=== PATIENT | male | born 1960 | race Caucasian/White ===

== ENCOUNTER → 2020-03-16 13:31 | Outpatient (BNVA) | payer MEDICARE, MEDICAID, SELFPAY | PROVIDERS: PCP Internal Medicine; Referring Provider Internal Medicine; Visit Provider Internal Medicine | DX: G47.33 Obstructive sleep apnea (adult) (pediatric) (principal); E66.01 Morbid (severe) obesity due to excess calories; Z68.41 Body mass index [BMI] 40.0-44.9, adult; F17.210 Nicotine dependence, cigarettes, uncomplicated; Z71.6 Tobacco abuse counseling; Z99.89 Dependence on other enabling machines and devices | CPT/HCPCS: 99213 ==

== ENCOUNTER 2020-03-22 10:02 | Outpatient (REF) | payer MEDICARE, MEDICAID, SELFPAY ==
[2020-03-22 11:10] LABS: Hematocrit 44.6 % (42-52); Hemoglobin 15.2 g/dl (14.0-18.0); Mean Corpuscular HGB Conc 34.1 g/dl (31.0-36.0); Mean Corpuscular Hemoglobin 30.5 pg (27.0-33.0); Mean Corpuscular Volume 89.6 fL (80-98); Platelet Count 248 X10*3/uL (160-400); Red Blood Count 4.98 X10*6/uL (4.60-5.80); Red Cell Distribution Width 12.9 % (11.0-16.0); White Blood Count 9.4 X10*3/uL (4.8-10.8)
[2020-03-22 11:16] LABS: Estimated Average Glucose 157 mg/dL; Hemoglobin A1c % 7.1 %
[2020-03-22 11:49] LABS: Alanine Aminotransferase 27 U/L (0-40); Alkaline Phosphatase 61 U/L (39-117); Anion Gap 10 (12-20); Aspartate Amino Transferase 23 U/L (5-37); Bilirubin Direct 0.4 mg/dL (0.0-0.5); Bilirubin Total 0.6 mg/dL (0.0-1.0); Blood Urea Nitrogen 11 mg/dL (9-16); Calcium 9.5 mg/dL (8.4-10.2); Carbon Dioxide 28 mmol/L (22-29); Chloride 102 mmol/L (96-108); Estimated Glomerular Filt Rate > 60; Glucose Random 135 mg/dL (60-115); Potassium 4.3 mmol/l (3.3-5.1); Sodium 136 mmol/L (135-145); Total Protein 6.5 g/dL (6.5-8.0)
[2020-03-22 11:51] LABS: Glucose Urine UA NEG (NEG); Leukocyte Esterase Urine NEG (NEG); Nitrite Urine NEG (NEG); PH 5.5 (5.0-8.0); Urine Blood NEG (NEG); Urine Ketones NEG (NEG); Urine Protein NEG (NEG-TRACE)
[2020-03-22 11:55] LABS: Appearance Urine CLEAR; Color Urine YELLOW
[2020-03-22 12:11] LABS: Thyroid Stimulating Hormone 0.45 mIU/mL (0.32-4.0)
== END 2020-03-22 10:03 | disposition home or self-care (01) ==
LOC: HO.LAB 10:02
PROVIDERS: PCP Internal Medicine; Visit Provider Internal Medicine
DX: E11.9 Type 2 diabetes mellitus without complications (principal); G47.00 Insomnia, unspecified; F41.9 Anxiety disorder, unspecified; F20.9 Schizophrenia, unspecified; E78.5 Hyperlipidemia, unspecified; I10 Essential (primary) hypertension
CPT/HCPCS: 36415; 80048; 80076; 81003; 83036; 84443; 85027

== ENCOUNTER 2020-06-21 10:37 | Outpatient (REF) | payer MEDICARE, MEDICAID, SELFPAY ==
[2020-06-21 12:10] LABS: Estimated Average Glucose 166 mg/dL; Hemoglobin A1c % 7.4 %
== END 2020-06-21 10:38 | disposition home or self-care (01) ==
LOC: HO.LAB 10:37
PROVIDERS: PCP Internal Medicine; Visit Provider Internal Medicine
DX: J06.9 Acute upper respiratory infection, unspecified (principal); Z20.822 Contact with and (suspected) exposure to COVID-19; E11.9 Type 2 diabetes mellitus without complications
CPT/HCPCS: 36415; 82550; 83036; U0003

== ENCOUNTER → 2020-07-22 13:38 | Outpatient (BNVA) | payer MEDICARE, MEDICAID, SELFPAY | PROVIDERS: PCP Internal Medicine; Visit Provider Internal Medicine | DX: E66.01 Morbid (severe) obesity due to excess calories (principal); G47.33 Obstructive sleep apnea (adult) (pediatric); F17.200 Nicotine dependence, unspecified, uncomplicated | CPT/HCPCS: 99212 ==

== ENCOUNTER 2020-07-26 18:24 | Emergency (ER) | payer MEDICARE, MEDICAID, SELFPAY ==
[2020-07-26 18:43] VITALS: BP 164/93; PULSE 93; RESP 16; TEMP 36.9; O2SAT 98; BMI 43.0
[2020-07-26 22:05] VITALS: BP 157/73; PULSE 87; RESP 16; TEMP 36.8; O2SAT 99
[2020-07-26 22:20] LABS: Glucose Urine UA NEG (NEG); Leukocyte Esterase Urine NEG (NEG); Nitrite Urine NEG (NEG); Urine Blood NEG (NEG); Urine Ketones NEG (NEG); Urine Protein NEG (NEG-TRACE)
[2020-07-26 22:22] LABS: Appearance Urine CLEAR; Color Urine STRAW
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
[2020-07-26] MEDS: Escitalopram Oxalate 10 MG TABLET PO (22:50)
[2020-07-26] MEDS: metFORMIN HCl 500 MG TABLET PO (22:51)
[2020-07-26] MEDS: traMADoL HCL 50 MG TABLET PO (22:51)
[2020-07-26] MEDS: LORazepam 0.5 MG TABLET PO (22:51)
[2020-07-26 22:56] LABS: Amphetamine Screen Urine Not Detected (Not Detect); Barbiturates, Urine Not Detected (Not Detect); Cannabinoid Screen Urine Not Detected (Not Detect); Cocaine Screen Urine Not Detected (Not Detect); Opiate Screen Urine Not Detected (Not Detect); Phencyclidine Screen Urine Not Detected (Not Detect)
[2020-07-26 22:58] LABS: Benzodiazepines Screen Urine Not Detected (Not Detect)
== END 2020-07-26 22:56 | disposition home or self-care (01) ==
PROVIDERS: Emergency Provider Emergency Medicine; PCP Internal Medicine
DX: Z02.89 Encounter for other administrative examinations (principal); E11.9 Type 2 diabetes mellitus without complications; I10 Essential (primary) hypertension; F41.9 Anxiety disorder, unspecified; E78.5 Hyperlipidemia, unspecified; G47.00 Insomnia, unspecified; F17.210 Nicotine dependence, cigarettes, uncomplicated; Z79.84 Long term (current) use of oral hypoglycemic drugs; Z79.899 Other long term (current) drug therapy
CPT/HCPCS: 80307; 81003; 99283

== ENCOUNTER 2020-09-20 13:18 | Outpatient (REF) | payer MEDICARE, MEDICAID, SELFPAY ==
[2020-09-20 14:24] LABS: Hematocrit 43.4 % (42-52); Hemoglobin 14.9 g/dl (14.0-18.0); Mean Corpuscular HGB Conc 34.3 g/dl (31.0-36.0); Mean Corpuscular Hemoglobin 30.4 pg (27.0-33.0); Mean Corpuscular Volume 88.6 fL (80-98); Platelet Count 235 X10*3/uL (160-400); Red Cell Distribution Width 12.6 % (11.0-16.0); White Blood Count 9.5 X10*3/uL (4.8-10.8)
[2020-09-20 14:30] LABS: Estimated Average Glucose 174 mg/dL; Hemoglobin A1c % 7.7 %
[2020-09-20 14:37] LABS: Alanine Aminotransferase 49 U/L (0-40); Albumin Level 4.2 g/dL (3.5-5.0); Alkaline Phosphatase 66 U/L (39-117); Anion Gap 15 (12-20); Aspartate Amino Transferase 33 U/L (5-37); Bilirubin Direct 0.3 mg/dL (0.0-0.5); Bilirubin Total 0.8 mg/dL (0.0-1.0); Blood Urea Nitrogen 13 mg/dL (9-16); Calcium 10.2 mg/dL (8.4-10.2); Carbon Dioxide 26 mmol/L (22-29); Chloride 99 mmol/L (96-108); Cholesterol 172 mg/dL; Estimated Glomerular Filt Rate > 60; Glucose Random 218 mg/dL (60-115); HDL Cholesterol 44 mg/dL; LDL Cholesterol Calculated 74 mg/dl; Potassium 4.7 mmol/L (3.3-5.1); Sodium 135 mmol/L (135-145); Total Protein 6.6 g/dL (6.5-8.0); Triglycerides 270 mg/dL
[2020-09-20 14:50] LABS: Thyroid Stimulating Hormone 0.47 uIU/mL (0.32-4.0)
[2020-09-20 15:24] LABS: Folate 8.9 ng/mL (> or = 4.0); Vitamin B12 346 pg/mL (200-900)
[2020-09-24 16:12] LABS: Vitamin D 25-OH, D2 <4 ng/mL; Vitamin D 25-OH, D3 17 ng/mL; Vitamin D 25-OH, Total 17 ng/mL (30-100)
== END 2020-09-20 13:19 | disposition home or self-care (01) ==
LOC: HO.LAB 13:18
PROVIDERS: PCP Internal Medicine; Visit Provider Internal Medicine
DX: E11.9 Type 2 diabetes mellitus without complications (principal)
CPT/HCPCS: 36415; 80048; 80061; 80076; 82306; 82607; 82746; 83036; 84443; 85027

== ENCOUNTER → 2021-01-06 11:40 | Outpatient (BNVA) | payer MEDICARE, MEDICAID, SELFPAY | PROVIDERS: PCP Internal Medicine; Visit Provider Internal Medicine | DX: E66.01 Morbid (severe) obesity due to excess calories (principal); G47.33 Obstructive sleep apnea (adult) (pediatric); F17.200 Nicotine dependence, unspecified, uncomplicated | CPT/HCPCS: 99212 ==

== ENCOUNTER 2021-03-02 16:42 | Emergency (ER) | payer MEDICARE, MEDICAID, SELFPAY ==
[2021-03-02 17:49] VITALS: BP 149/78; PULSE 86; RESP 16; TEMP 36.6; O2SAT 100; BMI 44.3
--- NOTE | 2021-03-02 18:35 | ED_ITS ---
HPI - Back Pain/Injury General Chief Complaint: Back Pain/Injury Stated Complaint: back pain Time Seen by Provider: 03/02/21 18:24 Source: patient Mode of arrival: ambulatory Limitations: no limitations History of Present Illness HPI Narrative: With a past medical history of chronic back pain currently on Tylenol and tramadol for his chronic back pain presenting to the ED with complaints of acute on chronic back pain that he woke up with this morning. He reports it is in the midback in a similar to his prior episodes. Denies any fevers, chills, dizziness, headaches, neck pain/stiffness, chest pain or shortne ss of breath, palpitations, paresthesias, abdominal pain, radiation of the back pain, incontinence of urine or stool or retention, hematuria, dysuria, rashes, IV drug use or any other symptoms complaints or concerns at this time. MD elicited complaint: back pain Pertinent past history: prior back pain Onset (ago): day(s) (Today) Timing: constant and progressively worsening Severity: moderate Similar Symptoms Previously: Yes Quality: sharp, dull, stabbing and throbbing Location: lumbar spine Radiation: none Exacerbating factors: movement Relieving factors: none Associated symptoms: denies other symptoms Treatments prior to arrival: other (Tylenol and tramadol and mild to no symptomatic relief) Work related injury: No Related Data Home Medications Medication Instructions Recorded Confirmed aripiprazole 5 mg tablet mg PO 03/16/20 01/15/21 escitalopram oxalate 10 mg tablet mg PO 03/16/20 01/15/21 quetiapine 50 mg tablet mg PO 03/16/20 01/15/21 zolpidem 5 mg tablet mg PO 03/16/20 01/15/21 amoxicillin 250 mg chewable tablet PO 09/20/20 01/15/21 ibuprofen 800 mg tablet mg PO 09/20/20 01/15/21 lorazepam 0.5 mg tablet mg PO 09/20/20 01/15/21 quetiapine 25 mg tablet mg PO 09/20/20 01/15/21 Previous Rx's Medication Instructions Recorded blood sugar diagnostic (FreeStyle 1 strip MISCELLANEOUS DAILY #50 ea 09/24/20 Lite Strips) hydrochlorothiazide 25 mg tablet 25 mg PO QAM #90 cap 11/25/20 metformin 500 mg tablet 1,000 mg PO BID #360 cap 11/25/20 pioglitazone 15 mg tablet 15 mg PO DAILY #90 cap 11/25/20 lisinopril 10 mg tablet 10 mg PO DAILY #90 tab 11/26/20 simvastatin 40 mg tablet 40 mg PO BEDTIME #90 tab 11/26/20 lancets 28 gauge (FreeStyle #100 ea 12/09/20 Lancets) cetirizine 10 mg tablet 10 mg PO DAILY #30 tab 12/26/20 ergocalciferol (vitamin D2) 1,250 1,250 mcg PO QWEEK #14 cap 01/08/21 mcg (50,000 unit) capsule tramadol 50 mg tablet 50 mg PO BEDTIME #30 tab 02/10/21 cyclobenzaprine 10 mg tablet 10 mg PO Q8H #14 tab 03/02/21 lidocaine HCl 4 % topical cream 1 appl TOPICAL BID PRN #120 g 03/02/21 (Aspercreme (lidocaine HCl)) oxycodone 5 mg tablet 5 mg PO Q6H PRN #14 tab 03/02/21 Allergies Allergy/AdvReac Type Severity Reaction Status Date / Time No Known Allergies Allergy Verified 01/15/21 17:38 Review of Systems Review of Systems: Constitutional : No trauma, No Weight loss, No Fever, No Chills, ENT/Mouth : No Hearing loss, No Ear Pain, No Nasal Congestion, No Sinus Pain, No Hoarseness, No sore throat, No Rhinorrhea, No Swallowing Difficulty Cardiovascular : No Chest Pain, No SOB Respiratory : No Cough, No Dyspnea Gastrointestinal : No Nausea, No Vomiting, No Diarrhea, No abdominal Pain, No Hematochezia, No Melena Genitourinary : No Dysuria, No Urinary Frequency, No Hematuria, No Urinary or Bowel Incontinence/retention Musculoskeletal : + Back pain, No neck pain, No joint stiffness, No joint swelling Skin : No Skin Lesions, No rash or signs of infection Neuro : No Weakness, No radiation, No Numbness, No Paresthesias, No headache, no loss of bowel or bladder incontinence, no saddle anesthesia, Focal weakness, No radiation Denies history of IV drug usage. Yes all other systems are reviewed and are negative [facility] Past Medical History Attestation statement: The following information was validated with the patient. Medical History Acute insomnia Anxiety Essential (primary) hypertension Hyperlipidemia, unspecified Morbid (severe) obesity due to excess calories [place] (obstructive sleep apnea) Postconcussional syndrome Schizophrenia, unspecified Smoker Type 2 diabetes mellitus without complications Surgical History No pertinent past surgical history Family History Family History Father No problems noted. Mother No problems noted. Family/Other FH: mental illness Mental health disorder Brother Substance use disorder Social History Social History Housing: House Alcohol intake: current Alcohol intake frequency: holidays/special occasions only Patient Tobacco Use Status: Current everyday Tobacco user Tobacco use type: Cigarette Cigarette Packs Per Day: 0.50 Cigarettes Per Day: 10 Years Smoked: 40 Advance Directives: No Advance Directives Information Provided: No service: No Current occupational status: retired and disabled Physical Exam Vital Signs: Vital Signs: Last Vital Signs Temp 98 F 03/02/21 17:49 Pulse 86 03/02/21 17:49 Resp 16 03/02/21 17:49 BP 149/78 H 03/02/21 17:49 Pulse Ox 100 03/02/21 17:49 Body Mass Index 44.3 vital signs have been reviewed as normal and appeared to be correct. Blood pressure normal. Heart rate normal. Respiration rate normal. Temperature normal. Oxygen saturation normal. Appearance: Alert. Oriented X3. No acute distress. Head: Normal external exam. Normocephalic. Atraumatic. No Gupta signs noted. No raccoon eyes noted Eyes: PERRLA. EOMI. Conjunctiva and sclera normal. Eyelids normal. ENT: EAC normal. TM's Normal. Pharynx normal. Uvula midline. Moist mucous membranes. No trismus noted. No drooling noted. No muffled voice noted. Neck: Normal inspection. Neck supple. FROM. No adenopathy. Thyroid Normal. No meningeal signs. No neck mass noted. CVS: Normal heart rate and rhythm. Heart sound normal. No murmurs noted. Pulses normal throughout. Respiratory: No respiratory distress. Painless inspiration. Breath sounds normal. No wheezes/rales/rhonchi noted. Chest nontender. No accessory muscle usage noted or decreased air movement noted. Abdomen: Soft and nontender. Bowel sounds normal in all 4 quadrants. No distention noted. No organomegaly noted. No visible injury noted. Back: No CVA tenderness. Full range of motion noted. No obvious deformities, or edema. Mild para-spinal muscular tenderness from lumbar region to coccyx. Full ROM in back and lower extremities. 5/5 strength hip extension/flexion, abduction, adduction. Mild Lumbar pain with hip flexion against resistance. Straight leg raise test negative on right; Straight leg raise test negative on left; Reflexes normal ankle and knee bilaterally; EHL motor strength normal bilaterally. No rashes/lesion/induration/fluctuance or signs infection noted. Skin: Skin warm and dry. Normal skin color. Normal skin turgor. No rashes/lesions/lacerations noted. Extremities: No lower extremity edema. Extremities exhibit normal range of motion. Extremities nontender. Neuro: Oriented X 3. No motor deficit. No sensory deficit. Reflexes normal. Patient has a normal steady gait. Course Course Course Narrative: Pt c likely muscular pain, but could be herniated disc. Neuro exam shows no deficits. Not c/w AAA/epidural abscess/dissection.No high risk Hx (Incont, fever, immunosupp, recent surgery/LP, coag, signif trauma, wt loss, puls mass, hx/o Ca, TB, or IVDU) to warrant MRI/CT today. Not c/w Pyelo/UTI/kidney stone/spinal fx. Not cauda equina syndrome. Imaging not currently indicated. DC c meds and f/u. Discharge Plan Discharge Clinical Impression: Strain of lumbar region Patient Disposition: Home, Self-Care Instructions: Low Back Strain (ED) Prescriptions: New lidocaine HCl [Aspercreme (lidocaine HCl)] 4 % cream 1 appl topical BID PRN (Reason: pain) Qty: 120 RF: 0 cyclobenzaprine 10 mg tablet 10 mg PO Q8H Qty: 14 RF: 0 oxycodone 5 mg tablet 5 mg PO Q6H PRN (Reason: pain) Qty: 14 RF: 0 No Action FreeStyle Lite Strips Strip 1 strip miscellaneous DAILY Qty: 50 RF: 6 hydrochlorothiazide 25 mg tablet 25 mg PO QAM Qty: 90 RF: 1 metformin 500 mg tablet 1,000 mg PO BID Qty: 360 RF: 1 pioglitazone 15 mg tablet 15 mg PO DAILY Qty: 90 RF: 1 simvastatin 40 mg tablet 40 mg PO BEDTIME Qty: 90 RF: 1 lisinopril 10 mg tablet 10 mg PO DAILY Qty: 90 RF: 1 (DME) lancets [FreeStyle Lancets] 28 gauge misc See Rx Instructions .ROUTE .MEDSUPPLY Qty: 100 RF: 0 cetirizine 10 mg tablet 10 mg PO DAILY Qty: 30 RF: 6 ergocalciferol (vitamin D2) 1,250 mcg (50,000 unit) capsule 1,250 mcg PO QWEEK Qty: 14 RF: 1 tramadol 50 mg tablet 50 mg PO BEDTIME Qty: 30 RF: 0 amoxicillin 250 mg tablet,chewable PO RF: 0 ibuprofen 800 mg tablet PO RF: 0 lorazepam 0.5 mg tablet PO RF: 0 quetiapine 25 mg tablet PO RF: 0 aripiprazole 5 mg tablet PO RF: 0 escitalopram oxalate 10 mg tablet PO RF: 0 zolpidem 5 mg tablet PO RF: 0 quetiapine 50 mg tablet PO RF: 0 Referrals: Rajeev Sawant MD [Primary Care Provider] - 2 days Print Language: Mongolian
== END 2021-03-02 19:06 | disposition home or self-care (01) ==
PROVIDERS: Emergency Provider Internal Medicine; PCP Internal Medicine
DX: M54.5 Low back pain (principal); F17.210 Nicotine dependence, cigarettes, uncomplicated; Z71.6 Tobacco abuse counseling; Z79.899 Other long term (current) drug therapy
CPT/HCPCS: 99283; 99284

== ENCOUNTER → 2021-07-12 11:00 | Outpatient (BNVA) | payer MEDICARE, MEDICAID, SELFPAY | PROVIDERS: PCP Internal Medicine; Visit Provider Internal Medicine | DX: G47.33 Obstructive sleep apnea (adult) (pediatric) (principal); E66.01 Morbid (severe) obesity due to excess calories; F17.210 Nicotine dependence, cigarettes, uncomplicated; Z68.41 Body mass index [BMI] 40.0-44.9, adult | CPT/HCPCS: Q3014 ==

== ENCOUNTER 2021-09-26 11:06 | Emergency (ER) | payer MEDICARE, MEDICAID, SELFPAY ==
--- NOTE | 2021-09-26 | ECG_ITS ---
Test Reason : DIZZINESS Blood Pressure : / mmHG Vent. Rate : 087 BPM Atrial Rate : 087 BPM P-R Int : 148 ms QRS Dur : 176 ms QT Int : 430 ms P-R-T Axes : 059 -76 056 degrees QTc Int : 517 ms Normal sinus rhythm Right bundle branch block Left anterior fascicular block Bifascicular block Abnormal ECG When compared with ECG of 02-SEP-2018 19:16, No significant changes seen Referred By: Generic ED Physician Electronically Signed By:MONIKA VEE
[2021-09-26 11:26] VITALS: BP 157/86; PULSE 90; RESP 18; TEMP 37.1; O2SAT 97; BMI 43.5
[2021-09-26 12:22] VITALS: BP 150/77; PULSE 85; RESP 18; TEMP 37.2; O2SAT 98
--- NOTE | 2021-09-26 12:25 | ED.GENADULT ---
HPI - General Adult General Chief complaint: Dizziness Stated complaint: disorented not feeling well sob Time Seen by Provider: 09/26/21 11:35 Source: patient Mode of arrival: ambulatory Limitations: no limitations History of Present Illness HPI narrative: Patient comes to the emergency room complaining of not feeling well for 1 month. Patient states that he feels fatigued, weak, states that he has been feeling lightheaded for about a month. Patient states that his sister will be visiting him tomorrow, patient decided to come to get checked before she arrives. Patient denies chest pain, no shortness of breath, no vomiting or diarrhea, no fever or chills. Related Data Home Medications Medication Instructions Recorded Confirmed aripiprazole 5 mg tablet mg PO 03/16/20 04/17/21 escitalopram oxalate 10 mg tablet mg PO 03/16/20 04/17/21 zolpidem 5 mg tablet mg PO 03/16/20 04/17/21 lorazepam 0.5 mg tablet mg PO 09/20/20 04/17/21 quetiapine 25 mg tablet mg PO 09/20/20 04/17/21 Previous Rx's Medication Instructions Recorded blood sugar diagnostic (FreeStyle 1 strip MISCELLANEOUS DAILY #50 ea 09/24/20 Lite Strips) lidocaine HCl 4 % topical cream 1 appl TOPICAL BID PRN #120 g 03/02/21 (Aspercreme (lidocaine HCl)) lancets 28 gauge (FreeStyle #100 ea 05/18/21 Lancets) hydrochlorothiazide 25 mg tablet 25 mg PO QAM #90 cap 05/21/21 lisinopril 10 mg tablet 10 mg PO DAILY #90 tab 05/21/21 metformin 500 mg tablet 1,000 mg PO BID #360 cap 05/21/21 pioglitazone 15 mg tablet 15 mg PO DAILY #90 cap 05/21/21 simvastatin 40 mg tablet 40 mg PO BEDTIME #90 tab 05/21/21 ergocalciferol (vitamin D2) 1,250 1,250 mcg PO QWEEK #14 cap 06/26/21 mcg (50,000 unit) capsule cetirizine 10 mg tablet 10 mg PO DAILY #30 tab 07/20/21 tramadol 50 mg tablet 50 mg PO BEDTIME #30 tab 09/15/21 Allergies Allergy/AdvReac Type Severity Reaction Status Date / Time No Known Allergies Allergy Verified 09/26/21 11:26 Review of Systems Review of Systems: Constitutional : No Weight loss, No Fever, No Chills, No Night Sweats, complaining of fatigue, generalized malaise ENT/Mouth : No Hearing loss, No Ear Pain, No Nasal Congestion, No Sinus Pain, No Hoarseness, No sore throat, No Rhinorrhea, No Swallowing Difficulty Eyes: No Eye Pain, No Swelling, No Redness, No Foreign Body, No Discharge, No Vision Changes Cardiovascular : No Chest Pain, No SOB, No Dyspnea on Exertion, No Orthopnea, No Edema, No Palpitations Respiratory : No Cough, No Sputum, No Wheezing, No Smoke Exposure, No Dyspnea Gastrointestinal : No Nausea, No Vomiting, No Diarrhea, No Constipation, No abdominal Pain, No Hematochezia, No Melena Genitourinary : no irregular bleeding, No Dysuria, No Urinary Frequency, No Hematuria, No Urinary Incontinence, No Urgency, No Flank Pain, No Urinary Flow Changes, No Hesitancy Musculoskeletal : No joint pain, No Myalgias, No Joint Swelling Skin : No Skin Lesions, No rash Neuro : No Weakness, No Numbness, No Paresthesias, No Loss of Consciousness, complaining of occasional lightheadedness, No Headache Psych : No Anxiety/Panic, No Depression, No SI/HI/AH/VH, No Social Issues, Heme/Lymph: No Bruising, No Bleeding,No Lymphadenopathy Endocrine : No Polyuria, No Polydipsia, No Temperature Intolerance PMFSH Past Medical History Medical History Acute insomnia Anxiety Essential (primary) hypertension Hyperlipidemia, unspecified Morbid (severe) obesity due to excess calories [place] (obstructive sleep apnea) Postconcussional syndrome Schizophrenia, unspecified Smoker Type 2 diabetes mellitus without complications Surgical History No pertinent past surgical history Family History Family History Father No problems noted. Mother No problems noted. Family/Other FH: mental illness Mental health disorder Brother Substance use disorder Social History Social History Housing: House Alcohol intake: current Alcohol intake frequency: holidays/special occasions only Patient Tobacco Use Status: Current someday Tobacco user Tobacco use type: Cigarette Cigarette Packs Per Day: 0.50 Cigarettes Per Day: 10 Years Smoked: 40 e-Cigarette/Vaping Use: Never Used Second Hand Smoke Exposure: Yes Advance Directives: No Advance Directives Information Provided: Yes service: No Current occupational status: retired and disabled Cognitive needs: No Hearing needs: No Vision needs: Yes (Glasses) Physical Exam ED Vital Signs: Vital Signs - 24 hr 09/26/21 11:26 09/26/21 12:22 09/26/21 13:05 Temperature 98.7 F 98.9 F Pulse Rate 90 85 83 Respiratory Rate 18 18 Blood Pressure 157/86 H 150/77 H 135/75 Pulse Oximetry 97 98 09/26/21 13:07 09/26/21 13:09 Temperature Pulse Rate 84 84 Respiratory Rate Blood Pressure 134/74 136/73 Pulse Oximetry BMI result Body Mass Index 43.5 Const Other: Appearance: Alert. Oriented X3. No acute distress. Eyes: Pupils equal, round and reactive to light. ENT: Pharynx normal. Neck: Normal inspection. Neck supple. No lymph nodes noted. No crepitus CVS: Normal heart rate and rhythm. Pulses normal. Normal S1 and S2 Respiratory: No respiratory distress. Breath sounds normal. No Wheezing. No rales Abdomen: Soft and nontender. No rigidity. No distention. Skin: Skin warm and dry. Normal skin color. Normal skin turgor. Extremities: No lower extremity edema. No Lacerations. No Rash Neuro: Oriented X 3. No motor deficit. No sensory deficit. Moving all extremities. No slurred speech. CN 2 through 12 grossly intact Psych: calm, cooperative, normal affect Course Course Course Narrative: Patient's labs are pending. I discussed the labs with the patient, no acute findings, patient likely having viral syndrome. Orthostatics negative. EKG within normal limits, at this time patient is asymptomatic. Medical Decision Making Lab Data Result diagrams: 09/26/21 12:57 09/26/21 12:57 Labs: Lab Results 09/26/21 09/26/21 09/26/21 Range/Units 12:57 12:57 12:57 WBC 7.4 (4.8-10.8) X10*3/uL RBC 5.13 (4.60-5.80) X10*6/uL Hgb 15.5 (14.0-18.0) g/dl Hct 45.3 (42.0-52.0) % MCV 88.3 (80.0-98.0) fL MCH 30.2 (27.0-33.0) pg MCHC 34.2 (31.0-36.0) g/dl RDW 12.7 (11.0-16.0) % Plt Count 208 (160-400) X10*3/uL MPV 8.9 L (9.4-12.4) fL Immature Gran % (Auto) 0.3 (0.0-0.4) % Neut % (Auto) 54.7 (45-73) % Lymph % (Auto) 33.2 (20-40) % Sharkey % (Auto) 10.1 (2-11) % Eos % (Auto) 1.0 (0-4) % Baso % (Auto) 0.7 (0-2) % Lymph # (Auto) 2.4 (1.2-4.9) X10*3/uL Sharkey # (Auto) 0.7 (0.1-1.2) X10*3/uL Eos # (Auto) 0.1 (0.0-0.4) X10*3/uL Baso # (Auto) 0.1 (0.0-0.2) X10*3/uL Abs Immat Gran (auto) 0.02 (0.00-0.03) X10*3/uL Absolute Neuts (auto) 4.0 (2.0-8.3) x10*3/uL Absolute Nucleated RBC 0.000 (0.0-0.012) X10*3/uL Nucleated RBC % (auto) 0.0 (0.0-0.2) /100WBC Sodium 135 (135-145) mmol/L Potassium 4.5 (3.3-5.1) mmol/L Chloride 100 (96-108) mmol/L Carbon Dioxide 26 (22-29) mmol/L Anion Gap 14 (12-20) BUN 12 (9-16) mg/dL Creatinine 0.87 (0.5-1.4) mg/dL Estim Creat Clear Calc 117.9 Estimated GFR > 60 Random Glucose 277 H (60-115) mg/dL Calcium 10.5 H (8.4-10.2) mg/dL Magnesium 1.7 (1.6-2.6) mg/dL Total Bilirubin 1.1 H (0.0-1.0) mg/dL Direct Bilirubin 0.4 (0.0-0.5) mg/dL AST 24 (5-37) U/L ALT 31 (0-40) U/L Alkaline Phosphatase 76 (39-117) U/L Troponin I High Sens < 3.5 (<3.5-35.0) ng/L Total Protein 6.9 (6.5-8.0) g/dL Albumin 4.2 (3.5-5.0) g/dL Urine Color Urine Appearance Urine pH (5.0-8.0) Ur Specific [place] (1.005-1.025) Urine Protein (NEG-TRACE) MG/DL Urine Glucose (UA) (NEG) MG/DL Urine Ketones (NEG) MG/DL Urine Blood (NEG) Urine Nitrite (NEG) Ur Leukocyte Esterase (NEG) Urine Opiates Screen (Not Detect) Urine Fentanyl Screen (Not Detect) Ur Barbiturates Screen (Not Detect) Ur Phencyclidine Scrn (Not Detect) Ur Amphetamines Screen (Not Detect) U Benzodiazepines Scrn (Not Detect) Urine Cocaine Screen (Not Detect) U Marijuana (THC) Screen (Not Detect) COVID-19 (FERNANDO) (Negative) COVID-19 Clin Com Influenza Type A (LELIA) (Negative) Influenza Type B (LELIA) (Negative) Influenza A & B Note 09/26/21 09/26/21 09/26/21 Range/Units 12:57 12:57 13:38 WBC (4.8-10.8) X10*3/uL RBC (4.60-5.80) X10*6/uL Hgb (14.0-18.0) g/dl Hct (42.0-52.0) % MCV (80.0-98.0) fL MCH (27.0-33.0) pg MCHC (31.0-36.0) g/dl RDW (11.0-16.0) % Plt Count (160-400) X10*3/uL MPV (9.4-12.4) fL Immature Gran % (Auto) (0.0-0.4) % Neut % (Auto) (45-73) % Lymph % (Auto) (20-40) % Sharkey % (Auto) (2-11) % Eos % (Auto) (0-4) % Baso % (Auto) (0-2) % Lymph # (Auto) (1.2-4.9) X10*3/uL Sharkey # (Auto) (0.1-1.2) X10*3/uL Eos # (Auto) (0.0-0.4) X10*3/uL Baso # (Auto) (0.0-0.2) X10*3/uL Abs Immat Gran (auto) (0.00-0.03) X10*3/uL Absolute Neuts (auto) (2.0-8.3) x10*3/uL Absolute Nucleated RBC (0.0-0.012) X10*3/uL Nucleated RBC % (auto) (0.0-0.2) /100WBC Sodium (135-145) mmol/L Potassium (3.3-5.1) mmol/L Chloride (96-108) mmol/L Carbon Dioxide (22-29) mmol/L Anion Gap (12-20) BUN (9-16) mg/dL Creatinine (0.5-1.4) mg/dL Estim Creat Clear Calc Estimated GFR Random Glucose (60-115) mg/dL Calcium (8.4-10.2) mg/dL Magnesium (1.6-2.6) mg/dL Total Bilirubin (0.0-1.0) mg/dL Direct Bilirubin (0.0-0.5) mg/dL AST (5-37) U/L ALT (0-40) U/L Alkaline Phosphatase (39-117) U/L Troponin I High Sens (<3.5-35.0) ng/L Total Protein (6.5-8.0) g/dL Albumin (3.5-5.0) g/dL Urine Color Urine Appearance Urine pH (5.0-8.0) Ur Specific [place] (1.005-1.025) Urine Protein (NEG-TRACE) MG/DL Urine Glucose (UA) (NEG) MG/DL Urine Ketones (NEG) MG/DL Urine Blood (NEG) Urine Nitrite (NEG) Ur Leukocyte Esterase (NEG) Urine Opiates Screen Not Detected (Not Detect) Urine Fentanyl Screen Not Detected (Not Detect) Ur Barbiturates Screen Not Detected (Not Detect) Ur Phencyclidine Scrn Not Detected (Not Detect) Ur Amphetamines Screen Not Detected (Not Detect) U Benzodiazepines Scrn Not Detected (Not Detect) Urine Cocaine Screen Not Detected (Not Detect) U Marijuana (THC) Screen Not Detected (Not Detect) COVID-19 (FERNANDO) Negative (Negative) COVID-19 Clin Com See Note Influenza Type A (LELIA) Negative (Negative) Influenza Type B (LELIA) Negative (Negative) Influenza A & B Note See Note 09/26/21 Range/Units 13:38 WBC (4.8-10.8) X10*3/uL RBC (4.60-5.80) X10*6/uL Hgb (14.0-18.0) g/dl Hct (42.0-52.0) % MCV (80.0-98.0) fL MCH (27.0-33.0) pg MCHC (31.0-36.0) g/dl RDW (11.0-16.0) % Plt Count (160-400) X10*3/uL MPV (9.4-12.4) fL Immature Gran % (Auto) (0.0-0.4) % Neut % (Auto) (45-73) % Lymph % (Auto) (20-40) % Sharkey % (Auto) (2-11) % Eos % (Auto) (0-4) % Baso % (Auto) (0-2) % Lymph # (Auto) (1.2-4.9) X10*3/uL Sharkey # (Auto) (0.1-1.2) X10*3/uL Eos # (Auto) (0.0-0.4) X10*3/uL Baso # (Auto) (0.0-0.2) X10*3/uL Abs Immat Gran (auto) (0.00-0.03) X10*3/uL Absolute Neuts (auto) (2.0-8.3) x10*3/uL Absolute Nucleated RBC (0.0-0.012) X10*3/uL Nucleated RBC % (auto) (0.0-0.2) /100WBC Sodium (135-145) mmol/L Potassium (3.3-5.1) mmol/L Chloride (96-108) mmol/L Carbon Dioxide (22-29) mmol/L Anion Gap (12-20) BUN (9-16) mg/dL Creatinine (0.5-1.4) mg/dL Estim Creat Clear Calc Estimated GFR Random Glucose (60-115) mg/dL Calcium (8.4-10.2) mg/dL Magnesium (1.6-2.6) mg/dL Total Bilirubin (0.0-1.0) mg/dL Direct Bilirubin (0.0-0.5) mg/dL AST (5-37) U/L ALT (0-40) U/L Alkaline Phosphatase (39-117) U/L Troponin I High Sens (<3.5-35.0) ng/L Total Protein (6.5-8.0) g/dL Albumin (3.5-5.0) g/dL Urine Color YELLOW Urine Appearance CLEAR Urine pH 6.0 (5.0-8.0) Ur Specific [place] <= 1.005 (1.005-1.025) Urine Protein NEG (NEG-TRACE) MG/DL Urine Glucose (UA) 500 H (NEG) MG/DL Urine Ketones NEG (NEG) MG/DL Urine Blood NEG (NEG) Urine Nitrite NEG (NEG) Ur Leukocyte Esterase NEG (NEG) Urine Opiates Screen (Not Detect) Urine Fentanyl Screen (Not Detect) Ur Barbiturates Screen (Not Detect) Ur Phencyclidine Scrn (Not Detect) Ur Amphetamines Screen (Not Detect) U Benzodiazepines Scrn (Not Detect) Urine Cocaine Screen (Not Detect) U Marijuana (THC) Screen (Not Detect) COVID-19 (FERNANDO) (Negative) COVID-19 Clin Com Influenza Type A (LELIA) (Negative) Influenza Type B (LELIA) (Negative) Influenza A & B Note Discharge Plan Discharge Clinical Impression: Acute viral syndrome Patient Disposition: Home, Self-Care Instructions: Viral Syndrome (ED) Additional Instructions: Please follow-up with your primary care physician tomorrow. If you have any worsening or new symptoms, please return to the emergency room or call 911 Prescriptions: No Action FreeStyle Lite Strips Strip 1 strip miscellaneous DAILY Qty: 50 6RF (DME) lancets [FreeStyle Lancets] 28 gauge misc See Rx Instructions .ROUTE .MEDSUPPLY Qty: 100 0RF Rx Instructions: Test 2 times daily metformin 500 mg tablet 1,000 mg PO BID Qty: 360 1RF hydrochlorothiazide 25 mg tablet 25 mg PO QAM Qty: 90 1RF pioglitazone 15 mg tablet 15 mg PO DAILY Qty: 90 1RF simvastatin 40 mg tablet 40 mg PO BEDTIME Qty: 90 1RF lisinopril 10 mg tablet 10 mg PO DAILY Qty: 90 1RF ergocalciferol (vitamin D2) 1,250 mcg (50,000 unit) capsule 1,250 mcg PO QWEEK Qty: 14 1RF cetirizine 10 mg tablet 10 mg PO DAILY Qty: 30 6RF tramadol 50 mg tablet 50 mg PO BEDTIME Qty: 30 0RF lidocaine HCl [Aspercreme (lidocaine HCl)] 4 % cream 1 appl topical BID PRN (Reason: pain) Qty: 120 0RF lorazepam 0.5 mg tablet PO 0RF quetiapine 25 mg tablet PO 0RF aripiprazole 5 mg tablet PO 0RF escitalopram oxalate 10 mg tablet PO 0RF zolpidem 5 mg tablet PO 0RF
[2021-09-26 13:05] VITALS: BP 135/75; PULSE 83
[2021-09-26 13:05] LABS: MANUAL DIFF FLAG NO
[2021-09-26 13:07] VITALS: BP 134/74; PULSE 84
[2021-09-26 13:09] VITALS: BP 136/73; PULSE 84
[2021-09-26 13:11] LABS: Basophils Absolute Auto 0.1 X10*3/uL (0.0-0.2); Basophils Percent Auto 0.7 % (0-2); Eosinophils Absolute Auto 0.1 X10*3/uL (0.0-0.4); Hematocrit 45.3 % (42.0-52.0); Hemoglobin 15.5 g/dl (14.0-18.0); Imm Gran Abs Auto 0.02 X10*3/uL (0.00-0.03); Imm Gran Pct Auto 0.3 % (0.0-0.4); Lymphocytes Absolute Auto 2.4 X10*3/uL (1.2-4.9); Lymphocytes Percent Auto 33.2 % (20-40); Mean Corpuscular HGB Conc 34.2 g/dl (31.0-36.0); Mean Corpuscular Hemoglobin 30.2 pg (27.0-33.0); Mean Corpuscular Volume 88.3 fL (80.0-98.0); Mean Platelet Volume 8.9 fL (9.4-12.4); Monocytes Absolute Auto 0.7 X10*3/uL (0.1-1.2); Monocytes Percent Auto 10.1 % (2-11); Neutrophils Percent Auto 54.7 % (45-73); Platelet Count 208 X10*3/uL (160-400); Red Blood Count 5.13 X10*6/uL (4.60-5.80); Red Cell Distribution Width 12.7 % (11.0-16.0); White Blood Count 7.4 X10*3/uL (4.8-10.8)
[2021-09-26 13:31] LABS: Alanine Aminotransferase 31 U/L (0-40); Albumin Level 4.2 g/dL (3.5-5.0); Alkaline Phosphatase 76 U/L (39-117); Anion Gap 14 (12-20); Aspartate Amino Transferase 24 U/L (5-37); Bilirubin Direct 0.4 mg/dL (0.0-0.5); Bilirubin Total 1.1 mg/dL (0.0-1.0); Blood Urea Nitrogen 12 mg/dL (9-16); Calcium 10.5 mg/dL (8.4-10.2); Carbon Dioxide 26 mmol/L (22-29); Chloride 100 mmol/L (96-108); Creatinine Clr Calc Pharmacy 117.9; Estimated Glomerular Filt Rate > 60; Glucose Random 277 mg/dL (60-115); Magnesium 1.7 mg/dL (1.6-2.6); Potassium 4.5 mmol/L (3.3-5.1); Sodium 135 mmol/L (135-145); Total Protein 6.9 g/dL (6.5-8.0)
[2021-09-26 13:37] LABS: Troponin-I High Sensitivity < 3.5 ng/L (<3.5-35.0)
[2021-09-26 13:39] LABS: Influenza A Negative (Negative); Influenza B2 Negative (Negative)
[2021-09-26 13:41] LABS: COVID-19 Test Negative (Negative)
[2021-09-26 14:00] LABS: Amphetamine Screen Urine Not Detected (Not Detect); Barbiturates, Urine Not Detected (Not Detect); Benzodiazepines Screen Urine Not Detected (Not Detect); Cannabinoid Screen Urine Not Detected (Not Detect); Cocaine Screen Urine Not Detected (Not Detect); Fentanyl, urine Not Detected (Not Detect); Opiate Screen Urine Not Detected (Not Detect); Phencyclidine Screen Urine Not Detected (Not Detect)
[2021-09-26 14:04] LABS: Appearance Urine CLEAR; Color Urine YELLOW; Glucose Urine UA 500 MG/DL (NEG); Leukocyte Esterase Urine NEG (NEG); Nitrite Urine NEG (NEG); Specific Gravity - Urine <= 1.005 (1.005-1.025); Urine Blood NEG (NEG); Urine Ketones NEG (NEG); Urine Protein NEG (NEG-TRACE)
== END 2021-09-26 14:31 | disposition home or self-care (01) ==
PROVIDERS: Emergency Provider Emergency Medicine; PCP Internal Medicine
DX: B34.9 Viral infection, unspecified (principal); R42 Dizziness and giddiness; R06.02 Shortness of breath; F17.210 Nicotine dependence, cigarettes, uncomplicated; Z20.822 Contact with and (suspected) exposure to COVID-19; Z79.899 Other long term (current) drug therapy; Z71.6 Tobacco abuse counseling
CPT/HCPCS: 80048; 80076; 80307; 81003; 83735; 84484; 85025; 87502; 87635; 93005; 99283; 99285

== ENCOUNTER → 2022-01-02 10:41 | Outpatient (BNVA) | payer MEDICARE, MEDICAID, SELFPAY | PROVIDERS: PCP Internal Medicine; Visit Provider Internal Medicine | DX: G47.33 Obstructive sleep apnea (adult) (pediatric) (principal); E66.01 Morbid (severe) obesity due to excess calories; Z68.41 Body mass index [BMI] 40.0-44.9, adult | CPT/HCPCS: 99212 ==

== ENCOUNTER → 2022-03-10 08:29 | Outpatient (REF) | payer MEDICARE, MEDICAID, SELFPAY ==
--- NOTE | 2022-03-10 08:32 | HM_ITS ---
* Total monitoring time 4 days and 13 hours. * Underlying rhythm is sinus. Average ventricular rate 79/Min. Range 58 to 114/Min. * Occasional ventricular ectopy with a burden of less than 1%. Isolated beats. * Rare supraventricular ectopy. * No patient diary. MTDD
== END ==
LOC: HO.CARD 08:29
PROVIDERS: Visit Provider Internal Medicine
DX: R55 Syncope and collapse (principal)
CPT/HCPCS: 93242; 93306; Q9957

== ENCOUNTER 2022-04-13 11:06 | Outpatient (REF) | payer MEDICARE, MEDICAID, SELFPAY ==
[2022-04-13 12:31] LABS: Cholesterol 156 mg/dL; HDL Cholesterol 42 mg/dL; LDL Cholesterol Calculated 80 mg/dl; Triglycerides 174 mg/dL
== END 2022-04-13 11:07 | disposition home or self-care (01) ==
LOC: HO.LAB 11:06
PROVIDERS: PCP Internal Medicine; Visit Provider Internal Medicine
DX: E11.9 Type 2 diabetes mellitus without complications (principal)
CPT/HCPCS: 36415; 80061

== ENCOUNTER 2022-05-05 14:14 | Observation (INO) | payer MEDICARE, MEDICAID, SELFPAY ==
[2022-05-05] VITALS (7 sets, daily range): BP systolic 97–157; BP diastolic 54–89; PULSE 84–115; RESP 13–20; TEMP 36.4–36.9; O2SAT 95–98; BMI 42.2
--- NOTE | ~2022-05-05 | XR_ITS ---
EXAMINATION: XR CHEST CLINICAL INFORMATION: Syncope COMPARISON: Chest x-ray 08/06/2013 TECHNIQUE: Frontal portable view of the chest was obtained. 4:01 PM FINDINGS: Lungs are clear. No pulmonary vascular congestion. There is no pleural effusion. The heart size is normal. The cardiac and mediastinal contours are normal. There are multilevel degenerative changes of dorsal spine. XR/XR chest 1V IMPRESSION: Unremarkable examination.
--- NOTE | ~2022-05-05 | CT_ITS ---
EXAMINATION: CT HEAD WITHOUT CONTRAST CLINICAL INFORMATION: Syncope. COMPARISON: CT scan of the head 09/02/2018. TECHNIQUE: Contiguous axial imaging was performed from the skull base to vertex without intravenous administration of contrast. This CT examination was performed using dose optimization techniques as appropriate, variously including the following: *Automated exposure control *Adjustment of mA and/or kV according to patient size (this includes techniques or standardized protocols for targeted exams where dose is matched to indication/reason for exam; i.e. extremities or head) *Use of iterative reconstruction technique DLP: 928 mGy-cm FINDINGS: There is no acute intracranial hemorrhage or abnormal extra-axial collection. No intracranial mass effect or midline shift. Lateral and third ventricles are normal. No hydrocephalus. Tang-white matter differentiation is preserved and there is no evidence of acute territorial infarct. The calvarium and skull base are intact. Mastoid air cells and middle ear cavities are well aerated. No active paranasal sinus disease. There is a relatively prominent epidural inclusion cysts within the scalp over the left parietal convexity. CT/CT head/brain wo IV con IMPRESSION: Unremarkable CT scan of the head. Specifically no evidence of acute territorial infarct or hemorrhage.
--- NOTE | 2022-05-05 14:19 | ECG_ITS ---
Test Reason : SYNCOPE Blood Pressure : / mmHG Vent. Rate : 098 BPM Atrial Rate : 098 BPM P-R Int : 164 ms QRS Dur : 180 ms QT Int : 404 ms P-R-T Axes : 058 -73 072 degrees QTc Int : 515 ms Normal sinus rhythm Right bundle branch block Left anterior fascicular block Bifascicular block Abnormal ECG When compared with ECG of 26-SEP-2021 11:28, No significant change was found Referred By: Adrienne Rodriguez Electronically Signed By:Tacho Summers
--- NOTE | 2022-05-05 14:19 | ED.GENADULT ---
HPI - General Adult General Chief complaint: Syncope <THOM Cardozo - Last Filed: 05/05/22 14:22> Stated complaint: Passed Out in Car <THOM Cardozo - Last Filed: 05/05/22 14:22> Time Seen by Provider: 05/05/22 14:40 <THOM Cardozo - Last Filed: 05/05/22 14:22> Source: patient <THOM Cardozo - Last Filed: 05/05/22 14:22> Mode of arrival: ambulatory <THOM Cardozo - Last Filed: 05/05/22 14:22> ambulatory <Juanita Grant NP - Last Filed: 05/05/22 18:04> Limitations: no limitations <THOM Cardozo - Last Filed: 05/05/22 14:22> History of Present Illness HPI narrative: Adalberto is a 62 yo male with a PMHx of syncope, anxiety, HTN, HLD, DM, [place], and schizophrenia who presents to the emergency department today with a CC of syncope while sitting in the car at around 1:30 PM this afternoon. He says that he went to get a haircut and when he got in the car he lost consciousness after sitting down. He thinks that the event may have last around 5-10 minutes. He admits that he did feel fatigue all day and did not eat much. His blood sugar when checked in the ER was 169. He denied any trauma, headache, dizziness, vision changes, chest pain, shortness of breath, nausea, vomiting, before or after the event but does admit to urinating on himself upon waking. He has had episodes like this in the past with the most recent being 2 months ago when he was mowing the lawn. He has also seen doctors for this in the past but was told it was not concerning and has not received treatment. He is not sure what caused this episode of syncope. <Juanita Grant NP - Last Filed: 05/05/22 18:04> Onset (ago): hour(s) <Juanita Grant NP - Last Filed: 05/05/22 18:04> Location: head <Juanita Grant NP - Last Filed: 05/05/22 18:04> Radiation: non-radiation <Juanita Grant NP - Last Filed: 05/05/22 18:04> Severity: similar to prior episodes <Juanita Grant NP - Last Filed: 05/05/22 18:04> Treatments prior to arrival: none <Juanita Grant NP - Last Filed: 05/05/22 18:04> Related Data Home medications: Home Medications Medication Instructions Recorded Confirmed aripiprazole 5 mg tablet 5 mg PO BEDTIME 02/18/22 02/18/22 escitalopram oxalate 10 mg tablet 10 mg PO DAILY 02/18/22 02/18/22 quetiapine 25 mg tablet 25 mg PO BEDTIME 02/18/22 02/18/22 zolpidem 5 mg tablet 5 mg PO BEDTIME 02/18/22 02/18/22 acetaminophen 500 mg tablet 1 tab PO TID PRN pain 05/05/22 amoxicillin 250 mg capsule 1 cap PO TID 05/05/22 lorazepam 0.5 mg tablet 1 tab PO DAILY PRN Anxiety 05/05/22 Previous Rx's Medication Instructions Recorded hydrochlorothiazide 25 mg tablet 25 mg PO QAM #90 caps 11/18/21 lisinopril 10 mg tablet 10 mg PO DAILY #90 tabs 11/18/21 metformin 500 mg tablet 1,000 mg PO BID #360 caps 11/18/21 pioglitazone 15 mg tablet 15 mg PO DAILY #90 caps 11/18/21 simvastatin 40 mg tablet 40 mg PO BEDTIME #90 tabs 11/18/21 lancets 28 gauge (FreeStyle #100 ea 02/07/22 Lancets) cetirizine 10 mg tablet 10 mg PO DAILY #30 tabs 03/02/22 ergocalciferol (vitamin D2) 1,250 1,250 mcg PO QWEEK #14 caps 03/29/22 mcg (50,000 unit) capsule tramadol 50 mg tablet 50 mg PO BEDTIME #30 tabs 04/21/22 <THOM Cardozo - Last Filed: 05/05/22 14:22> Allergies/adverse reactions: Allergies Allergy/AdvReac Type Severity Reaction Status Date / Time No Known Allergies Allergy Verified 04/12/22 08:55 <THOM Cardozo - Last Filed: 05/05/22 14:22> Review of Systems Review of Systems: Yes all other systems are reviewed and are negative <Juanita Grant NP - Last Filed: 05/05/22 18:04> Constitutional: Constitutional: Reports no additional constitutional complaints, Denies body ache(s), Denies chills, Reports fatigue, Denies fever(s), Denies headache(s) and Denies weakness <Juanita Grant NP - Last Filed: 05/05/22 18:04> Eyes: Eyes: Reports no additional eye complaints and Denies change in vision <Juanita Grant NP - Last Filed: 05/05/22 18:04> ENT: Reports system reviewed and no additional complaints, except as documented, Denies dizziness, Denies headache(s), Denies nasal congestion, Denies nasal discharge and Denies neck pain <Juanita Grant NP - Last Filed: 05/05/22 18:04> Cardiovascular: Cardiovascular: Reports no additional cardiovascular complaints, Denies chest pain, Denies leg edema and Denies dyspnea <Juanita Grant NP - Last Filed: 05/05/22 18:04> Respiratory: Respiratory: Reports no additional respiratory complaints, Denies cough and Denies dyspnea <Juanita Grant NP - Last Filed: 05/05/22 18:04> Gastrointestinal: Gastrointestinal: Reports no additional gastrointestinal complaints, Denies abdominal pain, Denies diarrhea, Denies nausea and Denies vomiting <Juanita Grant NP - Last Filed: 05/05/22 18:04> Genitourinary: Genitourinary: Denies urinary incontinence <Juanita Grant NP - Last Filed: 05/05/22 18:04> Musculoskeletal: Musculoskeletal: Reports no additional musculoskeletal complaints, Denies back pain, Denies arthralgias, Denies joint swelling, Denies neck pain, Denies numbness and Denies tingling <Juanita Grant NP - Last Filed: 05/05/22 18:04> Integumentary/Breasts: Skin/Breast: Reports system reviewed and no additional complaints, except as docu and Denies rash <Juanita Grant NP - Last Filed: 05/05/22 18:04> Neurologic: Reports system reviewed and no additional complaints, except as documented, Denies dizziness, Denies headache(s), Denies numbness, Denies tingling and Denies weakness <Juanita Grant NP - Last Filed: 05/05/22 18:04> Endocrine: Endocrine: Reports fatigue <Juanita Grant NP - Last Filed: 05/05/22 18:04> [facility] Past Medical History Attestation statement: The following information was validated with the patient. <Juanita Grant NP - Last Filed: 05/05/22 18:04> Source: old records reviewed <Juanita Grant NP - Last Filed: 05/05/22 18:04> Medical History: Medical History (Updated 05/05/22 @ 17:37 by Juanita Grant NP) Acute insomnia Anxiety Essential (primary) hypertension Hyperlipidemia, unspecified Insomnia Morbid (severe) obesity due to excess calories Morbid obesity with BMI of 40.0-44.9, adult [place] (obstructive sleep apnea) Postconcussional syndrome Pure hypercholesterolemia Schizophrenia, unspecified Smoker Type 2 diabetes mellitus without complications Vitamin D deficiency <TOHM Cardozo - Last Filed: 05/05/22 14:22> Surgical History: Surgical History History of root canal procedure History of wisdom tooth extraction <THOM Cardozo - Last Filed: 05/05/22 14:22> Family History Family History: Family History Father No problems noted. Mother No problems noted. Family/Other FH: mental illness Mental health disorder Brother Substance use disorder <THOM Cardozo - Last Filed: 05/05/22 14:22> Social History Social History: Social History Housing: House Alcohol intake: current Alcohol intake frequency: holidays/special occasions only Patient Tobacco Use Status: Current someday Tobacco user Tobacco use type: Cigarette Cigarette Packs Per Day: 0.50 Cigarettes Per Day: 9 Years Smoked: 40 e-Cigarette/Vaping Use: Never Used Second Hand Smoke Exposure: Yes Advance Directives: No Advance Directives Information Provided: No service: No Current occupational status: retired and disabled Cognitive needs: Yes (cane) Hearing needs: No Vision needs: Yes (Glasses) <THOM Cardozo - Last Filed: 05/05/22 14:22> Physical Exam ED Vital Signs: Vital Signs - 24 hr 05/05/22 14:16 05/05/22 14:52 05/05/22 16:04 Temperature 98.1 F Pulse Rate 115 H 101 H 90 Respiratory Rate 18 16 13 Blood Pressure 124/85 97/54 L 126/79 Pulse Oximetry 98 96 98 Oxygen Delivery Method Room Air Room Air Room Air 05/05/22 17:04 05/05/22 17:05 05/05/22 17:05 Temperature Pulse Rate 95 96 93 Respiratory Rate Blood Pressure 157/89 H 140/81 H 140/86 H Pulse Oximetry Oxygen Delivery Method BMI result Body Mass Index 42.2 <THOM Cardozo - Last Filed: 05/05/22 14:22> Vital Signs - 24 hr 05/05/22 14:16 05/05/22 14:52 05/05/22 16:04 Temperature 98.1 F Pulse Rate 115 H 101 H 90 Respiratory Rate 18 16 13 Blood Pressure 124/85 97/54 L 126/79 Pulse Oximetry 98 96 98 Oxygen Delivery Method Room Air Room Air Room Air 05/05/22 17:04 05/05/22 17:05 05/05/22 17:05 Temperature Pulse Rate 95 96 93 Respiratory Rate Blood Pressure 157/89 H 140/81 H 140/86 H Pulse Oximetry Oxygen Delivery Method BMI result Body Mass Index 42.2 <Juanita Grant NP - Last Filed: 05/05/22 18:04> Const General: cooperative, alert and awake <Juanita Grant NP - Last Filed: 05/05/22 18:04> Orientation/consciousness: patient oriented x3 <Juanita Grant NP - Last Filed: 05/05/22 18:04> Limitations: no limitations <Juanita Grant NP - Last Filed: 05/05/22 18:04> HENMT Head: Yes normal to inspection <Juanita Grant NP - Last Filed: 05/05/22 18:04> Ears: hearing grossly normal bilaterally, external ears normal and TM's normal bilaterally <Juanita Grant NP - Last Filed: 05/05/22 18:04> General nose exam: Normal external nose present <Juanita Grant NP - Last Filed: 05/05/22 18:04> Face and sinus: Yes normal facial exam <Juanita Grant NP - Last Filed: 05/05/22 18:04> Mouth: Normal oral and palatal mucosa present, lip normal and tongue normal <Juanita Grant NP - Last Filed: 05/05/22 18:04> Throat: Yes posterior oropharynx normal <Juanita Grant NP - Last Filed: 05/05/22 18:04> Eyes General: appearance normal, both eyes and all related structures <Juanita Grant NP - Last Filed: 05/05/22 18:04> Pupils: Equal, round and reactive pupils present <Juanita Grant NP - Last Filed: 05/05/22 18:04> EOM: EOMs intact bilaterally <Juanita Grant NP - Last Filed: 05/05/22 18:04> Neck Neck: Yes normal visual inspection, Yes full ROM, Yes no lymphadenopathy and Yes no meningeal signs <Juanita Grant NP - Last Filed: 05/05/22 18:04> Thyroid: Thyroid normal <Juanita Grant NP - Last Filed: 05/05/22 18:04> Resp Effort & Inspection: normal respiratory effort and able to speak in complete sentences <Juanita Grant NP - Last Filed: 05/05/22 18:04> Auscultation: clear to auscultation bilaterally <Juanita Grant NP - Last Filed: 05/05/22 18:04> Cardio Rate: regular rate <Juanita Grant NP - Last Filed: 05/05/22 18:04> Rhythm: regular rhythm <Juanita Grant NP - Last Filed: 05/05/22 18:04> Heart sounds: S1 normal heart sound present and S2 normal heart sound present <Juanita Grant NP - Last Filed: 05/05/22 18:04> Peripheral pulses: Peripheral pulses 2+ throughout <Juanita Grant NP - Last Filed: 05/05/22 18:04> GI Inspection: Yes normal to inspection <Juanita Grant NP - Last Filed: 05/05/22 18:04> Auscultation: normal bowel sounds <Juanita Grant NP - Last Filed: 05/05/22 18:04> Skin General skin exam: no rashes or lesions noted <Juanita Grant NP - Last Filed: 05/05/22 18:04> Neuro General: patient oriented x3, moves all extremities, no meningeal signs and no focal motor deficits <Juanita Grant NP - Last Filed: 05/05/22 18:04> Cranial nerves: Yes CN's II-XII intact bilaterally and Yes Equal, round and reactive pupils present <Juanita Grant NP - Last Filed: 05/05/22 18:04> Cognition (Neuro): normal cognition <Juanita Grant NP - Last Filed: 05/05/22 18:04> Gait exam (Neuro): Normal gait present <Juanita Grant NP - Last Filed: 05/05/22 18:04> Motor exam (neuro): 5/5 motor strength present throughout <Juanita Grant NP - Last Filed: 05/05/22 18:04> Sensory Exam: Normal double simultaneous stimulation for sensation <Juanita Grant NP - Last Filed: 05/05/22 18:04> Extrem General: Yes normal to inspection, Yes no pedal edema and Yes no calf tenderness <Juanita Grant NP - Last Filed: 05/05/22 18:04> Course Course Course Narrative: RME performed by Adrienne Rodriguez PA-C. Patient is a 62 year old male presenting to the emergency department after he passed out in his car. Patient states that since February he has been passing out and having bladder incontinence. CBC, CMP, EKG, CXR, head CT, and troponin ordered. Patient wheeled back to the department and charge nurse informed of the acuity. <THOM Cardozo - Last Filed: 05/05/22 14:22> RME performed by Adrienne Rodriguez PA-C. Patient is a 62 year old male presenting to the emergency department after he passed out in his car. Patient states that since February he has been passing out and having bladder incontinence. CBC, CMP, EKG, CXR, head CT, and troponin ordered. Patient wheeled back to the department and charge nurse informed of the acuity. Adalberto is a 62 yo male with a PMHx of syncope, DM, schizophrenia, anxiety, HTN, and [place] who presented today with a CC of syncope. Pt admitted to feeling fatigued all day but denies any other s/sx. PE including neuro is unremarkable. Initial labs are reassuring. Small elevation in WBC which is not concerning, Calcium slightly elevated at 10.4, corrected calcium calculated to be 10.32, this appears to be chronic and not concerning. D-dimer is negative, CT scan head was ordered. <Juanita Grant NP - Last Filed: 05/05/22 18:04> Reevaluation(s) Reevaluation #1: Patient here with syncopal episode versus seizure. Unclear cause. No previous admissions for syncope workup. Patient will be admitted. <Juanita Grant NP - Last Filed: 05/05/22 18:04> Reevaluation #2: 1800-Spoke to Dr Lock who accepted admissiom. <Juanita Grant NP - Last Filed: 05/05/22 18:04> Medications Administered Discontinued Medications Generic Name Dose Route Start Last Admin Trade Name Freq PRN Reason Stop Dose Admin Sodium Chloride 1,000 mls @ 999 mls/hr 05/05/22 16:00 05/05/22 16:24 Ns IV 05/05/22 17:00 999 mls/hr .Q1H1M DEEPA Administration <THOM Cardozo - Last Filed: 05/05/22 14:22> Medications Administered Discontinued Medications Generic Name Dose Route Start Last Admin Trade Name Freq PRN Reason Stop Dose Admin Sodium Chloride 1,000 mls @ 999 mls/hr 05/05/22 16:00 05/05/22 16:24 Ns IV 05/05/22 17:00 999 mls/hr .Q1H1M DEEPA Administration <Juanita Grant NP - Last Filed: 05/05/22 18:04> Medical Decision Making [facility] Narrative Medical decision making narrative: DDx: Syncope r/o seizures- no hx of seizures, no focal neurological deficits, no evidence of tongue biting on PE r/o ortho hypotension- no hx of prolonged bed rest or severe hypovolemia, UA indicates hydrated r/o Hemorraghic stroke-no headache, no focal neurological signs, no nausea, no vomiting. r/o SAH-no sudden CARVAJAL, no meningeal signs, normal neuro exam r/o PE- denies chest pain, dyspnea, no leg edema or pain, PERC 0, d dimer negative <Juanita Grant NP - Last Filed: 05/05/22 18:04> Medical Records Medical records reviewed: Yes I reviewed the patient's medical records. <Juanita Grant NP - Last Filed: 05/05/22 18:04> Lab Data Lab results reviewed: Yes I reviewed the patient's lab results. <Juanita Grant NP - Last Filed: 05/05/22 18:04> Lab results narrative: Lactic acid elevated to 2.4, concern for possibly syncopal episode vs seziure <Juanita Grant NP - Last Filed: 05/05/22 18:04> Result diagrams: : 05/05/22 15:54 05/05/22 15:54 <THOM Cardozo - Last Filed: 05/05/22 14:22> Labs: Lab Results 05/05/22 05/05/22 05/05/22 Range/Units 15:54 15:54 15:54 WBC 11.9 H (4.8-10.8) X10*3/uL RBC 5.22 (4.60-5.80) X10*6/uL Hgb 15.7 (14.0-18.0) g/dl Hct 46.3 (42.0-52.0) % MCV 88.7 (80.0-98.0) fL MCH 30.1 (27.0-33.0) pg MCHC 33.9 (31.0-36.0) g/dl RDW 12.5 (11.0-16.0) % Plt Count 242 (160-400) X10*3/uL MPV 8.8 L (9.4-12.4) fL Immature Gran % (Auto) 0.4 (0.0-0.4) % Neut % (Auto) 73.9 H (45-73) % Lymph % (Auto) 16.4 L (20-40) % [place] % (Auto) 8.4 (2-11) % Eos % (Auto) 0.3 (0-4) % Baso % (Auto) 0.6 (0-2) % Lymph # (Auto) 2.0 (1.2-4.9) X10*3/uL [place] # (Auto) 1.0 (0.1-1.2) X10*3/uL Eos # (Auto) 0.0 (0.0-0.4) X10*3/uL Baso # (Auto) 0.1 (0.0-0.2) X10*3/uL Abs Immat Gran (auto) 0.05 H (0.00-0.03) X10*3/uL Absolute Neuts (auto) 8.8 H (2.0-8.3) x10*3/uL Absolute Nucleated RBC 0.000 (0.0-0.012) X10*3/uL Nucleated RBC % (auto) 0.0 (0.0-0.2) /100WBC PT (10.0-13.1) SEC INR (0.9-1.1) D-Dimer High Sensitivty NG/ML Sodium 134 L (135-145) mmol/L Potassium 4.4 (3.3-5.1) mmol/L Chloride 98 (96-108) mmol/L Carbon Dioxide 29 (22-29) mmol/L Anion Gap 11 L (12-20) BUN 12 (9-16) mg/dL Creatinine 1.00 (0.5-1.4) mg/dL Estim Creat Clear Calc 99.5 Estimated GFR > 60 Random Glucose 212 H (60-115) mg/dL Lactic Acid (0.5-2.0) mmol/L Calcium 10.4 H (8.4-10.2) mg/dL Magnesium 1.8 (1.6-2.6) mg/dL Total Bilirubin 1.0 (0.0-1.0) mg/dL AST 63 H (5-37) U/L ALT 61 H (0-40) U/L Alkaline Phosphatase 56 (39-117) U/L Troponin I High Sens 27.9 (<3.5-35.0) ng/L Total Protein 6.5 (6.5-8.0) g/dL Albumin 4.1 (3.5-5.0) g/dL Urine Color Urine Appearance Urine pH (5.0-9.0) Ur Specific [place] (1.005-1.025) Urine Protein (Neg-Trace) mg/dL Urine Glucose (UA) (Negative) mg/dL Urine Ketones (Negative) mg/dL Urine Blood (Negative) Urine Nitrite (Negative) Ur Leukocyte Esterase (Negative) Urine RBC (0-2) /HPF Urine WBC (0-5) /HPF Ur Squamous Epith Cells (0-2) /HPF Urine Bacteria (None Seen) Hyaline Casts (0-2) /LPF COVID-19 (FERNANDO) (Negative) COVID-19 Clin Com 05/05/22 05/05/22 05/05/22 Range/Units 15:54 15:54 15:54 WBC (4.8-10.8) X10*3/uL RBC (4.60-5.80) X10*6/uL Hgb (14.0-18.0) g/dl Hct (42.0-52.0) % MCV (80.0-98.0) fL MCH (27.0-33.0) pg MCHC (31.0-36.0) g/dl RDW (11.0-16.0) % Plt Count (160-400) X10*3/uL MPV (9.4-12.4) fL Immature Gran % (Auto) (0.0-0.4) % Neut % (Auto) (45-73) % Lymph % (Auto) (20-40) % [place] % (Auto) (2-11) % Eos % (Auto) (0-4) % Baso % (Auto) (0-2) % Lymph # (Auto) (1.2-4.9) X10*3/uL [place] # (Auto) (0.1-1.2) X10*3/uL Eos # (Auto) (0.0-0.4) X10*3/uL Baso # (Auto) (0.0-0.2) X10*3/uL Abs Immat Gran (auto) (0.00-0.03) X10*3/uL Absolute Neuts (auto) (2.0-8.3) x10*3/uL Absolute Nucleated RBC (0.0-0.012) X10*3/uL Nucleated RBC % (auto) (0.0-0.2) /100WBC PT 11.4 (10.0-13.1) SEC INR 1.0 (0.9-1.1) D-Dimer High Sensitivty 165 NG/ML Sodium (135-145) mmol/L Potassium (3.3-5.1) mmol/L Chloride (96-108) mmol/L Carbon Dioxide (22-29) mmol/L Anion Gap (12-20) BUN (9-16) mg/dL Creatinine (0.5-1.4) mg/dL Estim Creat Clear Calc Estimated GFR Random Glucose (60-115) mg/dL Lactic Acid 2.4 H* (0.5-2.0) mmol/L Calcium (8.4-10.2) mg/dL Magnesium (1.6-2.6) mg/dL Total Bilirubin (0.0-1.0) mg/dL AST (5-37) U/L ALT (0-40) U/L Alkaline Phosphatase (39-117) U/L Troponin I High Sens (<3.5-35.0) ng/L Total Protein (6.5-8.0) g/dL Albumin (3.5-5.0) g/dL Urine Color Urine Appearance Urine pH (5.0-9.0) Ur Specific [place] (1.005-1.025) Urine Protein (Neg-Trace) mg/dL Urine Glucose (UA) (Negative) mg/dL Urine Ketones (Negative) mg/dL Urine Blood (Negative) Urine Nitrite (Negative) Ur Leukocyte Esterase (Negative) Urine RBC (0-2) /HPF Urine WBC (0-5) /HPF Ur Squamous Epith Cells (0-2) /HPF Urine Bacteria (None Seen) Hyaline Casts (0-2) /LPF COVID-19 (FERNANDO) Negative (Negative) COVID-19 Clin Com See Note 05/05/22 Range/Units 17:16 WBC (4.8-10.8) X10*3/uL RBC (4.60-5.80) X10*6/uL Hgb (14.0-18.0) g/dl Hct (42.0-52.0) % MCV (80.0-98.0) fL MCH (27.0-33.0) pg MCHC (31.0-36.0) g/dl RDW (11.0-16.0) % Plt Count (160-400) X10*3/uL MPV (9.4-12.4) fL Immature Gran % (Auto) (0.0-0.4) % Neut % (Auto) (45-73) % Lymph % (Auto) (20-40) % [place] % (Auto) (2-11) % Eos % (Auto) (0-4) % Baso % (Auto) (0-2) % Lymph # (Auto) (1.2-4.9) X10*3/uL [place] # (Auto) (0.1-1.2) X10*3/uL Eos # (Auto) (0.0-0.4) X10*3/uL Baso # (Auto) (0.0-0.2) X10*3/uL Abs Immat Gran (auto) (0.00-0.03) X10*3/uL Absolute Neuts (auto) (2.0-8.3) x10*3/uL Absolute Nucleated RBC (0.0-0.012) X10*3/uL Nucleated RBC % (auto) (0.0-0.2) /100WBC PT (10.0-13.1) SEC INR (0.9-1.1) D-Dimer High Sensitivty NG/ML Sodium (135-145) mmol/L Potassium (3.3-5.1) mmol/L Chloride (96-108) mmol/L Carbon Dioxide (22-29) mmol/L Anion Gap (12-20) BUN (9-16) mg/dL Creatinine (0.5-1.4) mg/dL Estim Creat Clear Calc Estimated GFR Random Glucose (60-115) mg/dL Lactic Acid (0.5-2.0) mmol/L Calcium (8.4-10.2) mg/dL Magnesium (1.6-2.6) mg/dL Total Bilirubin (0.0-1.0) mg/dL AST (5-37) U/L ALT (0-40) U/L Alkaline Phosphatase (39-117) U/L Troponin I High Sens (<3.5-35.0) ng/L Total Protein (6.5-8.0) g/dL Albumin (3.5-5.0) g/dL Urine Color Yellow Urine Appearance Clear Urine pH 6.5 (5.0-9.0) Ur Specific [place] 1.015 (1.005-1.025) Urine Protein 300 (3+) H (Neg-Trace) mg/dL Urine Glucose (UA) 100 H (Negative) mg/dL Urine Ketones Negative (Negative) mg/dL Urine Blood Trace H (Negative) Urine Nitrite Negative (Negative) Ur Leukocyte Esterase Negative (Negative) Urine RBC 0-2 (0-2) /HPF Urine WBC 0-5 (0-5) /HPF Ur Squamous Epith Cells 0-2 (0-2) /HPF Urine Bacteria None Seen (None Seen) Hyaline Casts 0-2 (0-2) /LPF COVID-19 (FERNANDO) (Negative) COVID-19 Clin Com <THOM Cardozo - Last Filed: 05/05/22 14:22> Lab Results 05/05/22 05/05/22 05/05/22 Range/Units 15:54 15:54 15:54 WBC 11.9 H (4.8-10.8) X10*3/uL RBC 5.22 (4.60-5.80) X10*6/uL Hgb 15.7 (14.0-18.0) g/dl Hct 46.3 (42.0-52.0) % MCV 88.7 (80.0-98.0) fL MCH 30.1 (27.0-33.0) pg MCHC 33.9 (31.0-36.0) g/dl RDW 12.5 (11.0-16.0) % Plt Count 242 (160-400) X10*3/uL MPV 8.8 L (9.4-12.4) fL Immature Gran % (Auto) 0.4 (0.0-0.4) % Neut % (Auto) 73.9 H (45-73) % Lymph % (Auto) 16.4 L (20-40) % [place] % (Auto) 8.4 (2-11) % Eos % (Auto) 0.3 (0-4) % Baso % (Auto) 0.6 (0-2) % Lymph # (Auto) 2.0 (1.2-4.9) X10*3/uL [place] # (Auto) 1.0 (0.1-1.2) X10*3/uL Eos # (Auto) 0.0 (0.0-0.4) X10*3/uL Baso # (Auto) 0.1 (0.0-0.2) X10*3/uL Abs Immat Gran (auto) 0.05 H (0.00-0.03) X10*3/uL Absolute Neuts (auto) 8.8 H (2.0-8.3) x10*3/uL Absolute Nucleated RBC 0.000 (0.0-0.012) X10*3/uL Nucleated RBC % (auto) 0.0 (0.0-0.2) /100WBC PT (10.0-13.1) SEC INR (0.9-1.1) D-Dimer High Sensitivty NG/ML Sodium 134 L (135-145) mmol/L Potassium 4.4 (3.3-5.1) mmol/L Chloride 98 (96-108) mmol/L Carbon Dioxide 29 (22-29) mmol/L Anion Gap 11 L (12-20) BUN 12 (9-16) mg/dL Creatinine 1.00 (0.5-1.4) mg/dL Estim Creat Clear Calc 99.5 Estimated GFR > 60 Random Glucose 212 H (60-115) mg/dL Lactic Acid (0.5-2.0) mmol/L Calcium 10.4 H (8.4-10.2) mg/dL Magnesium 1.8 (1.6-2.6) mg/dL Total Bilirubin 1.0 (0.0-1.0) mg/dL AST 63 H (5-37) U/L ALT 61 H (0-40) U/L Alkaline Phosphatase 56 (39-117) U/L Troponin I High Sens 27.9 (<3.5-35.0) ng/L Total Protein 6.5 (6.5-8.0) g/dL Albumin 4.1 (3.5-5.0) g/dL Urine Color Urine Appearance Urine pH (5.0-9.0) Ur Specific [place] (1.005-1.025) Urine Protein (Neg-Trace) mg/dL Urine Glucose (UA) (Negative) mg/dL Urine Ketones (Negative) mg/dL Urine Blood (Negative) Urine Nitrite (Negative) Ur Leukocyte Esterase (Negative) Urine RBC (0-2) /HPF Urine WBC (0-5) /HPF Ur Squamous Epith Cells (0-2) /HPF Urine Bacteria (None Seen) Hyaline Casts (0-2) /LPF COVID-19 (FERNANDO) (Negative) COVID-19 Clin Com 05/05/22 05/05/22 05/05/22 Range/Units 15:54 15:54 15:54 WBC (4.8-10.8) X10*3/uL RBC (4.60-5.80) X10*6/uL Hgb (14.0-18.0) g/dl Hct (42.0-52.0) % MCV (80.0-98.0) fL MCH (27.0-33.0) pg MCHC (31.0-36.0) g/dl RDW (11.0-16.0) % Plt Count (160-400) X10*3/uL MPV (9.4-12.4) fL Immature Gran % (Auto) (0.0-0.4) % Neut % (Auto) (45-73) % Lymph % (Auto) (20-40) % [place] % (Auto) (2-11) % Eos % (Auto) (0-4) % Baso % (Auto) (0-2) % Lymph # (Auto) (1.2-4.9) X10*3/uL [place] # (Auto) (0.1-1.2) X10*3/uL Eos # (Auto) (0.0-0.4) X10*3/uL Baso # (Auto) (0.0-0.2) X10*3/uL Abs Immat Gran (auto) (0.00-0.03) X10*3/uL Absolute Neuts (auto) (2.0-8.3) x10*3/uL Absolute Nucleated RBC (0.0-0.012) X10*3/uL Nucleated RBC % (auto) (0.0-0.2) /100WBC PT 11.4 (10.0-13.1) SEC INR 1.0 (0.9-1.1) D-Dimer High Sensitivty 165 NG/ML Sodium (135-145) mmol/L Potassium (3.3-5.1) mmol/L Chloride (96-108) mmol/L Carbon Dioxide (22-29) mmol/L Anion Gap (12-20) BUN (9-16) mg/dL Creatinine (0.5-1.4) mg/dL Estim Creat Clear Calc Estimated GFR Random Glucose (60-115) mg/dL Lactic Acid 2.4 H* (0.5-2.0) mmol/L Calcium (8.4-10.2) mg/dL Magnesium (1.6-2.6) mg/dL Total Bilirubin (0.0-1.0) mg/dL AST (5-37) U/L ALT (0-40) U/L Alkaline Phosphatase (39-117) U/L Troponin I High Sens (<3.5-35.0) ng/L Total Protein (6.5-8.0) g/dL Albumin (3.5-5.0) g/dL Urine Color Urine Appearance Urine pH (5.0-9.0) Ur Specific [place] (1.005-1.025) Urine Protein (Neg-Trace) mg/dL Urine Glucose (UA) (Negative) mg/dL Urine Ketones (Negative) mg/dL Urine Blood (Negative) Urine Nitrite (Negative) Ur Leukocyte Esterase (Negative) Urine RBC (0-2) /HPF Urine WBC (0-5) /HPF Ur Squamous Epith Cells (0-2) /HPF Urine Bacteria (None Seen) Hyaline Casts (0-2) /LPF COVID-19 (FERNANDO) Negative (Negative) COVID-19 Clin Com See Note 05/05/22 Range/Units 17:16 WBC (4.8-10.8) X10*3/uL RBC (4.60-5.80) X10*6/uL Hgb (14.0-18.0) g/dl Hct (42.0-52.0) % MCV (80.0-98.0) fL MCH (27.0-33.0) pg MCHC (31.0-36.0) g/dl RDW (11.0-16.0) % Plt Count (160-400) X10*3/uL MPV (9.4-12.4) fL Immature Gran % (Auto) (0.0-0.4) % Neut % (Auto) (45-73) % Lymph % (Auto) (20-40) % [place] % (Auto) (2-11) % Eos % (Auto) (0-4) % Baso % (Auto) (0-2) % Lymph # (Auto) (1.2-4.9) X10*3/uL [place] # (Auto) (0.1-1.2) X10*3/uL Eos # (Auto) (0.0-0.4) X10*3/uL Baso # (Auto) (0.0-0.2) X10*3/uL Abs Immat Gran (auto) (0.00-0.03) X10*3/uL Absolute Neuts (auto) (2.0-8.3) x10*3/uL Absolute Nucleated RBC (0.0-0.012) X10*3/uL Nucleated RBC % (auto) (0.0-0.2) /100WBC PT (10.0-13.1) SEC INR (0.9-1.1) D-Dimer High Sensitivty NG/ML Sodium (135-145) mmol/L Potassium (3.3-5.1) mmol/L Chloride (96-108) mmol/L Carbon Dioxide (22-29) mmol/L Anion Gap (12-20) BUN (9-16) mg/dL Creatinine (0.5-1.4) mg/dL Estim Creat Clear Calc Estimated GFR Random Glucose (60-115) mg/dL Lactic Acid (0.5-2.0) mmol/L Calcium (8.4-10.2) mg/dL Magnesium (1.6-2.6) mg/dL Total Bilirubin (0.0-1.0) mg/dL AST (5-37) U/L ALT (0-40) U/L Alkaline Phosphatase (39-117) U/L Troponin I High Sens (<3.5-35.0) ng/L Total Protein (6.5-8.0) g/dL Albumin (3.5-5.0) g/dL Urine Color Yellow Urine Appearance Clear Urine pH 6.5 (5.0-9.0) Ur Specific [place] 1.015 (1.005-1.025) Urine Protein 300 (3+) H (Neg-Trace) mg/dL Urine Glucose (UA) 100 H (Negative) mg/dL Urine Ketones Negative (Negative) mg/dL Urine Blood Trace H (Negative) Urine Nitrite Negative (Negative) Ur Leukocyte Esterase Negative (Negative) Urine RBC 0-2 (0-2) /HPF Urine WBC 0-5 (0-5) /HPF Ur Squamous Epith Cells 0-2 (0-2) /HPF Urine Bacteria None Seen (None Seen) Hyaline Casts 0-2 (0-2) /LPF COVID-19 (FERNANDO) (Negative) COVID-19 Clin Com <Juanita Grant NP - Last Filed: 05/05/22 18:04> Imaging Data CT scan - head: Attestation: I personally reviewed and interpreted this imaging study as follows: <Juanita Grant NP - Last Filed: 05/05/22 18:04> Radiologist's impression: FINDINGS: There is no acute intracranial hemorrhage or abnormal extra-axial collection. No intracranial mass effect or midline shift. Lateral and third ventricles are normal. No hydrocephalus. Tang-white matter differentiation is preserved and there is no evidence of acute territorial infarct. The calvarium and skull base are intact. Mastoid air cells and middle ear cavities are well aerated. No active paranasal sinus disease. There is a relatively prominent epidural inclusion cysts within the scalp over the left parietal convexity. ? CT/CT head/brain wo IV con IMPRESSION: Unremarkable CT scan of the head. Specifically no evidence of acute territorial infarct or hemorrhage. <Juanita Grant NP - Last Filed: 05/05/22 18:04> Chest x-ray: Attestation: I personally reviewed and interpreted this imaging study as follows: <Juanita Grant NP - Last Filed: 05/05/22 18:04> Radiologist's impression: [address] [address] XRay Report Signed Patient: Adalberto Rose MR#: [id number] : 1960 Acct:[id number] Age/Sex: 62 / M ADM Date: 05/05/22 Loc: .ED Attending Dr: Ordering Physician: Adrienne Rodriguez Date of Service: 05/05/22 Procedure(s): XR chest 1V Accession Number(s): [id number] cc: Adrienne Rodriguez~ EXAMINATION: XR CHEST CLINICAL INFORMATION: Syncope COMPARISON: Chest x-ray 08/06/2013 TECHNIQUE: Frontal portable view of the chest was obtained. 4:01 PM FINDINGS: ?Lungs are clear. No pulmonary vascular congestion. There is no pleural effusion. The heart size is normal. The cardiac and mediastinal contours are normal. There are multilevel degenerative changes of dorsal spine.? ? XR/XR chest 1V IMPRESSION: Unremarkable examination. ? <Juanita Grant NP - Last Filed: 05/05/22 18:04> ECG Data Attestation: I personally reviewed and interpreted this ECG as follows: <Juanita Grant NP - Last Filed: 05/05/22 18:04> Interpretation: 05/05/22 NSR with rate 98, normal pr, RBBB, normal qtc <Juanita Grant NP - Last Filed: 05/05/22 18:04> Discharge Plan Discharge Clinical Impression: Syncope <THOM Cardozo - Last Filed: 05/05/22 14:22> Patient Disposition: Admitted As Inpatient <THOM Cardozo - Last Filed: 05/05/22 14:22>
[2022-05-05 16:00] LABS: MANUAL DIFF FLAG NO
[2022-05-05 16:02] LABS: Basophils Absolute Auto 0.1 X10*3/uL (0.0-0.2); Basophils Percent Auto 0.6 % (0-2); Eosinophils Percent Auto 0.3 % (0-4); Hematocrit 46.3 % (42.0-52.0); Hemoglobin 15.7 g/dl (14.0-18.0); Imm Gran Abs Auto 0.05 X10*3/uL (0.00-0.03); Imm Gran Pct Auto 0.4 % (0.0-0.4); Lymphocytes Percent Auto 16.4 % (20-40); Mean Corpuscular HGB Conc 33.9 g/dl (31.0-36.0); Mean Corpuscular Hemoglobin 30.1 pg (27.0-33.0); Mean Corpuscular Volume 88.7 fL (80.0-98.0); Mean Platelet Volume 8.8 fL (9.4-12.4); Monocytes Percent Auto 8.4 % (2-11); Neutrophils Absolute Auto 8.8 x10*3/uL (2.0-8.3); Neutrophils Percent Auto 73.9 % (45-73); Platelet Count 242 X10*3/uL (160-400); Red Blood Count 5.22 X10*6/uL (4.60-5.80); Red Cell Distribution Width 12.5 % (11.0-16.0); White Blood Count 11.9 X10*3/uL (4.8-10.8)
[2022-05-05 16:13] LABS: Prothrombin Time 11.4 SEC (10.0-13.1)
[2022-05-05 16:15] LABS: D Dimer High Sensitivity 165 NG/ML
[2022-05-05 16:16] LABS: COVID-19 Test Negative (Negative); IDNOW Serial# 16C4AD1C
[2022-05-05 16:21] LABS: Alanine Aminotransferase 61 U/L (0-40); Albumin Level 4.1 g/dL (3.5-5.0); Alkaline Phosphatase 56 U/L (39-117); Anion Gap 11 (12-20); Aspartate Amino Transferase 63 U/L (5-37); Blood Urea Nitrogen 12 mg/dL (9-16); Calcium 10.4 mg/dL (8.4-10.2); Carbon Dioxide 29 mmol/L (22-29); Chloride 98 mmol/L (96-108); Creatinine Clr Calc Pharmacy 99.5; Estimated Glomerular Filt Rate > 60; Glucose Random 212 mg/dL (60-115); Magnesium 1.8 mg/dL (1.6-2.6); Potassium 4.4 mmol/L (3.3-5.1); Sodium 134 mmol/L (135-145); Total Protein 6.5 g/dL (6.5-8.0)
[2022-05-05] MEDS: 0.9 % Sodium Chloride 1,000 ML 999 ML IV (16:24)
[2022-05-05 16:28] LABS: Troponin-I High Sensitivity 27.9 ng/L (<3.5-35.0)
[2022-05-05 16:45] LABS: Lactic Acid 2.4 mmol/L (0.5-2.0)
[2022-05-05 17:30] LABS: Appearance Urine Clear; Color Urine Yellow; Glucose Urine UA 100 mg/dL (Negative); Leukocyte Esterase Urine Negative (Negative); Nitrite Urine Negative (Negative); PH 6.5 (5.0-9.0); Specific Gravity - Urine 1.015 (1.005-1.025); UMIC TRIGGER UACC YES; Urine Blood Trace (Negative); Urine Ketones Negative (Negative); Urine Protein 300 (3+) mg/dL (Neg-Trace)
[2022-05-05 17:35] LABS: Bacteria Urine None Seen (None Seen); Hyaline Casts Urine 0-2 /LPF (0-2); RBC Urine 0-2 /HPF (0-2); Squamous Epithelial Cell Urine 0-2 /HPF (0-2); WBC Urine 0-5 /HPF (0-5)
[2022-05-05 17:59] LABS: Reflex Lactate? Lactic Acid Added
--- NOTE | 2022-05-05 18:12 | PHA.MEDREC ---
Pharmacy Consult ? Medication Reconciliation Pharmacy has completed the medication reconciliation.
[2022-05-05 18:21] LABS: Amphetamine Screen Urine Not Detected (Not Detect); Barbiturates, Urine Not Detected (Not Detect); Benzodiazepines Screen Urine Not Detected (Not Detect); Cannabinoid Screen Urine Not Detected (Not Detect); Cocaine Screen Urine Not Detected (Not Detect); Fentanyl, urine Not Detected (Not Detect); Opiate Screen Urine Not Detected (Not Detect); Phencyclidine Screen Urine Not Detected (Not Detect)
--- NOTE | 2022-05-05 19:25 | P.HPHOSP_ITS ---
History of Present Illness Date of Service: 05/05/22 Chief Complaint: Syncope This is a 62-year-old male with pertinent history of schizophrenia, cwu-fmsrmfw-borosbwhq type 2 diabetes mellitus, essential hypertension, insomnia, mixed hyperlipidemia presents to the emergency department for evaluation of syncope. Patient states he had a syncopal episode today when he was sitting in the car after visiting his lane. It was sudden onset and without any prodrome of symptoms. He denies dizziness lightheadedness, warmth, nausea prior to the episode. Thinks he may have had jerking movement of extremities and also urinated on himself during the episode. No tongue bite or fecal incontinence. No chest pain, palpitations, shortness of breath prior to the episode. Patient states he had a syncopal episode in February when he was working in his lawn. Patient was evaluated at [facility] and does not know/ remember the cause of his syncopal episode. Before that, he also had an episode about 6 months ago for which he did not go to the ER. Patient has never seen a neurologist and no history of seizures. Patient states he had had poor intake over the last couple of days but no vomiting or diarrhea. No Head trauma. No history of irregular rhythm disorders Review of Systems Constitutional: Constitutional: Reports fatigue Cardiovascular: Cardiovascular: Reports no additional cardiovascular complaints Respiratory: Respiratory: Reports no additional respiratory complaints Gastrointestinal: Gastrointestinal: Reports no additional gastrointestinal complaints Genitourinary: Genitourinary: Reports no additional male genitourinary complaints Endocrine: Endocrine: Reports fatigue PMFSH Medical History Acute insomnia Anxiety Essential (primary) hypertension Hyperlipidemia, unspecified Insomnia Morbid (severe) obesity due to excess calories Morbid obesity with BMI of 40.0-44.9, adult [place] (obstructive sleep apnea) Postconcussional syndrome Pure hypercholesterolemia Schizophrenia, unspecified Smoker Type 2 diabetes mellitus without complications Vitamin D deficiency Family History Father No problems noted. Mother No problems noted. Family/Other FH: mental illness Mental health disorder Brother Substance use disorder Surgical History History of root canal procedure History of wisdom tooth extraction Social History Housing: House Alcohol intake: current Alcohol intake frequency: holidays/special occasions only Patient Tobacco Use Status: Current someday Tobacco user Tobacco use type: Cigarette Cigarette Packs Per Day: 0.50 Cigarettes Per Day: 9 Years Smoked: 40 e-Cigarette/Vaping Use: Never Used Second Hand Smoke Exposure: Yes Advance Directives: No Advance Directives Information Provided: No service: No Current occupational status: retired and disabled Cognitive needs: Yes (cane) Hearing needs: No Vision needs: Yes (Glasses) Meds Allergies Allergy/AdvReac Type Severity Reaction Status Date / Time No Known Allergies Allergy Verified 04/12/22 08:55 Active Medications: Current Medications Acetaminophen (Acetaminophen 325 Mg Tablet) 650 mg PO Q6H PRN PRN Reason: Pain, Mild (Pain Scale 1-3) Dextrose (Dextrose 50 % 25 Gm/50 Ml Syringe) 25 gm IVPUSH Q15M PRN; Protocol PRN Reason: per Hypoglycemia Standing Ord. Enoxaparin Sodium (Enoxaparin Sodium 40 Mg/0.4 Ml Syringe) 40 mg SUBCUT Q24H DEEPA Glucose (Glucose Gel 15 Gm Gel..Gram.) 15 gm PO Q15M PRN; Protocol PRN Reason: per Hypoglycemia Standing Ord. Insulin Human Lispro (Insulin Lispro 100 Unit/Ml 3 Ml Vial) 0 unit SUBCUT QIDACHS DEEPA; Protocol Melatonin (Melatonin 3 Mg Tablet) 6 mg PO BEDTIME PRN PRN Reason: Insomnia Ondansetron HCl (Ondansetron Hcl 4 Mg/2 Ml Vial) 4 mg IVPUSH Q8H PRN PRN Reason: Nausea and Vomiting Pharmacy Consult (Consult Rx Perform Med Rec) 1 each MISCELLANE ONCE PRN PRN Reason: Consult order Pharmacy Consult (Consult Rx Perform Med Rec) 1 each MISCELLANE ONCE PRN PRN Reason: Consult order Sodium Chloride (0.9 % Sodium Chloride Flush 3 Ml Syringe) 3 ml IVFLUSH QSHIFT [facility] Home Medications Medication Instructions Recorded Confirmed Last Taken Type aripiprazole 5 mg tablet 5 mg PO BEDTIME 02/18/22 05/05/22 05/04/22 History escitalopram oxalate 10 mg tablet 10 mg PO DAILY 02/18/22 05/05/22 05/05/22 History quetiapine 25 mg tablet 25 mg PO BEDTIME 02/18/22 05/05/22 05/04/22 History zolpidem 5 mg tablet 5 mg PO BEDTIME 02/18/22 05/05/22 05/04/22 History acetaminophen 500 mg tablet 1 tab PO TID PRN pain 05/05/22 05/05/22 05/05/22 History ergocalciferol (vitamin D2) 1,250 1,250 mcg PO SA 05/05/22 05/05/22 04/29/22 History mcg (50,000 unit) capsule lorazepam 0.5 mg tablet 1 tab PO DAILY PRN Anxiety 05/05/22 05/05/22 05/05/22 History simvastatin 40 mg tablet 40 mg PO DAILY 05/05/22 05/05/22 05/05/22 History Physical Exam Vital Signs and Narrative: Vital Signs: Last Vital Signs Temp 98.1 F 05/05/22 14:16 Pulse 93 05/05/22 17:05 Resp 13 05/05/22 16:04 BP 140/86 H 05/05/22 17:05 Pulse Ox 98 05/05/22 16:04 O2 Del Method 05/05/22 16:04 BMI result Body Mass Index 42.2 Middle-aged male lying in bed in no distress Neck supple, no JVD Regular rate and rhythm, S1-S2 heard Regular breath sounds bilaterally, no wheezing or crackles appreciated Abdomen soft nontender, no guarding, no rigidity Patient is awake, alert and oriented to self, place, time and person ; no focal motor deficit Psych: Normal mood No pedal edema Results Labs CBC and Chem 7: 05/05/22 15:54 05/05/22 15:54 Labs: Laboratory Results - last 24 hr 05/05/22 05/05/22 05/05/22 15:54 15:54 15:54 MCV 88.7 MCH 30.1 MCHC 33.9 RDW 12.5 Plt Count 242 MPV 8.8 L Immature Gran % (Auto) 0.4 Neut % (Auto) 73.9 H Lymph % (Auto) 16.4 L [place] % (Auto) 8.4 Eos % (Auto) 0.3 Baso % (Auto) 0.6 Lymph # (Auto) 2.0 [place] # (Auto) 1.0 Eos # (Auto) 0.0 Baso # (Auto) 0.1 Abs Immat Gran (auto) 0.05 H Absolute Neuts (auto) 8.8 H Absolute Nucleated RBC 0.000 Nucleated RBC % (auto) 0.0 PT INR D-Dimer High Sensitivty Anion Gap 11 L Estim Creat Clear Calc 99.5 Estimated GFR > 60 Random Glucose 212 H Lactic Acid Calcium 10.4 H Magnesium 1.8 Total Bilirubin 1.0 AST 63 H ALT 61 H Alkaline Phosphatase 56 Troponin I High Sens 27.9 Total Protein 6.5 Albumin 4.1 Urine Color Urine Appearance Urine pH Ur Specific [place] Urine Protein Urine Glucose (UA) Urine Ketones Urine Blood Urine Nitrite Ur Leukocyte Esterase Urine RBC Urine WBC Ur Squamous Epith Cells Urine Bacteria Hyaline Casts Urine Opiates Screen Urine Fentanyl Screen Ur Barbiturates Screen Ur Phencyclidine Scrn Ur Amphetamines Screen U Benzodiazepines Scrn Urine Cocaine Screen U Marijuana (THC) Screen COVID-19 (FERNANDO) COVID-[place] 05/05/22 05/05/22 05/05/22 15:54 15:54 15:54 MCV MCH MCHC RDW Plt Count MPV Immature Gran % (Auto) Neut % (Auto) Lymph % (Auto) [place] % (Auto) Eos % (Auto) Baso % (Auto) Lymph # (Auto) [place] # (Auto) Eos # (Auto) Baso # (Auto) Abs Immat Gran (auto) Absolute Neuts (auto) Absolute Nucleated RBC Nucleated RBC % (auto) PT 11.4 INR 1.0 D-Dimer High Sensitivty 165 Anion Gap Estim Creat Clear Calc Estimated GFR Random Glucose Lactic Acid 2.4 H* Calcium Magnesium Total Bilirubin AST ALT Alkaline Phosphatase Troponin I High Sens Total Protein Albumin Urine Color Urine Appearance Urine pH Ur Specific [place] Urine Protein Urine Glucose (UA) Urine Ketones Urine Blood Urine Nitrite Ur Leukocyte Esterase Urine RBC Urine WBC Ur Squamous Epith Cells Urine Bacteria Hyaline Casts Urine Opiates Screen Urine Fentanyl Screen Ur Barbiturates Screen Ur Phencyclidine Scrn Ur Amphetamines Screen U Benzodiazepines Scrn Urine Cocaine Screen U Marijuana (THC) Screen COVID-19 (FERNANDO) Negative COVID-DNA Direct Com See Note 05/05/22 05/05/22 17:16 17:16 MCV MCH MCHC RDW Plt Count MPV Immature Gran % (Auto) Neut % (Auto) Lymph % (Auto) [place] % (Auto) Eos % (Auto) Baso % (Auto) Lymph # (Auto) [place] # (Auto) Eos # (Auto) Baso # (Auto) Abs Immat Gran (auto) Absolute Neuts (auto) Absolute Nucleated RBC Nucleated RBC % (auto) PT INR D-Dimer High Sensitivty Anion Gap Estim Creat Clear Calc Estimated GFR Random Glucose Lactic Acid Calcium Magnesium Total Bilirubin AST ALT Alkaline Phosphatase Troponin I High Sens Total Protein Albumin Urine Color Yellow Urine Appearance Clear Urine pH 6.5 Ur Specific [place] 1.015 Urine Protein 300 (3+) H Urine Glucose (UA) 100 H Urine Ketones Negative Urine Blood Trace H Urine Nitrite Negative Ur Leukocyte Esterase Negative Urine RBC 0-2 Urine WBC 0-5 Ur Squamous Epith Cells 0-2 Urine Bacteria None Seen Hyaline Casts 0-2 Urine Opiates Screen Not Detected Urine Fentanyl Screen Not Detected Ur Barbiturates Screen Not Detected Ur Phencyclidine Scrn Not Detected Ur Amphetamines Screen Not Detected U Benzodiazepines Scrn Not Detected Urine Cocaine Screen Not Detected U Marijuana (THC) Screen Not Detected COVID-19 (FERNANDO) COVID-19 Clin Com Imaging Radiologist's Impressions: Impressions Chest X-Ray 05/05/22 16:03 IMPRESSION: Unremarkable examination. Head CT 05/05/22 16:53 IMPRESSION: Unremarkable CT scan of the head. Specifically no evidence of acute territorial infarct or hemorrhage. Assessment and Plan (1) Syncope: Status: Acute (2) Insomnia: Qualifiers: Insomnia type: unspecified Qualified Code(s): G47.00 - Insomnia, unspecified Status: Acute (3) Vitamin D deficiency: Status: Acute (4) Type 2 diabetes mellitus without complications: Qualifiers: Diabetes mellitus [place]st[place] insulin use: without jail use Qualifi ed Code(s): E11.9 - Type 2 diabetes mellitus without complications Status: Acute (5) Schizophrenia, unspecified: Qualifiers: Schizophrenia type: unspecified Qualified Code(s): F20.9 - Schizophrenia, unspecified Status: Acute (6) Anxiety: Status: Acute (7) Essential (primary) hypertension: Status: Acute (8) Morbid (severe) obesity due to excess calories: Status: Acute Plan This is a 62-year-old male with pertinent history of schizophrenia, ltg-rfeaphj-ewumhjlot type 2 diabetes mellitus, essential hypertension, insomnia , mixed hyperlipidemia presents to the emergency department for evaluation of syncope. #. Syncope -unclear etiology. Obtaining orthostatic vital signs and will keep patient on air sampling and monitoring. Obtain records from [facility] for previous syncope workup -concern for ?convulsive syncope with urinary incontinence and questionable shaking of extremities. Consulting Neurology, appreciate assistance. Defer EEG to neurology #. Schizophrenia #. Anxiety #. Insomnia -will continue mood stabilizing agents #. Essential hypertension -blood pressure noted to be low normal at the time of admission. Hold antihypertensives and restart as appropriate #. Yvo-shmizkb-avopkbpkn diabetes mellitus with hyperglycemia -hold metformin. Initiate Accu-Cheks with sliding scale insulin before meals and at bedtime #. Morbid obesity -patient understands that he needs to work on his diet/exercise and lose weight #. Type A lactic acidosis Med rec pending DVT prophylaxis: Lovenox 40 mg daily Cardiac diet Full code Quality Stroke Does the patient have a stroke diagnosis?: No VTE Prior VTE?: No VTE Risk Level:: Medical - low VTE Device Contraindication: Treatment Not Indicated VTE Drug Contraindication: N/A - Med Ordered
[2022-05-05 20:01] LABS: ~Lactic Acid-LAB USE ONLY 2.4 mmol/L (0.5-2.0)
[2022-05-05 20:20] LABS: Troponin-I High Sensitivity 72.6 ng/L (<3.5-35.0)
[2022-05-05] MEDS: ARIPiprazole 5 MG TABLET PO (21:15)
[2022-05-05] MEDS: Enoxaparin Sodium 40 MG/0.4 ML SYRINGE SUBCUT (21:15)
[2022-05-05] MEDS: QUEtiapine Fumarate 25 MG TABLET PO (21:15)
[2022-05-05] MEDS: Zolpidem Tartrate 5 MG TABLET PO (21:15)
[2022-05-05 21:16] LABS: Glucose, Whole Blood 230 mg/dL (60-115)
[2022-05-05] MEDS: Insulin Lispro 100 UNIT/ML 3 ML VIAL SUBCUT (21:24)
[2022-05-05 21:45] LABS: Reflex Lactate? 2 Y
[2022-05-05 23:43] LABS: ~Lactic Acid-LAB USE ONLY 1.3 mmol/L (0.5-2.0)
[2022-05-06] MEDS: 0.9 % Sodium Chloride Flush 3 ML SYRINGE IVFLUSH ×2 (01:34→09:47)
[2022-05-06] MEDS: Acetaminophen 325 MG TABLET 650 MG PO ×3 (03:09→14:21)
[2022-05-06 03:14] VITALS: BMI 43.7
[2022-05-06 04:00] VITALS: BP 139/65; PULSE 83; RESP 18; TEMP 36.8; O2SAT 95
[2022-05-06 06:49] LABS: MANUAL DIFF FLAG NO
[2022-05-06 07:00] VITALS: BP 130/73; PULSE 76
[2022-05-06 07:02] LABS: Basophils Absolute Auto 0.1 X10*3/uL (0.0-0.2); Basophils Percent Auto 0.5 % (0-2); Eosinophils Absolute Auto 0.1 X10*3/uL (0.0-0.4); Eosinophils Percent Auto 1.1 % (0-4); Hematocrit 43.2 % (42.0-52.0); Hemoglobin 14.7 g/dl (14.0-18.0); Imm Gran Abs Auto 0.04 X10*3/uL (0.00-0.03); Imm Gran Pct Auto 0.4 % (0.0-0.4); Lymphocytes Absolute Auto 3.6 X10*3/uL (1.2-4.9); Lymphocytes Percent Auto 35.9 % (20-40); Mean Corpuscular Hemoglobin 29.8 pg (27.0-33.0); Mean Corpuscular Volume 87.6 fL (80.0-98.0); Mean Platelet Volume 9.2 fL (9.4-12.4); Monocytes Percent Auto 10.1 % (2-11); Neutrophils Absolute Auto 5.2 x10*3/uL (2.0-8.3); Platelet Count 204 X10*3/uL (160-400); Red Blood Count 4.93 X10*6/uL (4.60-5.80); Red Cell Distribution Width 12.6 % (11.0-16.0); White Blood Count 9.9 X10*3/uL (4.8-10.8)
[2022-05-06 07:28] LABS: Glucose, Whole Blood 149 mg/dL (60-115)
[2022-05-06 07:52] LABS: Anion Gap 12 (12-20); Blood Urea Nitrogen 10 mg/dL (9-16); Calcium 10.1 mg/dL (8.4-10.2); Carbon Dioxide 25 mmol/L (22-29); Chloride 101 mmol/L (96-108); Creatinine Clr Calc Pharmacy 128.5; Estimated Glomerular Filt Rate > 60; Glucose Random 128 mg/dL (60-115); Potassium 4.1 mmol/L (3.3-5.1); Sodium 134 mmol/L (135-145)
[2022-05-06 08:00] VITALS: BP 131/76; PULSE 80; RESP 20; TEMP 36.7; O2SAT 97
[2022-05-06 08:14] VITALS: BP 147/75; PULSE 86
[2022-05-06 08:16] VITALS: BP 141/72; PULSE 83
--- NOTE | 2022-05-06 09:23 | MHC.CM.PN ---
CM met with Patient at bedside and addressed SILVERIO with him, providing him with the original and placing a copy on the chart. Patient lives alone in a house and he required no DME [employer](His car is in the parking lot and he intends to drive himself home). Patient is active with [facility] for meds 2x/week and home/resume said services is the goal. CM has initiated and will follow for dc planning. Patient has received no Covid vax and his PC is Dr. Sawant.
--- NOTE | 2022-05-06 10:36 | HO.PM.IMPN ---
Subjective Subjective Date of Service: 05/06/22 Interval History: seen and examined this AM feels better denies cp / sob Review of Systems negative except HPI Physical Exam Vital Signs: Vital Signs: Last Vital Signs Temp 98.1 F 05/06/22 08:00 Pulse 83 05/06/22 08:16 Resp 20 05/06/22 08:00 BP 141/72 H 05/06/22 08:16 Pulse Ox 97 05/06/22 08:00 O2 Del Method 05/06/22 08:00 BMI result Body Mass Index 43.7 Const: Other: General - no acute distress, appears comfortable Cardiovascular - regular rate and rhythm, S1-S2 Lungs - normal respiratory effort, clear to auscultation bilaterally, no wheezing Abdomen - soft, nontender, no rebound or guarding Extremities - no edema bilaterally Neuro - awake and alert, no focal deficits Objective Data Active Medications Acetaminophen (Acetaminophen 325 Mg Tablet) 650 mg PO Q6H PRN PRN Reason: Pain, Mild (Pain Scale 1-3) Last Admin: 05/06/22 09:47 Dose: 650 mg Documented By: SHINE Aripiprazole (Aripiprazole 5 Mg Tablet) 5 mg PO BEDTIME [facility] Last Admin: 05/05/22 21:15 Dose: 5 mg Documented By: KANDICE Dextrose (Dextrose 50 % 25 Gm/50 Ml Syringe) 25 gm IVPUSH Q15M PRN; Protocol PRN Reason: per Hypoglycemia Standing Ord. Enoxaparin Sodium (Enoxaparin Sodium 40 Mg/0.4 Ml Syringe) 40 mg SUBCUT Q24H [facility] Last Admin: 05/05/22 21:15 Dose: 40 mg Documented By: KANDICE Glucose (Glucose Gel 15 Gm Gel..Gram.) 15 gm PO Q15M PRN; Protocol PRN Reason: per Hypoglycemia Standing Ord. Insulin Human Lispro (Insulin Lispro 100 Unit/Ml 3 Ml Vial) 0 unit SUBCUT QIDACHS [facility]; Protocol Last Admin: 05/06/22 07:46 Dose: Not Given Documented By: SHINE Non-Admin Reason: No Insulin Coverage Melatonin (Melatonin 3 Mg Tablet) 6 mg PO BEDTIME PRN PRN Reason: Insomnia Ondansetron HCl (Ondansetron Hcl 4 Mg/2 Ml Vial) 4 mg IVPUSH Q8H PRN PRN Reason: Nausea and Vomiting Pharmacy Consult (Consult Rx Perform Med Rec) 1 each MISCELLANE ONCE PRN PRN Reason: Consult order Pharmacy Consult (Consult Rx Perform Med Rec) 1 each MISCELLANE ONCE PRN PRN Reason: Consult order Quetiapine Fumarate (Quetiapine Fumarate 25 Mg Tablet) 25 mg PO BEDTIME [facility] Last Admin: 05/05/22 21:15 Dose: 25 mg Documented By: KANDICE Sodium Chloride (0.9 % Sodium Chloride Flush 3 Ml Syringe) 3 ml IVFLUSH QSHIFT [facility] Last Admin: 05/06/22 09:47 Dose: 3 ml Documented By: SHINE Zolpidem Tartrate (Zolpidem Tartrate 5 Mg Tablet) 5 mg PO BEDTIME [facility] Last Admin: 05/05/22 21:15 Dose: 5 mg Documented By: KANDICE Labs CBC & Chem 7: 05/06/22 06:24 05/06/22 06:24 Labs: Laboratory Results - last 24 hr 05/05/22 05/05/22 05/05/22 15:54 15:54 15:54 MCV 88.7 MCH 30.1 MCHC 33.9 RDW 12.5 Plt Count 242 MPV 8.8 L Immature Gran % (Auto) 0.4 Neut % (Auto) 73.9 H Lymph % (Auto) 16.4 L [place] % (Auto) 8.4 Eos % (Auto) 0.3 Baso % (Auto) 0.6 Lymph # (Auto) 2.0 [place] # (Auto) 1.0 Eos # (Auto) 0.0 Baso # (Auto) 0.1 Abs Immat Gran (auto) 0.05 H Absolute Neuts (auto) 8.8 H Absolute Nucleated RBC 0.000 Nucleated RBC % (auto) 0.0 PT INR D-Dimer High Sensitivty Anion Gap 11 L Estim Creat Clear Calc 99.5 Estimated GFR > 60 POC Glucose Random Glucose 212 H Lactic Acid Lactic Acid F/U @ 2Hr Lactic Acid F/U @ 4Hr Calcium 10.4 H Magnesium 1.8 Total Bilirubin 1.0 AST 63 H ALT 61 H Alkaline Phosphatase 56 Troponin I High Sens 27.9 Total Protein 6.5 Albumin 4.1 Urine Color Urine Appearance Urine pH Ur Specific [place] Urine Protein Urine Glucose (UA) Urine Ketones Urine Blood Urine Nitrite Ur Leukocyte Esterase Urine RBC Urine WBC Ur Squamous Epith Cells Urine Bacteria Hyaline Casts Urine Opiates Screen Urine Fentanyl Screen Ur Barbiturates Screen Ur Phencyclidine Scrn Ur Amphetamines Screen U Benzodiazepines Scrn Urine Cocaine Screen U Marijuana (THC) Screen COVID-19 ([facility]) COVID-19 Clin Com 05/05/22 05/05/22 05/05/22 15:54 15:54 15:54 MCV MCH MCHC RDW Plt Count MPV Immature Gran % (Auto) Neut % (Auto) Lymph % (Auto) [place] % (Auto) Eos % (Auto) Baso % (Auto) Lymph # (Auto) [place] # (Auto) Eos # (Auto) Baso # (Auto) Abs Immat Gran (auto) Absolute Neuts (auto) Absolute Nucleated RBC Nucleated RBC % (auto) PT 11.4 INR 1.0 D-Dimer High Sensitivty 165 Anion Gap Estim Creat Clear Calc Estimated GFR POC Glucose Random Glucose Lactic Acid 2.4 H* Lactic Acid F/U @ 2Hr Lactic Acid F/U @ 4Hr Calcium Magnesium Total Bilirubin AST ALT Alkaline Phosphatase Troponin I High Sens Total Protein Albumin Urine Color Urine Appearance Urine pH Ur Specific [place] Urine Protein Urine Glucose (UA) Urine Ketones Urine Blood Urine Nitrite Ur Leukocyte Esterase Urine RBC Urine WBC Ur Squamous Epith Cells Urine Bacteria Hyaline Casts Urine Opiates Screen Urine Fentanyl Screen Ur Barbiturates Screen Ur Phencyclidine Scrn Ur Amphetamines Screen U Benzodiazepines Scrn Urine Cocaine Screen U Marijuana (THC) Screen COVID-19 ([facility]) Negative COVID-19 Clin Com See Note 05/05/22 05/05/22 05/05/22 17:16 17:16 19:39 MCV MCH MCHC RDW Plt Count MPV Immature Gran % (Auto) Neut % (Auto) Lymph % (Auto) [place] % (Auto) Eos % (Auto) Baso % (Auto) Lymph # (Auto) [place] # (Auto) Eos # (Auto) Baso # (Auto) Abs Immat Gran (auto) Absolute Neuts (auto) Absolute Nucleated RBC Nucleated RBC % (auto) PT INR D-Dimer High Sensitivty Anion Gap Estim Creat Clear Calc Estimated GFR POC Glucose Random Glucose Lactic Acid Lactic Acid F/U @ 2Hr Lactic Acid F/U @ 4Hr Calcium Magnesium Total Bilirubin AST ALT Alkaline Phosphatase Troponin I High Sens 72.6 H D Total Protein Albumin Urine Color Yellow Urine Appearance Clear Urine pH 6.5 Ur Specific [place] 1.015 Urine Protein 300 (3+) H Urine Glucose (UA) 100 H Urine Ketones Negative Urine Blood Trace H Urine Nitrite Negative Ur Leukocyte Esterase Negative Urine RBC 0-2 Urine WBC 0-5 Ur Squamous Epith Cells 0-2 Urine Bacteria None Seen Hyaline Casts 0-2 Urine Opiates Screen Not Detected Urine Fentanyl Screen Not Detected Ur Barbiturates Screen Not Detected Ur Phencyclidine Scrn Not Detected Ur Amphetamines Screen Not Detected U Benzodiazepines Scrn Not Detected Urine Cocaine Screen Not Detected U Marijuana (THC) Screen Not Detected COVID-19 ([facility]) COVID-19 [facility] 05/05/22 05/05/22 05/05/22 19:39 21:12 23:17 MCV MCH MCHC RDW Plt Count MPV Immature Gran % (Auto) Neut % (Auto) Lymph % (Auto) [place] % (Auto) Eos % (Auto) Baso % (Auto) Lymph # (Auto) [place] # (Auto) Eos # (Auto) Baso # (Auto) Abs Immat Gran (auto) Absolute Neuts (auto) Absolute Nucleated RBC Nucleated RBC % (auto) PT INR D-Dimer High Sensitivty Anion Gap Estim Creat Clear Calc Estimated GFR POC Glucose 230 H Random Glucose Lactic Acid Lactic Acid F/U @ 2Hr 2.4 H* Lactic Acid F/U @ 4Hr 1.3 Calcium Magnesium Total Bilirubin AST ALT Alkaline Phosphatase Troponin I High Sens Total Protein Albumin Urine Color Urine Appearance Urine pH Ur Specific [place] Urine Protein Urine Glucose (UA) Urine Ketones Urine Blood Urine Nitrite Ur Leukocyte Esterase Urine RBC Urine WBC Ur Squamous Epith Cells Urine Bacteria Hyaline Casts Urine Opiates Screen Urine Fentanyl Screen Ur Barbiturates Screen Ur Phencyclidine Scrn Ur Amphetamines Screen U Benzodiazepines Scrn Urine Cocaine Screen U Marijuana (THC) Screen COVID-19 ([facility]) COVID-19 [facility] 05/06/22 05/06/22 05/06/22 06:24 06:24 07:24 MCV 87.6 MCH 29.8 MCHC 34.0 RDW 12.6 Plt Count 204 MPV 9.2 L Immature Gran % (Auto) 0.4 Neut % (Auto) 52.0 Lymph % (Auto) 35.9 [place] % (Auto) 10.1 Eos % (Auto) 1.1 Baso % (Auto) 0.5 Lymph # (Auto) 3.6 [place] # (Auto) 1.0 Eos # (Auto) 0.1 Baso # (Auto) 0.1 Abs Immat Gran (auto) 0.04 H Absolute Neuts (auto) 5.2 Absolute Nucleated RBC 0.000 Nucleated RBC % (auto) 0.0 PT INR D-Dimer High Sensitivty Anion Gap 12 Estim Creat Clear Calc 128.5 Estimated GFR > 60 POC Glucose 149 H Random Glucose 128 H Lactic Acid Lactic Acid F/U @ 2Hr Lactic Acid F/U @ 4Hr Calcium 10.1 Magnesium Total Bilirubin AST ALT Alkaline Phosphatase Troponin I High Sens Total Protein Albumin Urine Color Urine Appearance Urine pH Ur Specific [place] Urine Protein Urine Glucose (UA) Urine Ketones Urine Blood Urine Nitrite Ur Leukocyte Esterase Urine RBC Urine WBC Ur Squamous Epith Cells Urine Bacteria Hyaline Casts Urine Opiates Screen Urine Fentanyl Screen Ur Barbiturates Screen Ur Phencyclidine Scrn Ur Amphetamines Screen U Benzodiazepines Scrn Urine Cocaine Screen U Marijuana (THC) Screen COVID-19 ([facility]) COVID-19 Clin Com Assessment and Plan (1) Syncope: Status: Acute Plan This is a 62-year-old male with pertinent history of schizophrenia, ypi-ukwzfam-sjxkovltx type 2 diabetes mellitus, essential hypertension, insomnia, mixed hyperlipidemia presents to the emergency department for evaluation of syncope. #.? Syncope -unclear etiology ortho negative cardiology consulted -concern for ?convulsive syncope with urinary incontinence and questionable shaking of extremities.? Neuro consult pending.? Defer EEG to neurology #.? Schizophrenia #.? Anxiety #.? Insomnia -will continue mood stabilizing agents #.? Essential hypertension -blood pressure noted to be low normal at the time of admission.? Hold antihypertensives and restart as appropriate #.? Bqf-doqgaiy-jpeafkbsn diabetes mellitus with hyperglycemia -hold metformin.? Initiate Accu-Cheks with sliding scale insulin before meals and at bedtime #.? Morbid obesity -patient understands that he needs to work on his diet/exercise and lose weight possible d/c today pending neuro recs re: work up Quality Stroke Does the patient have a stroke diagnosis?: No VTE Prior VTE?: No VTE Risk Level:: Medical - low VTE Device Contraindication: Treatment Not Indicated VTE Drug Contraindication: N/A - Med Ordered
--- NOTE | 2022-05-06 10:58 | PM.NEUROCN ---
History of Present Illness Data of Consult Service Date: 05/06/22 Primary Care Provider: Rajeev Sawant MD HPI Reason for consult: Syncope 62 years old man who reported 2 episodes of passing out during last few months, the 1st 1 in February and the 2nd 1 yesterday. In February he was mowing lawn when he fell down for no reason and passed out. This time he was sitting in his car when he passed out and found himself in the car. He did not remember any feelings before passing out and did not have any significant recollection of symptoms afterwards. Specifically there was no complaint of chest pain shortness of breath palpitation or headache. He denied any tendency to sleep afterwards per Review of Systems Review of Systems: No recent cold or flu-like illness PMFSH Past Medical History Medical History Acute insomnia Anxiety Essential (primary) hypertension Hyperlipidemia, unspecified Insomnia Morbid (severe) obesity due to excess calories Morbid obesity with BMI of 40.0-44.9, adult [place] (obstructive sleep apnea) Postconcussional syndrome Pure hypercholesterolemia Schizophrenia, unspecified Smoker Type 2 diabetes mellitus without complications Vitamin D deficiency Family History Family History Father No problems noted. Mother No problems noted. Family/Other FH: mental illness Mental health disorder Brother Substance use disorder Surgical History Surgical History History of root canal procedure History of wisdom tooth extraction Social History Social History Housing: House Alcohol intake: current Alcohol intake frequency: holidays/special occasions only Patient Tobacco Use Status: Current everyday Tobacco user Tobacco use type: Cigarette Cigarette Packs Per Day: 0.5 Cigarettes Per Day: 10.0 Years Smoked: 40 Smoked in Last 30 Days: Yes e-Cigarette/Vaping Use: Never Used Patient Interested in Nicotine Replacement: Yes Patient Given Instructions on How to Stop Smoking: Yes Date Education Initiated: 05/06/22 Second Hand Smoke Exposure: Yes Advance Directives: No Advance Directives Information Provided: No service: No Current occupational status: retired and disabled Cognitive needs: Yes (cane) Hearing needs: No Vision needs: Yes (Glasses) Meds Allergies Allergy/AdvReac Type Severity Reaction Status Date / Time No Known Allergies Allergy Verified 04/12/22 08:55 Active Medications: Current Medications Acetaminophen (Acetaminophen 325 Mg Tablet) 650 mg PO Q6H PRN PRN Reason: Pain, Mild (Pain Scale 1-3) Last Admin: 05/06/22 09:47 Dose: 650 mg Aripiprazole (Aripiprazole 5 Mg Tablet) 5 mg PO BEDTIME [facility] Last Admin: 05/05/22 21:15 Dose: 5 mg Dextrose (Dextrose 50 % 25 Gm/50 Ml Syringe) 25 gm IVPUSH Q15M PRN; Protocol PRN Reason: per Hypoglycemia Standing Ord. Enoxaparin Sodium (Enoxaparin Sodium 40 Mg/0.4 Ml Syringe) 40 mg SUBCUT Q24H [facility] Last Admin: 05/05/22 21:15 Dose: 40 mg Glucose (Glucose Gel 15 Gm Gel..Gram.) 15 gm PO Q15M PRN; Protocol PRN Reason: per Hypoglycemia Standing Ord. Insulin Human Lispro (Insulin Lispro 100 Unit/Ml 3 Ml Vial) 0 unit SUBCUT QIDACHS [facility]; Protocol Last Admin: 05/06/22 07:46 Dose: Not Given Melatonin (Melatonin 3 Mg Tablet) 6 mg PO BEDTIME PRN PRN Reason: Insomnia Ondansetron HCl (Ondansetron Hcl 4 Mg/2 Ml Vial) 4 mg IVPUSH Q8H PRN PRN Reason: Nausea and Vomiting Pharmacy Consult (Consult Rx Perform Med Rec) 1 each MISCELLANE ONCE PRN PRN Reason: Consult order Pharmacy Consult (Consult Rx Perform Med Rec) 1 each MISCELLANE ONCE PRN PRN Reason: Consult order Quetiapine Fumarate (Quetiapine Fumarate 25 Mg Tablet) 25 mg PO BEDTIME [facility] Last Admin: 05/05/22 21:15 Dose: 25 mg Sodium Chloride (0.9 % Sodium Chloride Flush 3 Ml Syringe) 3 ml IVFLUSH QSHIFT [facility] Last Admin: 05/06/22 09:47 Dose: 3 ml Zolpidem Tartrate (Zolpidem Tartrate 5 Mg Tablet) 5 mg PO BEDTIME [facility] Last Admin: 05/05/22 21:15 Dose: 5 mg Home Medications Medication Instructions Recorded Confirmed Last Taken Type aripiprazole 5 mg tablet 5 mg PO BEDTIME 02/18/22 05/05/22 05/04/22 History escitalopram oxalate 10 mg tablet 10 mg PO DAILY 02/18/22 05/05/22 05/05/22 History quetiapine 25 mg tablet 25 mg PO BEDTIME 02/18/22 05/05/22 05/04/22 History zolpidem 5 mg tablet 5 mg PO BEDTIME 02/18/22 05/05/22 05/04/22 History acetaminophen 500 mg tablet 1 tab PO TID PRN pain 05/05/22 05/05/22 05/05/22 History ergocalciferol (vitamin D2) 1,250 1,250 mcg PO SA 05/05/22 05/05/22 04/29/22 History mcg (50,000 unit) capsule lorazepam 0.5 mg tablet 1 tab PO DAILY PRN Anxiety 05/05/22 05/05/22 05/05/22 History simvastatin 40 mg tablet 40 mg PO DAILY 05/05/22 05/05/22 05/05/22 History Physical Exam Vital Signs: Vital Signs: Last Vital Signs Temp 98.1 F 05/06/22 08:00 Pulse 83 05/06/22 08:16 Resp 20 05/06/22 08:00 BP 141/72 H 05/06/22 08:16 Pulse Ox 97 05/06/22 08:00 O2 Del Method 05/06/22 08:00 BMI result Body Mass Index 43.7 Neuro: Other: Alert and awake with normal spontaneity of speech fluency comprehension and affect. He was significantly obese. Face was symmetrical. Tongue was midline. There was no pronator drift. Deep tendon reflexes were trace to absent with flexor plantars. Speech was normal. Results Labs CBC & Chem 7: 05/06/22 06:24 05/06/22 06:24 Labs: Short CBC 05/05/22 05/06/22 Range/Units 15:54 06:24 WBC 11.9 H 9.9 (4.8-10.8) X10*3/uL Hgb 15.7 14.7 (14.0-18.0) g/dl Hct 46.3 43.2 (42.0-52.0) % Plt Count 242 204 (160-400) X10*3/uL BMP 05/05/22 05/06/22 15:54 06:24 Sodium 134 L 134 L Potassium 4.4 4.1 Chloride 98 101 Carbon Dioxide 29 25 BUN 12 10 Creatinine 1.00 0.79 Calcium 10.4 H 10.1 Liver Function 05/05/22 Range/Units 15:54 Total Bilirubin 1.0 (0.0-1.0) mg/dL AST 63 H (5-37) U/L ALT 61 H (0-40) U/L Alkaline Phosphatase 56 (39-117) U/L Albumin 4.1 (3.5-5.0) g/dL Urine 05/05/22 Range/Units 17:16 Urine Color Yellow Urine Appearance Clear Urine pH 6.5 (5.0-9.0) Ur Specific [place] 1.015 (1.005-1.025) Urine Protein 300 (3+) H (Neg-Trace) mg/dL Urine Glucose (UA) 100 H (Negative) mg/dL noncontrast head CT did not reveal any significant abnormality Assessment and Plan (1) Syncope: Status: Acute 62 years old man with possible seizure disorder. My recommendation is to obtain an EEG, which can be done as an outpatient. He should be advised to not drive and not be involved in any activity that could put his life in danger. There is also suspicion of alcohol use, if that could be the explanation for abnormal liver enzymes. He should not drink alcohol at all at this time. Procedures Date of Service Date of Service: 05/06/22
--- NOTE | 2022-05-06 11:18 | PM.CNCAR ---
History of Present Illness History of Present Illness Date of Service: 05/06/22 Requesting physician: Pankaj Hooper Chief complaint: Syncope Narrative: 62-year-old gentleman who is presenting with syncope. He has background history of schizophrenia, postconcussion syndrome, diabetes, hypertension, sleep apnea, morbid obesity and hyperlipidemia. Three months ago he was mowing his lawn and had syncope. He said he remember waking up with urinary incontinence. No tongue bite. He reports that he did not have any confusion when he woke up a new where he was. He was feeling very tired and fatigued. He is unsure whether he was feeling hot and flushed before that. Again yesterday he went for [place] cut [place] [employer]. He said he got out walk to his car got into his car and then passed out again. Again he does not recall much symptoms then. Saying maybe he was feeling hot and flushed but wakes story. He is denying any chest pain or shortness of breath. He is being worked up by Neurology currently. He has Holter monitor which was normal. He also had echocardiography which did not show any cardiomyopathy or valvular disease. PMFSH Past Medical History Medical History Acute insomnia Anxiety Essential (primary) hypertension Hyperlipidemia, unspecified Insomnia Morbid (severe) obesity due to excess calories Morbid obesity with BMI of 40.0-44.9, adult [place] (obstructive sleep apnea) Postconcussional syndrome Pure hypercholesterolemia Schizophrenia, unspecified Smoker Type 2 diabetes mellitus without complications Vitamin D deficiency Family History Family History Father No problems noted. Mother No problems noted. Family/Other FH: mental illness Mental health disorder Brother Substance use disorder Surgical History Surgical History History of root canal procedure History of wisdom tooth extraction Social History Social History Housing: House Alcohol intake: current Alcohol intake frequency: holidays/special occasions only Patient Tobacco Use Status: Current everyday Tobacco user Tobacco use type: Cigarette Cigarette Packs Per Day: 0.5 Cigarettes Per Day: 10.0 Years Smoked: 40 Smoked in Last 30 Days: Yes e-Cigarette/Vaping Use: Never Used Patient Interested in Nicotine Replacement: Yes Patient Given Instructions on How to Stop Smoking: Yes Date Education Initiated: 05/06/22 Second Hand Smoke Exposure: Yes Advance Directives: No Advance Directives Information Provided: No service: No Current occupational status: retired and disabled Cognitive needs: Yes (cane) Hearing needs: No Vision needs: Yes (Glasses) Meds Allergies Allergy/AdvReac Type Severity Reaction Status Date / Time No Known Allergies Allergy Verified 04/12/22 08:55 Active Medications: Current Medications Acetaminophen (Acetaminophen 325 Mg Tablet) 650 mg PO Q6H PRN PRN Reason: Pain, Mild (Pain Scale 1-3) Last Admin: 05/06/22 09:47 Dose: 650 mg Aripiprazole (Aripiprazole 5 Mg Tablet) 5 mg PO BEDTIME DEEPA Last Admin: 05/05/22 21:15 Dose: 5 mg Dextrose (Dextrose 50 % 25 Gm/50 Ml Syringe) 25 gm IVPUSH Q15M PRN; Protocol PRN Reason: per Hypoglycemia Standing Ord. Enoxaparin Sodium (Enoxaparin Sodium 40 Mg/0.4 Ml Syringe) 40 mg SUBCUT Q24H DEEPA Last Admin: 05/05/22 21:15 Dose: 40 mg Glucose (Glucose Gel 15 Gm Gel..Gram.) 15 gm PO Q15M PRN; Protocol PRN Reason: per Hypoglycemia Standing Ord. Insulin Human Lispro (Insulin Lispro 100 Unit/Ml 3 Ml Vial) 0 unit SUBCUT QIDACHS DEEPA; Protocol Last Admin: 05/06/22 07:46 Dose: Not Given Melatonin (Melatonin 3 Mg Tablet) 6 mg PO BEDTIME PRN PRN Reason: Insomnia Ondansetron HCl (Ondansetron Hcl 4 Mg/2 Ml Vial) 4 mg IVPUSH Q8H PRN PRN Reason: Nausea and Vomiting Pharmacy Consult (Consult Rx Perform Med Rec) 1 each MISCELLANE ONCE PRN PRN Reason: Consult order Pharmacy Consult (Consult Rx Perform Med Rec) 1 each MISCELLANE ONCE PRN PRN Reason: Consult order Quetiapine Fumarate (Quetiapine Fumarate 25 Mg Tablet) 25 mg PO BEDTIME DEEPA Last Admin: 05/05/22 21:15 Dose: 25 mg Sodium Chloride (0.9 % Sodium Chloride Flush 3 Ml Syringe) 3 ml IVFLUSH QSHIFT [facility] Last Admin: 05/06/22 09:47 Dose: 3 ml Zolpidem Tartrate (Zolpidem Tartrate 5 Mg Tablet) 5 mg PO BEDTIME [facility] Last Admin: 05/05/22 21:15 Dose: 5 mg Home Medications Medication Instructions Recorded Confirmed Last Taken Type aripiprazole 5 mg tablet 5 mg PO BEDTIME 02/18/22 05/05/22 05/04/22 History escitalopram oxalate 10 mg tablet 10 mg PO DAILY 02/18/22 05/05/22 05/05/22 History quetiapine 25 mg tablet 25 mg PO BEDTIME 02/18/22 05/05/22 05/04/22 History zolpidem 5 mg tablet 5 mg PO BEDTIME 02/18/22 05/05/22 05/04/22 History acetaminophen 500 mg tablet 1 tab PO TID PRN pain 05/05/22 05/05/22 05/05/22 History ergocalciferol (vitamin D2) 1,250 1,250 mcg PO SA 05/05/22 05/05/22 04/29/22 History mcg (50,000 unit) capsule lorazepam 0.5 mg tablet 1 tab PO DAILY PRN Anxiety 05/05/22 05/05/22 05/05/22 History simvastatin 40 mg tablet 40 mg PO DAILY 05/05/22 05/05/22 05/05/22 History Physical Exam Vital Signs: Vital Signs: Last Vital Signs Temp 98.1 F 05/06/22 08:00 Pulse 83 05/06/22 08:16 Resp 20 05/06/22 08:00 BP 141/72 H 05/06/22 08:16 Pulse Ox 97 05/06/22 08:00 O2 Del Method 05/06/22 08:00 BMI result Body Mass Index 43.7 GENERAL APPEARANCE: in no acute distress, pleasant. NECK: no carotid bruit, no jugular venous distention. SKIN: no suspicious lesions, warm and dry. HEART: no murmurs, regular rate and rhythm. LUNGS: clear to auscultation bilaterally. ABDOMEN: soft, nontender. EXTREMITIES: no edema. PERIPHERAL PULSES: equal. NEUROLOGIC: No gross deficits, AAO X 3. Slow to respond to questions. Objective Labs and Meds Result diagrams: 05/06/22 06:24 05/06/22 06:24 Lab results: Laboratory Results - last 24 hr 05/05/22 05/05/22 05/05/22 15:54 15:54 15:54 WBC 11.9 H RBC 5.22 Hgb 15.7 Hct 46.3 MCV 88.7 MCH 30.1 MCHC 33.9 RDW 12.5 Plt Count 242 MPV 8.8 L Immature Gran % (Auto) 0.4 Neut % (Auto) 73.9 H Lymph % (Auto) 16.4 L [place] % (Auto) 8.4 Eos % (Auto) 0.3 Baso % (Auto) 0.6 Lymph # (Auto) 2.0 [place] # (Auto) 1.0 Eos # (Auto) 0.0 Baso # (Auto) 0.1 Abs Immat Gran (auto) 0.05 H Absolute Neuts (auto) 8.8 H Absolute Nucleated RBC 0.000 Nucleated RBC % (auto) 0.0 PT INR D-Dimer High Sensitivty Sodium 134 L Potassium 4.4 Chloride 98 Carbon Dioxide 29 Anion Gap 11 L BUN 12 Creatinine 1.00 Estim Creat Clear Calc 99.5 Estimated GFR > 60 POC Glucose Random Glucose 212 H Lactic Acid Lactic Acid F/U @ 2Hr Lactic Acid F/U @ 4Hr Calcium 10.4 H Magnesium 1.8 Total Bilirubin 1.0 AST 63 H ALT 61 H Alkaline Phosphatase 56 Troponin I High Sens 27.9 Total Protein 6.5 Albumin 4.1 Urine Color Urine Appearance Urine pH Ur Specific [place] Urine Protein Urine Glucose (UA) Urine Ketones Urine Blood Urine Nitrite Ur Leukocyte Esterase Urine RBC Urine WBC Ur Squamous Epith Cells Urine Bacteria Hyaline Casts Urine Opiates Screen Urine Fentanyl Screen Ur Barbiturates Screen Ur Phencyclidine Scrn Ur Amphetamines Screen U Benzodiazepines Scrn Urine Cocaine Screen U Marijuana (THC) Screen COVID-19 (FERNANDO) COVID-19 Clin Com 05/05/22 05/05/22 05/05/22 15:54 15:54 15:54 WBC RBC Hgb Hct MCV MCH MCHC RDW Plt Count MPV Immature Gran % (Auto) Neut % (Auto) Lymph % (Auto) [place] % (Auto) Eos % (Auto) Baso % (Auto) Lymph # (Auto) [place] # (Auto) Eos # (Auto) Baso # (Auto) Abs Immat Gran (auto) Absolute Neuts (auto) Absolute Nucleated RBC Nucleated RBC % (auto) PT 11.4 INR 1.0 D-Dimer High Sensitivty 165 Sodium Potassium Chloride Carbon Dioxide Anion Gap BUN Creatinine Estim Creat Clear Calc Estimated GFR POC Glucose Random Glucose Lactic Acid 2.4 H* Lactic Acid F/U @ 2Hr Lactic Acid F/U @ 4Hr Calcium Magnesium Total Bilirubin AST ALT Alkaline Phosphatase Troponin I High Sens Total Protein Albumin Urine Color Urine Appearance Urine pH Ur Specific [place] Urine Protein Urine Glucose (UA) Urine Ketones Urine Blood Urine Nitrite Ur Leukocyte Esterase Urine RBC Urine WBC Ur Squamous Epith Cells Urine Bacteria Hyaline Casts Urine Opiates Screen Urine Fentanyl Screen Ur Barbiturates Screen Ur Phencyclidine Scrn Ur Amphetamines Screen U Benzodiazepines Scrn Urine Cocaine Screen U Marijuana (THC) Screen COVID-19 (FERNANDO) Negative [employer] See Note 05/05/22 05/05/22 05/05/22 17:16 17:16 19:39 WBC RBC Hgb Hct MCV MCH MCHC RDW Plt Count MPV Immature Gran % (Auto) Neut % (Auto) Lymph % (Auto) [place] % (Auto) Eos % (Auto) Baso % (Auto) Lymph # (Auto) [place] # (Auto) Eos # (Auto) Baso # (Auto) Abs Immat Gran (auto) Absolute Neuts (auto) Absolute Nucleated RBC Nucleated RBC % (auto) PT INR D-Dimer High Sensitivty Sodium Potassium Chloride Carbon Dioxide Anion Gap BUN Creatinine Estim Creat Clear Calc Estimated GFR POC Glucose Random Glucose Lactic Acid Lactic Acid F/U @ 2Hr Lactic Acid F/U @ 4Hr Calcium Magnesium Total Bilirubin AST ALT Alkaline Phosphatase Troponin I High Sens 72.6 H D Total Protein Albumin Urine Color Yellow Urine Appearance Clear Urine pH 6.5 Ur Specific [place] 1.015 Urine Protein 300 (3+) H Urine Glucose (UA) 100 H Urine Ketones Negative Urine Blood Trace H Urine Nitrite Negative Ur Leukocyte Esterase Negative Urine RBC 0-2 Urine WBC 0-5 Ur Squamous Epith Cells 0-2 Urine Bacteria None Seen Hyaline Casts 0-2 Urine Opiates Screen Not Detected Urine Fentanyl Screen Not Detected Ur Barbiturates Screen Not Detected Ur Phencyclidine Scrn Not Detected Ur Amphetamines Screen Not Detected U Benzodiazepines Scrn Not Detected Urine Cocaine Screen Not Detected U Marijuana (THC) Screen Not Detected COVID-19 (FERNANDO) COVID-[employer] 05/05/22 05/05/22 05/05/22 19:39 21:12 23:17 WBC RBC Hgb Hct MCV MCH MCHC RDW Plt Count MPV Immature Gran % (Auto) Neut % (Auto) Lymph % (Auto) [place] % (Auto) Eos % (Auto) Baso % (Auto) Lymph # (Auto) [place] # (Auto) Eos # (Auto) Baso # (Auto) Abs Immat Gran (auto) Absolute Neuts (auto) Absolute Nucleated RBC Nucleated RBC % (auto) PT INR D-Dimer High Sensitivty Sodium Potassium Chloride Carbon Dioxide Anion Gap BUN Creatinine Estim Creat Clear Calc Estimated GFR POC Glucose 230 H Random Glucose Lactic Acid Lactic Acid F/U @ 2Hr 2.4 H* Lactic Acid F/U @ 4Hr 1.3 Calcium Magnesium Total Bilirubin AST ALT Alkaline Phosphatase Troponin I High Sens Total Protein Albumin Urine Color Urine Appearance Urine pH Ur Specific [place] Urine Protein Urine Glucose (UA) Urine Ketones Urine Blood Urine Nitrite Ur Leukocyte Esterase Urine RBC Urine WBC Ur Squamous Epith Cells Urine Bacteria Hyaline Casts Urine Opiates Screen Urine Fentanyl Screen Ur Barbiturates Screen Ur Phencyclidine Scrn Ur Amphetamines Screen U Benzodiazepines Scrn Urine Cocaine Screen U Marijuana (THC) Screen COVID-19 (FERNANDO) COVID-19 Clin Com 05/06/22 05/06/22 05/06/22 06:24 06:24 07:24 WBC 9.9 RBC 4.93 Hgb 14.7 Hct 43.2 MCV 87.6 MCH 29.8 MCHC 34.0 RDW 12.6 Plt Count 204 MPV 9.2 L Immature Gran % (Auto) 0.4 Neut % (Auto) 52.0 Lymph % (Auto) 35.9 [place] % (Auto) 10.1 Eos % (Auto) 1.1 Baso % (Auto) 0.5 Lymph # (Auto) 3.6 [place] # (Auto) 1.0 Eos # (Auto) 0.1 Baso # (Auto) 0.1 Abs Immat Gran (auto) 0.04 H Absolute Neuts (auto) 5.2 Absolute Nucleated RBC 0.000 Nucleated RBC % (auto) 0.0 PT INR D-Dimer High Sensitivty Sodium 134 L Potassium 4.1 Chloride 101 Carbon Dioxide 25 Anion Gap 12 BUN 10 Creatinine 0.79 Estim Creat Clear Calc 128.5 Estimated GFR > 60 POC Glucose 149 H Random Glucose 128 H Lactic Acid Lactic Acid F/U @ 2Hr Lactic Acid F/U @ 4Hr Calcium 10.1 Magnesium Total Bilirubin AST ALT Alkaline Phosphatase Troponin I High Sens Total Protein Albumin Urine Color Urine Appearance Urine pH Ur Specific [place] Urine Protein Urine Glucose (UA) Urine Ketones Urine Blood Urine Nitrite Ur Leukocyte Esterase Urine RBC Urine WBC Ur Squamous Epith Cells Urine Bacteria Hyaline Casts Urine Opiates Screen Urine Fentanyl Screen Ur Barbiturates Screen Ur Phencyclidine Scrn Ur Amphetamines Screen U Benzodiazepines Scrn Urine Cocaine Screen U Marijuana (THC) Screen COVID-19 (FERNANDO) COVID-19 Clin Com Imaging Radiologist's impression: Impressions Chest X-Ray 05/05/22 16:03 IMPRESSION: Unremarkable examination. Head CT 05/05/22 16:53 IMPRESSION: Unremarkable CT scan of the head. Specifically no evidence of acute territorial infarct or hemorrhage. Assessment and Plan (1) Syncope: Status: Acute Plan [age] gentleman in for syncope. He had 2 episodes in the last 3 months. Story is quite vague. His 7 days Holter monitor and echocardiogram did not show any significant issues. He is on telemetry currently and will monitor him for any arrhythmia. He had urinary incontinence with his 1st episode and it is possible that he has seizure disorder. Neurology is following him. If neurological workup does not explain this then I would consider doing a tilt-table test and treadmill stress test on him. No carotid bruits on examination. No aortic stenosis by exam or echocardiography. 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 Thank you for allowing me to participate in the care of your patient. Please feel free to contact me if you have any questions. Procedures Date of Service Date of Service: 05/06/22
[2022-05-06 11:51] LABS: Glucose, Whole Blood 205 mg/dL (60-115)
[2022-05-06] MEDS: Insulin Lispro 100 UNIT/ML 3 ML VIAL SUBCUT (11:56)
[2022-05-06 12:00] VITALS: RESP 20
--- NOTE | 2022-05-06 13:38 | P.DS_ITS ---
DS: Providers Provider Date of Service: 05/06/22 Date of admission: 05/05/22 19:20 Primary care physician: Rajeev Sawant MD Consults: 05/05/22 19:23 Consult to Neurology Routine Consulting Provider: [facility] Reason for consultation: ?convulsive syncope 05/06/22 09:55 Consult to Cardiology Routine Consulting Provider: Tacho Summers Reason for consultation: syncope DS: Diagnosis Discharge Diagnosis (1) Syncope: Status: Acute DS: Summary Hospital Course Hospital Course: HPI From admission H&P: This is a 62-year-old male with pertinent history of schizophrenia, uid-[id number] type 2 diabetes mellitus, essential hypertension, insomnia, mixed hyperlipidemia presents to the emergency department for evaluation of syncope.? Patient states he had a syncopal episode today when he was sitting in the car after visiting his lane.? It was sudden onset and without any prodrome of symptoms.? He denies dizziness lightheadedness, warmth, nausea prior to the episode.? Thinks he may have had jerking movement of extremities and also urinated on himself during the episode.? No tongue bite or fecal incontinence.? No chest pain, palpitations, shortness of breath prior to the episode.? Patient states he had a syncopal episode in February when he was working in his lawn.? Patient was evaluated at [facility] and does not know/remember the cause of his syncopal episode.? Before that, he also had an episode about 6 months ago for which he did not go to the ER.? Patient has never seen a neurologist and no history of seizures.? Patient states he had had poor intake over the last couple of days but no vomiting or diarrhea.? No? Head trauma.? No history of irregular rhythm disorders Hospital Course: Patient was admitted to telemetry. His telemetry did not show any a arrhythmias. He was evaluated by Cardiology as well as Neurology. Neurology recommended EEG which could be done as an outpatient. This has been ordered and the patient has been advised to follow-up with Neurology. Cardiology felt that his presentation could be related to a neurological cause and recommended outpatient follow-up with Cardiology for possible tilt testing. Patient is seen examined on day of discharge. He feels at baseline and ready for discharge. Time Spent with Patient Time attestation: Total time spent providing and/or coordinating discharge services: Discharge coordination time: Less than 30 minutes Quality: Safe Use of Opioids Does Pt have an Active Cancer Diagnosis on the Problem List?: No Quality: Stroke Does the patient have a stroke diagnosis?: No Physical Exam Vital Signs: Vital Signs: Last Vital Signs Temp 98.1 F 05/06/22 08:00 Pulse 83 05/06/22 08:16 Resp 20 05/06/22 08:00 BP 141/72 H 05/06/22 08:16 Pulse Ox 97 05/06/22 08:00 O2 Del Method 05/06/22 08:00 BMI result Body Mass Index 43.7 Const: Other: General - no acute distress, appears comfortable Cardiovascular - regular rate and rhythm, S1-S2 Lungs - normal respiratory effort, clear to auscultation bilaterally, no wheezing Abdomen - soft, nontender, no rebound or guarding Extremities - no edema bilaterally Neuro - awake and alert, no focal deficits DS: Data Data Completed and Pending Labs on day of discharge: Laboratory Results - last 24 hr 05/05/22 05/05/22 05/05/22 15:54 15:54 15:54 WBC 11.9 H RBC 5.22 Hgb 15.7 Hct 46.3 MCV 88.7 MCH 30.1 MCHC 33.9 RDW 12.5 Plt Count 242 MPV 8.8 L Immature Gran % (Auto) 0.4 Neut % (Auto) 73.9 H Lymph % (Auto) 16.4 L [place] % (Auto) 8.4 Eos % (Auto) 0.3 Baso % (Auto) 0.6 Lymph # (Auto) 2.0 [place] # (Auto) 1.0 Eos # (Auto) 0.0 Baso # (Auto) 0.1 Abs Immat Gran (auto) 0.05 H Absolute Neuts (auto) 8.8 H Absolute Nucleated RBC 0.000 Nucleated RBC % (auto) 0.0 PT INR D-Dimer High Sensitivty Sodium 134 L Potassium 4.4 Chloride 98 Carbon Dioxide 29 Anion Gap 11 L BUN 12 Creatinine 1.00 Estim Creat Clear Calc 99.5 Estimated GFR > 60 POC Glucose Random Glucose 212 H Lactic Acid Lactic Acid F/U @ 2Hr Lactic Acid F/U @ 4Hr Calcium 10.4 H Magnesium 1.8 Total Bilirubin 1.0 AST 63 H ALT 61 H Alkaline Phosphatase 56 Troponin I High Sens 27.9 Total Protein 6.5 Albumin 4.1 Urine Color Urine Appearance Urine pH Ur Specific [place] Urine Protein Urine Glucose (UA) Urine Ketones Urine Blood Urine Nitrite Ur Leukocyte Esterase Urine RBC Urine WBC Ur Squamous Epith Cells Urine Bacteria Hyaline Casts Urine Opiates Screen Urine Fentanyl Screen Ur Barbiturates Screen Ur Phencyclidine Scrn Ur Amphetamines Screen U Benzodiazepines Scrn Urine Cocaine Screen U Marijuana (THC) Screen COVID-19 (FERNANDO) COVID-19 Clin Com 05/05/22 05/05/22 05/05/22 15:54 15:54 15:54 WBC RBC Hgb Hct MCV MCH MCHC RDW Plt Count MPV Immature Gran % (Auto) Neut % (Auto) Lymph % (Auto) [place] % (Auto) Eos % (Auto) Baso % (Auto) Lymph # (Auto) [place] # (Auto) Eos # (Auto) Baso # (Auto) Abs Immat Gran (auto) Absolute Neuts (auto) Absolute Nucleated RBC Nucleated RBC % (auto) PT 11.4 INR 1.0 D-Dimer High Sensitivty 165 Sodium Potassium Chloride Carbon Dioxide Anion Gap BUN Creatinine Estim Creat Clear Calc Estimated GFR POC Glucose Random Glucose Lactic Acid 2.4 H* Lactic Acid F/U @ 2Hr Lactic Acid F/U @ 4Hr Calcium Magnesium Total Bilirubin AST ALT Alkaline Phosphatase Troponin I High Sens Total Protein Albumin Urine Color Urine Appearance Urine pH Ur Specific [place] Urine Protein Urine Glucose (UA) Urine Ketones Urine Blood Urine Nitrite Ur Leukocyte Esterase Urine RBC Urine WBC Ur Squamous Epith Cells Urine Bacteria Hyaline Casts Urine Opiates Screen Urine Fentanyl Screen Ur Barbiturates Screen Ur Phencyclidine Scrn Ur Amphetamines Screen U Benzodiazepines Scrn Urine Cocaine Screen U Marijuana (THC) Screen COVID-19 (FERNANDO) Negative COVID-19 Clin Com See Note 05/05/22 05/05/22 05/05/22 17:16 17:16 19:39 WBC RBC Hgb Hct MCV MCH MCHC RDW Plt Count MPV Immature Gran % (Auto) Neut % (Auto) Lymph % (Auto) [place] % (Auto) Eos % (Auto) Baso % (Auto) Lymph # (Auto) [place] # (Auto) Eos # (Auto) Baso # (Auto) Abs Immat Gran (auto) Absolute Neuts (auto) Absolute Nucleated RBC Nucleated RBC % (auto) PT INR D-Dimer High Sensitivty Sodium Potassium Chloride Carbon Dioxide Anion Gap BUN Creatinine Estim Creat Clear Calc Estimated GFR POC Glucose Random Glucose Lactic Acid Lactic Acid F/U @ 2Hr Lactic Acid F/U @ 4Hr Calcium Magnesium Total Bilirubin AST ALT Alkaline Phosphatase Troponin I High Sens 72.6 H D Total Protein Albumin Urine Color Yellow Urine Appearance Clear Urine pH 6.5 Ur Specific [place] 1.015 Urine Protein 300 (3+) H Urine Glucose (UA) 100 H Urine Ketones Negative Urine Blood Trace H Urine Nitrite Negative Ur Leukocyte Esterase Negative Urine RBC 0-2 Urine WBC 0-5 Ur Squamous Epith Cells 0-2 Urine Bacteria None Seen Hyaline Casts 0-2 Urine Opiates Screen Not Detected Urine Fentanyl Screen Not Detected Ur Barbiturates Screen Not Detected Ur Phencyclidine Scrn Not Detected Ur Amphetamines Screen Not Detected U Benzodiazepines Scrn Not Detected Urine Cocaine Screen Not Detected U Marijuana (THC) Screen Not Detected COVID-19 (FERNANDO) COVID-19 [employer] 05/05/22 05/05/22 05/05/22 19:39 21:12 23:17 WBC RBC Hgb Hct MCV MCH MCHC RDW Plt Count MPV Immature Gran % (Auto) Neut % (Auto) Lymph % (Auto) [place] % (Auto) Eos % (Auto) Baso % (Auto) Lymph # (Auto) [place] # (Auto) Eos # (Auto) Baso # (Auto) Abs Immat Gran (auto) Absolute Neuts (auto) Absolute Nucleated RBC Nucleated RBC % (auto) PT INR D-Dimer High Sensitivty Sodium Potassium Chloride Carbon Dioxide Anion Gap BUN Creatinine Estim Creat Clear Calc Estimated GFR POC Glucose 230 H Random Glucose Lactic Acid Lactic Acid F/U @ 2Hr 2.4 H* Lactic Acid F/U @ 4Hr 1.3 Calcium Magnesium Total Bilirubin AST ALT Alkaline Phosphatase Troponin I High Sens Total Protein Albumin Urine Color Urine Appearance Urine pH Ur Specific [place] Urine Protein Urine Glucose (UA) Urine Ketones Urine Blood Urine Nitrite Ur Leukocyte Esterase Urine RBC Urine WBC Ur Squamous Epith Cells Urine Bacteria Hyaline Casts Urine Opiates Screen Urine Fentanyl Screen Ur Barbiturates Screen Ur Phencyclidine Scrn Ur Amphetamines Screen U Benzodiazepines Scrn Urine Cocaine Screen U Marijuana (THC) Screen COVID-19 (FERNANDO) COVID-19 [employer] 05/06/22 05/06/22 05/06/22 06:24 06:24 07:24 WBC 9.9 RBC 4.93 Hgb 14.7 Hct 43.2 MCV 87.6 MCH 29.8 MCHC 34.0 RDW 12.6 Plt Count 204 MPV 9.2 L Immature Gran % (Auto) 0.4 Neut % (Auto) 52.0 Lymph % (Auto) 35.9 [place] % (Auto) 10.1 Eos % (Auto) 1.1 Baso % (Auto) 0.5 Lymph # (Auto) 3.6 [place] # (Auto) 1.0 Eos # (Auto) 0.1 Baso # (Auto) 0.1 Abs Immat Gran (auto) 0.04 H Absolute Neuts (auto) 5.2 Absolute Nucleated RBC 0.000 Nucleated RBC % (auto) 0.0 PT INR D-Dimer High Sensitivty Sodium 134 L Potassium 4.1 Chloride 101 Carbon Dioxide 25 Anion Gap 12 BUN 10 Creatinine 0.79 Estim Creat Clear Calc 128.5 Estimated GFR > 60 POC Glucose 149 H Random Glucose 128 H Lactic Acid Lactic Acid F/U @ 2Hr Lactic Acid F/U @ 4Hr Calcium 10.1 Magnesium Total Bilirubin AST ALT Alkaline Phosphatase Troponin I High Sens Total Protein Albumin Urine Color Urine Appearance Urine pH Ur Specific [place] Urine Protein Urine Glucose (UA) Urine Ketones Urine Blood Urine Nitrite Ur Leukocyte Esterase Urine RBC Urine WBC Ur Squamous Epith Cells Urine Bacteria Hyaline Casts Urine Opiates Screen Urine Fentanyl Screen Ur Barbiturates Screen Ur Phencyclidine Scrn Ur Amphetamines Screen U Benzodiazepines Scrn Urine Cocaine Screen U Marijuana (THC) Screen COVID-19 (FERNANDO) COVID-19 Clin Com 05/06/22 11:44 WBC RBC Hgb Hct MCV MCH MCHC RDW Plt Count MPV Immature Gran % (Auto) Neut % (Auto) Lymph % (Auto) [place] % (Auto) Eos % (Auto) Baso % (Auto) Lymph # (Auto) [place] # (Auto) Eos # (Auto) Baso # (Auto) Abs Immat Gran (auto) Absolute Neuts (auto) Absolute Nucleated RBC Nucleated RBC % (auto) PT INR D-Dimer High Sensitivty Sodium Potassium Chloride Carbon Dioxide Anion Gap BUN Creatinine Estim Creat Clear Calc Estimated GFR POC Glucose 205 H Random Glucose Lactic Acid Lactic Acid F/U @ 2Hr Lactic Acid F/U @ 4Hr Calcium Magnesium Total Bilirubin AST ALT Alkaline Phosphatase Troponin I High Sens Total Protein Albumin Urine Color Urine Appearance Urine pH Ur Specific [place] Urine Protein Urine Glucose (UA) Urine Ketones Urine Blood Urine Nitrite Ur Leukocyte Esterase Urine RBC Urine WBC Ur Squamous Epith Cells Urine Bacteria Hyaline Casts Urine Opiates Screen Urine Fentanyl Screen Ur Barbiturates Screen Ur Phencyclidine Scrn Ur Amphetamines Screen U Benzodiazepines Scrn Urine Cocaine Screen U Marijuana (THC) Screen COVID-19 (FERNANDO) COVID-19 Clin Com Discharge Plan Discharge Patient Disposition: Home, Self-Care Discharge Diagnosis: Syncope vs seizure Referrals: Claus Louis MD [Physician] - 1 Week Tacho Summers MD [Physician] - 1 Week Rajeev Sawant MD [Primary Care Provider] - 1 Week Discharge Medications: Continued metformin 500 mg tablet 1,000 mg PO BID Qty: 360 1RF hydrochlorothiazide 25 mg tablet 25 mg PO QAM Qty: 90 1RF lisinopril 10 mg tablet 10 mg PO DAILY Qty: 90 1RF pioglitazone 15 mg tablet 15 mg PO DAILY Qty: 90 1RF (DME) lancets [FreeStyle Lancets] 28 gauge misc See Rx Instructions .ROUTE .MEDSUPPLY Qty: 100 0RF Rx Instructions: Test 2 times daily cetirizine 10 mg tablet 10 mg PO DAILY Qty: 30 6RF tramadol 50 mg tablet 50 mg PO BEDTIME Qty: 30 0RF acetaminophen 500 mg tablet 1 tab PO TID PRN (Reason: pain) lorazepam 0.5 mg tablet 1 tab PO DAILY PRN (Reason: Anxiety) ergocalciferol (vitamin D2) 1,250 mcg (50,000 unit) capsule 1,250 mcg PO SA simvastatin 40 mg tablet 40 mg PO DAILY quetiapine 25 mg tablet 25 mg PO BEDTIME aripiprazole 5 mg tablet 5 mg PO BEDTIME escitalopram oxalate 10 mg tablet 10 mg PO DAILY zolpidem 5 mg tablet 5 mg PO BEDTIME Discharge Orders: Discharge Order (Routine); Ordered 05/06/22 Ordered By: Pankaj Hooper Diet: Advance to usual diet Activity on Discharge: As tolerated Stand Alone Forms: Patient Portal Discharge page Other Ambulatory Orders: EEG ambulatory (Routine) Timeframe: 1 Week Facility: [facility] - Location: Radiology Ordered By: Pankaj Hooper Care Plan Goals: To stay healthy and out of the hospital. Health Concerns: Syncope vs seizure Plan of Treatment: Outpatient EEG and follow up with neurology Outpatient possible tilt test and follow up with cardiology Assessment: see d/c summary
--- NOTE | 2022-05-06 14:02 | MHC.CM.PN ---
Patient has been medically cleared for dc to home today, self care.
== END 2022-05-06 14:34 | disposition home or self-care (01) ==
LOC: HO.ED 17:37 → HO.EDOVER 05-06 00:11 → HO.IMC 05-06 00:35
PROVIDERS: Nurse Practitioner Family; Physician Assistant Medical; Admitting Provider Student in an Organized Health Care Education/Training Program; Emergency Provider Student in an Organized Health Care Education/Training Program; PCP Internal Medicine; Visit Provider Family Medicine
DX: R55 Syncope and collapse (principal); F41.9 Anxiety disorder, unspecified; F20.9 Schizophrenia, unspecified; E66.01 Morbid (severe) obesity due to excess calories; Z68.41 Body mass index [BMI] 40.0-44.9, adult; E55.9 Vitamin D deficiency, unspecified; E11.9 Type 2 diabetes mellitus without complications; I10 Essential (primary) hypertension; G47.33 Obstructive sleep apnea (adult) (pediatric); G47.00 Insomnia, unspecified; F17.210 Nicotine dependence, cigarettes, uncomplicated; Z20.822 Contact with and (suspected) exposure to COVID-19; Z71.6 Tobacco abuse counseling; Z79.899 Other long term (current) drug therapy
CPT/HCPCS: 36415; 70450; 71045; 80048; 80053; 80307; 81001; 82947; 83605; 83735; 84484; 85025; 85379; 85610; 87635; 93005; 96361; 96372; 96374; 99219; 99285; J1650

== ENCOUNTER → 2022-05-09 13:34 | Outpatient (BNVA) | payer MEDICARE, MEDICAID, SELFPAY | PROVIDERS: PCP Internal Medicine; Referring Provider Internal Medicine; Visit Provider Internal Medicine Cardiovascular Disease | DX: R55 Syncope and collapse (principal) | CPT/HCPCS: 99202 ==

== ENCOUNTER → 2022-05-30 08:10 | Outpatient (REF) | payer MEDICARE, MEDICAID, SELFPAY ==
--- NOTE | 2022-05-30 08:48 | HM_ITS ---
CARDIAC EVENT MONITOR Indication: Syncope Technique: I was requested to read this study today on 08/15/2022. The cardiac event monitor was hooked up on 05/30/2022 for total period of 30 days. The final reporting was done today. Compliance rate during monitoring was 45.5% of the time. Findings: Baseline was normal sinus rhythm with maximum heart rate 114 beats per minute. There was period of marked bradycardia on June 13 around 16:00, which on further review appears to be complete heart block with occasional wide complexes suggestive of ventricular escape complexes. Patient at that time was advised to come to the emergency room and subsequently underwent a pacemaker placement there is no episodes of atrial fibrillation. No significant tachyarrhythmias noted. Conclusion: 1. Baseline was normal sinus rhythm 2. Episode of complete heart block that led to patient hospitalization and pacemaker placement MTDD
== END ==
LOC: HO.CARD 08:10
PROVIDERS: Visit Provider Internal Medicine Cardiovascular Disease
DX: R55 Syncope and collapse (principal)
CPT/HCPCS: 93270

== ENCOUNTER 2022-06-14 07:01 | Inpatient (IN) | payer MEDICARE, MEDICAID, SELFPAY ==
[2022-06-14] VITALS (16 sets, daily range): BP systolic 94–161; BP diastolic 43–111; PULSE 32–76; RESP 12–30; TEMP 36.2–37.2; O2SAT 93–99; BMI 46.5
--- NOTE | ~2022-06-14 | FL_ITS ---
EXAMINATION: XR FLUOROSCOPY WITH IMAGES CLINICAL INFORMATION: Pacer insertion. COMPARISON: None. TECHNIQUE: Fluoroscopy Supervised By: Dr. Cooper Mcpherson. Fluoroscopy Time: 5.9 minutes. Cumulative Dose: 177 mGy. images: 1. FINDINGS: A single image over the chest reveals pacer electrodes in right atrium and right ventricle. Heart size enlarged. No gross bony abnormality seen. FL/FL guidance in OR IMPRESSION: Single image of the chest reveals pacer electrodes in right atrium and right ventricle.
--- NOTE | ~2022-06-14 | XR_ITS ---
EXAMINATION: XR CHEST CLINICAL INFORMATION: Cough COMPARISON: 05/05/2022 TECHNIQUE: Frontal view of the chest was obtained. FINDINGS: Compared to the prior study there's been no interval change. Once again, no significant abnormality is noted involving the heart, lungs, mediastinum, bony thorax or soft tissues. Degenerative changes are present in the spine. XR/XR chest 1V IMPRESSION: No acute intrathoracic disease.
--- NOTE | ~2022-06-14 | XR_ITS ---
EXAMINATION: XR CHEST CLINICAL INFORMATION: Pacemaker exam COMPARISON: 06/14/2022 7:40 AM TECHNIQUE: Frontal view of the chest was obtained. FINDINGS: Since the prior study a left chest wall pacemaker has been inserted with one lead in the atria the other at the right ventricular apex. The exam is otherwise unchanged. The lungs are hypoinflated. Heart size normal. No consolidations effusions or lung masses are seen. No pneumothorax. XR/XR chest 1V IMPRESSION: Newly placed left chest wall pacemaker. No acute intrathoracic disease.
--- NOTE | 2022-06-14 07:21 | ECG_ITS ---
Test Reason : BRADYCARDIA Blood Pressure : / mmHG Vent. Rate : 035 BPM Atrial Rate : 107 BPM P-R Int : 208 ms QRS Dur : 174 ms QT Int : 510 ms P-R-T Axes : 064 -77 -28 degrees QTc Int : 389 ms Sinus tachycardia with complete heart block Left anterior fascicular block Right bundle branch block Abnormal ECG When compared with ECG of 05-MAY-2022 14:55, Complete heart block present Referred By: Shayy Rodríguez Electronically Signed By:Tacho Summers
--- NOTE | 2022-06-14 07:22 | ED.ARRPALP ---
HPI - Arrhythmia/Palpitations General Chief Complaint: Arrhythmia/Palpitations Stated Complaint: BRADYCARDIA Time Seen by Provider: 06/14/22 07:20 Source: patient, EMS and old records reviewed Mode of arrival: EMS History of Present Illness HPI narrative: 62-year-old male with prior syncopal episode on 05/05 and currently on a Holter monitor which demonstrated a heart rate of 20. In route patient was noted to be in the 30s with a stable blood pressure and states he has been dizzy for the past couple of days and currently denies any fever, chills, shortness of breath, chest pain/palpitations but states he has been feeling like he has ?a loss of power?. Related Data Home Medications Medication Instructions Recorded Confirmed aripiprazole 5 mg tablet 5 mg PO BEDTIME 02/18/22 05/09/22 escitalopram oxalate 10 mg tablet 10 mg PO DAILY 02/18/22 05/09/22 quetiapine 25 mg tablet 25 mg PO BEDTIME 02/18/22 05/09/22 zolpidem 5 mg tablet 5 mg PO BEDTIME 02/18/22 05/09/22 acetaminophen 500 mg tablet 1 tab PO TID PRN pain 05/05/22 05/09/22 ergocalciferol (vitamin D2) 1,250 1,250 mcg PO SA 05/05/22 05/09/22 mcg (50,000 unit) capsule lorazepam 0.5 mg tablet 1 tab PO DAILY PRN Anxiety 05/05/22 05/09/22 Previous Rx's Medication Instructions Recorded cetirizine 10 mg tablet 10 mg PO DAILY #30 tabs 03/02/22 hydrochlorothiazide 25 mg tablet 25 mg PO QAM #90 caps 05/09/22 lancets 28 gauge (FreeStyle #100 ea 05/09/22 Lancets) lisinopril 10 mg tablet 10 mg PO DAILY #90 tabs 05/09/22 metformin 500 mg tablet 1,000 mg PO BID #360 caps 05/09/22 pioglitazone 15 mg tablet 15 mg PO DAILY #90 caps 05/09/22 simvastatin 40 mg tablet 40 mg PO DAILY #90 tabs 05/09/22 fluticasone propionate 50 1 spray intranasal DAILY #9.9 mL 06/01/22 mcg/actuation nasal spray,suspension (Flonase Allergy Relief) tramadol 50 mg tablet 50 mg PO BEDTIME #30 tabs 06/02/22 Allergies Allergy/AdvReac Type Severity Reaction Status Date / Time No Known Allergies Allergy Verified 06/01/22 14:14 Review of Systems Review of Systems: Pertinent positives and negatives as stated in HPI PMFSH Past Medical History Medical History Acute insomnia Anxiety Essential (primary) hypertension Hyperlipidemia, unspecified Insomnia Morbid (severe) obesity due to excess calories Morbid obesity with BMI of 40.0-44.9, adult [place] (obstructive sleep apnea) Postconcussional syndrome Pure hypercholesterolemia Schizophrenia, unspecified Smoker Syncope Type 2 diabetes mellitus without complications Vitamin D deficiency Surgical History History of root canal procedure History of wisdom tooth extraction Family History Family History Father No problems noted. Mother No problems noted. Family/Other FH: mental illness Mental health disorder Brother Substance use disorder Social History Social History Housing: House Alcohol intake: current Alcohol intake frequency: holidays/special occasions only Patient Tobacco Use Status: Current everyday Tobacco user Tobacco use type: Cigarette Cigarette Packs Per Day: 0.5 Cigarettes Per Day: 10.0 Years Smoked: 40 e-Cigarette/Vaping Use: Never Used Second Hand Smoke Exposure: Yes Advance Directives: No service: No Current occupational status: retired and disabled Cognitive needs: Yes (cane) Hearing needs: No Vision needs: Yes (Glasses) Physical Exam Vital Signs: Vital Signs: Last Vital Signs Temp 99.0 F 06/14/22 08:39 Pulse 33 L 06/14/22 08:39 Resp 18 06/14/22 08:39 BP 147/45 H 06/14/22 08:39 Pulse Ox 97 06/14/22 08:39 O2 Del Method 06/14/22 08:39 O2 Flow Rate 2 06/14/22 08:39 BMI result Body Mass Index 46.5 VITAL SIGNS: Reviewed. GENERAL: Elevated BMI, Well developed, well nourished, in no acute distress. HEAD: Normocephalic/atraumatic EYES: PERRLA, EOMI EARS: Ext canals without abnormality OROPHARYNX: no oral lesions noted, posterior pharynx clear LUNGS: Normal breath sounds. No adventitious sounds or accessory muscle use. SpO2<97> CARDIOVASCULAR: Regular rate and rhythm without noted murmurs, no JVD or lower extremity edema. ABDOMEN: Soft, non-tender, non-distended with bowel sounds. MUSCULOSKELETAL: No tenderness, deformities, or effusions noted on gross inspection. EXTREMITIES: No cyanosis, clubbing or edema. SKIN: Inspection of the skin reveals no rashes NEUROLOGIC: Alert and oriented x 4. Strength and sensation to light touch were grossly intact x 4. Medications Administered Generic Name Dose Route Start Last Admin Trade Name Freq PRN Reason Stop Dose Admin Sodium Chloride 1,000 mls @ 50 mls/hr 06/14/22 07:30 06/14/22 07:34 Ns IVCONT 50 mls/hr .Q20H DEEPA Administration Medical Decision Making Medical Decision Making MDM Narrative: 62-year-old male with history of [place], obesity, diabetes, hypertension, smoking. Echo on 03/10 demonstrated normal LV function with mild LVH but impaired relaxation filling pattern with EF: 60-65%. Patient is currently hemodynamically stable and on review of EKG there is demonstrated second-degree AV block. Will obtain full labs, Lyme titers, and consult thoracic surgery and Cardiology. 0904: I have reviewed the entire workup and my interpretation is that this is a patient who presents with stable complete heart block, on external pacer at this time seen at bedside by Cardiology and is currently NPO with plans for ppm today by thoracic surgery. Although there is a noted trace leukocytosis this as likely stress related, coagulation studies are within normal limits, mild worsening of renal function but no overt MANSI and elevated transaminases likely reflective fatty liver with a troponin that is detectable but consistent with patient's baseline since May 2022. In addition, patient has no complaints of chest pain. 0714: Consulted with Cardiology, Dr. Summers, for stable third-degree heart block, HR -35. Recommends NPO, no activities, consultation with thoracic surgery for pacemaker placement. 0721: Paged Thoracic Surgery. Patient remains hemodynamically stable. 0832: Thoracic surgery has stated that patient will go to the OR today with likely time of 1430 but pending OR confirmation. Patient remains hemodynamically stable. 0843: I paged hospitalist for admission. Patient remains hemodynamically stable. 0855: Patient to be seen at bedside by hospitalist. 0900: Cardiology saw pt at bedside with continued recs of NO activities, NPO. Plan for PPM today. Differential Diagnosis Please see discussion above Consult Healthcare Provider Management of the patient was discussed with: Meter Technician Please see above Lab Data MDM Lab Attestation statement: I reviewed the patient's lab results. Please see above 06/14/22 07:37 06/14/22 07:36 Labs: Lab Results 06/14/22 06/14/22 06/14/22 Range/Units 07:36 07:36 07:36 WBC (4.8-10.8) X10*3/uL RBC (4.60-5.80) X10*6/uL Hgb (14.0-18.0) g/dl Hct (42.0-52.0) % MCV (80.0-98.0) fL MCH (27.0-33.0) pg MCHC (31.0-36.0) g/dl RDW (11.0-16.0) % Plt Count (160-400) X10*3/uL MPV (9.4-12.4) fL Immature Gran % (Auto) (0.0-0.4) % Neut % (Auto) (45-73) % Lymph % (Auto) (20-40) % [place] % (Auto) (2-11) % Eos % (Auto) (0-4) % Baso % (Auto) (0-2) % Lymph # (Auto) (1.2-4.9) X10*3/uL [place] # (Auto) (0.1-1.2) X10*3/uL Eos # (Auto) (0.0-0.4) X10*3/uL Baso # (Auto) (0.0-0.2) X10*3/uL Abs Immat Gran (auto) (0.00-0.03) X10*3/uL Absolute Neuts (auto) (2.0-8.3) x10*3/uL Absolute Nucleated RBC (0.0-0.012) X10*3/uL Nucleated RBC % (auto) (0.0-0.2) /100WBC PT 11.1 (10.0-13.1) SEC INR 1.0 (0.9-1.1) APTT 32.3 (26.0-36.4) SEC Sodium 135 (135-145) mmol/L Potassium 4.2 (3.3-5.1) mmol/L Chloride 100 (96-108) mmol/L Carbon Dioxide 24 (22-29) mmol/L Anion Gap 15 (12-20) BUN 19 H D (9-16) mg/dL Creatinine 1.13 (0.5-1.4) mg/dL Estim Creat Clear Calc 90.2 Estimated GFR > 60 Random Glucose 218 H (60-115) mg/dL Calcium 10.9 H D (8.4-10.2) mg/dL Magnesium (1.6-2.6) mg/dL Total Bilirubin 1.0 (0.0-1.0) mg/dL AST 47 H D (5-37) U/L ALT 81 H (0-40) U/L Alkaline Phosphatase 55 D (39-117) U/L Troponin I High Sens (<3.5-35.0) ng/L Total Protein 6.7 (6.5-8.0) g/dL Albumin 4.2 (3.5-5.0) g/dL COVID-19 (FERNANDO) (Negative) COVID-19 Clin Com Influenza Type A (LELIA) (Negative) Influenza Type B (LELIA) (Negative) Influenza A & B Note 06/14/22 06/14/22 06/14/22 Range/Units 07:36 07:36 07:36 WBC (4.8-10.8) X10*3/uL RBC (4.60-5.80) X10*6/uL Hgb (14.0-18.0) g/dl Hct (42.0-52.0) % MCV (80.0-98.0) fL MCH (27.0-33.0) pg MCHC (31.0-36.0) g/dl RDW (11.0-16.0) % Plt Count (160-400) X10*3/uL MPV (9.4-12.4) fL Immature Gran % (Auto) (0.0-0.4) % Neut % (Auto) (45-73) % Lymph % (Auto) (20-40) % [place] % (Auto) (2-11) % Eos % (Auto) (0-4) % Baso % (Auto) (0-2) % Lymph # (Auto) (1.2-4.9) X10*3/uL [place] # (Auto) (0.1-1.2) X10*3/uL Eos # (Auto) (0.0-0.4) X10*3/uL Baso # (Auto) (0.0-0.2) X10*3/uL Abs Immat Gran (auto) (0.00-0.03) X10*3/uL Absolute Neuts (auto) (2.0-8.3) x10*3/uL Absolute Nucleated RBC (0.0-0.012) X10*3/uL Nucleated RBC % (auto) (0.0-0.2) /100WBC PT (10.0-13.1) SEC INR (0.9-1.1) APTT (26.0-36.4) SEC Sodium (135-145) mmol/L Potassium (3.3-5.1) mmol/L Chloride (96-108) mmol/L Carbon Dioxide (22-29) mmol/L Anion Gap (12-20) BUN (9-16) mg/dL Creatinine (0.5-1.4) mg/dL Estim Creat Clear Calc Estimated GFR Random Glucose (60-115) mg/dL Calcium (8.4-10.2) mg/dL Magnesium 1.7 (1.6-2.6) mg/dL Total Bilirubin (0.0-1.0) mg/dL AST (5-37) U/L ALT (0-40) U/L Alkaline Phosphatase (39-117) U/L Troponin I High Sens 13.2 D (<3.5-35.0) ng/L Total Protein (6.5-8.0) g/dL Albumin (3.5-5.0) g/dL COVID-19 (FERNANDO) Negative (Negative) COVID-19 Clin Com See Note Influenza Type A (LELIA) (Negative) Influenza Type B (LELIA) (Negative) Influenza A & B Note 06/14/22 06/14/22 Range/Units 07:36 07:37 WBC 11.7 H (4.8-10.8) X10*3/uL RBC 5.19 (4.60-5.80) X10*6/uL Hgb 15.8 (14.0-18.0) g/dl Hct 46.1 (42.0-52.0) % MCV 88.8 (80.0-98.0) fL MCH 30.4 (27.0-33.0) pg MCHC 34.3 (31.0-36.0) g/dl RDW 12.9 (11.0-16.0) % Plt Count 235 (160-400) X10*3/uL MPV 9.3 L (9.4-12.4) fL Immature Gran % (Auto) 0.5 H (0.0-0.4) % Neut % (Auto) 55.6 (45-73) % Lymph % (Auto) 34.0 (20-40) % [place] % (Auto) 8.5 (2-11) % Eos % (Auto) 0.9 (0-4) % Baso % (Auto) 0.5 (0-2) % Lymph # (Auto) 4.0 (1.2-4.9) X10*3/uL [place] # (Auto) 1.0 (0.1-1.2) X10*3/uL Eos # (Auto) 0.1 (0.0-0.4) X10*3/uL Baso # (Auto) 0.1 (0.0-0.2) X10*3/uL Abs Immat Gran (auto) 0.06 H (0.00-0.03) X10*3/uL Absolute Neuts (auto) 6.5 (2.0-8.3) x10*3/uL Absolute Nucleated RBC 0.000 (0.0-0.012) X10*3/uL Nucleated RBC % (auto) 0.0 (0.0-0.2) /100WBC PT (10.0-13.1) SEC INR (0.9-1.1) APTT (26.0-36.4) SEC Sodium (135-145) mmol/L Potassium (3.3-5.1) mmol/L Chloride (96-108) mmol/L Carbon Dioxide (22-29) mmol/L Anion Gap (12-20) BUN (9-16) mg/dL Creatinine (0.5-1.4) mg/dL Estim Creat Clear Calc Estimated GFR Random Glucose (60-115) mg/dL Calcium (8.4-10.2) mg/dL Magnesium (1.6-2.6) mg/dL Total Bilirubin (0.0-1.0) mg/dL AST (5-37) U/L ALT (0-40) U/L Alkaline Phosphatase (39-117) U/L Troponin I High Sens (<3.5-35.0) ng/L Total Protein (6.5-8.0) g/dL Albumin (3.5-5.0) g/dL COVID-19 (FERNANDO) (Negative) COVID-19 Clin Com Influenza Type A (LELIA) Negative (Negative) Influenza Type B (LELIA) Negative (Negative) Influenza A & B Note See Note Independent Interpretation I performed an independent interpretation of an: EKG Interpretation: Complete AV block, HR -35, no STEMI, [id number] Radiology Impression Radiologist Impression: My interpretation is in agreement with the radiologist's impression the imaging study. External Record Review External record reviewed: Office record, Outpatient record and Prior outpatient labs Chronic Conditions Patient?s care impacted by: Diabetes and Hypertension Critical Care Time Critical Care Time Critical Care Time: Yes Total Critical Care Time: 60 Attestation: I personally attest to this time spent taking care of the patient. Discharge Plan Discharge Clinical Impression: Symptomatic advanced heart block Patient Disposition: Admitted As Inpatient
[2022-06-14] MEDS: 0.9 % Sodium Chloride 1,000 ML 50 ML IVCONT (07:34)
[2022-06-14 07:42] LABS: MANUAL DIFF FLAG NO
[2022-06-14 07:45] LABS: Basophils Absolute Auto 0.1 X10*3/uL (0.0-0.2); Basophils Percent Auto 0.5 % (0-2); Eosinophils Absolute Auto 0.1 X10*3/uL (0.0-0.4); Eosinophils Percent Auto 0.9 % (0-4); Hematocrit 46.1 % (42.0-52.0); Hemoglobin 15.8 g/dl (14.0-18.0); Imm Gran Abs Auto 0.06 X10*3/uL (0.00-0.03); Imm Gran Pct Auto 0.5 % (0.0-0.4); Mean Corpuscular HGB Conc 34.3 g/dl (31.0-36.0); Mean Corpuscular Hemoglobin 30.4 pg (27.0-33.0); Mean Corpuscular Volume 88.8 fL (80.0-98.0); Mean Platelet Volume 9.3 fL (9.4-12.4); Monocytes Percent Auto 8.5 % (2-11); Neutrophils Absolute Auto 6.5 x10*3/uL (2.0-8.3); Neutrophils Percent Auto 55.6 % (45-73); Platelet Count 235 X10*3/uL (160-400); Red Blood Count 5.19 X10*6/uL (4.60-5.80); Red Cell Distribution Width 12.9 % (11.0-16.0); White Blood Count 11.7 X10*3/uL (4.8-10.8)
--- NOTE | 2022-06-14 07:46 | PC.NURSE ---
Alert and oriented. Reported dizziness with moving from EMS stretcher to bed. IV established, labs drawn and sent. 2nd degree heart block on monitor. NPO
[2022-06-14 07:51] LABS: Prothrombin Time 11.1 SEC (10.0-13.1)
[2022-06-14 07:54] LABS: Partial Thromboplastin Time 32.3 SEC (26.0-36.4)
[2022-06-14 08:02] LABS: Alanine Aminotransferase 81 U/L (0-40); Albumin Level 4.2 g/dL (3.5-5.0); Alkaline Phosphatase 55 U/L (39-117); Anion Gap 15 (12-20); Aspartate Amino Transferase 47 U/L (5-37); Blood Urea Nitrogen 19 mg/dL (9-16); COVID-19 Test Negative (Negative); Calcium 10.9 mg/dL (8.4-10.2); Carbon Dioxide 24 mmol/L (22-29); Chloride 100 mmol/L (96-108); Creatinine Clr Calc Pharmacy 90.2; Estimated Glomerular Filt Rate > 60; Glucose Random 218 mg/dL (60-115); IDNOW Serial# 16C4AD1C; IDNOW Serial# BCCEAD1C; Influenza A Negative (Negative); Influenza B2 Negative (Negative); Magnesium 1.7 mg/dL (1.6-2.6); Potassium 4.2 mmol/L (3.3-5.1); Sodium 135 mmol/L (135-145); Total Protein 6.7 g/dL (6.5-8.0)
--- NOTE | 2022-06-14 08:08 | PC.NURSE ---
Pt continues to be alert and oriented, answering all questions appropriately. Denies any pain.
[2022-06-14 08:09] LABS: Troponin-I High Sensitivity 13.2 ng/L (<3.5-35.0)
--- NOTE | 2022-06-14 08:33 | MHC.EDTECH ---
@ 2745 TIFF SHOBHA AVILA TEXTED @ DR XIAO REQUEST @ 7849 THORACIC ANSWERING SERVICE CALLED @ DR JUAREZ REQUEST S/P NO RETURN CALL FROM Jose D YEAGER @ [address] XIAO BY [employer]
--- NOTE | 2022-06-14 09:00 | PC.NURSE ---
Brand Strategy Manager at bedside, type and screen obtained.
--- NOTE | 2022-06-14 09:07 | PM.EVENT ---
Event Note Date of Service: 06/14/22 Event Note: Seen and examined at bedside. Full consult to follow. CHB. ventricular escape. will need PPM today. keep in bed. Atropine at bedside and pacing pads on. Keep NPO. Time Spent With Patient Time: Total time managing care of this patient today ____ minutes.
--- NOTE | 2022-06-14 09:09 | P.CONCA_ITS ---
History of Present Illness History of Present Illness Date of Service: 06/14/22 Requesting physician: Shayy Rodríguez Chief complaint: CHB. Narrative: 62-year-old gentleman with past medical history significant for hypertension, hyperlipidemia recent episodes of syncope. No obvious cause was found. He saw us in the office and had cardiac event monitor placed. It appears he was getting dizzy over the last couple of days. He did not have syncope but was feeling tired and dizzy. He was noticed to be in complete heart block and was advised to come to the emergency department. His heart rate is in 30s right now with complete heart block. 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 He is denying any significant issues right now. Denies chest discomfort or significant shortness of breath. Thoracic surgery was consulted and patient is currently NPO and will be going for permanent pacemaker placement this afternoon. [facility] Past Medical History Medical History Acute insomnia Anxiety Essential (primary) hypertension Hyperlipidemia, unspecified Insomnia Morbid (severe) obesity due to excess calories Morbid obesity with BMI of 40.0-44.9, adult [place] (obstructive sleep apnea) Postconcussional syndrome Pure hypercholesterolemia Schizophrenia, unspecified Smoker Syncope Type 2 diabetes mellitus without complications Vitamin D deficiency Family History Family History Father No problems noted. Mother No problems noted. Family/Other FH: mental illness Mental health disorder Brother Substance use disorder Surgical History Surgical History History of root canal procedure History of wisdom tooth extraction Social History Social History Housing: House Alcohol intake: current Alcohol intake frequency: holidays/special occasions only Patient Tobacco Use Status: Current everyday Tobacco user Tobacco use type: Cigarette Cigarette Packs Per Day: 0.5 Cigarettes Per Day: 10.0 Years Smoked: 40 e-Cigarette/Vaping Use: Never Used Second Hand Smoke Exposure: Yes Advance Directives: No service: No Current occupational status: retired and disabled Cognitive needs: Yes (cane) Hearing needs: No Vision needs: Yes (Glasses) Meds Allergies Allergy/AdvReac Type Severity Reaction Status Date / Time No Known Allergies Allergy Verified 06/01/22 14:14 Active Medications: Current Medications Sodium Chloride (Ns) 1,000 mls @ 50 mls/hr IVCONT .Q20H DEEPA Last Admin: 06/14/22 07:34 Dose: 50 mls/hr Pharmacy Consult (Consult Rx Perform Med Rec) 1 each MISCELLANE ONCE PRN PRN Reason: Consult order Home Medications Medication Instructions Recorded Confirmed Last Taken Type aripiprazole 5 mg tablet 5 mg PO BEDTIME 02/18/22 06/14/22 06/13/22 History escitalopram oxalate 10 mg tablet 10 mg PO BEDTIME 02/18/22 06/14/22 06/13/22 History quetiapine 25 mg tablet 25 mg PO BEDTIME PRN Sleep 02/18/22 06/14/22 05/04/22 History zolpidem 5 mg tablet 5 mg PO BEDTIME 02/18/22 06/14/22 06/13/22 History ergocalciferol (vitamin D2) 1,250 1,250 mcg PO SA@0900 05/05/22 06/14/22 06/10/22 History mcg (50,000 unit) capsule lorazepam 0.5 mg tablet 1 tab PO BEDTIME PRN Anxiety 05/05/22 06/14/22 05/05/22 History acetaminophen 325 mg tablet 325 mg PO TID PRN Pain 06/14/22 06/14/22 Unknown History (Tylenol) hydrochlorothiazide 25 mg tablet 25 mg PO DAILY 06/14/22 06/14/22 06/14/22 09:00 History iqolmtig-ayo- 250 mg-dha 90 1 cap PO DAILY 06/14/22 06/14/22 06/13/22 History mg-epa 160 po-salt-mois-zeax capsule (Ocuvite Adult 50 Plus) Physical Exam Vital Signs: Vital Signs: Last Vital Signs Temp 99.0 F 06/14/22 08:39 Pulse 33 L 06/14/22 08:39 Resp 18 06/14/22 08:39 BP 147/45 H 06/14/22 08:39 Pulse Ox 97 06/14/22 08:39 O2 Del Method 06/14/22 08:39 O2 Flow Rate 2 06/14/22 08:39 BMI result Body Mass Index 46.5 GENERAL APPEARANCE: in no acute distress, pleasant. NECK: no carotid bruit, no jugular venous distention. SKIN: no suspicious lesions, warm and dry. HEART: no murmurs, regular bradycardia. LUNGS: clear to auscultation bilaterally. ABDOMEN: soft, nontender. EXTREMITIES: no edema. PERIPHERAL PULSES: equal. NEUROLOGIC: No gross deficits, AAO X 3 Objective Labs and Meds 06/14/22 07:37 06/14/22 07:36 Lab results: Laboratory Results - last 24 hr 06/14/22 06/14/22 06/14/22 07:36 07:36 07:36 WBC RBC Hgb Hct MCV MCH MCHC RDW Plt Count MPV Immature Gran % (Auto) Neut % (Auto) Lymph % (Auto) [place] % (Auto) Eos % (Auto) Baso % (Auto) Lymph # (Auto) [place] # (Auto) Eos # (Auto) Baso # (Auto) Abs Immat Gran (auto) Absolute Neuts (auto) Absolute Nucleated RBC Nucleated RBC % (auto) PT 11.1 INR 1.0 APTT 32.3 Sodium 135 Potassium 4.2 Chloride 100 Carbon Dioxide 24 Anion Gap 15 BUN 19 H D Creatinine 1.13 Estim Creat Clear Calc 90.2 Estimated GFR > 60 Random Glucose 218 H Calcium 10.9 H D Magnesium Total Bilirubin 1.0 AST 47 H D ALT 81 H Alkaline Phosphatase 55 D Troponin I High Sens Total Protein 6.7 Albumin 4.2 COVID-19 (FERNANDO) COVID-19 Clin Com Influenza Type A (LELIA) Influenza Type B (LELIA) Influenza A & B Note 06/14/22 06/14/22 06/14/22 07:36 07:36 07:36 WBC RBC Hgb Hct MCV MCH MCHC RDW Plt Count MPV Immature Gran % (Auto) Neut % (Auto) Lymph % (Auto) [place] % (Auto) Eos % (Auto) Baso % (Auto) Lymph # (Auto) [place] # (Auto) Eos # (Auto) Baso # (Auto) Abs Immat Gran (auto) Absolute Neuts (auto) Absolute Nucleated RBC Nucleated RBC % (auto) PT INR APTT Sodium Potassium Chloride Carbon Dioxide Anion Gap BUN Creatinine Estim Creat Clear Calc Estimated GFR Random Glucose Calcium Magnesium 1.7 Total Bilirubin AST ALT Alkaline Phosphatase Troponin I High Sens 13.2 D Total Protein Albumin COVID-19 (FERNANDO) Negative COVID-19 Clin Com See Note Influenza Type A (LELIA) Influenza Type B (LELIA) Influenza A & B Note 06/14/22 06/14/22 07:36 07:37 WBC 11.7 H RBC 5.19 Hgb 15.8 Hct 46.1 MCV 88.8 MCH 30.4 MCHC 34.3 RDW 12.9 Plt Count 235 MPV 9.3 L Immature Gran % (Auto) 0.5 H Neut % (Auto) 55.6 Lymph % (Auto) 34.0 [place] % (Auto) 8.5 Eos % (Auto) 0.9 Baso % (Auto) 0.5 Lymph # (Auto) 4.0 [place] # (Auto) 1.0 Eos # (Auto) 0.1 Baso # (Auto) 0.1 Abs Immat Gran (auto) 0.06 H Absolute Neuts (auto) 6.5 Absolute Nucleated RBC 0.000 Nucleated RBC % (auto) 0.0 PT INR APTT Sodium Potassium Chloride Carbon Dioxide Anion Gap BUN Creatinine Estim Creat Clear Calc Estimated GFR Random Glucose Calcium Magnesium Total Bilirubin AST ALT Alkaline Phosphatase Troponin I High Sens Total Protein Albumin COVID-19 (FERNANDO) COVID-19 Clin Com Influenza Type A (LELIA) Negative Influenza Type B (LELIA) Negative Influenza A & B Note See Note Imaging Radiologist's impression: Impressions Chest X-Ray 06/14/22 07:45 IMPRESSION: No acute intrathoracic disease. Assessment and Plan (1) Symptomatic advanced heart block: Status: Acute Plan 62-year-old gentleman with recent episodes of syncope was presenting with dizziness and complete heart block. I think he has a junctional escape currently. He has right bundle-branch block and left anterior fascicular block at baseline and I think the wide complex escape is due to underlying bundle branch block. In any case his heart rates have been in 30s and fairly stable. Denying any active symptoms of heart failure and denying chest discomfort. He is NPO and will be going for permanent pacemaker placement today. Keep pacing pads on him and keep atropine at bedside. I will leave him in bed for now because he was getting dizzy with activities. We will follow along with you. Thank you for allowing me to participate in the care of your patient. Please feel free to contact me if you have any questions. Time Spent With Patient Time: Total time managing care of this patient today ____ minutes. Procedures Date of Service Date of Service: 06/14/22
--- NOTE | 2022-06-14 09:11 | P.CONGS_ITS ---
History of Present Illness Consult details Consult date: 06/14/22 Narrative: Mr. Rose is a 62 year old male who presented to the Emergency Department this morning with complaints of dizziness for several days. Patient had a previous syncopal episode on 05/05/22 and has had a Holter monitor in place which recorded a heart rate of 20-30. Patient has also had several other syncopal episodes in the past year. While in the ER patient noted to be in complete heart block with a stable blood pressure. Cardiology, Dr. Summers, evaluated the patient and recommended a dual chamber pacemaker insertion today. Thoracic Surgery has been consulted for this purpose. [facility] Past Medical History Medical History Acute insomnia Anxiety Essential (primary) hypertension Hyperlipidemia, unspecified Insomnia Morbid (severe) obesity due to excess calories Morbid obesity with BMI of 40.0-44.9, adult [place] (obstructive sleep apnea) Postconcussional syndrome Pure hypercholesterolemia Schizophrenia, unspecified Smoker Syncope Type 2 diabetes mellitus without complications Vitamin D deficiency Family History Family History Father No problems noted. Mother No problems noted. Family/Other FH: mental illness Mental health disorder Brother Substance use disorder Surgical History Surgical History History of root canal procedure History of wisdom tooth extraction Social History Social History Housing: House Alcohol intake: current Alcohol intake frequency: holidays/special occasions only Patient Tobacco Use Status: Current everyday Tobacco user Tobacco use type: Cigarette Cigarette Packs Per Day: 0.5 Cigarettes Per Day: 10.0 Years Smoked: 40 e-Cigarette/Vaping Use: Never Used Second Hand Smoke Exposure: Yes Advance Directives: No service: No Current occupational status: retired and disabled Cognitive needs: Yes (cane) Hearing needs: No Vision needs: Yes (Glasses) Meds Allergies Allergy/AdvReac Type Severity Reaction Status Date / Time No Known Allergies Allergy Verified 06/01/22 14:14 Active Medications: Current Medications Sodium Chloride (Ns) 1,000 mls @ 50 mls/hr IVCONT .Q20H DEEPA Last Admin: 06/14/22 07:34 Dose: 50 mls/hr Pharmacy Consult (Consult Rx Perform Med Rec) 1 each MISCELLANE ONCE PRN PRN Reason: Consult order Home Medications Medication Instructions Recorded Confirmed Last Taken Type aripiprazole 5 mg tablet 5 mg PO BEDTIME 02/18/22 05/09/22 05/04/22 History escitalopram oxalate 10 mg tablet 10 mg PO DAILY 02/18/22 05/09/22 05/05/22 History quetiapine 25 mg tablet 25 mg PO BEDTIME 02/18/22 05/09/22 05/04/22 History zolpidem 5 mg tablet 5 mg PO BEDTIME 02/18/22 05/09/22 05/04/22 History acetaminophen 500 mg tablet 1 tab PO TID PRN pain 05/05/22 05/09/22 05/05/22 His tory ergocalciferol (vitamin D2) 1,250 1,250 mcg PO SA 05/05/22 05/09/22 04/29/22 History mcg (50,000 unit) capsule lorazepam 0.5 mg tablet 1 tab PO DAILY PRN Anxiety 05/05/22 05/09/22 05/05/22 History Physical Exam Vital Signs: Vital Signs: Last Vital Signs Temp 99.0 F 06/14/22 08:39 Pulse 33 L 06/14/22 08:39 Resp 18 06/14/22 08:39 BP 147/45 H 06/14/22 08:39 Pulse Ox 97 06/14/22 08:39 O2 Del Method 06/14/22 08:39 O2 Flow Rate 2 06/14/22 08:39 BMI result Body Mass Index 46.5 Results Labs 06/14/22 07:37 06/14/22 07:36 Labs: Abnormal lab results 06/14/22 06/14/22 Range/Units 07:36 07:37 WBC 11.7 H (4.8-10.8) X10*3/uL MPV 9.3 L (9.4-12.4) fL Immature Gran % (Auto) 0.5 H (0.0-0.4) % Abs Immat Gran (auto) 0.06 H (0.00-0.03) X10*3/uL BUN 19 H D (9-16) mg/dL Random Glucose 218 H (60-115) mg/dL Calcium 10.9 H D (8.4-10.2) mg/dL AST 47 H D (5-37) U/L ALT 81 H (0-40) U/L Short CBC 06/14/22 Range/Units 07:37 WBC 11.7 H (4.8-10.8) X10*3/uL Hgb 15.8 (14.0-18.0) g/dl Hct 46.1 (42.0-52.0) % Plt Count 235 (160-400) X10*3/uL BMP 06/14/22 07:36 Sodium 135 Potassium 4.2 Chloride 100 Carbon Dioxide 24 BUN 19 H D Creatinine 1.13 Calcium 10.9 H D Liver Function 06/14/22 Range/Units 07:36 Total Bilirubin 1.0 (0.0-1.0) mg/dL AST 47 H D (5-37) U/L ALT 81 H (0-40) U/L Alkaline Phosphatase 55 D (39-117) U/L Albumin 4.2 (3.5-5.0) g/dL All other labs normal. Impressions Chest X-Ray 06/14/22 07:45 IMPRESSION: No acute intrathoracic disease. CT Scan Report Signed Patient: Adalberto Rose MR#: [id number] : 1960 Ordering Physician: Adrienne Rodriguez Date of Service: 05/05/22 Procedure(s): CT head/brain wo IV con Accession Number(s): [id number] cc: Adrienne Rodriguez~ EXAMINATION: CT HEAD WITHOUT CONTRAST CLINICAL INFORMATION: Syncope.? COMPARISON: CT scan of the head 09/02/2018. TECHNIQUE: Contiguous axial imaging was performed from the skull base to vertex without intravenous administration of contrast. This CT examination was performed using dose optimization techniques as appropriate, variously including the following: *Automated exposure control *Adjustment of mA and/or kV according to patient size (this includes techniques or standardized protocols for targeted exams where dose is matched to indication/reason for exam; i.e. extremities or head) *Use of iterative reconstruction technique DLP: 928 mGy-cm FINDINGS: There is no acute intracranial hemorrhage or abnormal extra-axial collection. No intracranial mass effect or midline shift. Lateral and third ventricles are normal. No hydrocephalus. Tang-white matter differentiation is preserved and there is no evidence of acute territorial infarct. The calvarium and skull base are intact. Mastoid air cells and middle ear cavities are well aerated. No active paranasal sinus disease. There is a relatively prominent epidural inclusion cysts within the scalp over the left parietal convexity. ? CT/CT head/brain wo IV con IMPRESSION: Unremarkable CT scan of the head. Specifically no evidence of acute territorial infarct or hemorrhage. Assessment and Plan Time Spent With Patient Time: Total time managing care of this patient today ____ minutes.
[2022-06-14 09:15] LABS: B Type Natriuretic Peptide 206 pg/mL (<100)
--- NOTE | 2022-06-14 09:41 | PHA.MEDREC ---
Pharmacy Consult ? Medication Reconciliation Pharmacy has completed the medication reconciliation. Spoke to patient which confirmed meds.
--- NOTE | 2022-06-14 10:25 | PC.NURSE ---
Pt resting in bed, offering no complaints. Continues to deny any pain or discomfort.
--- NOTE | 2022-06-14 11:38 | PM.IMHP ---
History of Present Illness Date of Service: 06/14/22 Attending physician on admission: Pankaj Hooper Chief Complaint: I was told to come to the emergency department as my heart rate was slow . This is a 62-year-old male with a past medical history as noted below presented to the emergency department after patient's Holter monitor showed complete heart block and patient was contacted by cardiology and advised to come to the emergency department. During EMS transport, patient remained bradycardic with heart rate in the 30s. At time of emergency room arrival and at current time of my assessment patient is reporting dizziness, worse with movement and weakness. Patient denies fevers, chills, shortness of breath, chest pain/palpitations. EKG: Third-degree heart block, heart rate ranging 30 is on monitor. Chest x-ray: Unremarkable CT brain without: Unremarkable Initial laboratory results: WBC 11.7, unremarkable coagulation panel, BUN/creatinine 19/1.13, random glucose 218, Ca 10.9, AST/ALT 47/81, BNP 206, urinalysis negative for infection however positive for glucose/protein. [id number]/influenza a/B not detected, lyme pending. In the emergency department the above was performed and Cardiology as well as thoracic was notified. Patient will be going at 14:30 today for pacemaker placement then transferred to telemetry for further evaluation/monitoring. Review of Systems Review of Systems: A complete 12 point review of systems was performed and are negative if not noted in HPI. [facility] Medical History Acute insomnia Anxiety Essential (primary) hypertension Hyperlipidemia, unspecified Insomnia Morbid (severe) obesity due to excess calories Morbid obesity with BMI of 40.0-44.9, adult [place] (obstructive sleep apnea) Postconcussional syndrome Pure hypercholesterolemia Schizophrenia, unspecified Smoker Syncope Type 2 diabetes mellitus without complications Vitamin D deficiency Family History Father No problems noted. Mother No problems noted. Family/Other FH: mental illness Mental health disorder Brother Substance use disorder Surgical History History of root canal procedure History of wisdom tooth extraction Social History Housing: House Alcohol intake: current Alcohol intake frequency: does not drink Patient Tobacco Use Status: Current someday Tobacco user Tobacco use type: Cigarette Cigarette Packs Per Day: 0.5 Cigarettes Per Day: 10.0 Years Smoked: 40 Smoked in Last 30 Days: Yes e-Cigarette/Vaping Use: Never Used Second Hand Smoke Exposure: Yes Use of substances other than those prescribed or required for medical reasons: No Are you DNR?: No Advance Directives: No Advance Directives Information Provided: No (Declined) Advance Directives on File: No service: No Current occupational status: retired and disabled Cognitive needs: Yes (cane) Hearing needs: No Vision needs: Yes (Glasses) Meds Allergies Allergy/AdvReac Type Severity Reaction Status Date / Time No Known Allergies Allergy Verified 06/01/22 14:14 Active Medications: Current Medications Sodium Chloride (Ns) 1,000 mls @ 50 mls/hr IVCONT .Q20H DEEPA Last Admin: 06/14/22 07:34 Dose: 50 mls/hr Pharmacy Consult (Consult Rx Perform Med Rec) 1 each MISCELLANE ONCE PRN PRN Reason: Consult order Home Medications Medication Instructions Recorded Confirmed Last Taken Type aripiprazole 5 mg tablet 5 mg PO BEDTIME 02/18/22 06/14/22 06/13/22 History escitalopram oxalate 10 mg tablet 10 mg PO BEDTIME 02/18/22 06/14/22 06/13/22 History quetiapine 25 mg tablet 25 mg PO BEDTIME PRN Sleep 02/18/22 06/14/22 05/04/22 History zolpidem 5 mg tablet 5 mg PO BEDTIME 02/18/22 06/14/22 06/13/22 History ergocalciferol (vitamin D2) 1,250 1,250 mcg PO SA@0900 05/05/22 06/14/22 06/10/22 History mcg (50,000 unit) capsule lorazepam 0.5 mg tablet 1 tab PO BEDTIME PRN Anxiety 05/05/22 06/14/22 05/05/22 History acetaminophen 325 mg tablet 325 mg PO TID PRN Pain 06/14/22 06/14/22 Unknown History (Tylenol) hydrochlorothiazide 25 mg tablet 25 mg PO DAILY 06/14/22 06/14/22 06/14/22 09:00 History ofzttlry-zqp-[id number] 250 mg-dha 90 1 cap PO DAILY 06/14/22 06/14/22 06/13/22 History mg-epa 160 km-mdrn-ywhh-zeax capsule (Ocuvite Adult 50 Plus) Physical Exam Vital Signs and Narrative: Vital Signs: Last Vital Signs Temp 99.0 F 06/14/22 08:39 Pulse 32 L 06/14/22 11:29 Resp 12 06/14/22 11:29 BP 127/52 L 06/14/22 11:29 Pulse Ox 98 06/14/22 11:29 O2 Del Method 06/14/22 11:29 O2 Flow Rate 2 06/14/22 11:29 BMI result Body Mass Index 46.5 Const: Other: General: Appears stated age, diaphoretic, noted to be on monitor with pacer pads in place, answers questions accurately Skin: Warm and well perfused, diaphoretic, no obvious lesions, bruises, open wounds or abrasions Cardiology: Irregular rate/rhythm, complete heart block on the monitor, no obvious rubs, gallops or clicks, no carotid bruits, JVD difficult to appreciate due to body habitus. Respiratory: Lungs diminished yet CTAB, no inspiratory or wheezing, rales or rhonchi Abdomen: Soft, morbidly obese, nondistended, bowel sounds present in all four quadrants, no [place] sign Extremity: No bilateral lower pedal or pitting edema noted, no redness, tenderness or swelling noted to bilateral lower extremities. Neuro: Alert and oriented x3, no obvious focal deficit Psych: Calm, follows commands, no agitation restlessness noted Results Labs 06/14/22 07:37 06/14/22 07:36 Labs: Laboratory Results - last 24 hr 06/14/22 06/14/22 06/14/22 07:36 07:36 07:36 MCV MCH MCHC RDW Plt Count MPV Immature Gran % (Auto) Neut % (Auto) Lymph % (Auto) [place] % (Auto) Eos % (Auto) Baso % (Auto) Lymph # (Auto) [place] # (Auto) Eos # (Auto) Baso # (Auto) Abs Immat Gran (auto) Absolute Neuts (auto) Absolute Nucleated RBC Nucleated RBC % (auto) PT 11.1 INR 1.0 APTT 32.3 Anion Gap 15 Estim Creat Clear Calc 90.2 Estimated GFR > 60 Random Glucose 218 H Calcium 10.9 H D Magnesium Total Bilirubin 1.0 AST 47 H D ALT 81 H Alkaline Phosphatase 55 D Troponin I High Sens B-Natriuretic Peptide Total Protein 6.7 Albumin 4.2 COVID-19 (FERNANDO) COVID-19 Clin Com Influenza Type A (LELIA) Influenza Type B (LELIA) Influenza A & B Note Blood Type Antibody Screen 06/14/22 06/14/22 06/14/22 07:36 07:36 07:36 MCV MCH MCHC RDW Plt Count MPV Immature Gran % (Auto) Neut % (Auto) Lymph % (Auto) [place] % (Auto) Eos % (Auto) Baso % (Auto) Lymph # (Auto) [place] # (Auto) Eos # (Auto) Baso # (Auto) Abs Immat Gran (auto) Absolute Neuts (auto) Absolute Nucleated RBC Nucleated RBC % (auto) PT INR APTT Anion Gap Estim Creat Clear Calc Estimated GFR Random Glucose Calcium Magnesium 1.7 Total Bilirubin AST ALT Alkaline Phosphatase Troponin I High Sens 13.2 D B-Natriuretic Peptide Total Protein Albumin COVID-19 (FERNANDO) Negative COVID-19 Clin Com See Note Influenza Type A (LELIA) Influenza Type B (LELIA) Influenza A & B Note Blood Type Antibody Screen 06/14/22 06/14/22 06/14/22 07:36 07:36 07:37 MCV 88.8 MCH 30.4 MCHC 34.3 RDW 12.9 Plt Count 235 MPV 9.3 L Immature Gran % (Auto) 0.5 H Neut % (Auto) 55.6 Lymph % (Auto) 34.0 [place] % (Auto) 8.5 Eos % (Auto) 0.9 Baso % (Auto) 0.5 Lymph # (Auto) 4.0 [place] # (Auto) 1.0 Eos # (Auto) 0.1 Baso # (Auto) 0.1 Abs Immat Gran (auto) 0.06 H Absolute Neuts (auto) 6.5 Absolute Nucleated RBC 0.000 Nucleated RBC % (auto) 0.0 PT INR APTT Anion Gap Estim Creat Clear Calc Estimated GFR Random Glucose Calcium Magnesium Total Bilirubin AST ALT Alkaline Phosphatase Troponin I High Sens B-Natriuretic Peptide 206 H Total Protein Albumin COVID-19 (FERNANDO) COVID-19 Clin Com Influenza Type A (LELIA) Negative Influenza Type B (LELIA) Negative Influenza A & B Note See Note Blood Type Antibody Screen 06/14/22 09:00 MCV MCH MCHC RDW Plt Count MPV Immature Gran % (Auto) Neut % (Auto) Lymph % (Auto) [place] % (Auto) Eos % (Auto) Baso % (Auto) Lymph # (Auto) [place] # (Auto) Eos # (Auto) Baso # (Auto) Abs Immat Gran (auto) Absolute Neuts (auto) Absolute Nucleated RBC Nucleated RBC % (auto) PT INR APTT Anion Gap Estim Creat Clear Calc Estimated GFR Random Glucose Calcium Magnesium Total Bilirubin AST ALT Alkaline Phosphatase Troponin I High Sens B-Natriuretic Peptide Total Protein Albumin COVID-19 (FERNANDO) COVID-19 Clin Com Influenza Type A (LELIA) Influenza Type B (LELIA) Influenza A & B Note Blood Type B Positive Antibody Screen NEGATIVE Imaging Radiologist's Impressions: Impressions Chest X-Ray 06/14/22 07:45 IMPRESSION: No acute intrathoracic disease. Assessment and Plan (1) Symptomatic advanced heart block: Status: Acute (2) History of syncope: Status: Acute (3) MANSI (acute kidney injury): Status: Acute Plan This is a 62-year-old male with a history of nem-kqswvlb-gnkxcfumd diabetes mellitus, anxiety/insomnia, hypertension, [place], schizophrenia admitted with complete heart block. Complete heart block History of syncope -patient admitted with complete heart block, history of syncope however did not syncopized this time. -patient currently being monitored in ED on [place] with pacer pads in place on patient. -heart rate noted to be in the 30s. Patient reports dizziness. -atropine at bedside. Patient to continue to remain NPO until pacer placement. Bedrest. -patient to go for pacer placement at 14:30 with thoracic surgery -cardiology consulted, continued recommendations appreciated -patient will be monitored on telemetry postoperatively. MANSI, mild -patient's creatinine to be 1.13, baseline ranges around 0.79. -IV fluids to be given. Monitor creatinine. Avoid nephrotoxins (lisinopril on hold). Tgz-tbczhfv-iablodyjn diabetes mellitus, type 2 -insulin sliding scale without nutrition. Hypoglycemia protocol in place. Hypertension -hold antihypertensive this time due to CHB. Blood pressure is remaining stable, most recent blood pressure 127/52. -resume antihypertensives when appropriate Hyperlipidemia -statin continued. Obstructive sleep apnea Morbid obesity -patient has a history of morbid obesity with obstructive sleep apnea -RN to clarify with patient if he uses CPAP at bedtime, if so this will be ordered per protocol. History schizophrenia Anxiety Insomnia -mood appropriate. Will hold rate lowering agents at this time, continue home regimen when appropriate. OTHER: DVT prophylaxis -holding chemicals patient will require pacemaker. Intermittent sequential boots. Patient is a full code HCP/person to contact is patient's sister Anastasiia Rowland, Case and plan discussed with Dr Yoan Hooper Time Spent With Patient Time: Total time managing care of this patient today ____ minutes. Quality Stroke Does the patient have a stroke diagnosis?: No VTE Prior VTE?: No VTE Risk Level:: Medical - moderate - high VTE Device Contraindication: N/A - Device Ordered VTE Drug Contraindication: Treatment Not Tolerated (patient going for pacemaker placement-medically contraindicated)
--- NOTE | 2022-06-14 11:45 | PC.NURSE ---
Pt continues to be on pacer pads, understanding of instructions for no activity and NPO. Continues to offer no complaints.
[2022-06-14 11:58] LABS: Appearance Urine Clear; Color Urine Yellow; Glucose Urine UA Negative (Negative); Leukocyte Esterase Urine Negative (Negative); Nitrite Urine Negative (Negative); Specific Gravity - Urine >= 1.030 (1.005-1.025); Urine Blood Negative (Negative); Urine Ketones Negative (Negative); Urine Protein Negative (Neg-Trace)
--- NOTE | 2022-06-14 14:31 | P.CONAN_ITS ---
HPI - Anesthesia Eval Consult details Narrative: 62 yo male patient for permanent pacemaker placement PMFSH Active Problems Active Problems: All Active Problems (Updated 06/14/22 @ 08:47 by Shayy Rodríguez MD) Symptomatic advanced heart block (Acute) Morbid obesity with BMI of 40.0-44.9, adult (Acute) Pure hypercholesterolemia (Acute) Syncope (Acute) Annual physical exam (Acute) Viral URI (Acute) Postconcussional syndrome (Acute) Acute insomnia (Acute) Hyperlipidemia, unspecified (Acute) Smoker (Acute) [place] (obstructive sleep apnea) (Acute). On CPAP Past Medical History Medical History Acute insomnia Anxiety Essential (primary) hypertension Hyperlipidemia, unspecified Insomnia Morbid (severe) obesity due to excess calories Morbid obesity with BMI of 40.0-44.9, adult [place] (obstructive sleep apnea) Postconcussional syndrome Pure hypercholesterolemia Schizophrenia, unspecified Smoker Syncope Type 2 diabetes mellitus without complications Vitamin D deficiency Family History Family History Father No problems noted. Mother No problems noted. Family/Other FH: mental illness Mental health disorder Brother Substance use disorder Family history of problems with anesthesia: No Surgical History Surgical History History of root canal procedure History of wisdom tooth extraction History of Problems with Anesthesia: No Social History Social History (Updated 06/14/22 @ 16:12 by Lilli Aguirre MD) Housing: House Alcohol intake: current Alcohol intake frequency: does not drink Patient Tobacco Use Status: Current someday Tobacco user Tobacco use type: Cigarette Cigarette Packs Per Day: 0.5 Cigarettes Per Day: 10.0 Years Smoked: 40 Smoked in Last 30 Days: Yes e-Cigarette/Vaping Use: Never Used Second Hand Smoke Exposure: Yes Use of substances other than those prescribed or required for medical reasons: No Are you DNR?: No Advance Directives: No Advance Directives Information Provided: No (Declined) Advance Directives on File: No service: No Current occupational status: retired and disabled Cognitive needs: Yes (cane) Hearing needs: No Vision needs: Yes (Glasses) Meds Allergies Allergy/AdvReac Type Severity Reaction Status Date / Time No Known Allergies Allergy Verified 12/29/22 14:14 Active Medications: Current Medications Acetaminophen (Acetaminophen 325 Mg Tablet) 650 mg PO Q6H PRN PRN Reason: Pain, Mild (Pain Scale 1-3) Atorvastatin Calcium (Atorvastatin Calcium 20 Mg Tablet) 40 mg PO DAILY [facility] Atropine Sulfate (Atropine Sulfate 1 Mg/Ml Vial) 0.5 mg IVPUSH ONCE PRN PRN Reason: is SBP <100 and symptomatic Sodium Chloride (Ns) 1,000 mls @ 50 mls/hr IVCONT .Q20H [facility] Last Admin: 06/14/22 07:34 Dose: 50 mls/hr Sodium Chloride (Ns) 1,000 mls @ 100 mls/hr IVCONT .Q10H [facility] Insulin Human Lispro (Insulin Lispro 100 Unit/Ml 3 Ml Vial) 0 unit SUBCUT QIDACHS [facility]; Protocol Pharmacy Consult (Consult Rx Perform Med Rec) 1 each MISCELLANE ONCE PRN PRN Reason: Consult order Senna (Sennosides 8.6 Mg Tablet) 17.2 mg PO BEDTIME PRN PRN Reason: Constipation Sodium Chloride (0.9 % Sodium Chloride Flush 3 Ml Syringe) 3 ml IVFLUSH QSHIFT [facility] Home Medications Medication Instructions Recorded Confirmed Last Taken Type aripiprazole 5 mg tablet 5 mg PO BEDTIME 02/18/22 06/14/22 06/13/22 History escitalopram oxalate 10 mg tablet 10 mg PO BEDTIME 02/18/22 06/14/22 06/13/22 History quetiapine 25 mg tablet 25 mg PO BEDTIME PRN Sleep 02/18/22 06/14/22 05/04/22 History zolpidem 5 mg tablet 5 mg PO BEDTIME 02/18/22 06/14/22 06/13/22 History ergocalciferol (vitamin D2) 1,250 1,250 mcg PO SA@0900 05/05/22 06/14/22 06/10/22 History mcg (50,000 unit) capsule lorazepam 0.5 mg tablet 1 tab PO BEDTIME PRN Anxiety 05/05/22 06/14/22 05/05/22 History acetaminophen 325 mg tablet 325 mg PO TID PRN Pain 06/14/22 06/14/22 Unknown History (Tylenol) hydrochlorothiazide 25 mg tablet 25 mg PO DAILY 06/14/22 06/14/2223 09:00 History ypxubyrl-ceg-qsept2 250 mg-dha 90 1 cap PO DAILY 06/14/22 06/14/22 06/13/22 History mg-epa 160 tq-edlq-xrqg-zeax capsule (Ocuvite Adult 50 Plus) Exam Exam Date and Time: June 14, 2022 1431 Height,Weight and Vital Signs: Height 5 ft 8 in Weight 138.9 kg Last Vital Signs Temp 97.4 F 06/14/22 13:00 Pulse 33 L 06/14/22 13:00 Resp 18 06/14/22 13:00 BP 126/45 L 06/14/22 13:00 Pulse Ox 99 06/14/22 13:00 O2 Del Method 06/14/22 13:00 O2 Flow Rate 2 06/14/22 12:14 Pertinent Lab Results Pertinent Lab Results: Laboratory Tests 06/14/22 06/14/22 06/14/22 07:36 07:36 07:36 WBC RBC Hgb Hct MCV MCH MCHC RDW Plt Count MPV Immature Gran % (Auto) Neut % (Auto) Lymph % (Auto) [place] % (Auto) Eos % (Auto) Baso % (Auto) Lymph # (Auto) [place] # (Auto) Eos # (Auto) Baso # (Auto) Abs Immat Gran (auto) Absolute Neuts (auto) Absolute Nucleated RBC Nucleated RBC % (auto) PT 11.1 INR 1.0 APTT 32.3 Sodium 135 Potassium 4.2 Chloride 100 Carbon Dioxide 24 Anion Gap 15 BUN 19 H D Creatinine 1.13 Estim Creat Clear Calc 90.2 Estimated GFR > 60 Random Glucose 218 H Calcium 10.9 H D Magnesium Total Bilirubin 1.0 AST 47 H D ALT 81 H Alkaline Phosphatase 55 D Troponin I High Sens B-Natriuretic Peptide Total Protein 6.7 Albumin 4.2 Urine Color Urine Appearance Urine pH Ur Specific [place] Urine Protein Urine Glucose (UA) Urine Ketones Urine Blood Urine Nitrite Ur Leukocyte Esterase COVID-19 (FERNANDO) COVID-19 Clin Com Influenza Type A (LELIA) Influenza Type B (LELIA) Influenza A & B Note Blood Type Antibody Screen 06/14/22 06/14/22 06/14/22 07:36 07:36 07:36 WBC RBC Hgb Hct MCV MCH MCHC RDW Plt Count MPV Immature Gran % (Auto) Neut % (Auto) Lymph % (Auto) Graves % (Auto) Eos % (Auto) Baso % (Auto) Lymph # (Auto) [place] # (Auto) Eos # (Auto) Baso # (Auto) Abs Immat Gran (auto) Absolute Neuts (auto) Absolute Nucleated RBC Nucleated RBC % (auto) PT INR APTT Sodium Potassium Chloride Carbon Dioxide Anion Gap BUN Creatinine Estim Creat Clear Calc Estimated GFR Random Glucose Calcium Magnesium 1.7 Total Bilirubin AST ALT Alkaline Phosphatase Troponin I High Sens 13.2 D B-Natriuretic Peptide Total Protein Albumin Urine Color Urine Appearance Urine pH Ur Specific [place] Urine Protein Urine Glucose (UA) Urine Ketones Urine Blood Urine Nitrite Ur Leukocyte Esterase COVID-19 (FERNANDO) Negative COVID-19 Clin Com See Note Influenza Type A (LELIA) Influenza Type B (LELIA) Influenza A & B Note Blood Type Antibody Screen 06/14/22 06/14/22 06/14/22 07:36 07:36 07:37 WBC 11.7 H RBC 5.19 Hgb 15.8 Hct 46.1 MCV 88.8 MCH 30.4 MCHC 34.3 RDW 12.9 Plt Count 235 MPV 9.3 L Immature Gran % (Auto) 0.5 H Neut % (Auto) 55.6 Lymph % (Auto) 34.0 Graves % (Auto) 8.5 Eos % (Auto) 0.9 Baso % (Auto) 0.5 Lymph # (Auto) 4.0 Graves # (Auto) 1.0 Eos # (Auto) 0.1 Baso # (Auto) 0.1 Abs Immat Gran (auto) 0.06 H Absolute Neuts (auto) 6.5 Absolute Nucleated RBC 0.000 Nucleated RBC % (auto) 0.0 PT INR APTT Sodium Potassium Chloride Carbon Dioxide Anion Gap BUN Creatinine Estim Creat Clear Calc Estimated GFR Random Glucose Calcium Magnesium Total Bilirubin AST ALT Alkaline Phosphatase Troponin I High Sens B-Natriuretic Peptide 206 H Total Protein Albumin Urine Color Urine Appearance Urine pH Ur Specific [place] Urine Protein Urine Glucose (UA) Urine Ketones Urine Blood Urine Nitrite Ur Leukocyte Esterase COVID-19 (FERNANDO) COVID-19 Clin Com Influenza Type A (LELIA) Negative Influenza Type B (LELIA) Negative Influenza A & B Note See Note Blood Type Antibody Screen 06/14/22 06/14/22 09:00 11:41 WBC RBC Hgb Hct MCV MCH MCHC RDW Plt Count MPV Immature Gran % (Auto) Neut % (Auto) Lymph % (Auto) Graves % (Auto) Eos % (Auto) Baso % (Auto) Lymph # (Auto) [place] # (Auto) Eos # (Auto) Baso # (Auto) Abs Immat Gran (auto) Absolute Neuts (auto) Absolute Nucleated RBC Nucleated RBC % (auto) PT INR APTT Sodium Potassium Chloride Carbon Dioxide Anion Gap BUN Creatinine Estim Creat Clear Calc Estimated GFR Random Glucose Calcium Magnesium Total Bilirubin AST ALT Alkaline Phosphatase Troponin I High Sens B-Natriuretic Peptide Total Protein Albumin Urine Color Yellow Urine Appearance Clear Urine pH 6.0 Ur Specific [place] >= 1.030 H Urine Protein Negative Urine Glucose (UA) Negative Urine Ketones Negative Urine Blood Negative Urine Nitrite Negative Ur Leukocyte Esterase Negative COVID-19 (FERNANDO) COVID-19 Clin Com Influenza Type A (LELIA) Influenza Type B (LELIA) Influenza A & B Note Blood Type B Positive Antibody Screen NEGATIVE Airway Mallampati Class: III (Short fat neck) TM Dist: >3cm Neck ROM: Full Loose/Missing/Broken Teeth: Yes (3 Broken/missing caps top front, 1 missing mol ar back right) Heart: RRR- very slow Lungs: CTAB Assessment and Plan Assessment Anesthesia Assessment: Anesthesia Plan Discussed Final Anesthetic Review Family History of Problems with Anesthesia: No History of Problems with Anesthesia: No NPO: Yes ASA Class: IV Final Preanesthetic Review: No Changes in Pt Med Stat, Meds/Allgs Chart Reviewed, Consent Obtained/Reviewed and Anes Risks/Benef Reviewed Patient Risk: High Procedure Risk: High Assessment/Block/Sedation in SS: Assess/Block/Sedation-SS Anesthetic Plan Anesthetic Plan: MAC: Disposition: Standard PACU and Inp. Admit - IMC
--- NOTE | 2022-06-14 14:38 | PC.NURSE ---
report received from ED RN at 1345. Pt in OR at this time.
[2022-06-14 15:08] LABS: Glucose, Whole Blood 157 mg/dL (60-115)
--- NOTE | 2022-06-14 18:24 | W.PM.OPN ---
Operative Note Operative Note Date of Service: 06/14/22 Narrative: Preoperative diagnosis: Complete heart block Postoperative diagnosis: Same Operation: Placement of dual-chamber permanent pacemaker with fluoroscopic guidance Surgeon: Cooper Mcpherson MD Specimens: None EBL: 5 cc Operative findings: The pacemaker placed was a Medtronic serial [id number]. The atrial lead was a Medtronic serial [id number]. The ventricular lead was a Medtronic serial [id number]. Parameters in the right atrial lead sensing was 1.1 mV with an impedance of 570 and threshold of 1.25 volts at 0.4 milliseconds. In the ventricular lead threshold was 0.5 volts at 0.4 milliseconds with an impedance of 779 Ohms. Patient tolerated procedure well. Operation in detail: The patient was brought to the operating room, placed supine on the operating room table, anesthesia moderate of ices were placed, and the patient was gently sedated. A time-out was performed confirming the correct patient site and procedure. After injection of local anesthetic, a 3 cm incision was made in the left infraclavicular region and carried down to the pectoralis fascia with electrocautery. The patient was then placed in Trendelenburg and an 18 gauge needle was used to access subclavian vein on the 1st take. And a wire was placed into the right atrium under fluoroscopic guidance. A 2nd 18 gauge needle was then used to access the subclavian vein again on the 1st ache and a wire was placed under fluoroscopic guidance and parked in the right atrium. The patient was then taken out of Trendelenburg and a pocket was formed using blunt and electrocautery dissection. The 1st 6 [place] sheath was then placed over wire and the wire and dilator were removed. The ventricular lead was then placed through the sheath and parked in the right atrium and the peel-away sheath was removed. After several attempts using a curved stylet we were eventually able to access the right ventricle and the tip of the lead was positioned at the right ventricular apex. The endocardial screw was deployed and the lead was tested with excellent parameters above. This lead was then secured with silk sutures to the pectoralis fascia. The 2nd 6 [place] sheath was then placed over the 2nd wire and a wire dilator removed. The atrial lead was then placed and parked in the right atrium. AJ stylet was used to position this in the right atrial appendage. The endocardial screws deployed and the lead was tested with excellent parameters above. This lead was also secured with silk sutures to the pectoralis fascia. The pocket was then copiously irrigated with antibiotic solution. The leads were then placed in their appropriate receptacles and the pacemaker was tested again with excellent parameters. The generator and excess lead was then placed into the pocket. The wound was then closed with a deep running 3-0 Vicryl suture followed by running 3-0 Vicryl suture and Dermabond glue in the skin. The patient was then brought back to the recovery room in stable condition.
--- NOTE | 2022-06-14 18:29 | PM.CNGS ---
History of Present Illness Consult details Consult date: 06/14/22 Requesting physician: Tacho uSmmers Narrative: 62-year-old gentleman with past medical history significant for hypertension, hyperlipidemia recent episodes of syncope.? No obvious cause was found.? He saw us in the office and had cardiac event monitor placed.? It appears he was getting dizzy over the last couple of days.? He did not have syncope but was feeling tired and dizzy.? He was noticed to be in complete heart block and was advised to come to the emergency department.? His heart rate is in 30s right now with complete heart block.? He has a wide complex escape rhythm but has right bundle-branch block and left anterior fascicular block at baseline.? He is denying any significant issues right now.? Denies chest discomfort or significant shortness of breath. Other than above, 12 point review of systems was done and documented separately in the office chart with detailed social and family history. COUNTS INCLUDE 234 BEDS AT THE [facility] Past Medical History Medical History Acute insomnia Anxiety Essential (primary) hypertension Hyperlipidemia, unspecified Insomnia Morbid (severe) obesity due to excess calories Morbid obesity with BMI of 40.0-44.9, adult [place] (obstructive sleep apnea) Postconcussional syndrome Pure hypercholesterolemia Schizophrenia, unspecified Smoker Syncope Type 2 diabetes mellitus without complications Vitamin D deficiency Family History Family History Father No problems noted. Mother No problems noted. Family/Other FH: mental illness Mental health disorder Brother Substance use disorder Surgical History Surgical History History of root canal procedure History of wisdom tooth extraction Social History Social History Housing: House Alcohol intake: current Alcohol intake frequency: does not drink Patient Tobacco Use Status: Current someday Tobacco user Tobacco use type: Cigarette Cigarette Packs Per Day: 0.5 Cigarettes Per Day: 10.0 Years Smoked: 40 Smoked in Last 30 Days: Yes e-Cigarette/Vaping Use: Never Used Second Hand Smoke Exposure: Yes Use of substances other than those prescribed or required for medical reasons: No Are you DNR?: No Advance Directives: No Advance Directives Information Provided: No (Declined) Advance Directives on File: No service: No Current occupational status: retired and disabled Cognitive needs: Yes (cane) Hearing needs: No Vision needs: Yes (Glasses) Meds Allergies Allergy/AdvReac Type Severity Reaction Status Date / Time No Known Allergies Allergy Verified 06/01/22 14:14 Active Medications: Current Medications Acetaminophen (Acetaminophen 325 Mg Tablet) 650 mg PO Q6H PRN PRN Reason: Pain, Mild (Pain Scale 1-3) Aripiprazole (Aripiprazole 5 Mg Tablet) 5 mg PO BEDTIME DEEPA Atorvastatin Calcium (Atorvastatin Calcium 20 Mg Tablet) 40 mg PO DAILY [facility] Atropine Sulfate (Atropine Sulfate 1 Mg/Ml Vial) 0.5 mg IVPUSH ONCE PRN PRN Reason: is SBP <100 and symptomatic Dextrose (Dextrose 50 % 25 Gm/50 Ml Syringe) 25 gm IVPUSH Q15M PRN; Protocol PRN Reason: per Hypoglycemia Standing Ord. Escitalopram Oxalate (Escitalopram Oxalate 10 Mg Tablet) 10 mg PO BEDTIME [facility] Fluticasone Propionate (Fluticasone Propionate Nasal 16 Gm [place]) 1 spray NOSTRIL-B DAILY [facility] Sodium Chloride (Ns) 1,000 mls @ 50 mls/hr IVCONT .Q20H [facility] Last Admin: 06/14/22 07:34 Dose: 50 mls/hr Sodium Chloride (Ns) 1,000 mls @ 100 mls/hr IVCONT .Q10H [facility] Last Admin: 06/14/22 14:38 Dose: Not Given Lactated Ringer's (Lr) 500 mls @ 20 mls/hr IVCONT .Q24H [facility] Last Admin: 06/14/22 18:16 Dose: Not Given Insulin Human Lispro (Insulin Lispro 100 Unit/Ml 3 Ml Vial) 0 unit SUBCUT QIDACHS [facility]; Protocol Last Admin: 06/14/22 17:11 Dose: Not Given Ondansetron HCl (Ondansetron Hcl 4 Mg/2 Ml Vial) 4 mg IVPUSH ONCE PRN PRN Reason: Nausea and Vomiting Pharmacy Consult (Consult Rx Perform Med Rec) 1 each MISCELLANE ONCE PRN PRN Reason: Consult order Senna (Sennosides 8.6 Mg Tablet) 17.2 mg PO BEDTIME PRN PRN Reason: Constipation Sodium Chloride (0.9 % Sodium Chloride Flush 3 Ml Syringe) 3 ml IVFLUSH QSHIFT [facility] Last Admin: 06/14/22 17:11 Dose: Not Given Home Medications Medication Instructions Recorded Confirmed Last Taken Type aripiprazole 5 mg tablet 5 mg PO BEDTIME 02/18/22 06/14/22 06/13/22 History escitalopram oxalate 10 mg tablet 10 mg PO BEDTIME 02/18/22 06/14/22 06/13/22 History quetiapine 25 mg tablet 25 mg PO BEDTIME PRN Sleep 02/18/22 06/14/22 05/04/22 History zolpidem 5 mg tablet 5 mg PO BEDTIME 02/18/22 06/14/22 06/13/22 History ergocalciferol (vitamin D2) 1,250 1,250 mcg PO SA@0900 05/05/22 06/14/22 06/10/22 History mcg (50,000 unit) capsule lorazepam 0.5 mg tablet 1 tab PO BEDTIME PRN Anxiety 05/05/22 06/14/22 05/05/22 History acetaminophen 325 mg tablet 325 mg PO TID PRN Pain 06/14/22 06/14/22 Unknown History (Tylenol) hydrochlorothiazide 25 mg tablet 25 mg PO DAILY 06/14/22 06/14/22 06/14/22 09:00 History uathwlsz-bqv- 250 mg-dha 90 1 cap PO DAILY 06/14/22 06/14/22 06/13/22 History mg-epa 160 nt-lwza-wbiu-zeax capsule (Ocuvite Adult 50 Plus) Physical Exam Vital Signs: Vital Signs: Last Vital Signs Temp 97.4 F 06/14/22 13:00 Pulse 33 L 06/14/22 13:00 Resp 18 06/14/22 13:00 BP 126/45 L 06/14/22 13:00 Pulse Ox 99 06/14/22 13:00 O2 Del Method 06/14/22 13:00 O2 Flow Rate 2 06/14/22 12:14 BMI result Body Mass Index 46.5 General: No acute distress HEENT: Moist mucous membranes, normocephalic, pupils equal round and reactive to light. Neck: No thyromegaly, supple, no JVD Lymph: No cervical, supraclavicular, or other lymphadenopathy Chest: No chest wall abnormalities or deformities Heart: Regular rate and rhythmBrady in the 20s and 30s Lungs: Clear to auscultation bilaterally Abdomen: Soft, nontender, normal bowel sounds obese Extremities: No edema, cyanosis, or clubbing. Full range of motion Neuro: Grossly intact, alert and oriented x3, and nonfocal Skin: Warm and dry no rashes Affect: Normal Results Labs 06/14/22 07:37 06/14/22 07:36 Labs: Abnormal lab results 06/14/22 06/14/22 06/14/22 Range/Units 07:36 07:36 07:37 WBC 11.7 H (4.8-10.8) X10*3/uL MPV 9.3 L (9.4-12.4) fL Immature Gran % (Auto) 0.5 H (0.0-0.4) % Abs Immat Gran (auto) 0.06 H (0.00-0.03) X10*3/uL BUN 19 H D (9-16) mg/dL POC Glucose (60-115) mg/dL Random Glucose 218 H (60-115) mg/dL Calcium 10.9 H D (8.4-10.2) mg/dL AST 47 H D (5-37) U/L ALT 81 H (0-40) U/L B-Natriuretic Peptide 206 H (<100) pg/mL Ur Specific [place] (1.005-1.025) 06/14/22 06/14/22 Range/Units 11:41 14:50 WBC (4.8-10.8) X10*3/uL MPV (9.4-12.4) fL Immature Gran % (Auto) (0.0-0.4) % Abs Immat Gran (auto) (0.00-0.03) X10*3/uL BUN (9-16) mg/dL POC Glucose 157 H (60-115) mg/dL Random Glucose (60-115) mg/dL Calcium (8.4-10.2) mg/dL AST (5-37) U/L ALT (0-40) U/L B-Natriuretic Peptide (<100) pg/mL Ur Specific [place] >= 1.030 H (1.005-1.025) Short CBC 06/14/22 Range/Units 07:37 WBC 11.7 H (4.8-10.8) X10*3/uL Hgb 15.8 (14.0-18.0) g/dl Hct 46.1 (42.0-52.0) % Plt Count 235 (160-400) X10*3/uL BMP 06/14/22 07:36 Sodium 135 Potassium 4.2 Chloride 100 Carbon Dioxide 24 BUN 19 H D Creatinine 1.13 Calcium 10.9 H D Liver Function 06/14/22 Range/Units 07:36 Total Bilirubin 1.0 (0.0-1.0) mg/dL AST 47 H D (5-37) U/L ALT 81 H (0-40) U/L Alkaline Phosphatase 55 D (39-117) U/L Albumin 4.2 (3.5-5.0) g/dL Urine 06/14/22 Range/Units 11:41 Urine Color Yellow Urine Appearance Clear Urine pH 6.0 (5.0-9.0) Ur Specific [place] >= 1.030 H (1.005-1.025) Urine Protein Negative (Neg-Trace) mg/dL Urine Glucose (UA) Negative (Negative) mg/dL All other labs normal. Imaging Chest x-ray: image reviewed EKG: image reviewed Assessment and Plan (1) Symptomatic advanced heart block: Status: Acute Plan 62-year-old male with advanced symptomatic heart block. Agree with urgent need for pacemaker. Patient has been NPO since the morning and plan is to proceed now. I had a long discussion with him about the diagnosis and about the risks, benefits, and alternatives of a dual-chamber permanent pacemaker which he understood and agreed to proceed. Risks discussed include but are not limited to infection, bleeding, pneumothorax, arrhythmia, and . Patient is morbidly obese and will require 3 g of Kefzol. Time Spent With Patient Time: Total time managing care of this patient today ____ minutes. Procedures Date of Service Date of Service: 06/14/22
[2022-06-14] MEDS: 0.9 % Sodium Chloride 1,000 ML 100 ML IVCONT (19:57)
[2022-06-14 20:16] LABS: Glucose, Whole Blood 139 mg/dL (60-115)
[2022-06-14] MEDS: Escitalopram Oxalate 10 MG TABLET PO (21:07)
[2022-06-14] MEDS: ARIPiprazole 5 MG TABLET PO (21:07)
[2022-06-14] MEDS: Zolpidem Tartrate 5 MG TABLET PO (21:23)
[2022-06-14] MEDS: Acetaminophen 325 MG TABLET 650 MG PO (23:24)
[2022-06-15 04:00] VITALS: BP 166/74; PULSE 79; RESP 16; TEMP 36.6; O2SAT 95
[2022-06-15] MEDS: 0.9 % Sodium Chloride 1,000 ML 100 ML IVCONT (04:19)
--- NOTE | 2022-06-15 05:00 | ECG_ITS ---
Test Reason : SOB Blood Pressure : / mmHG Vent. Rate : 083 BPM Atrial Rate : 083 BPM P-R Int : 142 ms QRS Dur : 172 ms QT Int : 452 ms P-R-T Axes : 051 -77 080 degrees QTc Int : 531 ms Atrial-sensed ventricular-paced rhythm Abnormal ECG When compared with ECG of 14-JUN-2022 07:08, Electronic ventricular pacemaker has replaced Sinus rhythm Vent. rate has increased BY 48 BPM Referred By: Irina Schilling Electronically Signed By:Tacho Summers
[2022-06-15] MEDS: Acetaminophen 325 MG TABLET 650 MG PO (06:03)
[2022-06-15 07:30] LABS: Glucose, Whole Blood 202 mg/dL (60-115)
[2022-06-15 07:43] LABS: Basophils Absolute Auto 0.1 X10*3/uL (0.0-0.2); Basophils Percent Auto 0.4 % (0-2); Eosinophils Absolute Auto 0.1 X10*3/uL (0.0-0.4); Eosinophils Percent Auto 0.7 % (0-4); Hematocrit 41.2 % (42.0-52.0); Hemoglobin 14.2 g/dl (14.0-18.0); Imm Gran Abs Auto 0.04 X10*3/uL (0.00-0.03); Imm Gran Pct Auto 0.4 % (0.0-0.4); Lymphocytes Absolute Auto 2.5 X10*3/uL (1.2-4.9); Lymphocytes Percent Auto 21.6 % (20-40); MANUAL DIFF FLAG NO; Mean Corpuscular HGB Conc 34.5 g/dl (31.0-36.0); Mean Corpuscular Volume 87.1 fL (80.0-98.0); Mean Platelet Volume 8.9 fL (9.4-12.4); Monocytes Absolute Auto 1.1 X10*3/uL (0.1-1.2); Monocytes Percent Auto 9.4 % (2-11); Neutrophils Absolute Auto 7.7 x10*3/uL (2.0-8.3); Neutrophils Percent Auto 67.5 % (45-73); Platelet Count 216 X10*3/uL (160-400); Red Blood Count 4.73 X10*6/uL (4.60-5.80); Red Cell Distribution Width 12.4 % (11.0-16.0); White Blood Count 11.3 X10*3/uL (4.8-10.8)
[2022-06-15 08:00] VITALS: BP 176/82; PULSE 79; RESP 16; TEMP 36.2; O2SAT 93
--- NOTE | 2022-06-15 08:00 | HO.POSTANES ---
Post Anesthesia Evaluation Post Anesthesia Evaluation Vital Signs: 176/82, 79, 16, 93%RA, 97.2F Anesthesia: Monitored Mental Status: Awake Pain Control: Satisfactory Nausea/Vomiting: None Hydration: Adequate Anesthesia-Related Issues: No Anes. Related Issues
[2022-06-15] MEDS: Atorvastatin Calcium 20 MG TABLET 40 MG PO (08:17)
[2022-06-15] MEDS: Fluticasone Propionate Nasal 16 GM SPRAY 1 SPRAY NOSTRIL-B (08:18)
[2022-06-15] MEDS: Insulin Lispro 100 UNIT/ML 3 ML VIAL SUBCUT ×2 (08:18→12:12)
[2022-06-15 08:22] LABS: Anion Gap 12 (12-20); Blood Urea Nitrogen 16 mg/dL (9-16); Calcium 9.5 mg/dL (8.4-10.2); Carbon Dioxide 25 mmol/L (22-29); Chloride 104 mmol/L (96-108); Creatinine Clr Calc Pharmacy 130.7; Estimated Glomerular Filt Rate > 60; Glucose Random 118 mg/dL (60-115); Sodium 137 mmol/L (135-145)
--- NOTE | 2022-06-15 10:14 | PM.EVENT ---
Event Note Date of Service: 06/15/22 Event Note: Thoracic surgery discharge instructions. ACTIVITY: ARM MOVEMENT RESTRICTIONS: No lifting your left arm over your head or behind your back, no pushing/pulling/lifting anything >10lb with your left arm for 6-8 weeks. This ensures the pacemaker wires stay in place and do not get pulled out accidentally. Make sure you are doing gentle range of motion exercises with the left arm (such as pendulum exercise) to make sure your elbow and shoulder do not get frozen up. ARM SLING: Keep the sling on until tomorrow. You may then take the sling off and leave it off. HOWEVER, if you are noticing a difficulty limiting your left arm movement (as outline above) then wear your sling during the day to make sure you are adhering to the restrictions above. Ask your doctor when you can expect to return to work. You can still exercise. It is good for your body and your heart. Talk with your doctor about an exercise plan. INCISION CARE: You may shower starting tomorrow 06/16/2022. Sponge bathe only until then. Do not submerge yourself in water (baths, pools, etc.) for 2 weeks. Monitor the incision for increased redness, swelling, bruising, pain, open area, or drainage. You may remove the dressing over the sugical incision on 06/17/2021 OTHER PRECAUTIONS: Before you receive any treatment, tell all healthcare providers (including your dentist) that you have a pacemaker. You will be given an ID card that contains information about your pacemaker. Always carry this card with you. You can show this card if your pacemaker sets off a metal detector. You should also show it to avoid screening with a hand-held security wand. Keep your cell phone away from your pacemaker. Do not carry the phone in your shirt pocket, even it if is turned off. Avoid strong magnets. Examples are those used in MRI's or in hand-held security wands. Avoid strong electrical cruz. Examples are those made by radio transmitting towers, [employer] radios, and heavy-duty electrical equipment. Avoid leaning over the open riddle of a running car. A running engine creates an electrical field. Most household and yard appliances will not cause any problems. If you use any large power tools, such as an industrial microsoft solutions architect, talk with your doctor. WHEN TO CALL YOUR DOCTOR: Call your doctor immediately if you have any of the following: Dizziness Chest pain Lack of energy Fainting spells Twitching chest muscles Rapid pule or pounding heartbeat Shortness of breath Pain around your pacemaker Fever above 100.4 F (38 C) or other signs of infection (redness, swelling, drainage, or warmth at the incision site). Hiccups that will not stop FOLLOWUP APPOINTMENTS: Call Dr. Mcpherson's office (Thoracic Surgery) as soon as you get home to schedule a followup appointment for 2 weeks from now. The office number is . Call your sports teacher to make an appointment for the next couple weeks. Make regular follow-up appointments with your doctor. He or she will check the pacemaker to make sure it is working properly.
--- NOTE | 2022-06-15 10:39 | MHC.CM.PN ---
CM met with Patient at bedside and addressed IMM with him, providing him with the original and placing a copy on the chart. Patient lives alone in a house and he uses a walking stick to assist with mobility. Patient states that he is active with [facility] 3X/week to assist with med management and [facility]. Home via shuttle, resuming said services is the goal and CM has initiated and will follow for dc planning. Patient has received Moderna/Covid vax x2 and his PCP is Dr. Sawant.
--- NOTE | 2022-06-15 10:46 | PM.PNCARD ---
Subjective Subjective Date of Service: 06/15/22 Interval history: Seen and examined at bedside. Doing well after permanent pacemaker placement. Ambulating the hallways without any significant symptoms. Blood pressure is elevated. Physical Exam Vital Signs: Last Vital Signs Temp 97.2 F 06/15/22 08:00 Pulse 79 06/15/22 08:00 Resp 16 06/15/22 08:00 BP 176/82 H 06/15/22 08:00 Pulse Ox 93 06/15/22 08:00 O2 Del Method 06/15/22 08:00 O2 Flow Rate 2 06/14/22 18:40 BMI result Body Mass Index 46.5 GENERAL APPEARANCE: in no acute distress, pleasant. NECK: no carotid bruit, no jugular venous distention. SKIN: no suspicious lesions, warm and dry. Left chest wall procedure site looks stable. HEART: no murmurs, regular bradycardia. LUNGS: clear to auscultation bilaterally. ABDOMEN: soft, nontender. EXTREMITIES: no edema. Left arm in sling after permanent pacemaker placement. PERIPHERAL PULSES: equal. NEUROLOGIC: No gross deficits, AAO X 3 Objective Labs and Meds 06/15/22 Unknown 06/15/22 07:06 Lab results: Laboratory Results - last 24 hr 06/14/22 06/14/22 06/14/22 11:41 14:50 19:51 WBC RBC Hgb Hct MCV MCH MCHC RDW Plt Count MPV Immature Gran % (Auto) Neut % (Auto) Lymph % (Auto) [place] % (Auto) Eos % (Auto) Baso % (Auto) Lymph # (Auto) [place] # (Auto) Eos # (Auto) Baso # (Auto) Abs Immat Gran (auto) Absolute Neuts (auto) Absolute Nucleated RBC Nucleated RBC % (auto) Sodium Potassium Chloride Carbon Dioxide Anion Gap BUN Creatinine Estim Creat Clear Calc Estimated GFR POC Glucose 157 H 139 H Random Glucose Calcium Urine Color Yellow Urine Appearance Clear Urine pH 6.0 Ur Specific Leonardo >= 1.030 H Urine Protein Negative Urine Glucose (UA) Negative Urine Ketones Negative Urine Blood Negative Urine Nitrite Negative Ur Leukocyte Esterase Negative 06/15/22 06/15/22 06/15/22 07:06 07:18 Unknown WBC 11.3 H RBC 4.73 Hgb 14.2 Hct 41.2 L MCV 87.1 MCH 30.0 MCHC 34.5 RDW 12.4 Plt Count 216 MPV 8.9 L Immature Gran % (Auto) 0.4 Neut % (Auto) 67.5 Lymph % (Auto) 21.6 [place] % (Auto) 9.4 Eos % (Auto) 0.7 Baso % (Auto) 0.4 Lymph # (Auto) 2.5 [place] # (Auto) 1.1 Eos # (Auto) 0.1 Baso # (Auto) 0.1 Abs Immat Gran (auto) 0.04 H Absolute Neuts (auto) 7.7 Absolute Nucleated RBC 0.000 Nucleated RBC % (auto) 0.0 Sodium 137 Potassium 4.0 Chloride 104 Carbon Dioxide 25 Anion Gap 12 BUN 16 Creatinine 0.78 Estim Creat Clear Calc 130.7 Estimated GFR > 60 POC Glucose 202 H Random Glucose 118 H Calcium 9.5 D Urine Color Urine Appearance Urine pH Ur Specific Leonardo Urine Protein Urine Glucose (UA) Urine Ketones Urine Blood Urine Nitrite Ur Leukocyte Esterase Imaging Radiologist's impression: Impressions Chest X-Ray 06/14/22 18:39 IMPRESSION: Newly placed left chest wall pacemaker. No acute intrathoracic disease. Progress Note: A&P Assessment and plan (1) Symptomatic advanced heart block: Status: Acute (2) S/P cardiac pacemaker procedure: Status: Acute Plan [age] year gentleman was seen in May with recurrent syncope with no obvious cause found. He was sent home and was found to have complete heart block on cardiac event monitor. He is now status post permanent pacemaker placement. Doing well without any symptoms at this point. His blood pressure is elevated. His home medications have been resumed with exception of lisinopril which was held primarily because of kidney injury. The BP stable can be discharged home. He will follow-up with Dr. Marinelli after discharge. Thank you for allowing me to participate in the care of your patient. Please feel free to contact me if you have any questions. Time Spent With Patient Time: Total time managing care of this patient today ____ minutes. Progress Note: Quality Stroke Does the patient have a stroke diagnosis?: No Procedures Date of Service Date of Service: 06/15/22
[2022-06-15 11:26] LABS: Glucose, Whole Blood 201 mg/dL (60-115)
[2022-06-15 11:35] VITALS: BP 199/77; PULSE 86; RESP 18; TEMP 36.4; O2SAT 95
[2022-06-15 11:38] VITALS: BP 176/82; PULSE 79; O2SAT 93
[2022-06-15 13:00] VITALS: BP 168/78
--- NOTE | 2022-06-15 13:20 | PM.DS ---
DS: Providers Provider Date of Service: 06/15/22 Date of admission: 06/14/22 11:58 Primary care physician: Rajeev Sawant MD Consults: 06/14/22 08:44 Consult to Cardiology Stat Consulting Provider: Tacho Summers Reason for consultation: heart block Has provider been notified: Yes Consult to Thoracic Surgery Stat Consulting Provider: Cooper Mcpherson Reason for consultation: Pacemaker placement for heart block Has provider been notified: Yes DS: Diagnosis Discharge Diagnosis (1) Symptomatic advanced heart block: Status: Acute (2) History of syncope: Status: Acute (3) MANSI (acute kidney injury): Status: Acute DS: Summary Hospital Course Hospital Course: 62-year-old male with a past medical history as noted below presented to the emergency department after patient's Holter monitor showed complete heart block and patient was contacted by cardiology and advised to come to the emergency department.? During EMS transport, patient remained bradycardic with heart rate in the 30s.? At time of emergency room arrival and at current time of my assessment patient is reporting dizziness, worse with movement and weakness.? Patient denies fevers, chills, shortness of breath, chest pain/palpitations. EKG:? Third-degree heart block, heart rate ranging 30 is on monitor.? Chest x-ray:? Unremarkable CT brain without: Unremarkable Initial laboratory results:? WBC 11.7, unremarkable coagulation panel, BUN/creatinine 19/1.13, random glucose 218, Ca 10.9, AST/ALT 47/81, BNP 206, urinalysis negative for infection however positive for glucose/protein.? [id number]/influenza a/B not detected, lyme pending.? In the emergency department the above was performed and Cardiology as well as thoracic was notified.? Patient will be going at 14:30 today for pacemaker placement then transferred to telemetry for further evaluation/monitoring. Hospital course: Patient came to the hospital due to complete heart block and symptomatic: Patient was seen by thoracic surgery and pacemaker was placed subsequently patient's blood pressure as well as symptoms are improved, renal failure also resolved with hydration. Pacemaker was checked by cardio and discussed with Cardiology subsequently patient is going home-continue home medications. Patient is to follow-up with thoracic surgeon Dr. Gamboa out patiently. Please see pacemaker discharge instructions by thoracic (please see activity restrictions section.). In addition patient is morbidly obese: Encouraged to lose weight. Plan: Please see pacemaker instructions. Follow-up with Cardiology and thoracic surgery outpatient. Patient will be going home with VNA. Above management discussed the patient detail and he understand and in agreement with the above plan, time spent 40 minute. Time Spent with Patient Time attestation: Total time managing care of this patient today ____ minutes. Discharge coordination time: Greater than 30 minutes Quality: Safe Use of Opioids Does Pt have an Active Cancer Diagnosis on the Problem List?: No Quality: Stroke Does the patient have a stroke diagnosis?: No Physical Exam Vital Signs: Vital Signs: Last Vital Signs Temp 97.6 F 06/15/22 11:35 Pulse 79 06/15/22 11:38 Resp 18 06/15/22 11:35 BP 176/82 H 06/15/22 11:38 Pulse Ox 93 06/15/22 11:38 O2 Del Method 06/15/22 11:35 O2 Flow Rate 2 06/14/22 18:40 BMI result Body Mass Index 46.5 Appearance: Alert.? Oriented X3.? not in distress.? Eyes: Pupils equal, round and reactive to light.? Sclera nonicteric.? ENT: Pharynx normal.? Moist mucous membranes. cvs: rrr, [id number] , no murmur res: clear to auscultation ,no rhonchii or wheezing abd: no rebound or guarding ,nt, bs present. ext pulses present , no cyanosis . neuro: axo3 , nonfocal. For DS: Data Data Completed and Pending Labs on day of discharge: Laboratory Results - last 24 hr 06/14/22 06/14/22 06/15/22 14:50 19:51 07:06 WBC RBC Hgb Hct MCV MCH MCHC RDW Plt Count MPV Immature Gran % (Auto) Neut % (Auto) Lymph % (Auto) [place] % (Auto) Eos % (Auto) Baso % (Auto) Lymph # (Auto) [place] # (Auto) Eos # (Auto) Baso # (Auto) Abs Immat Gran (auto) Absolute Neuts (auto) Absolute Nucleated RBC Nucleated RBC % (auto) Sodium 137 Potassium 4.0 Chloride 104 Carbon Dioxide 25 Anion Gap 12 BUN 16 Creatinine 0.78 Estim Creat Clear Calc 130.7 Estimated GFR > 60 POC Glucose 157 H 139 H Random Glucose 118 H Calcium 9.5 D 06/15/22 06/15/22 06/15/22 07:18 11:17 Unknown WBC 11.3 H RBC 4.73 Hgb 14.2 Hct 41.2 L MCV 87.1 MCH 30.0 MCHC 34.5 RDW 12.4 Plt Count 216 MPV 8.9 L Immature Gran % (Auto) 0.4 Neut % (Auto) 67.5 Lymph % (Auto) 21.6 [place] % (Auto) 9.4 Eos % (Auto) 0.7 Baso % (Auto) 0.4 Lymph # (Auto) 2.5 [place] # (Auto) 1.1 Eos # (Auto) 0.1 Baso # (Auto) 0.1 Abs Immat Gran (auto) 0.04 H Absolute Neuts (auto) 7.7 Absolute Nucleated RBC 0.000 Nucleated RBC % (auto) 0.0 Sodium Potassium Chloride Carbon Dioxide Anion Gap BUN Creatinine Estim Creat Clear Calc Estimated GFR POC Glucose 202 H 201 H Random Glucose Calcium Discharge Plan Discharge Anticipated Discharge Date/Time: 06/15/22 13:17 Patient Disposition: Home Health Service Discharge Diagnosis: mansi , symptomatic bradycardia status post pacemaker. Referrals: Christa Fay [Outside] - 1 Week Tacho Summers MD [Physician] - 1 Week (follow up outpatient) Cooper Mcpherson MD [Physician] - 1 Week (follow up outpatient) Rajeev Sawant MD [Primary Care Provider] - 1 Week Discharge Medications: Continued cetirizine 10 mg tablet 10 mg PO DAILY Qty: 30 6RF (DME) lancets [FreeStyle Lancets] 28 gauge misc See Rx Instructions .ROUTE .MEDSUPPLY Qty: 100 0RF Rx Instructions: Test 2 times daily lisinopril 10 mg tablet 10 mg PO DAILY Qty: 90 1RF simvastatin 40 mg tablet 40 mg PO DAILY Qty: 90 0RF metformin 500 mg tablet 1,000 mg PO BID Qty: 360 1RF pioglitazone 15 mg tablet 15 mg PO DAILY Qty: 90 1RF tramadol 50 mg tablet 50 mg PO BEDTIME Qty: 30 0RF acetaminophen [Tylenol] 325 mg Tablet 325 mg PO TID PRN (Reason: Pain) Ocuvite Adult 50 Plus 250 mg (90 mg-160 mg) Capsule 1 cap PO DAILY hydrochlorothiazide 25 mg tablet 25 mg PO DAILY lorazepam 0.5 mg tablet 1 tab PO BEDTIME PRN (Reason: Anxiety) ergocalciferol (vitamin D2) 1,250 mcg (50,000 unit) capsule 1,250 mcg PO SA@0900 quetiapine 25 mg tablet 25 mg PO BEDTIME PRN (Reason: Sleep) fluticasone propionate [Flonase Allergy Relief] 50 mcg/actuation spray,suspension 1 spray intranasal DAILY Qty: 9.9 1RF Rx Instructions: administer into each nostril aripiprazole 5 mg tablet 5 mg PO BEDTIME escitalopram oxalate 10 mg tablet 10 mg PO BEDTIME zolpidem 5 mg tablet 5 mg PO BEDTIME Discharge Orders: Discharge Order (Routine); Ordered 06/15/22 Ordered By: Paty Lock Diet: Advance to usual diet Activity on Discharge: As tolerated Stand Alone Forms: Patient Portal Discharge page Activity Restrictions/Additional Instructions: Thoracic surgery discharge instructions. ACTIVITY: ? ARM MOVEMENT RESTRICTIONS: No lifting your left arm over your head or behind your back, no pushing/pulling/lifting anything >10lb with your left arm for 6-8 weeks.? This ensures the pacemaker wires stay in place and do not get pulled out accidentally.? Make sure you are doing gentle range of motion exercises with the left arm (such as pendulum exercise) to make sure your elbow and shoulder do not get frozen up. ? ARM SLING: Keep the sling on until tomorrow.? You may then take the sling off and leave it off.? HOWEVER, if you are noticing a difficulty limiting your left arm movement (as outline above) then wear your sling during the day to make sure you are adhering to the restrictions above. ? Ask your doctor when you can expect to return to work. ? You can still exercise.? It is good for your body and your heart.? Talk with your doctor about an exercise plan. INCISION CARE: ? You may shower starting tomorrow 06/16/2022.? Sponge bathe only until then.? Do not submerge yourself in water (baths, pools, etc.) for 2 weeks.? Monitor the incision for increased redness, swelling, bruising, pain, open area, or drainage. ? You may remove the dressing over the sugical incision on 06/17/2021 OTHER PRECAUTIONS: ? Before you receive any treatment, tell all healthcare providers (including your dentist) that you have a pacemaker. ? You will be given an ID card that contains information about your pacemaker.? Always carry this card with you.? You can show this card if your pacemaker sets off a metal detector.? You should also show it to avoid screening with a hand-held security wand. ? Keep your cell phone away from your pacemaker.? Do not carry the phone in your shirt pocket, even it if is turned off. ? Avoid strong magnets.? Examples are those used in MRI's or in hand-held security wands. ? Avoid strong electrical cruz.? Examples are those made by radio transmitting towers, ham radios, and heavy-duty electrical equipment. ? Avoid leaning over the open riddle of a running car.? A running engine creates an electrical field.? Most household and yard appliances will not cause any problems.? If you use any large power tools, such as an industrial laborer starch factory, talk with your doctor. WHEN TO CALL YOUR DOCTOR: Call your doctor immediately if you have any of the following: ? Dizziness ? Chest pain ? Lack of energy ? Fainting spells ? Twitching chest muscles ? Rapid pule or pounding heartbeat ? Shortness of breath ? Pain around your pacemaker ? Fever above 100.4 F (38 C) or other signs of infection (redness, swelling, drainage, or warmth at the incision site). ? Hiccups that will not stop FOLLOWUP APPOINTMENTS: ? Call Dr. Mcpherson's office (Thoracic Surgery) as soon as you get home to schedule a followup appointment for 2 weeks from now.? The office number is? . ? Call your power builder developer to make an appointment for the next couple weeks.? Make regular follow-up appointments with your doctor.? He or she will check the pacemaker to make sure it is working properly. Care Plan Goals: Patient came to the hospital due to symptomatic slow heart rate: Patient was seen by thoracic surgery and pacemaker was placed subsequently patient's blood pressure as well as symptoms are improved, renal failure also resolved with hydration. Pacemaker was checked and discussed with Cardiology subsequently patient is going home-continue home medications. Patient is to follow-up with thoracic surgeon Dr. Loomis out patiently. Please see pacemaker discharge instructions by thoracic as above(activity restrictions section) Health Concerns: As above. Plan of Treatment: As above. Assessment: As above.
--- NOTE | 2022-06-15 13:27 | P.F2F_ITS ---
Service Date Service Date: 06/15/22 Encounter Date of encounter: 06/15/22 Encounter: [facility] s/ppacemaker. Reasons for Services Signs and symptoms assessed: chest pain or dizziness or sob or bradycardia , moniter pacemaker site. Reason for intermediate: medication management, medication treatment, teach disease management and other (s/p pacemaker ) MD Overseeing Care: Rajeev Sawant Homebound: Leaving the home is medically contraindicated at this time without the asist of a device and/or another person due th the listed conditions above and below. Reason homebound: weakness related to hospital stay Homebound supporting statement: Patient and multiple comorbidities including symptomatic bradycardia status post pacemaker, MANSI, need help to go to appointments also. Certification: Based on the above findings, I certify that this patient is confined to the home and needs intermittent intermediate care, physical therapy and/or speech therapy, or continues to need occupational therapy. The patient is under my care, and I have initiated the establishment of the plan of care. The patient will be followed by a physician who will periodically review the plan of care. Time Spent With Patient Time: Total time managing care of this patient today ____ minutes.
--- NOTE | 2022-06-15 13:54 | MHC.CM.PN ---
IMM 06/15/22 Patient s/p pacer is discharged to home today. L arm in a sling. [facility] will provide home services. [facility] will provide transportation home. Med nec complete with Medicaid as payor source. Transport is booked for 4pm bead picker
[2022-06-16 05:28] LABS: Lyme Abs Screen <0.90 index
== END 2022-06-15 16:26 | disposition home or self-care (01) | DRG 243 ==
LOC: HO.ED 09:09 → HO.EDOVER 12:07 → HO.IMC 13:35
PROVIDERS: Surgery; Admitting Provider Registered Nurse; Emergency Provider Student in an Organized Health Care Education/Training Program; PCP Internal Medicine; Visit Provider Internal Medicine
PROC: 0JH606Z Insertion of Pacemaker, Dual Chamber into Chest Subcutaneous Tissue and Fascia, Open Approach (ICD-10-PCS; principal; 2022-06-14 16:00)
DX: I44.2 Atrioventricular block, complete (principal); N17.9 Acute kidney failure, unspecified; Z68.42 Body mass index [BMI] 45.0-49.9, adult; F41.9 Anxiety disorder, unspecified; E78.5 Hyperlipidemia, unspecified; E11.9 Type 2 diabetes mellitus without complications; G47.33 Obstructive sleep apnea (adult) (pediatric); G47.00 Insomnia, unspecified; E66.01 Morbid (severe) obesity due to excess calories; F20.9 Schizophrenia, unspecified; F17.210 Nicotine dependence, cigarettes, uncomplicated; Z71.6 Tobacco abuse counseling; Z79.51 Long term (current) use of inhaled steroids; Z79.84 Long term (current) use of oral hypoglycemic drugs; Z79.899 Other long term (current) drug therapy
CPT/HCPCS: 36415; 71045; 80048; 80053; 81003; 82947; 83735; 83880; 84484; 85025; 85610; 85730; 86617; 86618; 86850; 86900; 86901; 87502; 87635; 93005; 97162; 99285; C1785; C1892; C1898; J0461; J0690; J2250; J2795; J3010; J3370

== ENCOUNTER 2022-06-18 11:46 | Emergency (ER) | payer MEDICARE, MEDICAID, SELFPAY ==
[2022-06-18 11:48] VITALS: BP 154/87; PULSE 85; RESP 18; TEMP 36.8; O2SAT 97; BMI 40.6
--- NOTE | 2022-06-18 12:40 | ED.EAR ---
HPI - Ear Problem General Chief complaint: Ear Problems Stated complaint: L ear pain Time Seen by Provider: 06/18/22 12:20 History of Present Illness HPI Narrative: Patient complains of left ear discomfort and bubbling sensation getting worse over the last several days He denies fever chills he denies any recent sinus infection, he has no headache no numbness or weakness He was recently admitted for heart block and given a pacemaker and at this time he is not experiencing dizziness or faintness, he has no palpitations no chest pain no shortness of breath, only complaint is the left ear pain Related Data Home Medications Medication Instructions Recorded Confirmed aripiprazole 5 mg tablet 5 mg PO BEDTIME 02/18/22 06/14/22 escitalopram oxalate 10 mg tablet 10 mg PO BEDTIME 02/18/22 06/14/22 quetiapine 25 mg tablet 25 mg PO BEDTIME PRN Sleep 02/18/22 06/14/22 zolpidem 5 mg tablet 5 mg PO BEDTIME 02/18/22 06/14/22 ergocalciferol (vitamin D2) 1,250 1,250 mcg PO SA@0900 05/05/22 06/14/22 mcg (50,000 unit) capsule lorazepam 0.5 mg tablet 1 tab PO BEDTIME PRN Anxiety 05/05/22 06/14/22 acetaminophen 325 mg tablet 325 mg PO TID PRN Pain 06/14/22 06/14/22 (Tylenol) hydrochlorothiazide 25 mg tablet 25 mg PO DAILY 06/14/22 06/14/22 [id number] 250 mg-dha 90 1 cap PO DAILY 06/14/22 06/14/22 mg-epa 160 yj-vgql-mchb-zeax capsule (Ocuvite Adult 50 Plus) Previous Rx's Medication Instructions Recorded cetirizine 10 mg tablet 10 mg PO DAILY #30 tabs 03/02/22 lancets 28 gauge (FreeStyle #100 ea 05/09/22 Lancets) lisinopril 10 mg tablet 10 mg PO DAILY #90 tabs 05/09/22 metformin 500 mg tablet 1,000 mg PO BID #360 caps 05/09/22 pioglitazone 15 mg tablet 15 mg PO DAILY #90 caps 05/09/22 simvastatin 40 mg tablet 40 mg PO DAILY #90 tabs 05/09/22 fluticasone propionate 50 1 spray intranasal DAILY #9.9 mL 06/01/22 mcg/actuation nasal spray,suspension (Flonase Allergy Relief) tramadol 50 mg tablet 50 mg PO BEDTIME #30 tabs 06/02/22 amoxicillin 500 mg tablet 500 mg PO TID 7 days #21 tabs 06/18/22 Allergies Allergy/AdvReac Type Severity Reaction Status Date / Time No Known Allergies Allergy Verified 06/18/22 11:48 PMFSH Past Medical History Source: nursing notes reviewed Medical History Acute insomnia Anxiety Essential (primary) hypertension Hyperlipidemia, unspecified Insomnia Morbid (severe) obesity due to excess calories Morbid obesity with BMI of 40.0-44.9, adult [place] (obstructive sleep apnea) Postconcussional syndrome Pure hypercholesterolemia Schizophrenia, unspecified Smoker Syncope Type 2 diabetes mellitus without complications Vitamin D deficiency Surgical History History of root canal procedure History of wisdom tooth extraction Family History Family History Father No problems noted. Mother No problems noted. Family/Other FH: mental illness Mental health disorder Brother Substance use disorder Social History Social History Household Members: None Housing: House Do you presently have visiting nurse or other home services: Yes (vna 3x wk) Alcohol intake: current Alcohol intake frequency: does not drink Patient Tobacco Use Status: Current everyday Tobacco user Tobacco use type: Cigarette Cigarette Packs Per Day: 0.5 Cigarettes Per Day: 10.0 Years Smoked: 40 e-Cigarette/Vaping Use: Never Used Second Hand Smoke Exposure: Yes Advance Directives: No Advance Directives Information Provided: No service: No Current occupational status: retired Cognitive needs: Yes (cane) Hearing needs: No Vision needs: Yes (Glasses) Physical Exam Vital Signs: Vital Signs: Last Vital Signs Temp 98.2 F 06/18/22 11:48 Pulse 85 06/18/22 11:48 Resp 18 06/18/22 11:48 BP 154/87 H 06/18/22 11:48 Pulse Ox 97 06/18/22 11:48 O2 Del Method 06/18/22 11:48 BMI result Body Mass Index 40.6 General appearance comfortable no acute distress cooperative The head is normocephalic atraumatic The ear exam the right ear is normal in appearance with a normal colored tympanic membrane normal canal, membrane intact The left ear the tympanic membrane was easily visualized but cloudy, the membrane was intact, the ear canal was normal , mastoid area was normal with no redness, no tenderness Nose no sinus tenderness The pharynx was clear Neck is supple Respiratory no distress Skin no rash Course Course Course Narrative: Patient with cloudy tympanic membrane on the left and ear discomfort on the left is treated for otitis media, he is well-appearing and comfortable and is discharged He recently had a pacemaker placed and has had no cardiac related complaints he has had no dizziness no fainting or feeling faint no palpitations no shortness of breath Discharge Plan Discharge Clinical Impression: Acute left otitis media Patient Disposition: Home, Self-Care Additional Instructions: The left ear was cloudy and may be infected The right ear was totally normal in appearance Use antibiotic amoxicillin for a week If not improved in 2-3 days follow with primary doctor for further evaluation and possible referral Return any time any worse condition or any concerns It is a good idea to take probiotic vitamins available [id number] in the pharmacy any time you take antibiotic to help prevent diarrhea Prescriptions: New amoxicillin 500 mg tablet 500 mg PO TID 7 Days Qty: 21 0RF No Action cetirizine 10 mg tablet 10 mg PO DAILY Qty: 30 6RF (DME) lancets [FreeStyle Lancets] 28 gauge misc See Rx Instructions .ROUTE .MEDSUPPLY Qty: 100 0RF Rx Instructions: Test 2 times daily lisinopril 10 mg tablet 10 mg PO DAILY Qty: 90 1RF simvastatin 40 mg tablet 40 mg PO DAILY Qty: 90 0RF metformin 500 mg tablet 1,000 mg PO BID Qty: 360 1RF pioglitazone 15 mg tablet 15 mg PO DAILY Qty: 90 1RF tramadol 50 mg tablet 50 mg PO BEDTIME Qty: 30 0RF acetaminophen [Tylenol] 325 mg Tablet 325 mg PO TID PRN (Reason: Pain) Ocuvite Adult 50 Plus 250 mg (90 mg-160 mg) Capsule 1 cap PO DAILY hydrochlorothiazide 25 mg tablet 25 mg PO DAILY lorazepam 0.5 mg tablet 1 tab PO BEDTIME PRN (Reason: Anxiety) ergocalciferol (vitamin D2) 1,250 mcg (50,000 unit) capsule 1,250 mcg PO SA@0900 quetiapine 25 mg tablet 25 mg PO BEDTIME PRN (Reason: Sleep) fluticasone propionate [Flonase Allergy Relief] 50 mcg/actuation spray,suspension 1 spray intranasal DAILY Qty: 9.9 1RF Rx Instructions: administer into each nostril aripiprazole 5 mg tablet 5 mg PO BEDTIME escitalopram oxalate 10 mg tablet 10 mg PO BEDTIME zolpidem 5 mg tablet 5 mg PO BEDTIME
== END 2022-06-18 12:47 | disposition home or self-care (01) ==
PROVIDERS: Emergency Provider Emergency Medicine; PCP Internal Medicine
DX: H66.92 Otitis media, unspecified, left ear (principal); H92.02 Otalgia, left ear; Z79.899 Other long term (current) drug therapy
CPT/HCPCS: 99282

== ENCOUNTER → 2022-06-27 09:59 | Outpatient (BNVA) | payer MEDICARE, MEDICAID, SELFPAY | PROVIDERS: PCP Internal Medicine; Visit Provider Nurse Practitioner Family | DX: Z13.89 Encounter for screening for other disorder (principal) ==

== ENCOUNTER → 2022-06-28 13:30 | Day surgery (SDC) | payer MEDICARE, MEDICAID, SELFPAY ==
[2022-06-28 14:13] VITALS: BMI 41.4
--- NOTE | 2022-06-28 14:17 | P.CONAN_ITS ---
HPI - Anesthesia Eval Consult details Narrative: 62 year old male withsevere morbid obesity, [place], Hypertension,diabetic, smoker, h/of schizophrenia s/p pacemaker for complete heart block returns for lead change [facility] Active Problems Active Problems: All Active Problems (Updated 06/19/22 @ 00:01 by Spenser Adam) S/P cardiac pacemaker procedure (Acute) MANSI (acute kidney injury) (Acute) History of syncope (Acute) Symptomatic advanced heart block (Acute) Morbid obesity with BMI of 40.0-44.9, adult (Acute) Pure hypercholesterolemia (Acute) Syncope (Acute) Annual physical exam (Acute) Viral URI (Acute) Postconcussional syndrome (Acute) Acute insomnia (Acute) Hyperlipidemia, unspecified (Acute) Smoker (Acute) [place] (obstructive sleep apnea) (Acute) Past Medical History Medical History Acute insomnia Anxiety Essential (primary) hypertension Hyperlipidemia, unspecified Insomnia Morbid (severe) obesity due to excess calories Morbid obesity with BMI of 40.0-44.9, adult [place] (obstructive sleep apnea) Postconcussional syndrome Pure hypercholesterolemia Schizophrenia, unspecified Smoker Syncope Type 2 diabetes mellitus without complications Vitamin D deficiency Family History Family History Father No problems noted. Mother No problems noted. Family/Other FH: mental illness Mental health disorder Brother Substance use disorder Family history of problems with anesthesia: No Surgical History Surgical History History of root canal procedure History of wisdom tooth extraction History of Problems with Anesthesia: No Social History Social History Household Members: None Housing: House Do you presently have visiting nurse or other home services: Yes (vna 3x wk) Alcohol intake: current Alcohol intake frequency: does not drink Patient Tobacco Use Status: Current everyday Tobacco user Tobacco use type: Cigarette Cigarette Packs Per Day: 0.5 Cigarettes Per Day: 10 Years Smoked: 40 e-Cigarette/Vaping Use: Never Used Second Hand Smoke Exposure: Yes Use of substances other than those prescribed or required for medical reasons: No Are you DNR?: No Advance Directives: No Advance Directives Information Provided: Yes service: No Current occupational status: retired Cognitive needs: Yes (cane) Hearing needs: No Vision needs: Yes (Glasses) Meds Allergies Allergy/AdvReac Type Severity Reaction Status Date / Time No Known Allergies Allergy Verified 06/18/22 11:48 Home Medications Medication Instructions Recorded Confirmed Last Taken Type aripiprazole 5 mg tablet 5 mg PO BEDTIME 02/18/22 06/14/22 06/13/22 History escitalopram oxalate 10 mg tablet 10 mg PO BEDTIME 02/18/22 06/14/22 06/13/22 History quetiapine 25 mg tablet 25 mg PO BEDTIME PRN Sleep 02/18/22 06/14/22 05/04/22 History zolpidem 5 mg tablet 5 mg PO BEDTIME 02/18/22 06/14/22 06/13/22 History ergocalciferol (vitamin D2) 1,250 1,250 mcg PO SA@0900 05/05/22 06/14/22 06/10/22 History mcg (50,000 unit) capsule lorazepam 0.5 mg tablet 1 tab PO BEDTIME PRN Anxiety 05/05/22 06/14/22 05/05/22 History acetaminophen 325 mg tablet 325 mg PO TID PRN Pain 06/14/22 06/14/22 Unknown History (Tylenol) hydrochlorothiazide 25 mg tablet 25 mg PO DAILY 06/14/22 06/14/22 06/14/22 09:00 History [id number] 250 mg-dha 90 1 cap PO DAILY 06/14/22 06/14/22 06/13/22 History mg-epa 160 ej-taau-xped-zeax capsule (Ocuvite Adult 50 Plus) Exam Exam Date and Time: June 28, 2022 141 Height,Weight and Vital Signs: Height 5 ft 10 in Weight 131.088 kg Airway Mallampati Class: IV TM Dist: >3cm Neck ROM: Limited Heart: paced Lungs: cta Assessment and Plan Assessment Anesthesia Assessment: Anesthesia Plan Discussed and Chart Reviewed Final Anesthetic Review Family History of Problems with Anesthesia: No History of Problems with Anesthesia: No NPO: Yes ASA Class: IV Final Preanesthetic Review: No Changes in Pt Med Stat, Meds/Allgs Chart Reviewed, Consent Obtained/Reviewed and Anes Risks/Benef Reviewed Patient Risk: High Procedure Risk: High Anesthetic Plan Anesthetic Plan: MAC: and Agree w/ Assess. and Plan Disposition: Standard PACU
[2022-06-28 14:30] LABS: COVID-19 Test Negative (Negative); IDNOW Serial# BCCEAD1C
--- NOTE | 2022-06-28 14:42 | PC.NURSE ---
Patient originally booked as local case - no anesthesia required per booking. Patient was not instructed to be NPO for day as he was local. Last minute change to case required anesthesia to be present, but patient had eaten lunch. Case postponed to tomorrow 06/29. Patients IV removed, given back all belongings, and importance of NPO status after midnight tonight into tomorrow prior to surgery.
== END ==
PROVIDERS: Anesthesiology; PCP Internal Medicine; Visit Provider Surgery
DX: I44.2 Atrioventricular block, complete (principal); Z53.8 Procedure and treatment not carried out for other reasons; Z20.822 Contact with and (suspected) exposure to COVID-19
CPT/HCPCS: 87635

== ENCOUNTER 2022-06-29 20:22 | Inpatient (IN) | payer MEDICARE, MEDICAID, SELFPAY ==
[2022-06-29] VITALS (13 sets, daily range): BP systolic 111–146; BP diastolic 46–73; PULSE 76–87; RESP 14–19; TEMP 36.2–36.6; O2SAT 95–97; BMI 40.7; BMI 41.3
--- NOTE | ~2022-06-29 | XR_ITS ---
EXAMINATION: XR CHEST CLINICAL INFORMATION: Post insertion of pacemaker lead COMPARISON: Chest x-ray 06/14/2022 TECHNIQUE: Frontal view of the chest was obtained. FINDINGS: Left-sided dual-chamber pacer with lead tips projecting over the right atrium and right ventricular apex. Couple rounded metallic ring like densities overlie the left mid-upper hemithorax, exact location uncertain. No pneumothorax or pleural fluid collection. No airspace consolidation. Cardiomediastinal silhouette within normal limits. No evidence of pulmonary edema. No acute osseous injury. XR/XR chest 1V IMPRESSION: 1. Left-sided dual-chamber pacer with lead tips projecting over the right atrium and right ventricular apex. 2. No acute pulmonary process.
--- NOTE | ~2022-06-29 | FL_ITS ---
EXAMINATION: XR FLUOROSCOPY WITH IMAGES CLINICAL INFORMATION: Atrial lead revision COMPARISON: Chest radiographs 06/29/2022, 06/14/2022 TECHNIQUE: Fluoroscopy Supervised By: Dr. Cooper Mcpherson. Fluoroscopy Time: 1.8 minutes. Cumulative Dose: 74.44 mGy. Images: 1. FINDINGS: AP view shows 8 healing ventricular pacer leads. FL/FL guidance in OR IMPRESSION: Fluoroscopy for pacemaker lead revision.
--- NOTE | 2022-06-29 16:47 | HO.ANESPROP2 ---
HPI - Anesthesia Eval Consult details Narrative: 62 M s/p PPM 2 weeks ago p/f atrial lead revision. MAC w/ propofol/ketamine/precedex/fent. No issues PMFSH Active Problems Active Problems: All Active Problems (Updated 06/29/22 @ 13:05 by Gemma Shen PA-C) S/P cardiac pacemaker procedure (Acute) MANSI (acute kidney injury) (Acute) History of syncope (Acute) Symptomatic advanced heart block (Acute) Morbid obesity with BMI of 40.0-44.9, adult (Acute) Pure hypercholesterolemia (Acute) Syncope (Acute) Acute insomnia (Acute) Hyperlipidemia, unspecified (Acute) Smoker (Acute) [place] (obstructive sleep apnea) (Acute) Past Medical History Medical History (Updated 06/29/22 @ 13:05 by Gemma Shen PA-C) Acute insomnia Anxiety Essential (primary) hypertension Hyperlipidemia, unspecified Insomnia Morbid (severe) obesity due to excess calories Morbid obesity with BMI of 40.0-44.9, adult [place] (obstructive sleep apnea) Pure hypercholesterolemia Schizophrenia, unspecified Smoker Syncope Type 2 diabetes mellitus without complications Vitamin D deficiency Family History Family History Father No problems noted. Mother No problems noted. Family/Other FH: mental illness Mental health disorder Brother Substance use disorder Family history of problems with anesthesia: No Surgical History Surgical History (Updated 06/15/22 @ 14:19 by Tacho Summers MD) History of root canal procedure History of wisdom tooth extraction History of Problems with Anesthesia: No Social History Social History Household Members: None Housing: House Do you presently have visiting nurse or other home services: Yes (vna 3x wk) Alcohol intake: current Alcohol intake frequency: does not drink Patient Tobacco Use Status: Current everyday Tobacco user Tobacco use type: Cigarette Cigarette Packs Per Day: 0.5 Cigarettes Per Day: 10 Years Smoked: 40 e-Cigarette/Vaping Use: Never Used Second Hand Smoke Exposure: Yes Use of substances other than those prescribed or required for medical reasons: No Are you DNR?: No service: No Current occupational status: retired Cognitive needs: Yes (cane) Hearing needs: No Vision needs: Yes (Glasses) Meds Allergies Allergy/AdvReac Type Severity Reaction Status Date / Time No Known Allergies Allergy Verified 06/18/22 11:48 Home Medications Medication Instructions Recorded Confirmed Last Taken Type aripiprazole 5 mg tablet 5 mg PO BEDTIME 02/18/22 06/14/22 06/13/22 History escitalopram oxalate 10 mg tablet 10 mg PO BEDTIME 02/18/22 06/14/22 06/13/22 History quetiapine 25 mg tablet 25 mg PO BEDTIME PRN Sleep 02/18/22 06/14/22 05/04/22 History zolpidem 5 mg tablet 5 mg PO BEDTIME 02/18/22 06/14/22 06/13/22 History ergocalciferol (vitamin D2) 1,250 1,250 mcg PO SA@0900 05/05/22 06/14/22 06/10/22 History mcg (50,000 unit) capsule lorazepam 0.5 mg tablet 1 tab PO BEDTIME PRN Anxiety 05/05/22 06/14/22 05/05/22 History acetaminophen 325 mg tablet 325 mg PO TID PRN Pain 06/14/22 06/14/22 Unknown History (Tylenol) hydrochlorothiazide 25 mg tablet 25 mg PO DAILY 06/14/22 06/14/22 06/14/22 09:00 History [id number] 250 mg-dha 90 1 cap PO DAILY 06/14/22 06/14/22 06/13/22 History mg-epa 160 di-lcfy-hbsh-zeax capsule (Ocuvite Adult 50 Plus) Exam Exam Date and Time: June 29, 2022 1647 Height,Weight and Vital Signs: Height 5 ft 10 in Weight 284 lb Last Vital Signs Temp 97.5 F 06/29/22 15:51 Pulse 79 06/29/22 15:51 Resp 16 06/29/22 15:51 BP 111/62 06/29/22 15:51 Pulse Ox 95 06/29/22 15:51 O2 Del Method 06/29/22 15:51 Airway Mallampati Class: III TM Dist: >3cm Neck ROM: Full Loose/Missing/Broken Teeth: Yes (Multiple missing/broken teeth; poor dentition) Assessment and Plan Assessment Anesthesia Assessment: Anesthesia Plan Discussed and Chart Reviewed Final Anesthetic Review Family History of Problems with Anesthesia: No History of Problems with Anesthesia: No NPO: Yes ASA Class: III Final Preanesthetic Review: No Changes in Pt Med Stat, Meds/Allgs Chart Reviewed, Consent Obtained/Reviewed and Anes Risks/Benef Reviewed Patient Risk: High Procedure Risk: Intermediate Anesthetic Plan Anesthetic Plan: MAC: Disposition: Standard PACU
--- NOTE | 2022-06-29 16:49 | MHC.SHP ---
Pre-Procedural Eval Section A Date of Service: 06/29/22 The patient is an INPATIENT: No The History & Physical has been completed within 30 days and I have reviewed it.: Yes Section B Chief Complaint: Atrioventricular block, complete Allergies: Allergies Allergy/AdvReac Type Severity Reaction Status Date / Time No Known Allergies Allergy Verified 06/18/22 11:48 Plan I have reviewed the history and physical and performed a pertinent physical examination on my patient. No changes have occurred unless specified. Plan for pacemaker lead revision discussed in detail with the patient including risks benefits and alternatives. He understood and agreed to proceed. Time Spent With Patient Time: Total time managing care of this patient today ____ minutes.
[2022-06-29 17:06] LABS: Glucose, Whole Blood 115 mg/dL (60-115)
[2022-06-29] MEDS: Acetaminophen 325 MG TABLET 975 MG PO (19:35)
[2022-06-29] MEDS: fentaNYL citrate/PF 100 MCG/2 ML VIAL 25 MCG IVPUSH (20:10)
--- NOTE | 2022-06-29 20:37 | HO.POSTANES ---
Post Anesthesia Evaluation Post Anesthesia Evaluation Vital Signs: Vital Signs Temp Pulse Resp BP Pulse Ox O2 Del Method O2 Flow Rate 06/29/22 20:15 76 14 146/46 H 96 Nasal Cannula with ETCO2 2 06/29/22 20:10 14 06/29/22 20:00 78 17 131/65 96 Nasal Cannula with ETCO2 2 06/29/22 19:10 85 16 132/62 96 Nasal Cannula with ETCO2 2 06/29/22 19:45 87 16 135/73 96 Nasal Cannula with ETCO2 2 06/29/22 19:30 85 18 136/70 96 Nasal Cannula with ETCO2 2 06/29/22 19:15 85 17 131/63 96 Nasal Cannula with ETCO2 2 06/29/22 19:05 85 17 123/54 L 97 Nasal Cannula with ETCO2 2 06/29/22 19:00 97.9 F 87 16 119/53 L 95 Nasal Cannula with ETCO2 2 06/29/22 19:00 97.9 F 87 16 119/53 L 95 Nasal Cannula with ETCO2 2 06/29/22 15:51 97.5 F 79 16 111/62 95 Room Air Anesthesia: General LMA Mental Status: Awake Pain Control: Satisfactory Nausea/Vomiting: None Hydration: Adequate Anesthesia-Related Issues: No Anes. Related Issues
--- OUTSIDE RECORDS SUMMARY | 2022-06-29 20:45 | XMS_ITS | Continuity of Care Document ---
:1960 Author Organization [facility] Address [address] [place] [address]- Care Team Providers Name Role Phone Not on Staff, PCP Primary Care Physician Unavailable Encounter [facility] Date(s): 02/08/22 - 02/09/22 [facility] [address] [place] [id number] Discharge Disposition: A-D/C Home Attending Physician: Claus Trejo MD Admitting Physician: Justin Benz DO Referring Physician: Not on Staff, Referring MD Allergies, Adverse Reactions, Alerts No Known Allergies Medications acetaminophen 500 mg oral tablet 1 tablet = 500 mg, By Mouth, Every 8 hours, PRN Pain , Moderate, TAKE 1 TABLET BY MOUTH THREE TIMES DAILY Start Date: 02/08/22 Status: OrderedAcetaminophen Tablet 650 mg, Tablet, By Mouth, Every 4 hours, PRN for Pain , Mild, Temperature Greater than 100.5, Routine, 02/08/22 19:22:00 EDT Start Date: 02/08/22 Stop Date: 02/10/22 Status: DiscontinuedARIPiprazole 5 mg oral tablet 5 mg, 1, tablet, By Mouth, Daily at bedtime, # 30 tablet, Refills 0, Maintenance, 02/08/22 20:23:00 EDT, Partial fill upon patient request if the prescription is for a schedule II opioid drug. Start Date: 02/08/22 Status: Orderedcetirizine 10 mg oral tablet 1 tablet = 10 mg, By Mouth, Daily in AM, TAKE ONE TABLET BY MOUTH EVERY DAY Start Date: 02/08/22 Status: Orderedescitalopram 10 mg oral tablet 1 tablet = 10 mg, By Mouth, Daily at bedtime, # 90 tablet, 0 Refills, Maintenance, 02/08/22 20:23:00EDT, Tablet, Partial fill upon patient request if the prescription is for a schedule II opioid drug. Start Date: 02/08/22 Status: Orderedhydrochlorothiazide 25 mg oral tablet 25 mg, 1, tablet, By Mouth, Daily in AM, # 30 tablet, Refills 0, Maintenance, 02/08/22 20:26:00 EDT,Partial fill upon patient request if the prescription is for a schedule II opioid drug. Start Date: 02/08/22 Status: Orderedlisinopril 10 mg oral tablet 10 mg, 1, tablet, By Mouth, Daily in AM, # 30 tablet, Refills 0, Maintenance, 02/08/22 20:25:00 EDT,Partial fill upon patient request if the prescription is for a schedule II opioid drug. Start Date: 02/08/22 Status: Orderedlisinopril 10 mg oral tablet 10 mg, Tablet, By Mouth, 02/09/22 9:00:00 EDT Start Date: 02/09/22 Stop Date: 02/09/22 Status: CompletedmetFORMIN 500 mg oral tablet 1 tablet = 500 mg, By Mouth, 2 times a day, # 180 tablet, 0 Refills, Maintenance, 02/08/22 20:25:00 EDT, Tablet, Partial fill upon patient request if the prescription is for a schedule II opioid drug. Start Date: 02/08/22 Status: OrderedNicoderm C-Q Clear 7 mg/24 hr transdermal film, extended release 1 patch, Topically, Daily, for 14 days, # 14 patch, 0 Refills, Acute 02/23/22 16:13:00 EDT, 02/10/2216:13:00 EDT, Patch, [facility], Partial fill upon patient request if the prescription is for a schedule II opioid drug., 178, cm, 02/09... Start Date: 02/09/22 Stop Date: 02/23/22 Status: Orderedpioglitazone 15 mg oral tablet 1 tablet = 15 mg, By Mouth, Daily in AM, # 30 tablet, 0 Refills, Maintenance, 02/08/22 20:25:00 EDT,Tablet, Partial fill upon patient request if the prescription is for a schedule II opioid drug. Start Date: 02/08/22 Status: OrderedQUEtiapine 25 mg oral tablet 25 mg, 1, tablet, By Mouth, Daily at bedtime, # 30 tablet, Refills 0, Maintenance, 02/08/22 20:23:00EDT, Partial fill upon patient request if the prescription is for a schedule II opioid drug. Start Date: 02/08/22 Status: Orderedsimvastatin 40 mg oral tablet 40 mg, 1, tablet, By Mouth, Daily in AM, # 30 tablet, Refills 0, Maintenance, 02/08/22 20:25:00 EDT,Partial fill upon patient request if the prescription is for a schedule II opioid drug. Start Date: 02/08/22 Status: OrderedtraMADol 50 mg oral tablet 1 tablet = 50 mg, By Mouth, Daily at bedtime, TAKE ONE TABLET BY MOUTH AT BEDTIME Start Date: 02/08/22 Status: OrderedVitamin D2 50,000 intl units (1.25 mg) oral capsule 1 capsule = 50,000 International_Units, By Mouth, Every Sunday, TAKE 1 CAPSULE BY MOUTH ONCE A WEEK Start Date: 02/08/22 Status: Orderedzolpidem 5 mg oral tablet 1 tablet = 5 mg, By Mouth, Daily at bedtime, # 30 tablet, 0 Refills, Maintenance, 02/08/22 20:22:00 EDT, Partial fill upon patient request if the prescription is for a schedule II opioid drug. Start Date: 02/08/22 Status: Ordered Problem List Condition Effective Dates Status Health Status Informant Anxiety(Confirmed) Active Diabetes mellitus(Confirmed) Active Hyperlipidemia(Confirmed) Active Hypertension(Confirmed) Active Severe obesity(Confirmed) Active Procedures Procedure Date Related Diagnosis Body Site Status Teeth - wisdom teeth removed Completed Results Radiology Reports Exam Date Time Procedure Performing Provider Status 02/08/22 6:07 PM Chest 2 Views Frontal and Lat Brennon Treviño; Kenny (Verified) Notes:(Chest 2 Views Frontal and Lat) Reason For Exam: Chest Pain;Other:RESULT: Chest 2 Views Frontal and Lat Chest 2 Views Frontal and Lat Hx of Present Illness: Chest pain. COMPARISON: 11/12/2015 FINDINGS: LINES AND TUBES: None. LUNGS AND PLEURA: Clear lungs. Normal pulmonary vascularity. No pleural effusion. No pneumothorax. HEART, MEDIASTINUM AND KRYSTAL: Heart is normal in size. Normal upper mediastinal and hilar contour. BONES AND SOFT TISSUES: No acute abnormality. IMPRESSION: No acute abnormality. WSN: [id number] Ordering Physician: Eliana Johnson Dictated By: Ty Sandoval MD Dictated Date/Time: 02/08/22 6:09 pm Reviewed By: Ty Sandoval MD Signed By: Ty Sandoval MD Signed Date/Time: 02/08/22 6:09 pm Transcribed By: LAKEISHA Transcribed Date/Time: 02/08/22 6:08 pm Vital Signs Most recent to oldest 1 2 3 4 [Reference Range]: Height 178 cm 178 cm 178 cm 178 cm (02/09/22 4:58 AM) (02/08/22 11:30 PM) (02/08/22 11:27 PM) ( 02/08/22 11:27 PM) Weight 132.5 kg 132.5 kg 131.7 kg (02/08/22 11:30 PM) (02/08/22 11:27 PM) (02/08/22 10:06 PM) Oxygen Saturation 99 % 98 % 97 % [94-100 %] (02/09/22 3:00 PM) (02/09/22 11:00 AM) (02/09/22 7:00 AM) Pulse Rate [55-90 bpm] 78 bpm 75 bpm 75 bpm (02/09/22 3:00 PM) (02/09/22 11:00 AM) (02/09/22 7:00 AM) Body Mass Index 41.82 41.82 41.57 [18.5-24.99] *>HHI* *>HHI* *>HHI* (02/08/22 11:30 PM) (02/08/22 11:27 PM) (02/08/22 10:06 PM) Blood Pressure 119/78 mm Hg 129/58 mm Hg 137/71 mm Hg [90-138/55-84 mm Hg] (02/09/22 3:00 PM) (02/09/22 11:00 AM) (02/09/22 8:0 5 AM) Respiratory Rate [16-30 18 br/min 20 br/min 18 br/min br/min] (02/09/22 3:38 PM) (02/09/22 3:00 PM) (02/09/22 1:06 PM) Temperature [96.8-100.4 97.7 DegF 98.2 DegF 97.5 DegF DegF] (02/09/22 3:00 PM) (02/09/22 11:00 AM) (02/09/22 7:00 AM) Mode of Delivery Room air Room air Room air (Oxygen) (02/09/22 3:00 PM) (02/09/22 11:00 AM) (02/09/22 7:00 AM) Blood pressure sites Arm, left Arm, left Arm, left (02/09/22 3:00 PM) (02/09/22 11:00 AM) (02/09/22 7:00 AM) Temperature Route Oral Oral Oral (02/09/22 3:00 PM) (02/09/22 11:00 AM) (02/09/22 7:00 AM) Dry Weight 132.5 kg 131.7 kg 131.7 kg (02/08/22 11:30 PM) (02/08/22 10:06 PM) (02/08/22 5:02 PM) Weight Obtained Via Standing scale (02/08/22 11:27 PM) Social History Social History Type Response Smoking Status 10 or more cigarettes (1/2 p ack or more)/day in last 30 days; Patient wants NRT during admission Yes; Other: 1ppd, stopped a few days ago; entered on: 02/08/22 Sex Note [facility]SP[facility] , CIS S: TRANSCRIBE Ty Sandoval MD: VERIFY Event Display: Result: Authored Date: Chest 2 Views Frontal and Lat Hx of Present Illness: Chest pain. COMPARISON: 11/12/2015 FINDINGS: LINES AND TUBES: None. LUNGS AND PLEURA: Clear lungs. Normal pulmonary vascularity. No pleural effusion. No pneumothorax. HEART, MEDIASTINUM AND KRYSTAL: Heart is normal in size. Normal upper mediastinal and hilar contour. BONES AND SOFT TISSUES: No acute abnormality. IMPRESSION: No acute abnormality. WSN: [id number] Ordering Physician: Eliana Johnson Dictated By: Ty Sandoval MD Dictated Date/Time: 02/08/22 6:09 pm Reviewed By: Ty Sandoval MD Signed By: Ty Sandoval MD Signed Date/Time: 02/08/22 6:09 pm Transcribed By: LAKEISHA Transcribed Date/Time: 02/08/22 6:08 pm Care Team PersonnelName: Not on Staff, PCP
--- NOTE | 2022-06-29 21:19 | PHA.MEDREC ---
Addendum entered by Nohemi Cardoza RPh 06/30/22 10:34: Dose were verified by shefali Original Note: Pharmacy Consult ? Medication Reconciliation Pharmacy has completed the medication reconciliation. PT WAS JUST IN SURGERY, MED REC DONE PER CLAIM HISTORY AND PREVIOUS ADMISSIONS. WILL CONTACT [facility] FOR DOSES/DIRECTIONS.
[2022-06-29 21:35] LABS: Glucose, Whole Blood 168 mg/dL (60-115)
--- NOTE | 2022-06-29 22:00 | PHA.MEDREC ---
Pharmacy Consult ? Medication Reconciliation Pharmacy has completed the medication reconciliation. Reviewed med rec done by nursing (Antony).
[2022-06-29] MEDS: LORazepam 0.5 MG TABLET PO (22:43)
[2022-06-29] MEDS: Zolpidem Tartrate 5 MG TABLET PO (22:43)
[2022-06-29] MEDS: Escitalopram Oxalate 10 MG TABLET PO (22:43)
[2022-06-29] MEDS: metFORMIN HCl 1,000 MG TABLET 1000 MG PO (22:43)
[2022-06-29] MEDS: ARIPiprazole 5 MG TABLET PO (22:43)
[2022-06-29] MEDS: traMADoL HCL 50 MG TABLET PO (22:43)
[2022-06-29] MEDS: Heparin Sodium,Porcine 5,000 UNIT/ML VIAL 5000 UNIT SUBCUT (22:46)
[2022-06-30] VITALS: BP 128/60; PULSE 92; RESP 18; TEMP 36.4; O2SAT 94
[2022-06-30] MEDS: Acetaminophen 325 MG TABLET 650 MG PO ×2 (02:46→08:52)
[2022-06-30 03:04] VITALS: BP 141/72; PULSE 100; RESP 20; TEMP 36.3; O2SAT 94
[2022-06-30] MEDS: Heparin Sodium,Porcine 5,000 UNIT/ML VIAL 5000 UNIT SUBCUT (05:33)
[2022-06-30 07:09] LABS: Alanine Aminotransferase 31 U/L (0-40); Albumin Level 3.8 g/dL (3.5-5.0); Alkaline Phosphatase 55 U/L (39-117); Anion Gap 17 (12-20); Aspartate Amino Transferase 23 U/L (5-37); Bilirubin Total 1.2 mg/dL (0.0-1.0); Blood Urea Nitrogen 18 mg/dL (9-16); Calcium 9.9 mg/dL (8.4-10.2); Carbon Dioxide 22 mmol/L (22-29); Chloride 101 mmol/L (96-108); Creatinine Clr Calc Pharmacy 93.8; Estimated Glomerular Filt Rate > 60; Glucose Random 305 mg/dL (60-115); Potassium 4.3 mmol/L (3.3-5.1); Sodium 136 mmol/L (135-145); Total Protein 6.3 g/dL (6.5-8.0)
[2022-06-30 07:10] LABS: Magnesium 1.7 mg/dL (1.6-2.6)
[2022-06-30 07:51] VITALS: BP 107/71; PULSE 93; RESP 14; TEMP 36; O2SAT 94
--- NOTE | 2022-06-30 08:32 | W.PM.OPN ---
Operative Note Operative Note Date of Service: 06/29/22 Narrative: Preoperative diagnosis: Atrial lead displacement and advanced heart block Postoperative diagnosis: Same Operation: Dual-chamber pacemaker atrial lead revision Surgeon: Cooper Mcpherson MD Anesthesia: Local with sedation Specimens: None EBL: Minimal Operative findings: Pacemaker lead parameters were in the atrial lead P-wave of 3.0, impedance 513 Ohms, and threshold of 1 volt at 0.4 milliseconds. In the ventricular lead paced with an impedance of 570 Ohms and a threshold of 1 volt at 0.4 milliseconds. Patient tolerated the procedure well. Operation in detail: The patient was brought the operating room, placed supine on the operative table, anesthesia monitoring devices were placed, and the patient was gently sedated. The left infraclavicular area was then prepped and draped in a standard sterile fashion and a time-out was performed confirming the correct patient, site, and procedure. After injection of local anesthetic, a 3 cm incision was made directly over the old pacemaker generator which was palpable. This was carried down with combination of sharp dissection and minimal electrocautery to open up the capsule at the generator was within. The generator was were then removed from its pocket and using fluoroscopy the atrial lead was noted to have dropped and no longer in the atrial appendage. The stitches were then cut and then under fluoroscopic guidance the endocardial screw was brought back in. Using AJ stylet, the right atrial lead was then reposition within the atrial appendage and the endocardial screw was deployed. Some additional slack was able to be put on it but this was somewhat difficult moving this lead forward. The lead was then tested with excellent parameters above. This lead was then re-sutured to the pectoralis fascia with silk sutures. The pocket was then copiously irrigated with antibiotic solution and the excess wire and generator were then placed back into the pocket. The wound was then closed with a deep running 3-0 Vicryl suture followed by running 3-0 Vicryl suture and Dermabond glue on the skin. Patient tolerated the procedure well. Patient was then awoken from anesthesia and brought to the recovery room in stable condition.
[2022-06-30] MEDS: Loratadine 10 MG TABLET PO (08:50)
[2022-06-30] MEDS: lisinopriL 10 MG TABLET PO (08:50)
[2022-06-30] MEDS: hydroCHLOROthiazide 25 MG TABLET PO (08:50)
[2022-06-30] MEDS: metFORMIN HCl 1,000 MG TABLET 1000 MG PO (08:50)
[2022-06-30] MEDS: Ergocalciferol (Vitamin D2) 1,250 MCG CAPSULE 1250 MCG PO (08:50)
[2022-06-30] MEDS: 0.9 % Sodium Chloride Flush 3 ML SYRINGE IVFLUSH (08:51)
--- NOTE | 2022-06-30 10:26 | P.DS_ITS ---
DS: Providers Provider Date of Service: 06/29/22 Date of admission: 06/29/22 20:22 Date of discharge: 06/30/22 Primary care physician: Rajeev Sawant MD Admitting clinician: Cooper Mcpherson Attending physician on discharge: Cooper Mcpherson DS: Diagnosis Discharge Diagnosis (1) Complete heart block by electrocardiogram: Status: Acute DS: Summary Hospital Course Hospital Course: Per Dr. Mcpherson's note: 62-year-old gentleman with past medical history significant for hypertension, hyperlipidemia, [place] and a prior history of CHB and recent PPM placement of 06/14/22. He returns for lead revision. On June 29, Mr. Rose was brought to the operating room and underwent Dual-chamber pacemaker atrial lead revision. He tolerated the procedure well and was transferred to PACU in stable condition. CXR showed no pneumothorax. Today his pacemaker was interrogated and found to be functioning well (results directly given to Dr. Mcpherson). He is now ready for discharge home in stable condition. . Status at Discharge Overall status at discharge: patient is back to baseline Time Spent with Patient Time attestation: Total time managing care of this patient today ____ minutes. Discharge coordination time: Less than 30 minutes Quality: Safe Use of Opioids Does Pt have an Active Cancer Diagnosis on the Problem List?: No Quality: Stroke Does the patient have a stroke diagnosis?: No Physical Exam Vital Signs: Vital Signs: Last Vital Signs Temp 96.8 F 06/30/22 07:51 Pulse 93 06/30/22 07:51 Resp 14 06/30/22 07:51 BP 107/71 06/30/22 07:51 Pulse Ox 94 06/30/22 07:51 O2 Del Method 06/30/22 07:51 O2 Flow Rate 2 06/29/22 20:45 BMI result Body Mass Index 41.3 Const: General: cooperative, healthy appearing and no acute distress HEENT: Head: Yes normal to inspection Ears: hearing grossly normal bilaterally Eyes: General: appearance normal, both eyes and all related structures Sclerae: sclerae normal Neck: Neck: Yes normal visual inspection, Yes full ROM and Yes no lymphadenopathy Chest: Other: Left pacemaker site is intact with adhesive overlying. There is no swelling or ecchymosis. Resp: Effort & Inspection: normal respiratory effort and able to speak in complete sentences Auscultation: clear to auscultation bilaterally Cardio: Jugular venous distension: no JVD Rate: regular rate Rhythm: regular rhythm GI: Inspection: Yes normal to inspection Auscultation: normal bowel sounds : Other: voiding freely Skin: General skin exam: no rashes or lesions noted Neuro: Other: A + O X 3 with no deficits Extrem: General: Yes normal to inspection and No calf tenderness Psych: Affect: normal affect DS: Data Data Completed and Pending Completed studies during hospitalization [Text1]: Procedures Insertion of Pacemaker Lead into Right Atrium, Percutaneous Approach (06/14/22) Insertion of Pacemaker Lead into Right Ventricle, Percutaneous Approach (06/14/22) Insertion of Pacemaker, Dual Chamber into Chest Subcutaneous Tissue and Fascia, Open Approach (06/14/22) Labs on day of discharge: Laboratory Results - last 24 hr 06/29/22 06/29/22 06/30/22 17:02 21:30 06:03 Sodium 136 Potassium 4.3 Chloride 101 Carbon Dioxide 22 Anion Gap 17 BUN 18 H Creatinine 1.08 Estim Creat Clear Calc 93.8 Estimated GFR > 60 POC Glucose 115 168 H Random Glucose 305 H Calcium 9.9 Magnesium Total Bilirubin 1.2 H AST 23 ALT 31 Alkaline Phosphatase 55 Total Protein 6.3 L Albumin 3.8 06/30/22 06:03 Sodium Potassium Chloride Carbon Dioxide Anion Gap BUN Creatinine Estim Creat Clear Calc Estimated GFR POC Glucose Random Glucose Calcium Magnesium 1.7 Total Bilirubin AST ALT Alkaline Phosphatase Total Protein Albumin [address] [address] XRay Report Signed Patient: Adalberto Rose MR#: [id number] : 1960 Acct:[id number] Age/Sex: 62 / M ADM Date: 06/29/22 Loc: [facility] 486-[address]: Cooper Mcpherson MD Ordering Physician: Cooper Mcpherson MD Date of Service: 06/29/22 Procedure(s): XR chest 1V Accession Number(s): [id number] cc: Cooper Mcpherson MD~ EXAMINATION: XR CHEST CLINICAL INFORMATION: Post insertion of pacemaker lead COMPARISON: Chest x-ray 06/14/2022 TECHNIQUE: Frontal view of the chest was obtained. FINDINGS: Left-sided dual-chamber pacer with lead tips projecting over the right atrium and right ventricular apex. Couple rounded metallic ring like densities overlie the left mid-upper hemithorax, exact location uncertain. No pneumothorax or pleural fluid collection. No airspace consolidation. Cardiomediastinal silhouette within normal limits. No evidence of pulmonary edema. No acute osseous injury. XR/XR chest 1V IMPRESSION: 1.? Left-sided dual-chamber pacer with lead tips projecting over the right atrium and right ventricular apex. 2.? No acute pulmonary process. Discharge Plan Discharge Anticipated Discharge Date/Time: 06/30/22 10:26 Patient Disposition: Home Health Service Discharge Diagnosis: Complete Heart Block Referrals: Rajeev Sawant MD [Primary Care Provider] - 1 Week Discharge Medications: Continued cetirizine 10 mg tablet 10 mg PO DAILY Qty: 30 6RF (DME) lancets [FreeStyle Lancets] 28 gauge misc See Rx Instructions .ROUTE .MEDSUPPLY Qty: 100 0RF Rx Instructions: Test 2 times daily lisinopril 10 mg tablet 10 mg PO DAILY Qty: 90 1RF simvastatin 40 mg tablet 40 mg PO DAILY Qty: 90 0RF metformin 500 mg tablet 1,000 mg PO BID Qty: 360 1RF pioglitazone 15 mg tablet 15 mg PO DAILY Qty: 90 1RF tramadol 50 mg tablet 50 mg PO BEDTIME Qty: 30 0RF acetaminophen [Tylenol] 325 mg Tablet 325 mg PO TID PRN (Reason: Pain) Ocuvite Adult 50 Plus 250 mg (90 mg-160 mg) Capsule 1 cap PO DAILY hydrochlorothiazide 25 mg tablet 25 mg PO DAILY lorazepam 0.5 mg tablet 1 tab PO BEDTIME PRN (Reason: Anxiety) ergocalciferol (vitamin D2) 1,250 mcg (50,000 unit) capsule 1,250 mcg PO SA@0900 quetiapine 25 mg tablet 25 mg PO BEDTIME PRN (Reason: Sleep) fluticasone propionate [Flonase Allergy Relief] 50 mcg/actuation spray,suspension 1 spray intranasal DAILY Qty: 9.9 1RF Rx Instructions: administer into each nostril aripiprazole 5 mg tablet 5 mg PO BEDTIME escitalopram oxalate 10 mg tablet 10 mg PO BEDTIME zolpidem 5 mg tablet 5 mg PO BEDTIME Discharge Orders: Discharge Order (Routine); Ordered 06/30/22 Ordered By: Cherie Mcclain Diet: Advance to usual diet Activity on Discharge: See activity instructions Stand Alone Forms: Patient Portal Discharge page Activity Restrictions/Additional Instructions: ACTIVITY: ARM MOVEMENT RESTRICTIONS: No lifting your Left arm over your head or behind your back, no pushing/pulling/lifting anything >10lb with your left arm for 6-8 weeks. This ensures the pacemaker wires stay in place and do not get pulled out accidentally. Make sure you are doing gentle range of motion exercises with the left arm (such as pendulum exercise) to make sure your elbow and shoulder do not get frozen up. ARM SLING: Keep the sling on for 2 weeks or until you see Dr. Mcpherson. HOWEVER, if you are noticing a difficulty limiting your left arm movement (as outline above) then wear your sling during the day to make sure you are adhering to the restrictions above. Ask your doctor when you can expect to return to work. You can still exercise. It is good for your body and your heart. Talk with your doctor about an exercise plan. INCISION CARE: You may shower starting tomorrow, SundayJuly 01. Sponge bathe only until then. Do not submerge yourself in water (baths, pools, etc.) for 2 weeks. Monitor the incision for increased redness, swelling, bruising, pain, open area, or drainage. OTHER PRECAUTIONS: Before you receive any treatment, tell all healthcare providers (including your dentist) that you have a pacemaker. You will be given an ID card that contains information about your pacemaker. Always carry this card with you. You can show this card if your pacemaker sets off a metal detector. You should also show it to avoid screening with a hand- held security wand. Keep your cell phone away from your pacemaker. Do not carry the phone in your shirt pocket, even it if is turned off. Avoid strong magnets. Examples are those used in MRI's or in hand-held security wands. Avoid strong electrical cruz. Examples are those made by radio transmitting towers, ham radios, and heavy-duty electrical equipment. Avoid leaning over the open riddle of a running car. A running engine creates an electrical field. Most household and yard appliances will not cause any problems. If you use any large power tools, such as an industrial director search, talk with your doctor. WHEN TO CALL YOUR DOCTOR: Call your doctor immediately if you have any of the following: Dizziness Chest pain Lack of energy Fainting spells Twitching chest muscles Rapid pule or pounding heartbeat Shortness of breath Pain around your pacemaker Fever above 100.4 F (38 C) or other signs of infection (redness, swelling, drainage, or warmth at the incision site). Hiccups that will not stop FOLLOWUP APPOINTMENTS: Call Dr. Mcpherson's office (Thoracic Surgery) as soon as you get home to schedule a followup appointment for 2 weeks from now. The office number is / . Call your hematologist oncologist to make an appointment for the next couple weeks. Make regular follow-up appointments with your doctor. He or she will check the pacemaker to make sure it is working properly F/U with PCP - 2-3 weeks. Care Plan Goals: Patient came to the hospital for lead revision which occurred on June 29, 2022 by Thoracic Surgery. Pacemaker was checked and discussed with Cardiology subsequently patient is going home-continue home medications. Patient is to follow-up with thoracic surgeon Dr. Mcpherson as an outpatient.? Please see pacemaker discharge instructions by thoracic as above(activity restrictions section) PCP please continue to follow [facility] (his recent hospital admission on 06/14/22). Discharge today 1.08 Health Concerns: Pt should continue to follow up with PCP Plan of Treatment: As above Assessment: CHB S/P Lead revision. Pacer interrogated - working appropriately.
--- NOTE | 2022-06-30 10:34 | PHA.MEDREC ---
Pharmacy Consult ? Medication Reconciliation Pharmacy has completed the medication reconciliation.
[2022-06-30 11:53] VITALS: BP 127/71; PULSE 93; RESP 16; TEMP 36.8; O2SAT 95
--- NOTE | 2022-06-30 12:07 | MHC.CM.PN ---
pt lives alone covid vax x 3 has [facility] has own ride
--- NOTE | 2022-06-30 14:11 | HO.POSTANES ---
Post Anesthesia Evaluation Post Anesthesia Evaluation Vital Signs: Vital Signs Temp Pulse Resp BP Pulse Ox O2 Del Method 06/30/22 11:53 98.3 F 93 16 127/71 95 Room Air 06/30/22 07:51 96.8 F 93 14 107/71 94 Room Air 06/30/22 03:04 97.4 F 100 20 141/72 H 94 Room Air Anesthesia: General Mental Status: Awake Pain Control: Satisfactory Nausea/Vomiting: None Hydration: Adequate Anesthesia-Related Issues: No Anes. Related Issues
== END 2022-06-30 14:30 | disposition home health service (06) | DRG 261 ==
LOC: HO.IMC 20:43
PROVIDERS: Physician Assistant; Admitting Provider Surgery; PCP Internal Medicine; Visit Provider Surgery
PROC: (CPT 33215; principal; 2022-06-29 16:00)
DX: T82.120A Displacement of cardiac electrode, initial encounter (principal); I44.2 Atrioventricular block, complete; Z68.41 Body mass index [BMI] 40.0-44.9, adult; Y71.1 Therapeutic (nonsurgical) and rehabilitative cardiovascular devices associated with adverse incidents; E78.5 Hyperlipidemia, unspecified; E66.01 Morbid (severe) obesity due to excess calories; G47.33 Obstructive sleep apnea (adult) (pediatric); F41.9 Anxiety disorder, unspecified; F17.210 Nicotine dependence, cigarettes, uncomplicated; Z71.6 Tobacco abuse counseling; Z79.51 Long term (current) use of inhaled steroids; Z79.84 Long term (current) use of oral hypoglycemic drugs; Z79.899 Other long term (current) drug therapy; Z20.822 Contact with and (suspected) exposure to COVID-19
CPT/HCPCS: 33215; 36415; 71045; 80053; 82947; 83735; 87635; J0690; J1100; J1643; J2250; J2370; J2795; J3010; J3370

== ENCOUNTER → 2022-07-03 11:07 | Outpatient (BNVA) | payer MEDICARE, MEDICAID, SELFPAY | PROVIDERS: PCP Internal Medicine; Visit Provider Internal Medicine | DX: G47.33 Obstructive sleep apnea (adult) (pediatric) (principal); F17.210 Nicotine dependence, cigarettes, uncomplicated; E66.01 Morbid (severe) obesity due to excess calories; Z68.41 Body mass index [BMI] 40.0-44.9, adult; Z99.89 Dependence on other enabling machines and devices | CPT/HCPCS: 99212 ==

== ENCOUNTER → 2022-07-07 09:02 | Outpatient (BNVA) | payer MEDICARE, MEDICAID, SELFPAY | PROVIDERS: PCP Internal Medicine; Visit Provider Surgery | DX: Z13.89 Encounter for screening for other disorder (principal) ==

== ENCOUNTER → 2022-08-24 15:16 | Outpatient (BNVA) | payer MEDICARE, MEDICAID, SELFPAY | PROVIDERS: PCP Internal Medicine; Visit Provider Internal Medicine Cardiovascular Disease | DX: I47.29 Other ventricular tachycardia (principal); R55 Syncope and collapse; I10 Essential (primary) hypertension; Z45.018 Encounter for adjustment and management of other part of cardiac pacemaker | CPT/HCPCS: 93280; 99212 ==

== ENCOUNTER → 2022-08-28 09:29 | Outpatient (REF) | payer MEDICARE, MEDICAID, SELFPAY ==
--- NOTE | ~2022-08-28 | NM_ITS ---
Myocardial perfusion study Indication: Syncope with complete heart block to rule out myocardial ischemia Technique: The patient was brought in for a Lexiscan perfusion study on 08/28/2022. Patient performed low-level exercise and was injected 0.4 mg of Lexiscan intravenously. Within a minute of injection, 45 mCi of sestamibi was given intravenously. Images were obtained using the SPECT gamma camera interlaced with the gating device. Images were obtained in supine position. Resting perfusion study was performed on 08/29/2022. Patient was administered 45 mCi of sestamibi intravenously at rest. Images were then obtained in supine position. Images obtained with and without CT attenuation. Total DLP 149 mGy-cm. Images were processed with the software and compared side to side in short axis, horizontal long axis and vertical long axis views. Findings: The stress perfusion study showed non attenuated images show mildly to moderately reduced uptake in the inferior wall and severely reduced uptake in the inferoapical and apical wall of the LV myocardium as well as mildly reduced uptake in the inferoseptal wall of the LV myocardium. The attenuation corrected images show moderately reduced uptake in the apex of the LV myocardium. Remainder of the LV myocardium is normally perfused. The gated study shows reduced LV systolic function with calculated LVEF of 43%. LV cavity is normal in size. The gated study shows normal systolic wall thickening and contraction of segments. Resting study shows no obvious change in perfusion pattern compared to stress perfusion study. Gating at rest reveals normal systolic wall motion with ejection fraction at 40%. The findings are consistent with fixed apical defect without any reversible defect suggestive of ischemia. Fixed apical defect may suggest apical infarct of transmural. Pacing related artifact cannot be ruled out. NM/NM pippa perf SPECT rest & str Impression: 1. Myocardial perfusion imaging study shows no ischemia with apical fixed defect suggestive nontransmural infarct 2. Gated LVEF is 43% 3. Transient ischemic dilatation not present EKG is nondiagnostic for ischemia
--- NOTE | 2022-08-28 09:31 | CA_ITS ---
Acquisition Time: 2022-08-28 10:03:20 Total Exercise Time: 00:02:00 Test Indications: Screening for CAD Medications: LISINOPRIL CETIRIZINE SIMVASTATIN HCTZ ESCITALOPRAM FLONASE ARIPIPRAZOLE Protocol: LEXISCAN Max HR: 084 BPM 53% of Pred: 156 BPM Max BP: 132/068 mmHG Max Work Load: 1.0 METS Pharmacological stress test with Lexiscan injection, while sitting, without anginal symptoms, without arrythmia, with normotensive response to injection, with nondiagnostic EKG for ischemia. In recovery he was treated with Aminophylline 75mg IVP to reverse lexiscan. Nuclear images pending. Test reviewed with Dr Mallory Referred By: Matthias Marinelli Overread By: MONICA SHELTON
== END ==
LOC: HO.CARD 09:29
PROVIDERS: PCP Internal Medicine; Visit Provider Internal Medicine Cardiovascular Disease
DX: R55 Syncope and collapse (principal)
CPT/HCPCS: 78452; 93017; A9500; J0280; J2785

== ENCOUNTER 2022-09-23 05:29 | Emergency (ER) | payer MEDICARE, MEDICAID, SELFPAY ==
[2022-09-23 05:35] VITALS: BP 134/78; PULSE 91; RESP 18; TEMP 36.4; O2SAT 97; BMI 41.5
--- NOTE | 2022-09-23 05:44 | ED.EAR ---
HPI - Ear Problem General Chief complaint: Ear Problems Stated complaint: Ear pain Time Seen by Provider: 09/23/22 05:36 Source: patient Mode of arrival: ambulatory Limitations: no limitations History of Present Illness MD Complaint: ear pain Location: bilateral Duration: intermittent Severity: moderate Relieving factors: nothing Exacerbating factors: nothing Discharge from ear: no Treatment prior to arrival: none Related Data Home Medications Medication Instructions Recorded Confirmed aripiprazole 5 mg tablet 5 mg PO BEDTIME 02/18/22 08/24/22 escitalopram oxalate 10 mg tablet 10 mg PO BEDTIME 02/18/22 08/24/22 quetiapine 25 mg tablet 25 mg PO BEDTIME PRN Sleep 02/18/22 08/24/22 zolpidem 5 mg tablet 5 mg PO BEDTIME 02/18/22 08/24/22 ergocalciferol (vitamin D2) 1,250 1,250 mcg PO SA@0900 05/05/22 08/24/22 mcg (50,000 unit) capsule lorazepam 0.5 mg tablet 1 tab PO BEDTIME PRN Anxiety 05/05/22 08/24/22 acetaminophen 325 mg tablet 325 mg PO TID PRN Pain 06/14/22 08/24/22 (Tylenol) hydrochlorothiazide 25 mg tablet 25 mg PO DAILY 06/14/22 08/24/22 [id number] 250 mg-dha 90 1 cap PO DAILY 06/14/22 08/24/22 mg-epa 160 rn-lqel-vxci-zeax capsule (Ocuvite Adult 50 Plus) Previous Rx's Medication Instructions Recorded lancets 28 gauge (FreeStyle #100 ea 05/09/22 Lancets) lisinopril 10 mg tablet 10 mg PO DAILY #90 tabs 05/09/22 metformin 500 mg tablet 1,000 mg PO BID #360 caps 05/09/22 pioglitazone 15 mg tablet 15 mg PO DAILY #90 caps 05/09/22 fluticasone propionate 50 1 spray intranasal DAILY #9.9 mL 06/01/22 mcg/actuation nasal spray,suspension (Flonase Allergy Relief) simvastatin 40 mg tablet 40 mg PO DAILY #90 tabs 08/05/22 metoprolol succinate 50 mg 50 mg PO DAILY #30 tabs 08/24/22 tablet,extended release 24 hr (Toprol XL) tramadol 50 mg tablet 50 mg PO BEDTIME #30 tabs 08/29/22 cetirizine 10 mg tablet 10 mg PO DAILY #30 tabs 09/13/22 amoxicillin 875 mg tablet 875 mg PO BID #14 tabs 09/23/22 aybhvvtg-qavwsh-FZ-thonzonm 3.3 1 appl otic (ears) QID #10 mL 09/23/22 mg-3 mg-10 mg-0.5 mg/mL ear drops,susp (Cortisporin-TC) Allergies Allergy/AdvReac Type Severity Reaction Status Date / Time No Known Allergies Allergy Verified 09/23/22 05:42 [facility] Past Medical History Medical History Anxiety Essential (primary) hypertension History of syncope Insomnia Morbid (severe) obesity due to excess calories Morbid obesity with BMI of 40.0-44.9, adult [place] (obstructive sleep apnea) Pacemaker (~2022) Pure hypercholesterolemia Schizophrenia, unspecified Smoker Type 2 diabetes mellitus without complications Vitamin D deficiency Surgical History History of cardiac pacemaker History of root canal procedure History of wisdom tooth extraction Family History Family History Father No problems noted. Mother No problems noted. Family/Other FH: mental illness Mental health disorder Brother Substance use disorder Social History Social History Household Members: None Housing: House Do you presently have visiting nurse or other home services: Yes (vna 3x wk) Alcohol intake: current Alcohol intake frequency: holidays/special occasions only Alcohol type: hard liquor Patient Tobacco Use Status: Current everyday Tobacco user Tobacco use type: Cigarette Cigarette Packs Per Day: 0.5 Cigarettes Per Day: 0 Years Smoked: 40 e-Cigarette/Vaping Use: Never Used Second Hand Smoke Exposure: No service: No Current occupational status: retired Cognitive needs: Yes (cane) Hearing needs: No Vision needs: Yes (Glasses) Physical Exam Vital Signs: Vital Signs: Last Vital Signs Temp 97.5 F 09/23/22 05:35 Pulse 91 09/23/22 05:35 Resp 18 09/23/22 05:35 BP 134/78 09/23/22 05:35 Pulse Ox 97 09/23/22 05:35 O2 Del Method Room Air 09/23/22 05:35 BMI result Body Mass Index 41.5 GEN: Well developed, no acute distress, alert, oriented HEENT: Normocephalic, atraumatic, normal external ears, nose appears normal, edematous changes the external auditory canal, difficulty visualizing the tympanic membranes, tragal tenderness Eyes: Normal to appearance Neck: Supple, no lymphadenopathy Respiratory: Talks in complete sentences, no respiratory distress Extremities: No clubbing cyanosis or edema Neurologic: No focal neurologic deficits, cranial nerves 2-12 intact, gait normal Skin: No rash Course Course Course Narrative: 62-year-old male presents with bilateral ear pain right greater than left. His examination was consistent with otitis externa. There is also concerning symptoms of otitis media but was unable to visualize the tympanic membrane secondary to canal swelling. Will start patient on topical antibiotics as well as oral antibiotics. He is aware that this symptoms may persist for another 72+ hours at which point he can follow up with his primary care provider for re-evaluation.. Medical Decision Making Medical Decision Making [facility] Narrative: 62-year-old male presents with bilateral ear pain right greater than left. Examination was consistent with otitis externa. There is possible otitis media. Will treat for both diagnoses. Differential Diagnosis Differential Diagnoses: The differential diagnosis associated with the presentation includes (Otitis externa, otitis media) Prescription Management I considered prescription management with: Antibiotic Discharge Plan Discharge Clinical Impression: Otitis externa, Otitis media Patient Disposition: Home, Self-Care Instructions: Otitis Externa (DC), How to Use Ear Drops (ED), Ear Infection (ED) Prescriptions: New Cortisporin-TC 3.3-3-10-0.5 mg/mL drops,suspension 1 appl otic (ears) QID Qty: 10 0RF Rx Instructions: apply to (cotton) wick; replace wick every 24 hours amoxicillin 875 mg tablet 875 mg PO BID Qty: 14 0RF No Action (DME) lancets [FreeStyle Lancets] 28 gauge misc See Rx Instructions .ROUTE .MEDSUPPLY Qty: 100 0RF Rx Instructions: Test 2 times daily lisinopril 10 mg tablet 10 mg PO DAILY Qty: 90 1RF metformin 500 mg tablet 1,000 mg PO BID Qty: 360 1RF pioglitazone 15 mg tablet 15 mg PO DAILY Qty: 90 1RF simvastatin 40 mg tablet 40 mg PO DAILY Qty: 90 0RF tramadol 50 mg tablet 50 mg PO BEDTIME Qty: 30 0RF cetirizine 10 mg tablet 10 mg PO DAILY Qty: 30 6RF acetaminophen [Tylenol] 325 mg Tablet 325 mg PO TID PRN (Reason: Pain) Ocuvite Adult 50 Plus 250 mg (90 mg-160 mg) Capsule 1 cap PO DAILY hydrochlorothiazide 25 mg tablet 25 mg PO DAILY lorazepam 0.5 mg tablet 1 tab PO BEDTIME PRN (Reason: Anxiety) ergocalciferol (vitamin D2) 1,250 mcg (50,000 unit) capsule 1,250 mcg PO SA@0900 quetiapine 25 mg tablet 25 mg PO BEDTIME PRN (Reason: Sleep) fluticasone propionate [Flonase Allergy Relief] 50 mcg/actuation spray,suspension 1 spray intranasal DAILY Qty: 9.9 1RF Rx Instructions: administer into each nostril aripiprazole 5 mg tablet 5 mg PO BEDTIME escitalopram oxalate 10 mg tablet 10 mg PO BEDTIME zolpidem 5 mg tablet 5 mg PO BEDTIME metoprolol succinate [Toprol XL] 50 mg tablet extended release 24 hr 50 mg PO DAILY Qty: 30 5RF Referrals: Physician,Unknown J [Primary Care Provider] - (primary care in 3-5 days)
== END 2022-09-23 05:55 | disposition home or self-care (01) ==
PROVIDERS: Emergency Provider Emergency Medicine; PCP Internal Medicine
DX: H60.93 Unspecified otitis externa, bilateral (principal); H66.93 Otitis media, unspecified, bilateral; Z79.899 Other long term (current) drug therapy
CPT/HCPCS: 99283; 99284

== ENCOUNTER 2022-11-06 15:55 | Outpatient (REF) | payer MEDICARE, MEDICAID, SELFPAY ==
[2022-11-06 17:21] LABS: Anion Gap 15 (12-20); Blood Urea Nitrogen 19 mg/dL (9-16); Carbon Dioxide 24 mmol/L (22-29); Chloride 104 mmol/L (96-108); Estimated Glomerular Filt Rate > 60; Glucose Random 157 mg/dL (60-115); Potassium 4.6 mmol/L (3.3-5.1); Sodium 138 mmol/L (135-145)
== END 2022-11-06 15:56 | disposition home or self-care (01) ==
LOC: HO.LAB 15:55
PROVIDERS: Visit Provider Internal Medicine Cardiovascular Disease
DX: I47.29 Other ventricular tachycardia (principal); Z87.898 Personal history of other specified conditions
CPT/HCPCS: 36415; 80048

== ENCOUNTER 2023-01-03 11:20 | Outpatient (AMB) | payer MEDICARE, MEDICAID, SELFPAY ==
--- NOTE | 2023-01-03 11:21 | A.OFFVIS_ITS ---
Intake Vital Signs 01/03/23 11:23 Height 5 ft 10 in Weight 284 lb 6.341 oz BMI 40.8 BP 132/70 Blood Pressure Location Lt brachial Position Sitting Pulse 79 Pulse Source Pulse Oximeter Pulse Oximetry (%) 97 Oxygen Delivery Method Room Air Intake Visit Reasons: COPD Inspector Tester Sorter Required: No Allergies No Known Allergies Allergy (Verified 01/03/23 11:33) Medication List - Last Reconciled 01/03/23 by Magdalena Tony MD acetaminophen (Tylenol) 325 mg PO TID PRN aripiprazole 5 mg PO BEDTIME blood sugar diagnostic (FreeStyle Test strips) test blood sugar twie a day blood-glucose meter (FreeStyle Lite Meter kit) test blood ugar twice a day cetirizine 10 mg PO DAILY empagliflozin (Jardiance) 25 mg PO DAILY ergocalciferol (vitamin D2) 1,250 mcg PO SA@0900 escitalopram oxalate 10 mg PO BEDTIME fluticasone propionate 50 mcg/actuation (Flonase Allergy Relief) 1 spray intranasal DAILY hydrochlorothiazide 25 mg PO QAM lancets (FreeStyle Lancets) Test 2 times daily lisinopril 10 mg PO DAILY lorazepam 1 tab PO BEDTIME PRN metformin 1,000 mg (2 x 500 mg) PO BID metoprolol succinate ER (Toprol XL) 50 mg PO DAILY [id number]-ib-[id number]-chz-egeu-lut-travis 250 mg (90 mg-160 mg) (Ocuvite Adult 50 Plus) 1 cap PO DAILY pioglitazone 15 mg PO DAILY quetiapine 25 mg PO BEDTIME PRN simvastatin 40 mg PO DAILY tramadol 50 mg PO BEDTIME zolpidem 5 mg PO BEDTIME Do you need a note to return to daycare/school/sports/work: No HPI COPD HPI Details This 62 years old gentleman with morbid obesity, and obstructive sleep apnea, comes after. 6 months for routine follow-up. He has been using his CPAP religiously every night and sleeps well. He has been walking more than before and has lost about 10 lb. Of weight since his last visit His main problem of chronic back pain still continues. He does have multiple comorbidities including bipolar disorder diabetes mellitus nasal congestion hypertension and hyperlipidemia/ PFSH Medical History Anxiety Essential (primary) hypertension History of syncope Insomnia Morbid (severe) obesity due to excess calories Morbid obesity with BMI of 40.0-44.9, adult [place] (obstructive sleep apnea) Pacemaker (~2022) Pure hypercholesterolemia Schizophrenia, unspecified Smoker Type 2 diabetes mellitus without complications Vitamin D deficiency Surgical History History of cardiac pacemaker History of root canal procedure History of wisdom tooth extraction Family History Father No problems noted. Mother No problems noted. Family/Other FH: mental illness Mental health disorder Brother Substance use disorder Social History Household Members: None Housing: House Do you presently have visiting nurse or other home services: Yes (vna 3x wk) Alcohol intake: current Alcohol intake frequency: holidays/special occasions o nly Alcohol type: hard liquor Patient Tobacco Use Status: Current everyday Tobacco user Tobacco use type: Cigarette Cigarette Packs Per Day: 0.5 Cigarettes Per Day: 10 Years Smoked: 40 e-Cigarette/Vaping Use: Never Used Second Hand Smoke Exposure: Yes service: No Current occupational status: retired Cognitive needs: Yes (cane) Hearing needs: No Vision needs: Yes (Glasses) Review of Systems Const All systems reviewed & are unremarkable except as noted in HPI and below Eyes Reports no additional complaints ENT Reports dizziness (Nonspecific) and Reports nasal congestion (Mild off and on) Card Denies chest pain, Denies irregular heart rhythm, Denies leg edema and Reports dyspnea on exertion (Mild) Resp Reports cough, Reports dyspnea on exertion (Mild) and Reports wheezing GI Reports no additional complaints Reports no additional complaints Musc Reports back pain Skin/Breast Reports system reviewed and no additional complaints, except as documented Neuro Reports dizziness (Nonspecific) Psych Reports anxiety, Reports depression and Reports mood swings Endo Reports no additional complaints and Reports other (Being treated for diabetes mellitus) Abner/Lymph Reports no additional complaints Aller/Immun Reports no additional complaints and Reports wheezing Physical Exam Vital Signs: Last Vital Signs Pulse 79 01/03/23 11:23 BP 132/70 01/03/23 11:23 Pulse Ox 97 01/03/23 11:23 Oxygen Delivery Method Room Air 01/03/23 11:23 BMI result Body Mass Index 40.8 Const General: comfortable, no acute distress, alert and awake Orientation/consciousness: patient oriented x3 HEENT Head: Yes normal to inspection General nose exam: No nasal polyps present and No nasal discharge present Face and sinus: Yes sinuses nontender Mouth: oropharynx normal Throat: Yes posterior oropharynx normal Eyes General: appearance normal, both eyes and all related structures Neck Neck: Yes normal visual inspection, Yes no lymphadenopathy, Yes trachea midline and Yes no JVD Thyroid: Thyroid normal Chest Chest palpation & inspection: normal inspection of the chest, normal palpation of entire chest wall, no tenderness and other (Pacemaker battery in left pectoral area) Resp Effort & Inspection: normal respiratory effort Auscultation: clear to auscultation bilaterally, no crackles, no wheezes and diminished lung sounds (Diminished over the basilar areas) Cardio Palpation: normal PMI Rate: regular rate Rhythm: regular rhythm Heart sounds: no gallops and no murmurs GI Palpation (GI): Soft to palpation, nontender, No hepatosplenomegaly present, no masses and Other GI palpation findings present (Abdomen is grossly obese and protuberant) Auscultation: normal bowel sounds Back/Spine/Pelvis Thoracic/Lumbar Spine: thoracic and lumbar spine normal to inspection and thoraco-lumbar ROM limited Skin General skin exam: no rashes or lesions noted Neuro General: patient oriented x3 and no focal motor deficits Cranial nerves: Yes CN's II-XII intact bilaterally Extrem General: Yes normal to inspection, Yes no clubbing, cyanosis or edema and Yes no calf tenderness Psych Appearance: grossly normal, well kempt and other (Quiet and slow in conversation) Speech and movement: Normal speech and movement present Results Reviewed Results Reviewed: LAST COMPLIANCE REPORT WAS FROM 03/2504/21/2022 WHICH SHOWED VERY GOOD COMPLIANCE. HE HAS RECEIVED HIS NEW CPAP DEVICE. WE HAVE NOT BEEN ABLE TO GENERATE ANY COMPLIANCE REPORT. ACCORDING TO HIM HE USES IT VERY REGULARLY. Assessment & Plan Assessment & Plan (1) Morbid obesity with BMI of 40.0-44.9, adult: Comment: BMI = 40.8 He has had morbid obesity throughout his adult life. Has not been able to lose weight. The weight is holding stable in the last few years. Code(s): E66.01 - Morbid (severe) obesity due to excess calories; Z68.41 - Body mass index [BMI] 40.0-44.9, adult (2) [place] (obstructive sleep apnea): Comment: Chronic problem. Very COMPLIANT , He got new CPAP machine which is working well. No issues with the mask or CPAP machine. Code(s): G47.33 - Obstructive sleep apnea (adult) (pediatric) Coding Level of Care Code Est Pt Level 3 (20172) Diagnoses Morbid obesity with BMI of 40.0-44.9, adult E66.01; Z68.41 [place] (obstructive sleep apnea) G47.33
[2023-01-03 11:23] VITALS: BP 132/70; PULSE 79; O2SAT 97; BMI 40.8
== END 2023-01-03 11:34 | disposition home or self-care (01) ==
PROVIDERS: PCP Internal Medicine; Visit Provider Internal Medicine
DX: E66.01 Morbid (severe) obesity due to excess calories (principal); Z68.41 Body mass index [BMI] 40.0-44.9, adult; G47.33 Obstructive sleep apnea (adult) (pediatric)
CPT/HCPCS: 99213

== ENCOUNTER → 2023-01-03 11:20 | Outpatient (BNVA) | payer MEDICARE, MEDICAID, SELFPAY | PROVIDERS: Visit Provider Internal Medicine | DX: J44.9 Chronic obstructive pulmonary disease, unspecified (principal); E66.01 Morbid (severe) obesity due to excess calories; G47.33 Obstructive sleep apnea (adult) (pediatric); Z68.41 Body mass index [BMI] 40.0-44.9, adult; Z95.0 Presence of cardiac pacemaker; Z99.89 Dependence on other enabling machines and devices | CPT/HCPCS: 99212 ==

== ENCOUNTER 2023-01-08 18:51 | Emergency (ER) | payer MEDICARE, MEDICAID, SELFPAY ==
--- NOTE | 2023-01-08 20:15 | ED_ITS ---
HPI - General Adult General Chief complaint: General Medical Stated complaint: needs med refills Time Seen by Provider: 01/08/23 20:38 Source: patient Mode of arrival: ambulatory Limitations: no limitations History of Present Illness HPI narrative: Patient came as unable to get his medications missed as visiting nurse went on vacation medication includes for diabetes anxiety and blood pressure Related Data Home Medications Medication Instructions Recorded Confirmed aripiprazole 5 mg tablet 5 mg PO BEDTIME 02/18/22 08/24/22 escitalopram oxalate 10 mg tablet 10 mg PO BEDTIME 02/18/22 08/24/22 quetiapine 25 mg tablet 25 mg PO BEDTIME PRN Sleep 02/18/22 08/24/22 zolpidem 5 mg tablet 5 mg PO BEDTIME 02/18/22 08/24/22 lorazepam 0.5 mg tablet 1 tab PO BEDTIME PRN Anxiety 05/05/22 08/24/22 acetaminophen 325 mg tablet 325 mg PO TID PRN Pain 06/14/22 08/24/22 (Tylenol) [id number] 250 mg-dha 90 1 cap PO DAILY 06/14/22 08/24/22 mg-epa 160 qh-jjoq-dnkx-zeax capsule (Ocuvite Adult 50 Plus) Previous Rx's Medication Instructions Recorded metoprolol succinate 50 mg 50 mg PO DAILY #30 tabs 08/24/22 tablet,extended release 24 hr (Toprol XL) cetirizine 10 mg tablet 10 mg PO DAILY #30 tabs 09/13/22 blood-glucose meter (FreeStyle #1 ea 10/06/22 Lite Meter kit) empagliflozin 25 mg tablet 25 mg PO DAILY #90 tabs 10/26/22 (Jardiance) ergocalciferol (vitamin D2) 1,250 1,250 mcg PO SA@0900 #90 caps 11/11/22 mcg (50,000 unit) capsule hydrochlorothiazide 25 mg tablet 25 mg PO QAM #90 tabs 11/11/22 lisinopril 10 mg tablet 10 mg PO DAILY #90 tabs 11/11/22 metformin 500 mg tablet 1,000 mg PO BID #360 caps 11/11/22 pioglitazone 15 mg tablet 15 mg PO DAILY #90 caps 11/11/22 simvastatin 40 mg tablet 40 mg PO DAILY #90 tabs 11/11/22 blood sugar diagnostic (FreeStyle #100 ea 12/01/22 Test strips) tramadol 50 mg tablet 50 mg PO BEDTIME #30 tabs 12/19/22 fluticasone propionate 50 1 spray intranasal DAILY #9.9 mL 12/29/22 mcg/actuation nasal spray,suspension (Flonase Allergy Relief) lancets 28 gauge (FreeStyle #100 ea 01/04/23 Lancets) Allergies Allergy/AdvReac Type Severity Reaction Status Date / Time No Known Allergies Allergy Verified 01/03/23 11:33 Review of Systems Review of Systems: Yes all other systems are reviewed and are negative [facility] Past Medical History Medical History Anxiety Essential (primary) hypertension History of syncope Insomnia Morbid (severe) obesity due to excess calories Morbid obesity with BMI of 40.0-44.9, adult [place] (obstructive sleep apnea) Pacemaker (~2022) Pure hypercholesterolemia Schizophrenia, unspecified Smoker Type 2 diabetes mellitus without complications Vitamin D deficiency Surgical History History of cardiac pacemaker History of root canal procedure History of wisdom tooth extraction Family History Family History Father No problems noted. Mother No problems noted. Family/Other FH: mental illness Mental health disorder Brother Substance use disorder Social History Social History Household Members: None Housing: House Do you presently have visiting nurse or other home services: Yes (vna 3x wk) Alcohol intake: current Alcohol intake frequency: holidays/special occasions only Alcohol type: hard liquor Patient Tobacco Use Status: Current everyday Tobacco user Tobacco use type: Cigarette Cigarette Packs Per Day: 0.5 Cigarettes Per Day: 10 Years Smoked: 40 e-Cigarette/Vaping Use: Never Used Second Hand Smoke Exposure: Yes Advance Directives: No Advance Directives Information Provided: No service: No Current occupational status: retired Cognitive needs: Yes (cane) Hearing needs: No Vision needs: Yes (Glasses) Physical Exam ED Vital Signs: BMI result Body Mass Index 40.2 Appearance: Alert. Oriented X3. No acute distress. ENT: Pharynx normal. Oral Mucosa moist Neck: Normal inspection. Neck supple. CVS: Normal heart rate and rhythm. Pulses normal. Respiratory: No respiratory distress. Equal air entry bilateral, no wheezing/rales/rhonchi Abdomen: Soft and nontender. Bowel sounds are present, no mass palpable, no CVA tenderness Skin: Skin warm and dry. Normal skin color. Normal skin turgor. Extremities: No lower extremity edema. No calf tenderness Neuro: Oriented X 3. No motor deficit. Course Course Course Narrative: RME performed by Adrienne Rodriguez PA-C. Patient is a 62 year old assigned male at presenting to the emergency department after not receiving his medication. Patient has a visiting nurse agency however, his nurse is on vacation to [facility] so nobody came to his house to give his medications. Patient states that someone showed up but don't have the palumbo to his lockbox so they were going to send another person with a palumbo but that person never showed up. Patient is here to get a dose of his medications but he is not sure what all medications he is on or dosing. Patient placed back in the waiting room pending room availability. Medications Administered Discontinued Medications Generic Name Dose Route Start Last Admin Trade Name Aronq PRN Reason Stop Dose Admin Aripiprazole 5 mg 01/08/23 21:01/08/23 21:18 Aripiprazole 5 Mg Tablet PO 01/08/23 21:08 5 mg ONCE ONE Administration Atorvastatin Calcium 40 mg 01/08/23 21:01/08/23 21:18 Atorvastatin Calcium 40 Mg Tablet PO 01/08/23 21:08 40 mg ONCE ONE Administration Escitalopram Oxalate 10 mg 01/08/23 21:01/08/23 21:18 Escitalopram Oxalate 10 Mg Tablet PO 01/08/23 21:08 10 mg ONCE ONE Administration Lisinopril 10 mg 01/08/23 21:07 01/08/23 21:18 Lisinopril 10 Mg Tablet PO 01/08/23 21:08 10 mg ONCE ONE Administration Protocol Metformin HCl 1,000 mg 01/08/23 21:01/08/23 21:18 Metformin Hcl 1,000 Mg Tablet PO 01/08/23 21:08 1,000 mg ONCE ONE Administration Quetiapine Fumarate 25 mg 01/08/23 21:01/08/23 21:18 Quetiapine Fumarate 25 Mg Tablet PO 01/08/23 21:10 25 mg ONCE ONE Administration Tramadol HCl 50 mg 01/08/23 21:07 01/08/23 21:18 Tramadol Hcl 50 Mg Tablet PO 01/08/23 21:08 50 mg ONCE ONE Administration Medical Decision Making Medical Decision Making [facility] Narrative: Patient with stable vitals medication were given in the ER next a visiting nurse will come and give him scheduled medication Lab Data Labs: Lab Results 01/08/23 Range/Units 21:09 POC Glucose 151 H (60-115) mg/dL Discharge Plan Discharge Clinical Impression: Medication refill Patient Disposition: Home, Self-Care Instructions: Medicine Refill (ED) Additional Instructions: Follow-up with PCP/unit receptionist about the medication dose tomorrow Prescriptions: No Action cetirizine 10 mg tablet 10 mg PO DAILY Qty: 30 6RF (DME) blood-glucose meter [FreeStyle Lite Meter] Kit See Rx Instructions .Route Qty: 1 0RF Rx Instructions: test blood ugar twice a day simvastatin 40 mg tablet 40 mg PO DAILY Qty: 90 0RF lisinopril 10 mg tablet 10 mg PO DAILY Qty: 90 1RF pioglitazone 15 mg tablet 15 mg PO DAILY Qty: 90 1RF hydrochlorothiazide 25 mg tablet 25 mg PO QAM Qty: 90 1RF ergocalciferol (vitamin D2) 1,250 mcg (50,000 unit) capsule 1,250 mcg PO SA@0900 Qty: 90 0RF metformin 500 mg tablet 1,000 mg PO BID Qty: 360 1RF (DME) FreeStyle Test Strip See Rx Instructions .Route Qty: 100 0RF Rx Instructions: test blood sugar twie a day tramadol 50 mg tablet 50 mg PO BEDTIME Qty: 30 0RF fluticasone propionate [Flonase Allergy Relief] 50 mcg/actuation spray,suspension 1 spray intranasal DAILY Qty: 9.9 3RF Rx Instructions: administer into each nostril (DME) lancets [FreeStyle Lancets] 28 gauge misc See Rx Instructions .ROUTE .COMPLEX Qty: 100 0RF Dose Instruction: USE TO TEST TWO TIMES A DAY Rx Instructions: USE TO TEST TWO TIMES A DAY acetaminophen [Tylenol] 325 mg Tablet 325 mg PO TID PRN (Reason: Pain) Ocuvite Adult 50 Plus 250 mg (90 mg-160 mg) Capsule 1 cap PO DAILY lorazepam 0.5 mg tablet 1 tab PO BEDTIME PRN (Reason: Anxiety) quetiapine 25 mg tablet 25 mg PO BEDTIME PRN (Reason: Sleep) Jardiance 25 mg tablet 25 mg PO DAILY Qty: 90 0RF aripiprazole 5 mg tablet 5 mg PO BEDTIME escitalopram oxalate 10 mg tablet 10 mg PO BEDTIME zolpidem 5 mg tablet 5 mg PO BEDTIME metoprolol succinate [Toprol XL] 50 mg tablet extended release 24 hr 50 mg PO DAILY Qty: 30 5RF Interventions: ED Discharge Assessment Last Done: 01/08/23 21:32 Discharge Date/Time: 01/08/23 21:47
[2023-01-08 20:18] VITALS: BP 165/85; PULSE 85; RESP 16; TEMP 36.6; O2SAT 97; BMI 40.2
[2023-01-08 21:13] LABS: Glucose, Whole Blood 151 mg/dL (60-115)
[2023-01-08] MEDS: lisinopriL 10 MG TABLET PO (21:18)
[2023-01-08] MEDS: Escitalopram Oxalate 10 MG TABLET PO (21:18)
[2023-01-08] MEDS: metFORMIN HCl 1,000 MG TABLET 1000 MG PO (21:18)
[2023-01-08] MEDS: QUEtiapine Fumarate 25 MG TABLET PO (21:18)
[2023-01-08] MEDS: ARIPiprazole 5 MG TABLET PO (21:18)
[2023-01-08] MEDS: traMADoL HCL 50 MG TABLET PO (21:18)
[2023-01-08] MEDS: Atorvastatin Calcium 40 MG TABLET PO (21:18)
--- NOTE | 2023-01-08 21:45 | PC.NURSE ---
pt medicated per AUG, states that he will call the medication delivery service tomorrow am and return if he needs to for more medication tomorrow
== END 2023-01-08 21:47 | disposition home or self-care (01) ==
PROVIDERS: Emergency Provider Internal Medicine; PCP Internal Medicine
DX: Z76.0 Encounter for issue of repeat prescription (principal); E11.9 Type 2 diabetes mellitus without complications; I10 Essential (primary) hypertension; F41.9 Anxiety disorder, unspecified; F17.210 Nicotine dependence, cigarettes, uncomplicated
CPT/HCPCS: 82947; 99283; 99284

== ENCOUNTER → 2023-01-19 23:59 | Outpatient (BNV) | payer MEDICARE, MEDICAID, SELFPAY ==
--- NOTE | 2023-01-19 15:12 | MHC.OFFVIS ---
Intake Intake Visit Reasons: Remote Device Check- [employer] Allergies No Known Allergies Allergy (Verified 01/03/23 11:33) [facility] Medical History Anxiety Essential (primary) hypertension History of syncope Insomnia Morbid (severe) obesity due to excess calories Morbid obesity with BMI of 40.0-44.9, adult [place] (obstructive sleep apnea) Pacemaker (~2022) Pure hypercholesterolemia Schizophrenia, unspecified Smoker Type 2 diabetes mellitus without complications Vitamin D deficiency Surgical History History of cardiac pacemaker History of root canal procedure History of wisdom tooth extraction Family History Father No problems noted. Mother No problems noted. Family/Other FH: mental illness Mental health disorder Brother Substance use disorder Social History Household Members: None Housing: House Do you presently have visiting nurse or other home services: Yes (vna 3x wk) Alcohol intake: current Alcohol intake frequency: holidays/special occasions only Alcohol type: hard liquor Patient Tobacco Use Status: Current everyday Tobacco user Tobacco use type: Cigarette Cigarette Packs Per Day: 0.5 Cigarettes Per Day: 10 Years Smoked: 40 e-Cigarette/Vaping Use: Never Used Second Hand Smoke Exposure: Yes Advance Directives: No Advance Directives Information Provided: No service: No Current occupational status: retired Cognitive needs: Yes (cane) Hearing needs: No Vision needs: Yes (Glasses) Office Procedures Cardiac Device Check Cardiac Device Check Details: Remote pacemaker report generated 01/19/2023. Pacemaker function is adequate [id number] Cardiac Device Interrogation, pacemaker Procedure code (CPT) selection complete Coding Level of Care Code Procedure Only Diagnoses CPT Codes Cardiac Device Check - Cardiac Device 12: [id number] Cardiac Device Interrogation, pacemaker ([id number])
== END ==
PROVIDERS: PCP Internal Medicine; Visit Provider Internal Medicine Cardiovascular Disease
DX: I44.2 Atrioventricular block, complete (principal); Z95.0 Presence of cardiac pacemaker
CPT/HCPCS: 93294

== ENCOUNTER 2023-01-29 15:37 | Emergency (ER) | payer MEDICARE, MEDICAID, SELFPAY ==
[2023-01-29 15:46] VITALS: BP 142/71; PULSE 67; RESP 16; TEMP 37.1; O2SAT 96; BMI 40.5
--- NOTE | 2023-01-29 15:46 | ED_ITS ---
HPI - General Adult General Chief complaint: General Medical Stated complaint: med check Time Seen by Provider: 01/29/23 16:00 Source: patient Mode of arrival: ambulatory Limitations: no limitations History of Present Illness HPI narrative: 62 yo male with history of HTN, HLD, DM type 2, complete heart block and wears a pacemaker, recently started on carvedilol on 01/18, presents with new onset of right-sided neck swelling and tenderness that started 3 days ago. Reports neck became swollen and painful on Friday 01/26, and has since improved, now has no pain or swelling. Denies dysphagia or odynophagia. Reports some facial flushing since he first started carvedilol. Denies headache, chest pain, shortness of breath. Reports some nausea but denies any vomiting. Reports mild cough and rhinorrhea, denies fevers, chills or rashes. Denies sick contacts, recent illness, recent antibiotics. MD complaint: right sided neck pain and swelling Onset (ago): day(s) Location: neck Radiation: neck Pain Consistency: now resolved Exacerbating factors: other (palpation) Associated symptoms: denies other symptoms Treatments prior to arrival: none Related Data Home Medications Medication Instructions Recorded Confirmed aripiprazole 5 mg tablet 5 mg PO BEDTIME 02/18/22 08/24/22 escitalopram oxalate 10 mg tablet 10 mg PO BEDTIME 02/18/22 08/24/22 quetiapine 25 mg tablet 25 mg PO BEDTIME PRN Sleep 02/18/22 08/24/22 zolpidem 5 mg tablet 5 mg PO BEDTIME 02/18/22 08/24/22 lorazepam 0.5 mg tablet 1 tab PO BEDTIME PRN Anxiety 05/05/22 08/24/22 acetaminophen 325 mg tablet 325 mg PO TID PRN Pain 06/14/22 08/24/22 (Tylenol) [id number]- 250 mg-dha 90 1 cap PO DAILY 06/14/22 08/24/22 mg-epa 160 [id number]-phew-zeax capsule (Ocuvite Adult 50 Plus) Previous Rx's Medication Instructions Recorded metoprolol succinate 50 mg 50 mg PO DAILY #30 tabs 08/24/22 tablet,extended release 24 hr (Toprol XL) cetirizine 10 mg tablet 10 mg PO DAILY #30 tabs 09/13/22 blood-glucose meter (FreeStyle #1 ea 10/06/22 Lite Meter kit) ergocalciferol (vitamin D2) 1,250 1,250 mcg PO SA@0900 #90 caps 11/11/22 mcg (50,000 unit) capsule hydrochlorothiazide 25 mg tablet 25 mg PO QAM #90 tabs 11/11/22 lisinopril 10 mg tablet 10 mg PO DAILY #90 tabs 11/11/22 metformin 500 mg tablet 1,000 mg PO BID #360 caps 11/11/22 pioglitazone 15 mg tablet 15 mg PO DAILY #90 caps 11/11/22 simvastatin 40 mg tablet 40 mg PO DAILY #90 tabs 11/11/22 blood sugar diagnostic (FreeStyle #100 ea 12/01/22 Test strips) fluticasone propionate 50 1 spray intranasal DAILY #9.9 mL 12/29/22 mcg/actuation nasal spray,suspension (Flonase Allergy Relief) lancets 28 gauge (FreeStyle #100 ea 01/04/23 Lancets) empagliflozin 25 mg tablet 25 mg PO DAILY #90 tabs 01/16/23 (Jardiance) tramadol 50 mg tablet 50 mg PO BEDTIME #30 tabs 01/19/23 Allergies Allergy/AdvReac Type Severity Reaction Status Date / Time No Known Allergies Allergy Verified 01/03/23 11:33 Review of Systems Review of Systems: Yes all other systems are reviewed and are negative PMFSH Past Medical History Medical History Anxiety Essential (primary) hypertension History of syncope Insomnia Morbid (severe) obesity due to excess calories Morbid obesity with BMI of 40.0-44.9, adult [place] (obstructive sleep apnea) Pacemaker (~2022) Pure hypercholesterolemia Schizophrenia, unspecified Smoker Type 2 diabetes mellitus without complications Vitamin D deficiency Surgical History History of cardiac pacemaker History of root canal procedure History of wisdom tooth extraction Family History Family History Father No problems noted. Mother No problems noted. Family/Other FH: mental illness Mental health disorder Brother Substance use disorder Social History Social History Household Members: None Housing: House Do you presently have visiting nurse or other home services: Yes (vna 3x wk) Alcohol intake: current Alcohol intake frequency: holidays/special occasions only Alcohol type: hard liquor Patient Tobacco Use Status: Current everyday Tobacco user Tobacco use type: Cigarette Cigarette Packs Per Day: 0.5 Cigarettes Per Day: 10 Years Smoked: 40 e-Cigarette/Vaping Use: Never Used Second Hand Smoke Exposure: Yes Advance Directives: No Advance Directives Information Provided: Yes service: No Current occupational status: retired Cognitive needs: Yes (cane) Hearing needs: No Vision needs: Yes (Glasses) Physical Exam ED Vital Signs: Vital Signs - 24 hr 01/29/23 15:46 Temperature 98.8 F Pulse Rate 67 Respiratory Rate 16 Blood Pressure 142/71 H Pulse Oximetry 96 Oxygen Delivery Method Room Air BMI result Body Mass Index 40.5 Const General: cooperative, healthy appearing, comfortable and no acute distress HENMT Head: Yes normocephalic and Yes atraumatic Ears: hearing grossly normal bilaterally, TM's normal bilaterally and EAC's normal Mouth: Normal oral and palatal mucosa present, no audible dysphonia, no drooling, breath no malodorous, No mouth trauma and no muffled voice Teeth and gingiva: abnormal tooth and associated gingiva (Some caries, fillings, tooth discoloration. ) and caries Throat: Yes posterior oropharynx normal, Yes tonsils normal, Yes uvula midline and No peritonsillar mass Neck Neck: Yes normal visual inspection, Yes full ROM, No no lymphadenopathy, No anterior neck swelling, Yes tender (TTP along right submandibular nodes and right anterior cervical nodes.) and No submandibular swelling Lymphatic: no lymphadenopathy noted Resp Effort & Inspection: normal respiratory effort Auscultation: clear to auscultation bilaterally Cardio Rate: regular rate Rhythm: regular rhythm Course Course Course Narrative: This is an RME: Additional HPI, ROS, PE not included below will be deferred to primary provider. 62-year-old male presents with neck swelling status post starting carvedilol on the th of this month. Reports since taking this medication he has noticed as neck has gotten bigger. He feels ?drunk ?after taking it. Plan - [facility] [place] Medical Decision Making Medical Decision Making MDM Narrative: 62 yo male with history of HTN, HLD, DM type 2, complete heart block and wears pacemaker, recently started on carvedilol on 01/18, presents to ER with 2-day history of right-sided neck pain and swelling. Reports pain and swelling have improved since the onset on Sunday. Physical inspection, including otoscopy, was unremarkable. Mild tenderness to palpation along right submandibular nodes and right anterior cervical nodes. Lungs were CTAB. Low clinical suspicion for [employer] or epiglottitis given that patient does not have trouble or pain with swallowing, and uvula is midline. Prescribed Tylenol as needed for pain. Explained to patient that there is no concern for infection or allergic reaction at this time. Discussed that starting carvedilol is likely unrelated to symptoms and it is safe to continue carvedilol. Instructed patient to return to ER if he develops any pain or trouble swallowing or breathing. Should return if swelling worsens. Differential Diagnosis Differential Diagnoses: The differential diagnosis associated with the presentation includes Upper respiratory illness, drug allergy reaction, mumps, peritonsillar abscess, epiglottitis External Record Review External record reviewed: Outpatient record, Prior outpatient labs and Prior outpatient radiology Tests considered The following testing was considered but not selected: considered CT scan of the soft tissue of the neck Prescription Management I considered prescription management with: Pain Medication and Antibiotic Critical Care Time Critical Care Time Critical Care Time: No Discharge Plan Discharge Clinical Impression: Neck swelling Patient Disposition: Home, Self-Care Instructions: Lymphadenopathy (ED) Additional Instructions: Your exam today was unremarkable. no obvious swelling but you had some tender lymph nodes on the right side, this could be due to a viral process At this time it is safe to continue your carvidolol Follow up with your doctor If you develop new or worsening symptoms call 911 or come back to the ER for further evaluation. Prescriptions: No Action cetirizine 10 mg tablet 10 mg PO DAILY Qty: 30 6RF (DME) blood-glucose meter [FreeStyle Lite Meter] Kit See Rx Instructions .Route Qty: 1 0RF Rx Instructions: test blood ugar twice a day simvastatin 40 mg tablet 40 mg PO DAILY Qty: 90 0RF lisinopril 10 mg tablet 10 mg PO DAILY Qty: 90 1RF pioglitazone 15 mg tablet 15 mg PO DAILY Qty: 90 1RF hydrochlorothiazide 25 mg tablet 25 mg PO QAM Qty: 90 1RF ergocalciferol (vitamin D2) 1,250 mcg (50,000 unit) capsule 1,250 mcg PO SA@0900 Qty: 90 0RF metformin 500 mg tablet 1,000 mg PO BID Qty: 360 1RF (DME) FreeStyle Test Strip See Rx Instructions .Route Qty: 100 0RF Rx Instructions: test blood sugar twie a day fluticasone propionate [Flonase Allergy Relief] 50 mcg/actuation spray,suspension 1 spray intranasal DAILY Qty: 9.9 3RF Rx Instructions: administer into each nostril (DME) lancets [FreeStyle Lancets] 28 gauge misc See Rx Instructions .ROUTE .COMPLEX Qty: 100 0RF Dose Instruction: USE TO TEST TWO TIMES A DAY Rx Instructions: USE TO TEST TWO TIMES A DAY Jardiance 25 mg tablet 25 mg PO DAILY Qty: 90 0RF tramadol 50 mg tablet 50 mg PO BEDTIME Qty: 30 0RF acetaminophen [Tylenol] 325 mg Tablet 325 mg PO TID PRN (Reason: Pain) Ocuvite Adult 50 Plus 250 mg (90 mg-160 mg) Capsule 1 cap PO DAILY lorazepam 0.5 mg tablet 1 tab PO BEDTIME PRN (Reason: Anxiety) quetiapine 25 mg tablet 25 mg PO BEDTIME PRN (Reason: Sleep) aripiprazole 5 mg tablet 5 mg PO BEDTIME escitalopram oxalate 10 mg tablet 10 mg PO BEDTIME zolpidem 5 mg tablet 5 mg PO BEDTIME metoprolol succinate [Toprol XL] 50 mg tablet extended release 24 hr 50 mg PO DAILY Qty: 30 5RF Interventions: ED Discharge Assessment Last Done: 01/29/23 17:30 Discharge Date/Time: 01/29/23 17:30
== END 2023-01-29 17:30 | disposition home or self-care (01) ==
PROVIDERS: Emergency Provider Student in an Organized Health Care Education/Training Program; PCP Internal Medicine
DX: M54.2 Cervicalgia (principal); R22.1 Localized swelling, mass and lump, neck
CPT/HCPCS: 99282

== ENCOUNTER 2023-02-01 10:11 | Outpatient (AMB) | payer MEDICARE, MEDICAID, SELFPAY ==
--- NOTE | 2023-02-01 10:33 | A.OFFPC_ITS ---
Vital Signs 02/01/23 10:36 Height 5 ft 10 in Weight 287 lb 6 oz BMI 41.2 BP 120/66 Blood Pressure Location Lt brachial Position Sitting Pulse 80 Pulse Source Pulse Oximeter Pulse Oximetry (%) 96 Oxygen Delivery Method Room Air Intake Visit Reasons: 3mth f/u Intake Note: Patient is here to follow up on MANSI, DM, HTN. Director Of Search Engine Marketing Required: No Primer Powder Blender Wet: Not Required per policy Accompanied by: Self / Same As Patient Allergies No Known Allergies Allergy (Verified 02/01/23 14:02) Medication List - Last Reconciled 02/01/23 by Rajeev Sawant MD acetaminophen (Tylenol) 325 mg PO TID PRN aripiprazole 5 mg PO BEDTIME blood sugar diagnostic (FreeStyle Test strips) test blood sugar twie a day blood-glucose meter (FreeStyle Lite Meter kit) test blood ugar twice a day carvedilol 6.25 mg PO BID cetirizine 10 mg PO DAILY empagliflozin (Jardiance) 25 mg PO DAILY ergocalciferol (vitamin D2) 1,250 mcg PO SA@0900 escitalopram oxalate 10 mg PO BEDTIME fluticasone propionate 50 mcg/actuation (Flonase Allergy Relief) 1 spray intranasal DAILY lancets (FreeStyle Lancets) USE TO TEST TWO TIMES A DAY lisinopril 10 mg PO DAILY lorazepam 1 tab PO BEDTIME PRN metformin 1,000 mg (2 x 500 mg) PO BID as-[id number]-ber-fya-xjyt-lut-travis 250 mg (90 mg-160 mg) (Ocuvite Adult 50 Plus) 1 cap PO DAILY pioglitazone 15 mg PO DAILY quetiapine 25 mg PO BEDTIME PRN simvastatin 40 mg PO DAILY tramadol 50 mg PO BEDTIME zolpidem 5 mg PO BEDTIME Tobacco use date assessed: 02/01/23 Fall risk assessment: No Falls in past year Last assessed Fall Risk: 02/01/23 Dental Screening Dental Screen Date: 02/01/23 Did you have a dental visit in the last 12 months?: Yes Did you have a dental problem in the last 6 months where you did not have access to dental care?: No Was dental information given to patient?: Patient has dentist HPI 3mth f/u HPI Details Patient presents to discuss chronic medical conditions. The last A1c was 7.2 . Non compliant with medications, diet or exercise. Reports no symptoms of headache, blurred vision or increased frequency of urination. No symptoms of fatigue. No nausea or vomiting. In the last office visit, a new medication was added. Patient is tolerating it well. Has still not made any changes to his diet. Not exercising regularly. [facility] Medical History Anxiety Essential (primary) hypertension History of syncope Insomnia Morbid (severe) obesity due to excess calories Morbid obesity with BMI of 40.0-44.9, adult [place] (obstructive sleep apnea) Pacemaker (~2022) Pure hypercholesterolemia Schizophrenia, unspecified Smoker Type 2 diabetes mellitus without complications Vitamin D deficiency Surgical History History of cardiac pacemaker History of root canal procedure History of wisdom tooth extraction Family History Father No problems noted. Mother No problems noted. Family/Other FH: mental illness Mental health disorder Brother Substance use disorder Social History Household Members: None Housing: House Do you presently have visiting nurse or other home services: Yes (vna 3x wk) Alcohol intake: current Alcohol intake frequency: holidays/special occasions only Alcohol type: hard liquor Patient Tobacco Use Status: Current everyday Tobacco user Tobacco use type: Cigarette Cigarette Packs Per Day: 1 Cigarettes Per Day: 20 Years Smoked: 40 e-Cigarette/Vaping Use: Never Used Second Hand Smoke Exposure: Yes service: No Current occupational status: retired Cognitive needs: Yes (cane) Hearing needs: No Vision needs: Yes (Glasses) Questionnaire Thrive Questionnaire Date Thrive assessed: 07/20/22 FABIANO-7 AMB Questionnaire FABIANO-7 Date FABIANO - 7 assessed: 07/20/22 Source: Developed by Drs. Jax Gomez, Michelle Tristan, Rashid Regan and colleagues, with an educational jaja from [employer] Physical exam (Primary Care) Vital Signs: Last Vital Signs Pulse 80 02/01/23 10:36 BP 120/66 02/01/23 10:36 Pulse Ox 96 02/01/23 10:36 Oxygen Delivery Method Room Air 02/01/23 10:36 BMI result Body Mass Index 41.2 Tobacco/Smoking Status: Tobacco use Status Tobacco use date assessed 02/01/23 02/01/23 10:49 Patient Tobacco Use Status Current everyday Tobacco 02/01/23 10:49 Tobacco use type Cigarette 02/01/23 10:49 e-Cigarette/Vaping Use Never Used 02/01/23 10:49 Thrive Assessment: Date of Thrive Assessment Date Thrive assessed 07/20/22 02/01/23 10:49 Const General: cooperative, healthy appearing and comfortable HENMT Head: Yes normal to inspection and Yes atraumatic Eyes General: appearance normal, both eyes and all related structures Neck Neck: Yes normal visual inspection and Yes full ROM Chest Chest palpation & inspection: normal inspection of the chest Resp Effort & Inspection: normal respiratory effort Auscultation: clear to auscultation bilaterally Cardio Jugular venous distension: no JVD Palpation: normal PMI Rate: regular rate Heart sounds: S1 normal heart sound present and S2 normal heart sound present GI Palpation (GI): Soft to palpation and No hepatosplenomegaly present Extrem General: Yes normal to inspection and Yes full ROM Results AMB Hemoglobin A1c AMB Hemoglobin A1c 7.2 % Last Edit by MIRACLE Ochoa on 02/01/23 10:53 Results Reviewed Results Reviewed: Laboratory Last Values Hgb A1c (Clinic) 7.2 % (4.0-6.0) H 02/01/23 10:33 Assessment and Plan Assessment & Plan (1) Type 2 diabetes mellitus without complications: Comment: A1c and creatinine kinase ordered. Limitations for better control of his blood sugar is due to his mental illness and poor compliance with diet. Patient was encouraged to eat 3 meals a day which will prevent him from snacking. Code(s): E11.9 - Type 2 diabetes mellitus without complications Qualifiers: Diabetes mellitus detention insulin use: without emt intermediate use Qualified Code(s): E11.9 - Type 2 diabetes mellitus without complications Plan: Continue medications at same dosage. Counseling on the importance of diet and exercise done. Orders: Orders AMB Hemoglobin A1c Today E11.9 - Type 2 diabetes mellitus without complications Coding Level of Care Code Est Pt Level 4 (13209) Diagnoses Type 2 diabetes mellitus without complications E11.9 Diabetes mellitus detention insulin use: without detention use
[2023-02-01 10:36] VITALS: BP 120/66; PULSE 80; O2SAT 96; BMI 41.2
== END 2023-02-01 11:18 | disposition home or self-care (01) ==
PROVIDERS: PCP Internal Medicine; Visit Provider Internal Medicine
DX: E11.9 Type 2 diabetes mellitus without complications (principal)
CPT/HCPCS: 83036; 99214

== ENCOUNTER 2023-02-06 14:57 | Outpatient (AMB) | payer MEDICARE, MEDICAID, SELFPAY ==
[2023-02-06 15:06] VITALS: BP 120/70; PULSE 78; BMI 41.1
--- NOTE | 2023-02-06 15:06 | A.OFFVIS_ITS ---
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 Required: No Allergies No Known Allergies Allergy (Verified 02/01/23 14:02) Medication List - Last Reconciled 02/06/23 by Matthias Marinelli MD acetaminophen (Tylenol) 325 mg PO TID PRN aripiprazole 5 mg PO BEDTIME blood sugar diagnostic (FreeStyle Test strips) test blood sugar twie a day blood-glucose meter (FreeStyle Lite Meter kit) test blood ugar twice a day carvedilol 6.25 mg PO BID cetirizine 10 mg PO DAILY empagliflozin (Jardiance) 25 mg PO DAILY ergocalciferol (vitamin D2) 1,250 mcg PO SA@0900 escitalopram oxalate 10 mg PO BEDTIME fluticasone propionate 50 mcg/actuation (Flonase Allergy Relief) 1 spray intranasal DAILY lancets (CarnivalStyle Lancets) USE TO TEST TWO TIMES A DAY lisinopril 10 mg PO DAILY lorazepam 1 tab PO BEDTIME PRN metformin 1,000 mg (2 x 500 mg) PO BID ko-[id number]-[id number]-ohv-aic-cjms-lut-travis 250 mg (90 mg-160 mg) (Ocuvite Adult 50 Plus) 1 cap PO DAILY pioglitazone 15 mg PO DAILY quetiapine 25 mg PO BEDTIME PRN simvastatin 40 mg PO DAILY tramadol 50 mg PO BEDTIME zolpidem 5 mg PO BEDTIME HPI HPI Comments History of Present Illness Details Dre comes for follow-up. As seen cardiomyopathy Clinic at [facility] after cardiac MRI which was suggestive of reduced LV systolic function with LVEF of 40% with moderate to late gadolinium enhancement which could suggest infiltrative disease. Patient scheduled to undergo PET scan to evaluate for sarcoidosis. Patient was switch from metoprolol to carvedilol therapy. He is tolerating well. Also increase lisinopril therapy. Denies any worsening heart failure symptoms. Denies any prolonged palpitations, lightheadedness, syncope. Comes for pacemaker check. [facility] Medical History (Updated 02/06/23 @ 15:27 by Matthias Marinelli MD) Anxiety Essential (primary) hypertension History of syncope Insomnia Morbid (severe) obesity due to excess calories Morbid obesity with BMI of 40.0-44.9, adult Nonischemic cardiomyopathy [place] (obstructive sleep apnea) Pacemaker (~2022) Pure hypercholesterolemia Schizophrenia, unspecified Smoker Type 2 diabetes mellitus without complications Vitamin D deficiency Surgical History History of cardiac pacemaker History of root canal procedure History of wisdom tooth extraction Family History Father No problems noted. Mother No problems noted. Family/Other FH: mental illness Mental health disorder Brother Substance use disorder Social History Household Members: None Housing: House Do you presently have visiting nurse or other home services: Yes (vna 3x wk) Alcohol intake: current Alcohol intake frequency: holidays/special occasions only Alcohol type: hard liquor Patient Tobacco Use Status: Current everyday Tobacco user Tobacco use type: Cigarette Cigarette Packs Per Day: 1 Cigarettes Per Day: 20 Years Smoked: 40 e-Cigarette/Vaping Use: Never Used Second Hand Smoke Exposure: Yes service: No Current occupational status: retired Cognitive needs: Yes (cane) Hearing needs: No Vision needs: Yes (Glasses) Review of Systems Const Denies chills, Denies fatigue, Denies fever(s), Denies frequent falls, Denies weakness, Denies weight gain and Denies weight loss ENT Denies dizziness Card Denies chest pain, Denies leg edema, Denies lightheadedness, Denies palpitations, Denies dyspnea, Denies dyspnea on exertion, Denies orthopnea and Denies other (loss of consciousness) Resp Denies cough, Denies dyspnea and Denies dyspnea on exertion GI Denies hematochezia and Denies change in stool character Musc Denies abnormal gait, Denies muscle weakness, Denies numbness, Denies radiating pain into limb and Denies tingling Neuro Denies Abnormal speech present, Denies abnormal gait, Denies dizziness, Denies frequent falls, Denies numbness, Denies tingling and Denies weakness Endo Denies fatigue and Denies palpitations Physical Exam Vital Signs: Last Vital Signs Pulse 78 02/06/23 15:06 BP 120/70 02/06/23 15:06 BMI result Body Mass Index 41.1 Const General: cooperative, comfortable, no acute distress, alert and awake Nutritional Appearance: obese Orientation/consciousness: patient oriented x3 Limitations: no limitations Neck Neck: Yes trachea midline, Yes supple and Yes no JVD Chest Chest palpation & inspection: other (Pacemaker pocket looks benign) Resp Effort & Inspection: normal respiratory effort Auscultation: clear to auscultation bilaterally Cardio Jugular venous distension: no JVD Palpation: normal PMI Rate: regular rate Rhythm: regular rhythm Heart sounds: S1 normal heart sound present, S2 normal heart sound present, no click, no gallops and no murmurs GI Inspection: Yes obesity Neuro General: patient oriented x3 and no focal motor deficits Speech: No Abnormal speech present Extrem General: Yes no clubbing, cyanosis or edema Office Procedures Cardiac Device Check Cardiac Device Check Details: Dual-chamber Medtronic pacemaker in place. Battery life is excellent about 12 years. Atrial sensing was excellent. Atrial pacing thresholds were slightly elevated. Adequate margins of safety for thresholds. Ventricular pacing thresholds adequate and reprogrammed to enhance battery life. Pacing lead impedance is stable. No arrhythmias detected [id number] Cardiac Device Check, pacemaker dual lead Procedure code (CPT) selection complete Assessment & Plan Assessment & Plan (1) Nonischemic cardiomyopathy: Code(s): I42.8 - Other cardiomyopathies Plan: Cardiomyopathy noted on recent cardiac MRI done for possible infiltrative disorder. There is suggestion of possible sarcoidosis. Being evaluated for the same by cardiomyopathy Clinic at [facility] by . Advised to follow through. Meanwhile will increase carvedilol to 12.5 mg b.i.d. as was continue l isinopril 20 mg daily for neurohormonal modulation. Clinically there are no signs or symptoms of heart failure. Signs and symptoms of heart failure were discussed advised to call with any new symptoms. (2) Pacemaker: Onset Date: ~2022 Comment: (Medtronic DCPP - placed 06/2022) Code(s): Z95.0 - Presence of cardiac pacemaker Plan: Cardiac pacemaker in-situ for complete heart block. There is also evidence of nonsustained VT which raises the possibility of infiltrative disorder as above. Follow-up with cardiomyopathy Clinic at [facility]. Will continue monitor his pacemaker remotely in 3 months and follow up in the clinic in 6 months time. Will follow up in the clinic in 6 months time, sooner p.r.n.. Thank you for allowing me to partake in his care Coding Level of Care Code Est Pt Level 4 (95241) Diagnoses Nonischemic cardiomyopathy I42.8 Pacemaker Z95.0 CPT Codes Cardiac Device Check - Cardiac Device 2: 46615-CI Cardiac Device Check, pacemaker dual lead ([id number])
== END 2023-02-06 15:25 | disposition home or self-care (01) ==
PROVIDERS: PCP Internal Medicine; Visit Provider Internal Medicine Cardiovascular Disease
DX: I42.8 Other cardiomyopathies (principal); Z95.0 Presence of cardiac pacemaker
CPT/HCPCS: 93280; 99214

== ENCOUNTER → 2023-02-06 14:57 | Outpatient (BNVA) | payer MEDICARE, MEDICAID, SELFPAY | PROVIDERS: PCP Internal Medicine; Visit Provider Internal Medicine Cardiovascular Disease | DX: I42.8 Other cardiomyopathies (principal); Z79.899 Other long term (current) drug therapy; Z45.018 Encounter for adjustment and management of other part of cardiac pacemaker | CPT/HCPCS: 93280; 99212 ==

== ENCOUNTER 2023-03-19 14:21 | Emergency (ER) | payer MEDICARE, MEDICAID, SELFPAY ==
[2023-03-19 15:02] VITALS: BP 149/92; PULSE 85; RESP 20; TEMP 36.4; O2SAT 95; BMI 42.2
--- NOTE | 2023-03-19 15:08 | ED_ITS ---
HPI - General Adult General Chief complaint: Ear Problems Stated complaint: Can't hear out of L ear Time Seen by Provider: 03/19/23 16:03 Source: patient, RN notes reviewed and old records reviewed Mode of arrival: ambulatory Limitations: no limitations History of Present Illness HPI narrative: 63 year old male with pmhx of cardiomyopathy, complete heart block s/p pacemaker, HDL, HTN, T2DM, [place], insomnia, anxiety, and schizophrenia presents to the ED today with a complaint of left ear congestion x1 week. He states that his left ear has felt blocks of on and off over the last week. Denies external ear pain or drainage from the ear. He has been using [id number] ear drops without relief. He has tried removing the blockage with q-tip without success. Additionally endorses sinus pressure and congestion over the weekend, now resolvesd. Denies sick contacts. Denies headache, fever, chills, rash, vision changes, decreased hearing, sore throat, cough, chest pain, SOB. Related Data Home Medications Medication Instructions Recorded Confirmed aripiprazole 5 mg tablet 5 mg PO BEDTIME 02/18/22 02/06/23 escitalopram oxalate 10 mg tablet 10 mg PO BEDTIME 02/18/22 02/06/23 quetiapine 25 mg tablet 25 mg PO BEDTIME PRN Sleep 02/18/22 02/06/23 zolpidem 5 mg tablet 5 mg PO BEDTIME 02/18/22 02/06/23 lorazepam 0.5 mg tablet 1 tab PO BEDTIME PRN Anxiety 05/05/22 02/06/23 acetaminophen 325 mg tablet 325 mg PO TID PRN Pain 06/14/22 02/06/23 (Tylenol) [id number] 250 mg-dha 90 1 cap PO DAILY 06/14/22 02/06/23 mg-epa 160 [id number]-bylb-zeax capsule (Ocuvite Adult 50 Plus) Previous Rx's Medication Instructions Recorded blood-glucose meter (FreeStyle #1 ea 10/06/22 Lite Meter kit) ergocalciferol (vitamin D2) 1,250 1,250 mcg PO SA@0900 #90 caps 11/11/22 mcg (50,000 unit) capsule lisinopril 10 mg tablet 10 mg PO DAILY #90 tabs 11/11/22 metformin 500 mg tablet 1,000 mg (2 x 500 mg) PO BID #360 11/11/22 caps pioglitazone 15 mg tablet 15 mg PO DAILY #90 caps 11/11/22 fluticasone propionate 50 1 spray intranasal DAILY #9.9 mL 12/29/22 mcg/actuation nasal spray,suspension (Flonase Allergy Relief) lancets 28 gauge (FreeStyle #100 ea 01/04/23 Lancets) empagliflozin 25 mg tablet 25 mg PO DAILY #90 tabs 01/16/23 (Jardiance) carvedilol 12.5 mg tablet (Coreg) 12.5 mg PO BID #60 tabs 02/06/23 simvastatin 40 mg tablet 40 mg PO DAILY #90 tabs 02/09/23 tramadol 50 mg tablet 50 mg PO BEDTIME #30 tabs 02/22/23 blood sugar diagnostic (FreeStyle #50 ea 02/23/23 Lite Strips) cetirizine 10 mg tablet 10 mg PO DAILY #30 tabs 03/15/23 amoxicillin 875 mg tablet 875 mg PO BID #14 tabs 03/19/23 ofloxacin 0.3 % ear drops 10 drp otic (ear) left DAILY 7 03/19/23 days #5 mL Allergies Allergy/AdvReac Type Severity Reaction Status Date / Time No Known Allergies Allergy Verified 02/01/23 14:02 Review of Systems Review of Systems: Constitutional: No fever, chills, fatigue, night sweats, weight changes ENT/Mouth: + ear pain, No hearing loss, nasal congestion, sinus pain, rhinorrhea, sore throat Eyes: No eye pain, swelling, redness, vision changes, discharge Cardio: No chest pain, palpitations, VIVEROS, orthopnea, peripheral edema Pulm: No SOB, cough, sputum, wheezing, dyspnea, hemoptysis GI: No nausea, vomiting, hematemesis, abdominal pain, diarrhea, constipation, hematochezia, melena : No irregular bleeding, dysuria, frequency, urgency, hesitancy, hematuria, flank pain, urinary flow changes, urinary incontinence or retention MSK: No back pain, neck pain, joint pain, myalgias Skin: No lesions, rashes Neuro: No weakness, numbness, paresthesias, LOC, dizziness, headache All other systems reviewed and are negative. [facility] Past Medical History Attestation statement: The following information was validated with the patient. Source: old records reviewed and nursing notes reviewed Medical History Nonischemic cardiomyopathy Pacemaker (~2022) History of syncope Morbid obesity with BMI of 40.0-44.9, adult Insomnia Vitamin D deficiency Pure hypercholesterolemia Type 2 diabetes mellitus without complications Schizophrenia, unspecified Anxiety Essential (primary) hypertension Smoker [place] (obstructive sleep apnea) Morbid (severe) obesity due to excess calories Surgical History History of cardiac pacemaker History of wisdom tooth extraction History of root canal procedure Family History Family History Father No problems noted. Mother No problems noted. Family/Other FH: mental illness Mental health disorder Brother Substance use disorder Social History Social History Household Members: None Housing: House Do you presently have visiting nurse or other home services: Yes (vna 3x wk) Alcohol intake: current Alcohol intake frequency: holidays/special occasions only Alcohol type: hard liquor Patient Tobacco Use Status: Current everyday Tobacco user Tobacco use type: Cigarette Cigarette Packs Per Day: 1 Cigarettes Per Day: 20 Years Smoked: 40 e-Cigarette/Vaping Use: Never Used Second Hand Smoke Exposure: Yes Advance Directives: No Advance Directives Information Provided: No service: No Current occupational status: retired Cognitive needs: Yes (cane) Hearing needs: No Vision needs: Yes (Glasses) Physical Exam ED Vital Signs: Vital Signs - 24 hr 03/19/23 15:02 Temperature 97.6 F Pulse Rate 85 Respiratory Rate 20 Blood Pressure 149/92 H Pulse Oximetry 95 Oxygen Delivery Method Room Air BMI result Body Mass Index 42.2 Vital signs are stable. Const General: cooperative, no acute distress, alert and awake Orientation/consciousness: patient oriented x3 Limitations: no limitations HENMT Other: No pain on manipulation of the pinna or tragus b/l. Right EAC and TM normal without perforation. + Left EAC erythematous with a white curd-like discharge obscuring the left TM. Left EAC was irrigated with saline and hydrogen peroxide > TM visualized and noted to have effusion and erythema. No perforation. No mastoid tenderness b/l. No periauricular adenopathy. Head: Yes normal to inspection Ears: hearing grossly normal bilaterally Face and sinus: Yes normal facial exam and Yes sinuses nontender Mouth: Normal oral and palatal mucosa present and moist mucous membranes abnormal Throat: Yes posterior oropharynx normal, Yes tonsils normal and Yes uvula midline Eyes General: appearance normal, both eyes and all related structures Conjunctivae: conjunctivae normal Sclerae: sclerae normal Pupils: Equal, round and reactive pupils present EOM: EOMs intact bilaterally Neck Neck: Yes normal visual inspection, Yes no lymphadenopathy and Yes no meningeal signs Resp Effort & Inspection: normal respiratory effort and able to speak in complete sentences Auscultation: clear to auscultation bilaterally, no rales, no rhonchi and no wheezes Cardio Rate: regular rate Rhythm: regular rhythm Peripheral pulses: Peripheral pulses 2+ throughout Skin General skin exam: no rashes or lesions noted Neuro General: patient oriented x3, gait normal and no meningeal signs Cranial nerves: Yes CN's II-XII intact bilaterally and Yes Equal, round and reactive pupils present Extrem Other: Ambulating steadily with cane Course Course Course Narrative: RME: 63 yold male presents to the ED for left ear blockage and nasal congestion for a couple of days. NO other symtpoms. Covid and influenza ordered Reevaluation(s) Reevaluation #1: Covid and flu negative. Patient's presentation consistent with acute otitis media and otitis externa. There is no mastoid tenderness to suggest mastoiditis or sinus tenderness to suggest sinusitis. I discussed results with patient. Amoxicillin and ofloxacin will be sent to patient's pharmacy. Discussed strict return precautions. All questions answered at this time. Patient agreeable with disposition and stable for d/c. Procedures Ear Wax Removal Left Ear: Cerumenolytic Used: 5-10% Sodium Bicarb solution Results: Re-examined: cerumen removed completely TM Examination: TM(s) erythematous Ear Canal Exam: atraumatic Patient Tolerated Procedure: well Complications: vertigo/dizziness Technique: ear canal irrigated and ear canal curetted Medical Decision Making Medical Decision Making [facility] Narrative: 63 year old male with pmhx of cardiomyopathy, complete heart block s/p pacemaker, HDL, HTN, T2DM, [place], insomnia, anxiety, and schizophrenia presents to the ED today with a complaint of left ear congestion x1 week. Exam significant for erythematous left EAC with white curd-like discharge obscuring the left TM.Upon irrigation of the left EAC and removal of debris, TM visualized. Left TM with effusion and erythema. No perforation. Right EAC unremarkable. No mastoid tenderness b/l. No periauricular adenopathy. No sinus tenderness. PERRLA. EOMs intact b/l. Clinical concern for otitis externa vs otitis media vs cerumen impaction vs sinusitis. Presentation not consistent with mastoiditis or malignant otitis externa. Plan at this time is irrigation and re-evaluation. Imaging not warranted at this time. Differential Diagnosis Differential Diagnoses: The differential diagnosis associated with the presentation includes As above. Admission/Observation Not indicated. Lab Data MDM Lab Attestation statement: I reviewed the patient's lab results. As above. Labs: Lab Results 03/19/23 Range/Units 16:05 COVID-19 (FERNANDO) Negative (Negative) COVID-19 Clin Com See Note Influenza Type A (LELIA) Negative (Negative) Influenza Type B (LELIA) Negative (Negative) Influenza A & B Note See Note External Record Review External record reviewed: Inpatient record Prescription Management I considered prescription management with: Antibiotic Chronic Conditions Patient?s care impacted by: Diabetes and Hypertension Social Determinants Patient?s care significantly limited by Social Determinants of Health including: Other Social Determinant of Health Critical Care Time Critical Care Time Critical Care Time: No Discharge Plan Discharge Clinical Impression: Otitis media Patient Disposition: Home, Self-Care Instructions: Ear Infection (ED) Additional Instructions: You tested negative for COVID and influenza today. You have an ear infection in your left ear. Amoxicillin has been sent to your pharmacy. This is antibiotic. Take this as prescribed for 7 days for ear infection. You have also been prescribed antibiotic ear drops. Use 10 drops daily and the affected ear for 7 days. Taken tylenol and motrin as needed for pain. Follow-up with your primary care provider this week. Return to the emergency department if your symptoms persist or worsen despite treatment. In the case of an emergency call 911. Prescriptions: New amoxicillin 875 mg tablet 875 mg PO BID Qty: 14 0RF ofloxacin 0.3 % drops 10 drp otic (ear) left DAILY 7 Days Qty: 5 0RF No Action (DME) blood-glucose meter [FreeStyle Lite Meter] Kit See Rx Instructions .Route Qty: 1 0RF Rx Instructions: test blood ugar twice a day lisinopril 10 mg tablet 10 mg PO DAILY Qty: 90 1RF pioglitazone 15 mg tablet 15 mg PO DAILY Qty: 90 1RF ergocalciferol (vitamin D2) 1,250 mcg (50,000 unit) capsule 1,250 mcg PO SA@0900 Qty: 90 0RF metformin 500 mg tablet 1,000 mg PO BID Qty: 360 1RF fluticasone propionate [Flonase Allergy Relief] 50 mcg/actuation spray,suspension 1 spray intranasal DAILY Qty: 9.9 3RF Rx Instructions: administer into each nostril (DME) lancets [FreeStyle Lancets] 28 gauge misc See Rx Instructions .ROUTE .COMPLEX Qty: 100 0RF Dose Instruction: USE TO TEST TWO TIMES A DAY Rx Instructions: USE TO TEST TWO TIMES A DAY Jardiance 25 mg tablet 25 mg PO DAILY Qty: 90 0RF simvastatin 40 mg tablet 40 mg PO DAILY Qty: 90 0RF tramadol 50 mg tablet 50 mg PO BEDTIME Qty: 30 0RF (DME) FreeStyle Lite Strips Strip See Rx Instructions .ROUTE .COMPLEX Qty: 50 6RF Dose Instruction: USE 1 STRIP EVERY DAY DIRECTED Rx Instructions: USE 1 STRIP EVERY DAY DIRECTED cetirizine 10 mg tablet 10 mg PO DAILY Qty: 30 6RF acetaminophen [Tylenol] 325 mg Tablet 325 mg PO TID PRN (Reason: Pain) Ocuvite Adult 50 Plus 250 mg (90 mg-160 mg) Capsule 1 cap PO DAILY lorazepam 0.5 mg tablet 1 tab PO BEDTIME PRN (Reason: Anxiety) quetiapine 25 mg tablet 25 mg PO BEDTIME PRN (Reason: Sleep) aripiprazole 5 mg tablet 5 mg PO BEDTIME escitalopram oxalate 10 mg tablet 10 mg PO BEDTIME zolpidem 5 mg tablet 5 mg PO BEDTIME carvedilol [Coreg] 12.5 mg tablet 12.5 mg PO BID Qty: 60 5RF Rx Instructions: must administer with a meal/food Referrals: Rajeev Sawant MD [Primary Care Provider] - Interventions: ED Discharge Assessment Last Done: 03/19/23 16:56 Discharge Date/Time: 03/19/23 16:57
--- NOTE | 2023-03-19 16:14 | PC.NURSE ---
viral swabs obtained
[2023-03-19 16:23] LABS: COVID-19 Test Negative (Negative); IDNOW Serial# BCCEAD1C
[2023-03-19 16:30] LABS: IDNOW Serial# 9DB6401D; Influenza A Negative (Negative); Influenza B2 Negative (Negative)
== END 2023-03-19 16:57 | disposition home or self-care (01) ==
PROVIDERS: Physician Assistant; Emergency Provider Internal Medicine; PCP Internal Medicine
DX: H66.92 Otitis media, unspecified, left ear (principal); H61.22 Impacted cerumen, left ear; Z11.52 Encounter for screening for COVID-19; Z20.822 Contact with and (suspected) exposure to COVID-19; Z79.899 Other long term (current) drug therapy
CPT/HCPCS: 69209; 87502; 87635; 99282; 99283

== ENCOUNTER 2023-03-28 08:02 | Outpatient (AMB) | payer MEDICARE, MEDICAID, SELFPAY ==
--- NOTE | 2023-03-28 08:10 | MHC.PC.OV ---
Vital Signs 03/28/23 08:12 Height 5 ft 10 in Weight 291 lb BMI 41.7 BP 126/72 Blood Pressure Location Lt brachial Position Sitting Pulse 84 Pulse Source Pulse Oximeter Pulse Oximetry (%) 96 Oxygen Delivery Method Room Air Intake Visit Reasons: blocked ear Intake Note: Patient here c/o left ear blockage Cdl Driver Required: No Accompanied by: Self / Same As Patient Allergies No Known Allergies Allergy (Verified 03/28/23 08:13) Tobacco use date assessed: 02/01/23 Fall risk assessment: No Falls in past year Last assessed Fall Risk: 03/28/23 Dental Screening Dental Screen Date: 03/28/23 Did you have a dental visit in the last 12 months?: Yes Did you have a dental problem in the last 6 months where you did not have access to dental care?: No Was dental information given to patient?: Patient has dentist HPI blocked ear HPI Details 63-year-old male presents to the office for a sick visit. Patient is reporting that his left ear is blocked. He went to the emergency room and was given amoxicillin. He is still not able to hear from the left ear. On a separate note, patient is requesting a refill on the tramadol. [facility]MERLY [facility], [facility] Medical History Nonischemic cardiomyopathy Pacemaker (~2022) History of syncope Morbid obesity with BMI of 40.0-44.9, adult Insomnia Vitamin D deficiency Pure hypercholesterolemia Type 2 diabetes mellitus without complications Schizophrenia, unspecified Anxiety Essential (primary) hypertension Smoker [place] (obstructive sleep apnea) Morbid (severe) obesity due to excess calories Surgical History History of cardiac pacemaker History of wisdom tooth extraction History of root canal procedure Family History Father No problems noted. Mother No problems noted. Family/Other FH: mental illness Mental health disorder Brother Substance use disorder Social History Household Members: None Housing: House Do you presently have visiting nurse or other home services: Yes (vna 3x wk) Alcohol intake: current Alcohol intake frequency: holidays/special occasions only Alcohol type: hard liquor Patient Tobacco Use Status: Current everyday Tobacco user Tobacco use type: Cigarette Cigarette Packs Per Day: 1 Cigarettes Per Day: 20 Years Smoked: 40 Packs Per Year: 40 Packs per year/per ci.00 e-Cigarette/Vaping Use: Never Used Second Hand Smoke Exposure: Yes service: No Current occupational status: retired Cognitive needs: Yes (cane) Hearing needs: No Vision needs: Yes (Glasses) Questionnaire Thrive Questionnaire Date Thrive assessed: 07/20/22 FABIANO-7 AMB Questionnaire FABIANO-7 Date FABIANO - 7 assessed: 07/20/22 Source: Developed by Drs. Jax Gomez, Michelle Tristan, Rashid Regan and colleagues, with an educational jaja from [employer]. Physical exam (Primary Care) Vital Signs: Last Vital Signs Pulse 84 03/28/23 08:12 BP 126/72 03/28/23 08:12 Pulse Ox 96 03/28/23 08:12 Oxygen Delivery Method Room Air 03/28/23 08:12 BMI result Body Mass Index 41.7 Tobacco/Smoking Status: Tobacco use Status Tobacco use date assessed 02/01/23 03/28/23 08:17 Patient Tobacco Use Status Current everyday Tobacco 03/28/23 08:17 Tobacco use type Cigarette 03/28/23 08:17 e-Cigarette/Vaping Use Never Used 03/28/23 08:17 Thrive Assessment: Date of Thrive Assessment Date Thrive assessed 07/20/22 03/28/23 08:17 HENMT Other: Left ear: Wax present. Tympanic membrane not visualized. Office Procedures Cerumen Removal From which ear canal was the cerumen removed: left Removal: otoscope w/curette Notes: patient tolerated procedure well [id number] Wax Removal by Spoon/Curette Flu Questionnaire Does the patient have a severe egg allergy?: No Does the patient have severe life threatening allergies?: No Does the patient have a fever or illness today?: No Has the patient ever had Guillain-Beecher Syndrome?: No Has the patient ever had any past reaction to a flu shot?: No Immunizations flu vacc [id number] 6mos up(PF) 60 mcg(15 mcgx4)/0.5 mL IM syringe Performing Provider: Rajeev Sawant MD [facility] Administered by: Lynn Holt CMA on 03/28/23 08:32 Dose Route Admin Location Dispensed Lot Number Expiration Date NDC Senior Director [employer] 0.5 mL IM Left Deltoid 0.5 mL [id number] 12/01/22 45914-163-29 [employer] VIS Given Date VIS Provided VIS Publication Date 03/28/23 Single Vaccine 21 Eligibility Eligibility Date Funding Source Not [facility] Eligible 03/28/23 Private Assessment and Plan Assessment & Plan (1) Cerumen impaction: Code(s): H61.20 - Impacted cerumen, unspecified ear Plan: Wax removed. Patient tolerated the procedure well. Tramadol was continued. Orders: Orders Influenza [id number] Immunization Today Z23 - Encounter for immunization AMB Cerumen Removal Today H61.22 - Impacted cerumen, left ear Medications: Refilled tramadol 50 mg PO BEDTIME 30 tabs 0RF Coding Level of Care Code Est Pt Level 3 (43220) Diagnoses Cerumen impaction H61.20 CPT Codes Office Procedure - CPT: 98916-Wqy Wax Removal by Spoon/Curette ([id number])
[2023-03-28 08:12] VITALS: BP 126/72; PULSE 84; O2SAT 96; BMI 41.7
== END 2023-03-28 08:25 | disposition home or self-care (01) ==
PROVIDERS: PCP Internal Medicine; Visit Provider Internal Medicine
DX: H61.22 Impacted cerumen, left ear (principal); Z23 Encounter for immunization
CPT/HCPCS: 69210; 90471; 90686; 99213

== ENCOUNTER 2023-04-02 11:18 | Emergency (ER) | payer MEDICARE, MEDICAID, SELFPAY ==
[2023-04-02 11:22] VITALS: BP 181/76; PULSE 87; RESP 20; TEMP 35.5; O2SAT 97; BMI 42.4
--- NOTE | 2023-04-02 11:22 | ED.GENADULT ---
HPI - General Adult General Chief complaint: Ear Problems Stated complaint: Blocked L ear Time Seen by Provider: 04/02/23 15:06 Source: patient Mode of arrival: ambulatory Limitations: no limitations History of Present Illness HPI narrative: 63 yold male with pmh of DM presents to the ED for left ear blockage. patient has pmh of chronic left ear blockage. Patient was seen here two weeks ago for the same issue. Patient had cerumen impaction removed and now it's re-collected. Patient states no fever or chills. Patient was seen by PCP this morning who states it's ear wax. Patient's ear wax is white curdish. Related Data Home Medications Medication Instructions Recorded Confirmed aripiprazole 5 mg tablet 5 mg PO BEDTIME 02/18/22 02/06/23 escitalopram oxalate 10 mg tablet 10 mg PO BEDTIME 02/18/22 02/06/23 quetiapine 25 mg tablet 25 mg PO BEDTIME PRN Sleep 02/18/22 02/06/23 zolpidem 5 mg tablet 5 mg PO BEDTIME 02/18/22 02/06/23 lorazepam 0.5 mg tablet 1 tab PO BEDTIME PRN Anxiety 05/05/22 02/06/23 acetaminophen 325 mg tablet 325 mg PO TID PRN Pain 06/14/22 02/06/23 (Tylenol) [id number] 250 mg-dha 90 1 cap PO DAILY 06/14/22 02/06/23 mg-epa 160 [id number]-mlvh-zeax capsule (Ocuvite Adult 50 Plus) Previous Rx's Medication Instructions Recorded blood-glucose meter ([employer] #1 ea 10/06/22 Lite Meter kit) ergocalciferol (vitamin D2) 1,250 1,250 mcg PO SA@0900 #90 caps 11/11/22 mcg (50,000 unit) capsule lisinopril 10 mg tablet 10 mg PO DAILY #90 tabs 11/11/22 metformin 500 mg tablet 1,000 mg (2 x 500 mg) PO BID #360 11/11/22 caps pioglitazone 15 mg tablet 15 mg PO DAILY #90 caps 11/11/22 fluticasone propionate 50 1 spray intranasal DAILY #9.9 mL 12/29/22 mcg/actuation nasal spray,suspension (Flonase Allergy Relief) lancets 28 gauge (FreeStyle #100 ea 01/04/23 Lancets) empagliflozin 25 mg tablet 25 mg PO DAILY #90 tabs 01/16/23 (Jardiance) carvedilol 12.5 mg tablet (Coreg) 12.5 mg PO BID #60 tabs 02/06/23 simvastatin 40 mg tablet 40 mg PO DAILY #90 tabs 02/09/23 blood sugar diagnostic (FreeStyle #50 ea 02/23/23 Lite Strips) cetirizine 10 mg tablet 10 mg PO DAILY #30 tabs 03/15/23 ofloxacin 0.3 % ear drops 10 drp otic (ear) left DAILY 7 03/19/23 days #5 mL tramadol 50 mg tablet 50 mg PO BEDTIME #30 tabs 03/28/23 carbamide peroxide 6.5 % ear drops 5 drp otic (ear) left Q12H 4 days 04/02/23 (Debrox) #15 mL Allergies Allergy/AdvReac Type Severity Reaction Status Date / Time No Known Allergies Allergy Verified 04/02/23 11:24 Review of Systems Review of Systems: left ear blockage Yes all other systems are reviewed and are negative [facility] Past Medical History Medical History Nonischemic cardiomyopathy Pacemaker (~2022) History of syncope Morbid obesity with BMI of 40.0-44.9, adult Insomnia Vitamin D deficiency Pure hypercholesterolemia Type 2 diabetes mellitus without complications Schizophrenia, unspecified Anxiety Essential (primary) hypertension Smoker [place] (obstructive sleep apnea) Morbid (severe) obesity due to excess calories Surgical History History of cardiac pacemaker History of wisdom tooth extraction History of root canal procedure Family History Family History Father No problems noted. Mother No problems noted. Family/Other FH: mental illness Mental health disorder Brother Substance use disorder Social History Social History Household Members: None Housing: House Do you presently have visiting nurse or other home services: Yes (vna 3x wk) Alcohol intake: current Alcohol intake frequency: holidays/special occasions only Alcohol type: hard liquor Patient Tobacco Use Status: Current everyday Tobacco user Tobacco use type: Cigarette Cigarette Packs Per Day: 1 Cigarettes Per Day: 20 Years Smoked: 40 e-Cigarette/Vaping Use: Never Used Second Hand Smoke Exposure: Yes Advance Directives: No service: No Current occupational status: retired Cognitive needs: Yes (cane) Hearing needs: No Vision needs: Yes (Glasses) Physical Exam ED Vital Signs: Vital Signs - 24 hr 04/02/23 11:22 Temperature 95.9 F L Pulse Rate 87 Respiratory Rate 20 Blood Pressure 181/76 H Pulse Oximetry 97 Oxygen Delivery Method Room Air BMI result Body Mass Index 42.4 Const General: cooperative, healthy appearing, comfortable, no acute distress, well developed, alert and awake Orientation/consciousness: oriented to person, oriented to place, oriented to time and patient oriented x3 HENMT Head: Yes normal to inspection, Yes No palpable skull fracture present, Yes normocephalic and Yes atraumatic Ears: hearing grossly normal bilaterally, external ears normal, TM's normal bilaterally, TM normal on the right, TM normal on the left, mastoids normal, no periauricular adenopathy and Abnormal EAC present cerumen impaction (white curdish) Mouth: Normal oral and palatal mucosa present, lip normal and tongue normal Throat: Yes posterior oropharynx normal, Yes tonsils normal and Yes uvula midline Eyes General: appearance normal, both eyes and all related structures Neck Neck: Yes normal visual inspection, Yes full ROM, Yes no lymphadenopathy, Yes no meningeal signs, Yes trachea midline, Yes supple, No anterior neck swelling and No tender Chest Chest palpation & inspection: normal inspection of the chest and normal palpation of entire chest wall Resp Effort & Inspection: normal respiratory effort and able to speak in complete sentences Auscultation: clear to auscultation bilaterally Cardio Jugular venous distension: no JVD Heart sounds: S1 normal heart sound present and S2 normal heart sound present GI Inspection: Yes normal to inspection Palpation (GI): Soft to palpation, not firm, nontender, no guarding and not rigid General: Yes no CVA tenderness Back/Spine/Pelvis Back: no CVA tenderness Skin General skin exam: no rashes or lesions noted, elasticity normal and turgor normal Neuro General: oriented to person, oriented to place, oriented to time, patient oriented x3, gait normal, tone normal, moves all extremities, Normal light touch and pain sensation and no meningeal signs Extrem General: Yes normal to inspection, Yes full ROM and Yes capillary refill normal Psych Appearance: grossly normal and well kempt Course Course Course Narrative: This is an RME: Additional HPI, ROS, PE not included below will be deferred to primary provider. 63 year old male with pmhx of cardiomyopathy, complete heart block s/p pacemaker, HDL, HTN, T2DM, [place], insomnia, anxiety, and schizophrenia presents to the ED today with a complaint of left ear blockage x 2 weeks. Patient was seen here on March 19 where he was prescribed ofloxacin and amoxicillin. He completed both courses of antibiotics, but stating as though he is still feeling as though his left ear is blocked. No ear pain. Left ear canal with ?exudates, unable to fully visualize TM. Further ER evaluation needed. Plan: Further ER eval needed Medical Decision Making Medical Decision Making MDM Narrative: 63-year-old male presents to the ED for left ear blockage for the past 2 weeks. Patient finished course of antibiotics after it was clean. Patient states again having white cerumen impaction. Patient denies any ear pain, headache, redness behind ear, swelling, fever, or chills. Hydrogen peroxide and normal saline irrigated into left ear with some white courage cerumen removed. Patient informed he should follow up with ENT due to history of diabetes make sure he is not having a fungal collection or any other chronic diabetic ear issues. There is No signs of infection. Patient will be discharged with Debrox. . Differential Diagnosis Differential Diagnoses: The differential diagnosis associated with the presentation includes ( Otitis media, otitis externa, cerumen impaction,) External Record Review External record reviewed: Other (Prior ED visists) Prescription Management I considered prescription management with: Other (Debrox) Discharge Plan Discharge Clinical Impression: Cerumen impaction Patient Disposition: Home, Self-Care Instructions: Carbamide Peroxide (Into the ear) Additional Instructions: Return to the ED immediately for worsening ear pain, fever, chills, redness, swelling, severe pain, headache, neck stiffness, ringing in the ear, or any other concerning symptoms. Please follow-up with ENT Prescriptions: New Debrox 6.5 % drops 5 drp otic (ear) left Q12H 4 Days Qty: 15 0RF No Action (DME) blood-glucose meter [FreeStyle Lite Meter] Kit See Rx Instructions .Route Qty: 1 0RF Rx Instructions: test blood ugar twice a day lisinopril 10 mg tablet 10 mg PO DAILY Qty: 90 1RF pioglitazone 15 mg tablet 15 mg PO DAILY Qty: 90 1RF ergocalciferol (vitamin D2) 1,250 mcg (50,000 unit) capsule 1,250 mcg PO SA@0900 Qty: 90 0RF metformin 500 mg tablet 1,000 mg PO BID Qty: 360 1RF fluticasone propionate [Flonase Allergy Relief] 50 mcg/actuation spray,suspension 1 spray intranasal DAILY Qty: 9.9 3RF Rx Instructions: administer into each nostril (DME) lancets [FreeStyle Lancets] 28 gauge misc See Rx Instructions .ROUTE .COMPLEX Qty: 100 0RF Dose Instruction: USE TO TEST TWO TIMES A DAY Rx Instructions: USE TO TEST TWO TIMES A DAY Jardiance 25 mg tablet 25 mg PO DAILY Qty: 90 0RF simvastatin 40 mg tablet 40 mg PO DAILY Qty: 90 0RF (DME) FreeStyle Lite Strips Strip See Rx Instructions .ROUTE .COMPLEX Qty: 50 6RF Dose Instruction: USE 1 STRIP EVERY DAY DIRECTED Rx Instructions: USE 1 STRIP EVERY DAY DIRECTED cetirizine 10 mg tablet 10 mg PO DAILY Qty: 30 6RF acetaminophen [Tylenol] 325 mg Tablet 325 mg PO TID PRN (Reason: Pain) Ocuvite Adult 50 Plus 250 mg (90 mg-160 mg) Capsule 1 cap PO DAILY lorazepam 0.5 mg tablet 1 tab PO BEDTIME PRN (Reason: Anxiety) ofloxacin 0.3 % drops 10 drp otic (ear) left DAILY 7 Days Qty: 5 0RF quetiapine 25 mg tablet 25 mg PO BEDTIME PRN (Reason: Sleep) tramadol 50 mg tablet 50 mg PO BEDTIME Qty: 30 0RF aripiprazole 5 mg tablet 5 mg PO BEDTIME escitalopram oxalate 10 mg tablet 10 mg PO BEDTIME zolpidem 5 mg tablet 5 mg PO BEDTIME carvedilol [Coreg] 12.5 mg tablet 12.5 mg PO BID Qty: 60 5RF Rx Instructions: must administer with a meal/food Referrals: Gerardo Conner [Physician] - ( chronic left ear cerumen impaction that is white curdish. needs re-evaluation due to history of diabetes to make sure this is not chronic fungus/yeast.) Interventions: ED Discharge Assessment Last Done: 04/02/23 16:48 Discharge Date/Time: 04/02/23 16:48 Print Language: Azeri
== END 2023-04-02 16:48 | disposition home or self-care (01) ==
PROVIDERS: Emergency Provider Student in an Organized Health Care Education/Training Program; PCP Internal Medicine
DX: H61.22 Impacted cerumen, left ear (principal)
CPT/HCPCS: 69209; 99282; 99283; 99284

== ENCOUNTER 2023-04-19 10:51 | Outpatient (AMB) | payer MEDICARE, MEDICAID, SELFPAY ==
--- NOTE | 2023-04-19 11:11 | A.OFFPC_ITS ---
Vital Signs 04/19/23 11:13 Height 5 ft 10 in Weight 292 lb BMI 41.9 BP 130/72 Blood Pressure Location Lt brachial Position Sitting Pulse 71 Pulse Source Pulse Oximeter Pulse Oximetry (%) 95 Oxygen Delivery Method Room Air Intake Visit Reasons: 3 month f/u Intake Note: Patient is here to follow up on DM, MANSI, HTN. Community Health Coordinator Required: No Outreach Specialist: Not Required per policy Accompanied by: Self / Same As Patient Allergies No Known Allergies Allergy (Verified 04/20/23 15:47) Medication List - Last Reconciled 04/20/23 by Rajeev Sawant MD acetaminophen (Tylenol) 325 mg PO TID PRN aripiprazole 5 mg PO BEDTIME blood sugar diagnostic (FreeStyle Lite Strips) USE 1 STRIP EVERY DAY DIRECTED blood-glucose meter (FreeStyle Lite Meter kit) test blood ugar twice a day carbamide peroxide 6.5% (Debrox) 5 drps otic (ear) left Q12H 4 days carvedilol (Coreg) 12.5 mg PO BID cetirizine 10 mg PO DAILY empagliflozin (Jardiance) 25 mg PO DAILY ergocalciferol (vitamin D2) 1,250 mcg PO SA@0900 escitalopram oxalate 10 mg PO BEDTIME fluticasone propionate 50 mcg/actuation (Flonase Allergy Relief) 1 spray intranasal DAILY lancets (FreeStyle Lancets) USE TO TEST TWO TIMES A DAY lisinopril 10 mg PO DAILY lorazepam 1 tab PO BEDTIME PRN metformin 1,000 mg (2 x 500 mg) PO BID [id number]-gr-co8-iqf-sum-zcoj-lut-travis 250 mg (90 mg-160 mg) (Ocuvite Adult 50 Plus) 1 cap PO DAILY ofloxacin 0.3% 10 drps otic (ear) left DAILY 7 days pioglitazone 15 mg PO DAILY quetiapine 25 mg PO BEDTIME PRN simvastatin 40 mg PO DAILY tramadol 50 mg PO BEDTIME zolpidem 5 mg PO BEDTIME Tobacco use date assessed: 04/19/23 Fall risk assessment: No Falls in past year Last assessed Fall Risk: 04/19/23 Dental Screening Dental Screen Date: 04/19/23 Did you have a dental visit in the last 12 months?: Yes Did you have a dental problem in the last 6 months where you did not have access to dental care?: No Was dental information given to patient?: Patient has dentist HPI 3 month f/u HPI Details 63-year-old male presents to the office to discuss his chronic medical conditions. Patient is at baseline state of health. Noncompliant with medications. Does not check his blood sugars. Able to function and do activities of daily living. [facility] Medical History Nonischemic cardiomyopathy Pacemaker (~2022) History of syncope Morbid obesity with BMI of 40.0-44.9, adult Insomnia Vitamin D deficiency Pure hypercholesterolemia Type 2 diabetes mellitus without complications Schizophrenia, unspecified Anxiety Essential (primary) hypertension Smoker [place] (obstructive sleep apnea) Morbid (severe) obesity due to excess calories Surgical History History of cardiac pacemaker History of wisdom tooth extraction History of root canal procedure Family History Father No problems noted. Mother No problems noted. Family/Other FH: mental illness Mental health disorder Brother Substance use disorder Social History Household Members: None Housing: House Do you presently have visiting nurse or other home services: Yes (vna 3x wk) Alcohol intake: current Alcohol intake frequency: holidays/special occasions only Alcohol type: hard liquor Patient Tobacco Use Status: Current everyday Tobacco user Tobacco use type: Cigarette Cigarette Packs Per Day: 1 Cigarettes Per Day: 20 Years Smoked: 40 e-Cigarette/Vaping Use: Never Used Second Hand Smoke Exposure: Yes service: No Current occupational status: retired Cognitive needs: Yes (cane) Hearing needs: No Vision needs: Yes (Glasses) Questionnaire Thrive Questionnaire Date Thrive assessed: 07/20/22 FABIANO-7 AMB Questionnaire FABIANO-7 Date FABIANO - 7 assessed: 07/20/22 Source: Developed by Drs. Jax Gomez, Michelle Tristan, Rashid Regan and colleagues, with an educational jaja from [employer]. Physical exam (Primary Care) Vital Signs: Last Vital Signs Pulse 71 04/19/23 11:13 BP 130/72 04/19/23 11:13 Pulse Ox 95 04/19/23 11:13 Oxygen Delivery Method Room Air 04/19/23 11:13 BMI result Body Mass Index 41.9 Tobacco/Smoking Status: Tobacco use Status Tobacco use date assessed 04/19/23 04/19/23 11:24 Patient Tobacco Use Status Current everyday Tobacco 04/19/23 11:24 Tobacco use type Cigarette 04/19/23 11:24 e-Cigarette/Vaping Use Never Used 04/19/23 11:24 Thrive Assessment: Date of Thrive Assessment Date Thrive assessed 07/20/22 04/19/23 11:24 Const General: cooperative and healthy appearing Nutritional Appearance: well nourished Orientation/consciousness: patient oriented x3 Limitations: no limitations HENMT Head: Yes normal to inspection Eyes General: appearance normal, both eyes and all related structures Neck Neck: Yes normal visual inspection Chest Chest palpation & inspection: normal palpation of entire chest wall Resp Effort & Inspection: normal respiratory effort Neuro General: patient oriented x3 Results AMB Hemoglobin A1c AMB Hemoglobin A1c 7.1 % Last Edit by MIRACLE Ochoa on 04/19/23 11:25 Results Reviewed Results Reviewed: Laboratory Last Values Hgb A1c (Clinic) 7.1 % (4.0-6.0) H 04/19/23 11:11 Assessment and Plan Assessment & Plan (1) Schizophrenia, unspecified: Code(s): F20.9 - Schizophrenia, unspecified Qualifiers: Schizophrenia type: unspecified Qualified Code(s): F20.9 - Schizophrenia, unspecified Plan: Condition is stable. Followed by a psychiatrist. (2) Type 2 diabetes mellitus without complications: Comment: A1c and creatinine kinase ordered. Limitations for better control of his blood sugar is due to his mental illness and poor compliance with diet. Patient was encouraged to eat 3 meals a day which will prevent him from snacking. Code(s): E11.9 - Type 2 diabetes mellitus without complications Qualifiers: Diabetes mellitus skilled nursing insulin use: without roasterman use Qualified Code(s): E11.9 - Type 2 diabetes mellitus without complications Orders: Orders AMB Hemoglobin A1c 04/19/23 E11.9 - Type 2 diabetes mellitus without complications Medications: Refilled tramadol 50 mg PO BEDTIME 30 tabs 0RF Coding Level of Care Code Est Pt Level 4 (20125) Diagnoses Schizophrenia, unspecified type F20.9 Schizophrenia type: unspecified Type 2 diabetes mellitus without complication, without long-term current use of insulin E11.9 Diabetes mellitus roasterman insulin use: without skilled nursing use
[2023-04-19 11:13] VITALS: BP 130/72; PULSE 71; O2SAT 95; BMI 41.9
== END 2023-04-19 11:48 | disposition home or self-care (01) ==
PROVIDERS: PCP Internal Medicine; Visit Provider Internal Medicine
DX: E11.9 Type 2 diabetes mellitus without complications (principal)
CPT/HCPCS: 83036; 99214

== ENCOUNTER → 2023-04-19 23:59 | Outpatient (BNV) | payer MEDICARE, MEDICAID, SELFPAY ==
--- NOTE | 2023-04-20 11:38 | A.OFFVIS_ITS ---
Intake Intake Visit Reasons: Remote Device Check- [employer] Allergies No Known Allergies Allergy (Verified 04/19/23 11:12) [facility] Medical History Nonischemic cardiomyopathy Pacemaker (~2022) History of syncope Morbid obesity with BMI of 40.0-44.9, adult Insomnia Vitamin D deficiency Pure hypercholesterolemia Type 2 diabetes mellitus without complications Schizophrenia, unspecified Anxiety Essential (primary) hypertension Smoker [place] (obstructive sleep apnea) Morbid (severe) obesity due to excess calories Surgical History History of cardiac pacemaker History of wisdom tooth extraction History of root canal procedure Family History Father No problems noted. Mother No problems noted. Family/Other FH: mental illness Mental health disorder Brother Substance use disorder Social History Household Members: None Housing: House Do you presently have visiting nurse or other home services: Yes (vna 3x wk) Alcohol intake: current Alcohol intake frequency: holidays/special occasions only Alcohol type: hard liquor Patient Tobacco Use Status: Current everyday Tobacco user Tobacco use type: Cigarette Cigarette Packs Per Day: 1 Cigarettes Per Day: 20 Years Smoked: 40 e-Cigarette/Vaping Use: Never Used Second Hand Smoke Exposure: Yes service: No Current occupational status: retired Cognitive needs: Yes (cane) Hearing needs: No Vision needs: Yes (Glasses) Office Procedures Cardiac Device Check Cardiac Device Check Details: Remote pacemaker report generated 04/19/2023. Pacemaker function is adequate. Patient ventricularly pacer dependent [id number] Cardiac Device Interrogation, pacemaker Procedure code (CPT) selection complete Results AMB Hemoglobin A1c AMB Hemoglobin A1c 7.1 % Last Edit by MIRACLE Ochoa on 04/19/23 11:25 Coding Level of Care Code Procedure Only CPT Codes Cardiac Device Check - Cardiac Device 12: [id number] Cardiac Device Interrogation, pacemaker ([id number])
== END ==
PROVIDERS: PCP Internal Medicine; Visit Provider Internal Medicine Cardiovascular Disease
DX: I44.2 Atrioventricular block, complete (principal); Z95.0 Presence of cardiac pacemaker
CPT/HCPCS: 93294

== ENCOUNTER 2023-07-11 10:54 | Outpatient (AMB) | payer MEDICARE, MEDICAID, SELFPAY ==
[2023-07-11 11:12] VITALS: BP 120/78; PULSE 90; O2SAT 97; BMI 42.7
--- NOTE | 2023-07-11 11:12 | MHC.OFFVIS ---
Intake Vital Signs 07/11/23 11:12 Height 5 ft 10 in Weight 297 lb 9.985 oz BMI 42.7 BP 120/78 Blood Pressure Location Lt brachial Position Sitting Pulse 90 Pulse Source Pulse Oximeter Pulse Oximetry (%) 97 Oxygen Delivery Method Room Air Intake Visit Reasons: COPD, [place] on CPAP Intake Note: pt is here for follow up and states he is at his base line, he does have a new cpap, airsense 11. [employer] Paralegal Required: No Allergies No Known Allergies Allergy (Verified 07/11/23 11:33) Medication List - Last Reconciled 07/11/23 by Magdalena Tony MD acetaminophen (Tylenol) 325 mg PO TID PRN aripiprazole 5 mg PO BEDTIME blood sugar diagnostic (FreeStyle Lite Strips) USE 1 STRIP EVERY DAY DIRECTED blood-glucose meter (FreeStyle Lite Meter kit) test blood ugar twice a day carbamide peroxide 6.5% (Debrox) 5 drps otic (ear) left Q12H 4 days carvedilol (Coreg) 12.5 mg PO BID cetirizine 10 mg PO DAILY empagliflozin (Jardiance) 25 mg PO DAILY ergocalciferol (vitamin D2) 1,250 mcg PO SA@0900 escitalopram oxalate 10 mg PO BEDTIME fluticasone propionate 50 mcg/actuation (Flonase Allergy Relief) 1 spray intranasal DAILY lancets (FreeStyle Lancets) USE TO TEST TWO TIMES A DAY lisinopril 10 mg PO DAILY lorazepam 1 tab PO BEDTIME PRN metformin 1,000 mg (2 x 500 mg) PO BID [id number]-mvv-[id number]-lut-travis 250 mg (90 mg-160 mg) (Ocuvite Adult 50 Plus) 1 cap PO DAILY ofloxacin 0.3% 10 drps otic (ear) left DAILY 7 days pioglitazone 15 mg PO DAILY quetiapine 25 mg PO BEDTIME PRN simvastatin 40 mg PO DAILY tramadol 50 mg PO BEDTIME zolpidem 5 mg PO BEDTIME Do you need a note to return to daycare/school/sports/work: No HPI COPD HPI Details GALA IS 63 YEARS OLD, GENTLEMAN WITH CHRONIC SCHIZOPHRENIC DISORDER , MORBID OBESITY, MULTIPLE COMORBIDITIES, AND OBSTRUCTIVE SLEEP APNEA. HE IS A REGULAR USER OF CPAP, WITH FULL FACE MASK, AND HE USES EVERY NIGHT FOR ALMOST 8 HOURS PER NIGHT. HE SLEEPS GOOD. THE PROBLEM IS HE IS MOSTLY SEDENTARY, STAYING AT HOME, NOT DOING ANY WALKING OR OTHER EXERCISE, AND HAS NOT BEEN ABLE TO LOSE WEIGHT. HE IS NOT ABLE TO JOIN ANY WEIGHT MANAGEMENT PROGRAM. HE HAS A RELATIVELY HAPPY GOING PERSON . [facility] Medical History Nonischemic cardiomyopathy Pacemaker (~2022) History of syncope Morbid obesity with BMI of 40.0-44.9, adult Insomnia Vitamin D deficiency Pure hypercholesterolemia Type 2 diabetes mellitus without complications Schizophrenia, unspecified Anxiety Essential (primary) hypertension Smoker [place] (obstructive sleep apnea) Morbid (severe) obesity due to excess calories Surgical History History of cardiac pacemaker History of wisdom tooth extraction History of root canal procedure Family History Father No problems noted. Mother No problems noted. Family/Other FH: mental illness Mental health disorder Brother Substance use disorder Social History Household Members: None Housing: House Do you presently have visiting nurse or other home services: Yes (vna 3x wk) Alcohol intake: current Alcohol intake frequency: holidays/special occasions only Alcohol type: hard liquor Patient Tobacco Use Status: Current someday Tobacco user Tobacco use type: Cigarette Cigarette Packs Per Day: 1 Cigarettes Per Day: 20 Years Smoked: 40 e-Cigarette/Vaping Use: Never Used Second Hand Smoke Exposure: Yes service: No Current occupational status: retired Cognitive needs: Yes (cane) Hearing needs: No Vision needs: Yes (Glasses) Review of Systems Const All systems reviewed & are unremarkable except as noted in HPI and below Eyes Reports no additional complaints ENT Reports dizziness (Nonspecific) and Reports nasal congestion (Mild off and on) Card Denies chest pain, Denies irregular heart rhythm, Denies leg edema and Reports dyspnea on exertion (Mild) Resp Reports cough, Reports dyspnea on exertion (Mild) and Reports wheezing GI Reports no additional complaints Reports no additional complaints Musc Reports back pain Skin/Breast Reports system reviewed and no additional complaints, except as documented Neuro Reports dizziness (Nonspecific) Psych Reports anxiety, Reports depression and Reports mood swings Endo Reports no additional complaints and Reports other (Being treated for diabetes mellitus) Abner/Lymph Reports no additional complaints Aller/Immun Reports no additional complaints and Reports wheezing Physical Exam Vital Signs: Last Vital Signs Pulse 90 07/11/23 11:12 BP 120/78 07/11/23 11:12 Pulse Ox 97 07/11/23 11:12 Oxygen Delivery Method Room Air 07/11/23 11:12 BMI result Body Mass Index 42.7 Const General: comfortable, no acute distress, alert and awake Orientation/consciousness: patient oriented x3 HEENT Head: Yes normal to inspection General nose exam: No nasal polyps present and No nasal discharge present Face and sinus: Yes sinuses nontender Mouth: oropharynx normal Throat: Yes posterior oropharynx normal Eyes General: appearance normal, both eyes and all related structures Neck Neck: Yes normal visual inspection, Yes no lymphadenopathy, Yes trachea midline and Yes no JVD Thyroid: Thyroid normal Chest Chest palpation & inspection: normal inspection of the chest, normal palpation of entire chest wall, no tenderness and other (Pacemaker battery in left pectoral area) Resp Effort & Inspection: normal respiratory effort Auscultation: clear to auscultation bilaterally, no crackles, no wheezes and diminished lung sounds (Diminished over the basilar areas) Cardio Palpation: normal PMI Rate: regular rate Rhythm: regular rhythm Heart sounds: no gallops and no murmurs GI Palpation (GI): Soft to palpation, nontender, No hepatosplenomegaly present, no masses and Other GI palpation findings present (Abdomen is grossly obese and protuberant) Auscultation: normal bowel sounds Back/Spine/Pelvis Thoracic/Lumbar Spine: thoracic and lumbar spine normal to inspection and thoraco-lumbar ROM limited Skin General skin exam: no rashes or lesions noted Neuro General: patient oriented x3 and no focal motor deficits Cranial nerves: Yes CN's II-XII intact bilaterally Extrem General: Yes normal to inspection, Yes no clubbing, cyanosis or edema and Yes no calf tenderness Psych Appearance: grossly normal, well kempt and other (Quiet and slow in conversation) Speech and movement: Normal speech and movement present Results Reviewed Results Reviewed: COMPLIANCE REPORT FOR THE LAST 30 NIGHTS IS REVIEWED. HE IS USING EVERY NIGHT FOR HER AVERAGE OF 8 HOURS AND 44 MINUTES. CPAP PRESSURE IS 20 CM WITH A FULLFACE MASK, HE HAS A SAYS MILD AIR LEAK. RESIDUAL AHI ONLY 0.3 Assessment & Plan Assessment & Plan (1) [place] on CPAP: Code(s): G47.33 - Obstructive sleep apnea (adult) (pediatric) Plan: THIS GENTLEMAN IS A CASE OF MORBID OBESITY WITH OBSTRUCTIVE SLEEP APNEA. HE IS USING CPAP VERY REGULARLY AND IS FULLY COMPLIANT. SLEEP IS DEFINITELY BETTER AND HE HAS VERY LITTLE DAYTIME SLEEPINESS. HE IS COMMENDED FOR HIS GOOD COMPLIANCE AND ENCOURAGED TO KEEP ON USING IT REGULARLY (2) Morbid obesity with BMI of 40.0-44.9, adult: Comment: BMI = 42.7 He has had morbid obesity throughout his adult life. Has not been able to lose weight. The weight is gone up , in winter months . Code(s): E66.01 - Morbid (severe) obesity due to excess calories; Z68.41 - Body mass index [BMI] 40.0-44.9, adult Plan: Talked to him in detail about . Weight issue There is not much he can do to cut down his diet. He is not able to join any. Weight management program I encouraged him to walk about 2 miles every day, He can even go to the mall and walk over there. Coding Level of Care Code Est Pt Level 3 (98211) Diagnoses [place] on CPAP G47.33 Morbid obesity with BMI of 40.0-44.9, adult E66.01; Z68.41
== END 2023-07-11 11:33 | disposition home or self-care (01) ==
PROVIDERS: PCP Internal Medicine; Visit Provider Internal Medicine
DX: G47.33 Obstructive sleep apnea (adult) (pediatric) (principal); E66.01 Morbid (severe) obesity due to excess calories; Z68.41 Body mass index [BMI] 40.0-44.9, adult
CPT/HCPCS: 99213

== ENCOUNTER → 2023-07-11 10:54 | Outpatient (BNVA) | payer MEDICARE, MEDICAID, SELFPAY | PROVIDERS: PCP Internal Medicine; Visit Provider Internal Medicine | DX: G47.33 Obstructive sleep apnea (adult) (pediatric) (principal); E66.01 Morbid (severe) obesity due to excess calories; Z68.41 Body mass index [BMI] 40.0-44.9, adult | CPT/HCPCS: 99212 ==

== ENCOUNTER → 2023-07-19 23:59 | Outpatient (BNV) | payer MEDICARE, MEDICAID, SELFPAY ==
--- NOTE | 2023-07-19 15:58 | A.OFFVIS_ITS ---
Intake Intake Visit Reasons: Remote Device Check- Medtronic Allergies No Known Allergies Allergy (Verified 07/11/23 11:33) [facility] Medical History Nonischemic cardiomyopathy Pacemaker (~2022) History of syncope Morbid obesity with BMI of 40.0-44.9, adult Insomnia Vitamin D deficiency Pure hypercholesterolemia Type 2 diabetes mellitus without complications Schizophrenia, unspecified Anxiety Essential (primary) hypertension Smoker [place] (obstructive sleep apnea) Morbid (severe) obesity due to excess calories Surgical History History of cardiac pacemaker History of wisdom tooth extraction History of root canal procedure Family History Father No problems noted. Mother No problems noted. Family/Other FH: mental illness Mental health disorder Brother Substance use disorder Social History Household Members: None Housing: House Do you presently have visiting nurse or other home services: Yes (vna 3x wk) Alcohol intake: current Alcohol intake frequency: holidays/special occasions only Alcohol type: hard liquor Patient Tobacco Use Status: Current someday Tobacco user Tobacco use type: Cigarette Cigarette Packs Per Day: 1 Cigarettes Per Day: 20 Years Smoked: 40 e-Cigarette/Vaping Use: Never Used Second Hand Smoke Exposure: Yes service: No Current occupational status: retired Cognitive needs: Yes (cane) Hearing needs: No Vision needs: Yes (Glasses) Office Procedures Cardiac Device Check Cardiac Device Check Details: Remote pacemaker report generated 07/19/2023. Pacemaker function is adequate. Patient ventricularly pacer dependent [id number] Cardiac Device Interrogation, pacemaker Procedure code (CPT) selection complete Assessment & Plan Assessment & Plan (1) Pacemaker: Onset Date: ~2022 Comment: (Medtronic DCPP - placed 06/2022) Code(s): Z95.0 - Presence of cardiac pacemaker Plan: See above Coding Level of Care Code Procedure Only Diagnoses Pacemaker Z95.0 CPT Codes Cardiac Device Check - Cardiac Device 12: [id number] Cardiac Device Interrogation, pacemaker ([id number])
== END ==
PROVIDERS: PCP Internal Medicine; Visit Provider Internal Medicine Cardiovascular Disease
DX: I44.2 Atrioventricular block, complete (principal); Z95.0 Presence of cardiac pacemaker
CPT/HCPCS: 93294

== ENCOUNTER 2023-08-09 13:17 | Outpatient (REF) | payer MEDICARE, MEDICAID, SELFPAY ==
[2023-08-09 15:01] LABS: Anion Gap 13 (12-20); Blood Urea Nitrogen 13 mg/dL (9-16); Carbon Dioxide 25 mmol/L (22-29); Chloride 104 mmol/L (96-108); Estimated Glomerular Filt Rate > 60; Glucose Random 114 mg/dL (60-115); Potassium 4.5 mmol/L (3.3-5.1); Sodium 137 mmol/L (135-145)
[2023-08-09 15:02] LABS: B Type Natriuretic Peptide 14 pg/mL (<100)
== END 2023-08-09 13:18 | disposition home or self-care (01) ==
LOC: HO.LAB 13:17
PROVIDERS: PCP Internal Medicine; Visit Provider Internal Medicine Advanced Heart Failure and Transplant Cardiology
DX: I50.9 Heart failure, unspecified (principal)
CPT/HCPCS: 36415; 80048; 83880

== ENCOUNTER 2023-08-14 14:40 | Outpatient (AMB) | payer MEDICARE, MEDICAID, SELFPAY ==
--- NOTE | 2023-08-14 14:43 | A.OFFVIS_ITS ---
Intake Vital Signs 08/14/23 14:45 Height 5 ft 10 in Weight 288 lb 12.889 oz BMI 41.4 BP 122/68 Blood Pressure Location Lt brachial Position Sitting Pulse 83 Intake Visit Reasons: 6 MON FUP W/ MEDTRONIC CHK Intake Note: 6 month follow-up with ekg and medtronic check feeling ok Survey Researcher Required: No Allergies No Known Allergies Allergy (Verified 07/11/23 11:33) Medication List - Last Reconciled 08/14/23 by Matthias Marinelli MD acetaminophen (Tylenol) 325 mg PO TID PRN aripiprazole 5 mg PO BEDTIME blood sugar diagnostic (FreeStyle Lite Strips) USE 1 STRIP EVERY DAY DIRECTED blood-glucose meter (FreeStyle Lite Meter kit) test blood ugar twice a day carbamide peroxide 6.5% (Debrox) 5 drps otic (ear) left Q12H 4 days carvedilol 12.5 mg PO BID cetirizine 10 mg PO DAILY empagliflozin (Jardiance) 25 mg PO DAILY ergocalciferol (vitamin D2) 1,250 mcg PO SA@0900 escitalopram oxalate 10 mg PO BEDTIME fluticasone propionate 50 mcg/actuation (Flonase Allergy Relief) 1 spray intranasal DAILY lancets (FreeStyle Lancets) USE TO TEST TWO TIMES A DAY lisinopril 10 mg PO DAILY lorazepam 1 tab PO BEDTIME PRN metformin 1,000 mg (2 x 500 mg) PO BID nicotine (polacrilex) 2 mg buccal Q2H ofloxacin 0.3% 10 drps otic (ear) left DAILY 7 days pioglitazone 15 mg PO DAILY quetiapine 25 mg PO BEDTIME PRN simvastatin 40 mg PO DAILY tramadol 50 mg PO BEDTIME zolpidem 5 mg PO BEDTIME HPI HPI Comments History of Present Illness Details Dre comes for follow-up. Has been seen by [facility] at [facility] and underwent cardiac MRI which showed some scarring but no active inflammation. His LV systolic function remains mildly to moderately depressed. He denies any heart failure symptoms. Denies any orthopnea, PND, leg edema. 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 Takes his medications. Denies any palpitations, lightheadedness, syncope. Uses CPAP most nights. [facility] Medical History Nonischemic cardiomyopathy Pacemaker (~2022) History of syncope Morbid obesity with BMI of 40.0-44.9, adult Insomnia Vitamin D deficiency Pure hypercholesterolemia Type 2 diabetes mellitus without complications Schizophrenia, unspecified Anxiety Essential (primary) hypertension Smoker [place] (obstructive sleep apnea) Morbid (severe) obesity due to excess calories Surgical History History of cardiac pacemaker History of wisdom tooth extraction History of root canal procedure Family History Father No problems noted. Mother No problems noted. Family/Other FH: mental illness Mental health disorder Brother Substance use disorder Social History Household Members: None Housing: House Do you presently have visiting nurse or other home services: Yes (vna 3x wk) Alcohol intake: current Alcohol intake frequency: holidays/special occasions only Alcohol type: hard liquor Patient Tobacco Use Status: Current someday Tobacco user Tobacco use type: Cigarette Cigarette Packs Per Day: 1 Cigarettes Per Day: 20 Years Smoked: 40 e-Cigarette/Vaping Use: Never Used Second Hand Smoke Exposure: Yes service: No Current occupational status: retired Cognitive needs: Yes (cane) Hearing needs: No Vision needs: Yes (Glasses) Review of Systems Const Denies chills, Denies fatigue, Denies fever(s), Denies frequent falls, Denies weakness, Denies weight gain and Denies weight loss ENT Denies dizziness Card Denies chest pain, Denies leg edema, Denies lightheadedness, Denies palpitatio ns, Denies dyspnea, Denies dyspnea on exertion, Denies orthopnea and Denies other (loss of consciousness) Resp Denies cough, Denies dyspnea and Denies dyspnea on exertion GI Denies hematochezia and Denies change in stool character Musc Denies abnormal gait, Denies muscle weakness, Denies numbness, Denies radiating pain into limb and Denies tingling Neuro Denies Abnormal speech present, Denies abnormal gait, Denies dizziness, Denies frequent falls, Denies numbness, Denies tingling and Denies weakness Endo Denies fatigue and Denies palpitations Physical Exam Vital Signs: Last Vital Signs Pulse 83 08/14/23 14:45 BP 122/68 08/14/23 14:45 BMI result Body Mass Index 41.4 Const General: cooperative, comfortable, no acute distress, alert and awake Nutritional Appearance: obese Orientation/consciousness: patient oriented x3 Limitations: no limitations Neck Neck: Yes trachea midline, Yes supple and Yes no JVD Chest Chest palpation & inspection: other (Pacemaker pocket looks benign) Resp Effort & Inspection: normal respiratory effort Auscultation: clear to auscultation bilaterally Cardio Jugular venous distension: no JVD Palpation: normal PMI Rate: regular rate Rhythm: regular rhythm Heart sounds: S1 normal heart sound present, S2 normal heart sound present, no click, no gallops and no murmurs GI Inspection: Yes obesity Neuro General: patient oriented x3 and no focal motor deficits Speech: No Abnormal speech present Extrem General: Yes no clubbing, cyanosis or edema Office Procedures Cardiac Device Check Cardiac Device Check Details: Dual-chamber Medtronic pacemaker in place. Programmed in DDDR at 60 beats per minute. Atrial pacing 19% of time. Ventricularly pacer dependent 100% time. No arrhythmias detected. Atrial pacing thresholds are elevated and reprogrammed to enhance safety. Ventricular pacing thresholds adequate and reprogrammed to enhance battery life. Pacing lead impedance is stable. Battery life is at 11.5 years [id number] Cardiac Device Check, pacemaker dual lead Procedure code (CPT) selection complete Assessment & Plan Assessment & Plan (1) Nonischemic cardiomyopathy: Code(s): I42.8 - Other cardiomyopathies Plan: Patient with nonischemic cardiomyopathy [id number] LV systolic dysfunction without any signs or symptoms of heart failure. He is currently appearing to be euvolemic. Continue current neurohormonal modulation with carvedilol and lisinopril therapy. Also continue Jardiance which is currently using for CPAP therapy. Blood pressure is currently well optimized. Advise aggressive control blood pressure. Daily weight monitoring was recommended. Continue CPAP therapy. Continue participate in regular physical activity with weight loss program. Cause for his nonischemic cardiomyopathy could be still scar based on infiltrative disorder with saw her doses but there is no evidence of active inflammation at this point time. Will continue monitor LV systolic function annually by echocardiogram. Advised to call me with any worsening symptoms. (2) Pacemaker: Onset Date: ~2022 Comment: (Medtronic DCPP - placed 06/2022) Code(s): Z95.0 - Presence of cardiac pacemaker Plan: Cardiac pacemaker in-situ for complete heart block. Pacemaker is working well. Will follow remotely every 3 months. Follow up in the clinic in 6 months time. (3) Nonsustained ventricular tachycardia: Code(s): I47.29 - Other ventricular tachycardia Plan: Nonsustained ventricular tachycardia with no recurrence at this point time. There is no evidence of active inflammatory cardiomyopathy at this point in time. Continue carvedilol. Avoidance of stimulants was discussed. Will continue monitor by pacer telemetry. Will follow up in the clinic in 6 months time, sooner p.r.n.. Thank you for allowing me to partake in his care Coding Level of Care Code Est Pt Level 4 (52848) Diagnoses Nonischemic cardiomyopathy I42.8 Pacemaker Z95.0 Nonsustained ventricular tachycardia I47.29 CPT Codes Cardiac Device Check - Cardiac Device 2: [id number] Cardiac Device Check, pacemaker dual lead ([id number])
[2023-08-14 14:45] VITALS: BP 122/68; PULSE 83; BMI 41.4
== END 2023-08-14 15:15 | disposition home or self-care (01) ==
PROVIDERS: PCP Internal Medicine; Visit Provider Internal Medicine Cardiovascular Disease
DX: I42.8 Other cardiomyopathies (principal); I47.29 Other ventricular tachycardia; Z95.0 Presence of cardiac pacemaker
CPT/HCPCS: 93280; 99214

== ENCOUNTER → 2023-08-14 14:40 | Outpatient (BNVA) | payer MEDICARE, MEDICAID, SELFPAY | PROVIDERS: PCP Internal Medicine; Visit Provider Internal Medicine Cardiovascular Disease | DX: Z45.018 Encounter for adjustment and management of other part of cardiac pacemaker (principal); I42.8 Other cardiomyopathies; I47.29 Other ventricular tachycardia | CPT/HCPCS: 93280; 99212 ==

== ENCOUNTER 2023-08-20 14:29 | Outpatient (AMB) | payer MEDICARE, MEDICAID, SELFPAY ==
--- NOTE | 2023-08-20 14:41 | MHC.PC.OV ---
Vital Signs 08/20/23 14:43 Height 5 ft 10 in Weight 292 lb 2 oz BMI 41.9 BP 120/74 Blood Pressure Location Lt brachial Position Sitting Pulse 68 Pulse Source Pulse Oximeter Pulse Oximetry (%) 95 Oxygen Delivery Method Room Air Intake Visit Reasons: tick bite on right forearm Intake Note: Patient is here today for a tick bite on right forearm, notice it yesterdays 08/20/23. Mobile Home Servicer Required: No Sewing Machine Repairer Helper: Not Required per policy Accompanied by: Self / Same As Patient Allergies No Known Allergies Allergy (Verified 08/20/23 14:43) Medication List - Last Reconciled 08/20/23 by Rajeev Sawant MD acetaminophen (Tylenol) 325 mg PO TID PRN aripiprazole 5 mg PO BEDTIME blood sugar diagnostic (FreeStyle Lite Strips) USE 1 STRIP EVERY DAY DIRECTED blood-glucose meter (FreeStyle Lite Meter kit) test blood ugar twice a day carbamide peroxide 6.5% (Debrox) 5 drps otic (ear) left Q12H 4 days carvedilol 12.5 mg PO BID cetirizine 10 mg PO DAILY doxycycline hyclate 100 mg PO BID 1 day empagliflozin (Jardiance) 25 mg PO DAILY ergocalciferol (vitamin D2) 1,250 mcg PO SA@0900 escitalopram oxalate 10 mg PO BEDTIME fluticasone propionate 50 mcg/actuation (Flonase Allergy Relief) 1 spray intranasal DAILY ketoconazole 2% 1 appl topical DAILY lancets (FreeStyle Lancets) USE TO TEST TWO TIMES A DAY lisinopril 10 mg PO DAILY lorazepam 1 tab PO BEDTIME PRN metformin 1,000 mg (2 x 500 mg) PO BID nicotine (polacrilex) 2 mg buccal Q2H ofloxacin 0.3% 10 drps otic (ear) left DAILY 7 days pioglitazone 15 mg PO DAILY quetiapine 25 mg PO BEDTIME PRN simvastatin 40 mg PO DAILY tramadol 50 mg PO BEDTIME zolpidem 5 mg PO BEDTIME Tobacco use date assessed: 08/20/23 Fall risk assessment: No Falls in past year Last assessed Fall Risk: 08/20/23 Dental Screening Dental Screen Date: 08/20/23 Did you have a dental visit in the last 12 months?: Yes Did you have a dental problem in the last 6 months where you did not have access to dental care?: No Was dental information given to patient?: Patient has dentist HPI tick bite on right forearm HPI Details 63-year-old male presents to the office with several complaints. He had a tick bite yesterday on the right forearm and now has a circular rash. He is worried about tick-borne illnesses. Reports no symptoms of malaise or neck pain. Patient also has a rash between the fingers in the web space. This predates the above complaint. Itchy and peeling skin. Patient's blood sugars have been slightly elevated. Requesting a refill on the tramadol. [facility] Medical History Nonischemic cardiomyopathy Pacemaker (~2022) History of syncope Morbid obesity with BMI of 40.0-44.9, adult Insomnia Vitamin D deficiency Pure hypercholesterolemia Type 2 diabetes mellitus without complications Schizophrenia, unspecified Anxiety Essential (primary) hypertension Smoker [place] (obstructive sleep apnea) Morbid (severe) obesity due to excess calories Surgical History (Updated 08/20/23 @ 14:50 by MIRACLE Ochoa) History of tooth extraction History of cardiac pacemaker History of wisdom tooth extraction History of root canal procedure Family History Father No problems noted. Mother No problems noted. Family/Other FH: mental illness Mental health disorder Brother Substance use disorder Social History (Updated 08/20/23 @ 14:50 by MIRACLE Ochoa) Household Members: None Housing: House Do you presently have visiting nurse or other home services: Yes (vna 3x wk) Alcohol intake: current Alcohol intake frequency: holidays/special occasions only Alcohol type: hard liquor Patient Tobacco Use Status: Current everyday Tobacco user Tobacco use type: Cigarette Cigarette Packs Per Day: 0.5 Cigarettes Per Day: 10 Years Smoked: 40 Packs Per Year: 20 Packs per year/per ci.00 e-Cigarette/Vaping Use: Never Used Second Hand Smoke Exposure: Yes service: No Current occupational status: retired Cognitive needs: Yes (cane) Hearing needs: No Vision needs: Yes (Glasses) Questionnaire PHQ-9 Over the last 2 weeks, how often have you been bothered by any of the following problems? 1. Little interest or pleasure in doing things: not at all 2. Feeling down, depressed, or hopeless: not at all 3. Trouble falling or staying asleep, or sleeping too much: not at all 4. Feeling tired or having little energy: not at all 5. Poor appetite or overeating: not at all 6. Feeling bad about yourself - or that you are a failure or have let yourself or your family down: not at all 7. Trouble concentrating on things, such as reading the newspaper or watching television: not at all 8. Moving or speaking so slowly that other people could have noticed. Or the opposite - being so fidgety or restless that you have been moving around a lot more than usual: not at all 9. Thoughts that you would be better off or of hurting yourself in some way: not at all Total score: 0 Depression Screening Interpretation: Negative Depression Screening Done: Yes Source: Developed by Drs. Jax Gomez, Michelle Tristan, Rashid Regan and colleagues, with an educational jaja from [employer]. Thrive Questionnaire Date Thrive assessed: 08/20/23 I am a: Patient What is your living situation today?: I have a steady place to live Within the past 12 months, did the food you bought not last and you didn't have the money to get more?: Never true Within the past 12 months, did you worry whether your food would run out before you got money to buy more?: Never true Do you have trouble paying for medicines?: No Do you have trouble getting transportation to medical appointments?: No Do you have trouble paying your heating and electricity bill?: No Do you have trouble taking care of your child, family member or friend?: No Do you have trouble with day-to-day activities such as bathing, preparing meals, shopping, managing finances, etc.?: No Are you currently unemployed and looking for a job?: No Are you interested in more education?: No Currently or been in a relationship where the following occur: no concerns reported THRIVE Score: 0 AUDIT C Alcohol Use Questionnaire (AUDIT-C) 1. How often do you have a drink containing alcohol?: Never Total Score: 0 FABIANO-7 AMB Questionnaire FABIANO-7 Date FABIANO - 7 assessed: 08/20/23 Feeling nervous, anxious, or on edge: 1 = Several days Not being able to stop or control worryin = Several days Worrying too much about different things: 1 = Several days Trouble relaxin = Several days Being so restless that it is hard to sit still: 0 = Not at all Becoming easily annoyed or irritable: 0 = Not at all Feeling afraid as if something awful might happen: 1 = Several days Total FABIANO-7 score (0-4 normal; 5-9 mild; 10-14 moderate; 15-21 severe): 5 Source: Developed by Drs. Jax Gomez, Michelle Tristan, Rashid Regan and colleagues, with an educational jaja from [employer]. Physical exam (Primary Care) Vital Signs: Last Vital Signs Pulse 68 08/20/23 14:43 BP 120/74 08/20/23 14:43 Pulse Ox 95 08/20/23 14:43 Oxygen Delivery Method Room Air 08/20/23 14:43 BMI result Body Mass Index 41.9 BMI Assessment/Plan discussion: High (1 lb per week weight loss suggested.) BMI High, discussed plan: lifestyle, weight reduction, dietary and physical activity Tobacco/Smoking Status: Tobacco use Status Tobacco use date assessed 08/20/23 08/20/23 14:53 Patient Tobacco Use Status Current everyday Tobacco 08/20/23 14:53 Tobacco use type Cigarette 08/20/23 14:53 e-Cigarette/Vaping Use Never Used 08/20/23 14:53 Are you ready to quit: No Tobacco cessation counseling provided: No PHQ-9: PHQ-9 Score PHQ-9: Total score 0 08/20/23 14:53 Depression Screening Interpretation: Negative Thrive Assessment: Date of Thrive Assessment Date Thrive assessed 08/20/23 08/20/23 14:53 Currently or been in a relationship where the following occur: no concerns reported Const General: cooperative and healthy appearing Nutritional Appearance: well nourished Orientation/consciousness: patient oriented x3 Limitations: no limitations HENMT Head: Yes normal to inspection Eyes General: appearance normal, both eyes and all related structures Neck Neck: Yes normal visual inspection Chest Chest palpation & inspection: normal palpation of entire chest wall Resp Effort & Inspection: normal respiratory effort Skin Other: Right forearm: Volar surface: To cm circular erythematous rash with central clearing. Right and left hand: Webspace: Whitish discharge with peeling skin. Neuro General: patient oriented x3 Assessment and Plan Assessment & Plan (1) Schizophrenia, unspecified: Code(s): F20.9 - Schizophrenia, unspecified Qualifiers: Schizophrenia type: unspecified Qualified Code(s): F20.9 - Schizophrenia, unspecified Plan: Condition is stable. (2) Tick bite: Code(s): W57.XXXA - Bitten or stung by nonvenomous insect and other nonvenomous arthropods, initial encounter Plan: Doxycycline single dose provided to the patient. (3) Tinea corporis: Code(s): B35.4 - Tinea corporis Plan Ketoconazole ointment prescribed. If symptoms do not improve to follow-up here. Medications: New doxycycline hyclate 100 mg PO BID 1 day 2 caps 0RF ketoconazole 2% 1 appl topical DAILY 30 grams 1RF Refilled tramadol 50 mg PO BEDTIME 30 tabs 0RF Coding Level of Care Code Est Pt Level 4 (60716) Diagnoses Schizophrenia, unspecified type F20.9 Schizophrenia type: unspecified Tick bite W57.XXXA Tinea corporis B35.4
[2023-08-20 14:43] VITALS: BP 120/74; PULSE 68; O2SAT 95; BMI 41.9
== END 2023-08-20 15:07 | disposition home or self-care (01) ==
PROVIDERS: PCP Internal Medicine; Visit Provider Internal Medicine
DX: F20.9 Schizophrenia, unspecified (principal); S50.861A Insect bite (nonvenomous) of right forearm, initial encounter; W57.XXXA Bitten or stung by nonvenomous insect and other nonvenomous arthropods, initial encounter; B35.4 Tinea corporis
CPT/HCPCS: 99214

== ENCOUNTER 2023-09-11 11:13 | Outpatient (AMB) | payer MEDICARE, MEDICAID, SELFPAY ==
--- NOTE | 2023-09-11 11:52 | AM.OFFWIN_ITS ---
Intake Vital Signs 09/11/23 12:25 Height 5 ft 10 in Weight 289 lb BMI 41.5 BP 116/60 Blood Pressure Location Lt brachial Position Sitting Pulse 72 Pulse Source Pulse Oximeter Temp 97.2 F Temp Source Temporal Artery Scan Pulse Oximetry (%) 95 Oxygen Delivery Method Room Air Intake Visit Reasons: EP lump on neck Intake Note: pt is here today for lump on neck started yesterday Patient Tobacco Use Status: Current everyday Tobacco user Allergies No Known Allergies Allergy (Verified 09/11/23 12:51) Medication List - Last Reconciled 09/11/23 by Rajeve Sawant MD acetaminophen (Tylenol) 325 mg PO TID PRN aripiprazole 5 mg PO BEDTIME blood sugar diagnostic (FreeStyle Lite Strips) USE 1 STRIP EVERY DAY DIRECTED blood-glucose meter (FreeStyle Lite Meter kit) test blood ugar twice a day carbamide peroxide 6.5% (Debrox) 5 drps otic (ear) left Q12H 4 days carvedilol 12.5 mg PO BID cetirizine 10 mg PO DAILY empagliflozin (Jardiance) 25 mg PO DAILY ergocalciferol (vitamin D2) 1,250 mcg PO SA@0900 escitalopram oxalate 10 mg PO BEDTIME fluticasone propionate 50 mcg/actuation (Flonase Allergy Relief) 1 spray intranasal DAILY ketoconazole 2% 1 appl topical DAILY lancets (FreeStyle Lancets) USE TO TEST TWO TIMES A DAY lisinopril 10 mg PO DAILY lorazepam 1 tab PO BEDTIME PRN metformin 1,000 mg (2 x 500 mg) PO BID nicotine (polacrilex) 2 mg buccal Q2H ofloxacin 0.3% 10 drps otic (ear) left DAILY 7 days pioglitazone 15 mg PO DAILY quetiapine 25 mg PO BEDTIME PRN simvastatin 40 mg PO DAILY tramadol 50 mg PO BEDTIME zolpidem 5 mg PO BEDTIME Do you need a note to return to daycare/school/sports/work: No HPI EP lump on neck HPI Details 63 yr old male presents to the office fo r a sick visit. Patient is reporting a swelling on the side of the neck. He reports he has been having an intermittent swelling in the neck in the past few months. No difficult swallowing. No loss of weight. [facility] Medical History Nonischemic cardiomyopathy Pacemaker (~2022) History of syncope Morbid obesity with BMI of 40.0-44.9, adult Insomnia Vitamin D deficiency Pure hypercholesterolemia Type 2 diabetes mellitus without complications Schizophrenia, unspecified Anxiety Essential (primary) hypertension Smoker [place] (obstructive sleep apnea) Morbid (severe) obesity due to excess calories Surgical History (Updated 08/20/23 @ 14:50 by MIRACLE Ochoa) History of tooth extraction History of cardiac pacemaker History of wisdom tooth extraction History of root canal procedure Family History Father No problems noted. Mother No problems noted. Family/Other FH: mental illness Mental health disorder Brother Substance use disorder Social History (Updated 08/20/23 @ 14:50 by MIRACLE Ochoa) Household Members: None Housing: House Do you presently have visiting nurse or other home services: Yes (vna 3x wk) Alcohol intake: current Alcohol intake frequency: holidays/special occasions only Alcohol type: hard liquor Patient Tobacco Use Status: Current everyday Tobacco user Tobacco use type: Cigarette Cigarette Packs Per Day: 0.5 Cigarettes Per Day: 10 Years Smoked: 40 e-Cigarette/Vaping Use: Never Used Second Hand Smoke Exposure: Yes service: No Current occupational status: retired Cognitive needs: Yes (cane) Hearing needs: No Vision needs: Yes (Glasses) Physical Exam Vital Signs: Last Vital Signs Temp 97.2 F 09/11/23 12:25 Pulse 72 09/11/23 12:25 BP 116/60 09/11/23 12:25 Pulse Ox 95 09/11/23 12:25 Oxygen Delivery Method Room Air 09/11/23 12:25 BMI result Body Mass Index 41.5 Const General: cooperative and healthy appearing Nutritional Appearance: well nourished Orientation/consciousness: patient oriented x3 Limitations: no limitations HEENT Head: Yes normal to inspection Eyes General: appearance normal, both eyes and all related structures Neck Other: Neck: Pt is obese and has large amount of subcutaneous fat. On the right side of the neck, he does have a swelling which has indistinct borders. No tenderness Neck: Yes normal visual inspection Chest Chest palpation & inspection: normal palpation of entire chest wall Resp Effort & Inspection: normal respiratory effort Neuro General: patient oriented x3 Assessment & Plan Assessment & Plan (1) Swelling, mass, or lump in head and neck: Code(s): R22.0 - Localized swelling, mass and lump, head; R22.1 - Localized swelling, mass and lump, neck Plan: Will call patient with US results. Orders: Orders US soft tiss head and/or neck Today R22.0 - Localized swelling, mass and lump, head, R22.1 - Localized swelling, mass and lump, neck Coding Level of Care Code Est Pt Level 3 (36763) Diagnoses Swelling, mass, or lump in head and neck R22.0; R22.1
[2023-09-11 12:25] VITALS: BP 116/60; PULSE 72; TEMP 36.2; O2SAT 95; BMI 41.5
== END 2023-09-11 12:53 | disposition home or self-care (01) ==
PROVIDERS: PCP Internal Medicine; Visit Provider Internal Medicine
DX: R22.0 Localized swelling, mass and lump, head (principal); R22.1 Localized swelling, mass and lump, neck
CPT/HCPCS: 99213

== ENCOUNTER 2023-09-20 13:26 | Outpatient (REF) | payer MEDICARE, MEDICAID, SELFPAY ==
--- NOTE | ~2023-09-20 | US_ITS ---
EXAMINATION: US SOFT TISSUE HEAD/NECK CLINICAL INFORMATION: Localized swelling, mass and lump, head. COMPARISON: None available. TECHNIQUE: Linear transducer hager-scale and color Doppler examination of the right neck level II/III. FINDINGS: Targeted ultrasound images were obtained by the salesperson burial needs of the area of concern as indicated by the patient in the right neck at levels II-III. 2.0 x 0.6 x 1.2 cm lymph node with echogenic hilum in the right neck submandibular region. 0.4 x 0.3 x 0.5 cm mildly complex cyst with low-level internal echoes and a thin septation in the superficial soft tissues of the right submandibular region. Radiologist was not in attendance. Images were later provided for interpretation. US/US soft tiss head and/or neck IMPRESSION: 1. A 2.0 cm lymph node with echogenic hilum in the right neck submandibular region. 2. A 0.5 cm mildly complex cyst with low-level internal echoes and a thin septation in the superficial soft tissues of the right submandibular region.
== END 2023-09-20 13:27 | disposition home or self-care (01) ==
LOC: HO.US 13:26
PROVIDERS: PCP Internal Medicine; Visit Provider Internal Medicine
DX: R22.0 Localized swelling, mass and lump, head (principal); R22.1 Localized swelling, mass and lump, neck
CPT/HCPCS: 76536

== ENCOUNTER → 2023-10-17 23:59 | Outpatient (BNV) | payer MEDICARE, MEDICAID, SELFPAY ==
--- NOTE | 2023-10-23 15:11 | A.OFFVIS_ITS ---
Intake Visit Reasons: Remote device check- medtronic Allergies No Known Allergies Allergy (Verified 09/11/23 12:51) [facility] Medical History Nonischemic cardiomyopathy Pacemaker (~2022) History of syncope Morbid obesity with BMI of 40.0-44.9, adult Insomnia Vitamin D deficiency Pure hypercholesterolemia Type 2 diabetes mellitus without complications Schizophrenia, unspecified Anxiety Essential (primary) hypertension Smoker [place] (obstructive sleep apnea) Morbid (severe) obesity due to excess calories Surgical History (Updated 08/20/23 @ 14:50 by MIRACLE Ochoa) History of tooth extraction History of cardiac pacemaker History of wisdom tooth extraction History of root canal procedure Family History Father No problems noted. Mother No problems noted. Family/Other FH: mental illness Mental health disorder Brother Substance use disorder Social History (Updated 08/20/23 @ 14:50 by MIRACLE Ochoa) Household Members: None Housing: House Do you presently have visiting nurse or other home services: Yes (vna 3x wk) Alcohol intake: current Alcohol intake frequency: holidays/special occasions only Alcohol type: hard liquor Patient Tobacco Use Status: Current everyday Tobacco user Tobacco use type: Cigarette Cigarette Packs Per Day: 0.5 Cigarettes Per Day: 10 Years Smoked: 40 e-Cigarette/Vaping Use: Never Used Second Hand Smoke Exposure: Yes service: No Current occupational status: retired Cognitive needs: Yes (cane) Hearing needs: No Vision needs: Yes (Glasses) Office Procedures Cardiac Device Check Cardiac Device Check Details: Remote pacemaker report generated 10/17/2023. Pacemaker function is adequate [id number] Cardiac Device Interrogation, pacemaker Procedure code (CPT) selection complete Assessment & Plan Assessment & Plan (1) Pacemaker: Onset Date: ~2022 Comment: (Medtronic DCPP - placed 06/2022) Code(s): Z95.0 - Presence of cardiac pacemaker Category: Medical Plan: See above Coding Level of Care Code Procedure Only Diagnoses Pacemaker Z95.0 CPT Codes Cardiac Device Check - Cardiac Device 12: [id number] Cardiac Device Interrogation, pacemaker ([id number])
== END ==
PROVIDERS: PCP Internal Medicine; Visit Provider Internal Medicine Cardiovascular Disease
DX: Z45.018 Encounter for adjustment and management of other part of cardiac pacemaker (principal)
CPT/HCPCS: 93294

== ENCOUNTER 2023-11-22 14:55 | Outpatient (AMB) | payer MEDICARE, MEDICAID, SELFPAY ==
--- NOTE | 2023-11-22 15:04 | A.OFFPC_ITS ---
Vital Signs 11/22/23 15:06 Height 5 ft 10 in Weight 297 lb BMI 42.6 BP 130/72 Blood Pressure Location Lt brachial Position Sitting Pulse 87 Pulse Source Pulse Oximeter Pulse Oximetry (%) 95 Oxygen Delivery Method Room Air Intake Visit Reasons: 3mth f/u Intake Note: Patient is here to follow up on MANSI, HTN, DM, [place]. Service Worker Required: No Correction Worker: Not Required per policy Accompanied by: Self / Same As Patient Allergies No Known Allergies Allergy (Verified 11/22/23 15:43) Medication List - Last Reconciled 11/22/23 by Rajeev Sawant MD acetaminophen (Tylenol) 325 mg PO TID PRN aripiprazole 5 mg PO BEDTIME blood sugar diagnostic (FreeStyle Lite Strips) USE 1 STRIP EVERY DAY DIRECTED blood-glucose meter (FreeStyle Lite Meter kit) test blood ugar twice a day carbamide peroxide 6.5% (Debrox) 5 drps otic (ear) left Q12H 4 days carvedilol 12.5 mg PO BID cetirizine 10 mg PO DAILY empagliflozin (Jardiance) 25 mg PO DAILY ergocalciferol (vitamin D2) 1,250 mcg PO SA@0900 escitalopram oxalate 10 mg PO BEDTIME fluticasone propionate 50 mcg/actuation (Flonase Allergy Relief) 1 spray intranasal DAILY ketoconazole 2% 1 appl topical DAILY lancets (FreeStyle Lancets) USE TO TEST TWO TIMES A DAY lisinopril 10 mg PO DAILY lorazepam 1 tab PO BEDTIME PRN metformin 1,000 mg (2 x 500 mg) PO BID nicotine (polacrilex) 2 mg buccal Q2H ofloxacin 0.3% 10 drps otic (ear) left DAILY 7 days pioglitazone 15 mg PO DAILY quetiapine 25 mg PO BEDTIME PRN simvastatin 40 mg PO DAILY tramadol 50 mg PO BEDTIME zolpidem 5 mg PO BEDTIME Tobacco use date assessed: 11/22/23 Fall risk assessment: No Falls in past year Last assessed Fall Risk: 11/22/23 Dental Screening Dental Screen Date: 08/20/23 HPI 3mth f/u HPI Details 63-year-old male presents to the office to discuss his medical conditio ns. Continues to be noncompliant with his diet. Patient admits to having a sweet tooth. He reports he can not stop himself from eating sweets. Compliant with his medications. Able to function and do activities of daily living. [facility] Medical History Nonischemic cardiomyopathy Pacemaker (~2022) History of syncope Morbid obesity with BMI of 40.0-44.9, adult Insomnia Vitamin D deficiency Pure hypercholesterolemia Type 2 diabetes mellitus without complications Schizophrenia, unspecified Anxiety Essential (primary) hypertension Smoker [place] (obstructive sleep apnea) Morbid (severe) obesity due to excess calories Surgical History History of tooth extraction History of cardiac pacemaker History of wisdom tooth extraction History of root canal procedure Family History Father No problems noted. Mother No problems noted. Family/Other FH: mental illness Mental health disorder Brother Substance use disorder Social History Household Members: None Housing: House Do you presently have visiting nurse or other home services: Yes (vna 3x wk) Alcohol intake: current Alcohol intake frequency: holidays/special occasions only Alcohol type: hard liquor Patient Tobacco Use Status: Current everyday Tobacco user Tobacco use type: Cigarette Cigarette Packs Per Day: 0.5 Cigarettes Per Day: 10 Years Smoked: 40 e-Cigarette/Vaping Use: Never Used Second Hand Smoke Exposure: Yes service: No Current occupational status: retired Cognitive needs: Yes (cane) Hearing needs: No Vision needs: Yes (Glasses) Questionnaire Thrive Questionnaire Date Thrive assessed: 08/20/23 FABIANO-7 AMB Questionnaire FABIANO-7 Date FABIANO - 7 assessed: 08/20/23 Source: Developed by Drs. Jax Gomez, Michelle Tristan, Rashid de la vega, with an educational jaja from [employer]. Physical exam (Primary Care) Vital Signs: Last Vital Signs Pulse 87 11/22/23 15:06 BP 130/72 11/22/23 15:06 Pulse Ox 95 11/22/23 15:06 Oxygen Delivery Method Room Air 11/22/23 15:06 BMI result Body Mass Index 42.6 Tobacco/Smoking Status: Tobacco use Status Tobacco use date assessed 11/22/23 11/22/23 15:15 Patient Tobacco Use Status Current everyday Tobacco 11/22/23 15:04 Tobacco use type Cigarette 11/22/23 15:04 e-Cigarette/Vaping Use Never Used 11/22/23 15:04 Thrive Assessment: Date of Thrive Assessment Date Thrive assessed 08/20/23 11/22/23 15:04 Const General: cooperative and healthy appearing Nutritional Appearance: well nourished Orientation/consciousness: patient oriented x3 Limitations: no limitations HENMT Head: Yes normal to inspection Eyes General: appearance normal, both eyes and all related structures Neck Neck: Yes normal visual inspection Chest Chest palpation & inspection: normal palpation of entire chest wall Resp Effort & Inspection: normal respiratory effort Neuro General: patient oriented x3 Results AMB Hemoglobin A1c AMB Hemoglobin A1c 7.1 % Last Edit by MIRACLE Ochoa on 11/22/23 15:17 Results Reviewed Results Reviewed: Laboratory Last Values Hgb A1c (Clinic) 7.1 % (4.0-6.0) H 11/22/23 15:04 Assessment and Plan Assessment & Plan (1) Type 2 diabetes mellitus without complications: Comment: Limitations for better control of his blood sugar is due to his mental illness and poor compliance with diet. Patient was encouraged to eat 3 meals a day which will prevent him from snacking. Code(s): E11.9 - Type 2 diabetes mellitus without complications Qualifiers: Diabetes mellitus long chain quiller tender insulin use: without penitentiary use Qualified Code(s): E11.9 - Type 2 diabetes mellitus without complications Plan: A1c reviewed Orders: Orders AMB Hemoglobin A1c Today E11.9 - Type 2 diabetes mellitus without complications Coding Level of Care Code Est Pt Level 3 (89350) Complex EM visit Add On G2211 Diagnoses Type 2 diabetes mellitus without complication, without long-term current use of insulin E11.9 Diabetes mellitus long chain quiller tender insulin use: without long chain quiller tender use
[2023-11-22 15:06] VITALS: BP 130/72; PULSE 87; O2SAT 95; BMI 42.6
== END 2023-11-22 15:32 | disposition home or self-care (01) ==
PROVIDERS: PCP Internal Medicine; Visit Provider Internal Medicine
DX: E11.9 Type 2 diabetes mellitus without complications (principal)
CPT/HCPCS: 83036; 99213; G2211

== ENCOUNTER 2023-12-31 15:06 | Outpatient (AMB) | payer MEDICARE, MEDICAID, SELFPAY ==
--- NOTE | 2023-12-31 15:42 | AM.OFFWIN_ITS ---
Intake Vital Signs 12/31/23 15:43 Height 5 ft 10 in Weight 295 lb BMI 42.3 BP 114/80 Blood Pressure Location Lt radial Position Sitting Pulse 87 Pulse Source Pulse Oximeter Temp 98.3 F Temp Source Oral Pulse Oximetry (%) 98 Oxygen Delivery Method Room Air Intake Visit Reasons: Abdomen Burn with blistering Intake Note: Pt c/o burn on abdomen w/ blisters. Burned w/ coffee. Sunday Patient Tobacco Use Status: Current everyday Tobacco user Allergies No Known Allergies Allergy (Verified 12/31/23 15:43) Do you need a note to return to daycare/school/sports/work: No HPI Abdomen Burn with blistering HPI Details This note is constructed using voice recognition software. While every effort has been made to ensure accuracy, train electronic technician errors may have been included. The patient is a 63 year old male who presents to the clinic today with burn to abdomen, which occurred Sunday when he spilled part of a cup of coffee on himself. He initially clean the area. He denies fever, chills. He has had no discharge to the area. He has mild discomfort. [facility] Medical History Nonischemic cardiomyopathy Pacemaker (~2022) History of syncope Morbid obesity with BMI of 40.0-44.9, adult Insomnia Vitamin D deficiency Pure hypercholesterolemia Type 2 diabetes mellitus without complications Schizophrenia, unspecified Anxiety Essential (primary) hypertension Smoker [place] (obstructive sleep apnea) Morbid (severe) obesity due to excess calories Surgical History History of tooth extraction History of cardiac pacemaker History of wisdom tooth extraction History of root canal procedure Family History Father No problems noted. Mother No problems noted. Family/Other FH: mental illness Mental health disorder Brother Substance use disorder Social History Household Members: None Housing: House Do you presently have visiting nurse or other home services: Yes (vna 3x wk) Alcohol intake: current Alcohol intake frequency: holidays/special occasions only Alcohol type: hard liquor Patient Tobacco Use Status: Current everyday Tobacco user Tobacco use type: Cigarette Cigarette Packs Per Day: 0.5 Cigarettes Per Day: 10 Years Smoked: 40 e-Cigarette/Vaping Use: Never Used Second Hand Smoke Exposure: Yes service: No Current occupational status: retired Cognitive needs: Yes (cane) Hearing needs: No Vision needs: Yes (Glasses) Review of Systems Const All systems reviewed & are unremarkable except as noted in HPI and below Physical Exam Vital Signs: Last Vital Signs Temp 98.3 F 12/31/23 15:43 Pulse 87 12/31/23 15:43 BP 114/80 12/31/23 15:43 Pulse Ox 98 12/31/23 15:43 Oxygen Delivery Method Room Air 12/31/23 15:43 BMI result Body Mass Index 42.3 Const General: cooperative, healthy appearing, comfortable, no acute distress and alert Orientation/consciousness: patient oriented x3 Limitations: no limitations Skin Other: 15 x 5 cm area of erythema that is dry blanchable skin with distal blister present. No surrounding erythema or warmth. No discharge. Neuro General: patient oriented x3 Psych Appearance: grossly normal Mental Status: mental status grossly normal Speech and movement: Normal speech and movement present Affect: normal affect Assessment & Plan Assessment & Plan (1) Superficial burn of abdominal wall: Code(s): T21.12XA - Burn of first degree of abdominal wall, initial encounter Qualifiers: Encounter type: initial encounter Qualified Code(s): T21.12XA - Burn of first degree of abdominal wall, initial encounter Plan: No signs of secondary bacterial infection. Advised patient to keep the area clean, apply Vaseline or other similar skin barrier to the area to keep the skin moist. Advised to keep area covered with dressing only to prevent material from rubbing over the area, otherwise allow the area to breathe. Follow up with signs of infection including increasing erythema, warmth, discharge, odor. Advised OTC treatment for pain if needed. Plan See above for full details and plan. Coding Level of Care Code Est Pt Level 3 (73737) Diagnoses Superficial burn of abdominal wall, initial encounter T21.12XA Encounter type: initial encounter
[2023-12-31 15:43] VITALS: BP 114/80; PULSE 87; TEMP 36.8; O2SAT 98; BMI 42.3
== END 2023-12-31 16:12 | disposition home or self-care (01) ==
PROVIDERS: PCP Internal Medicine; Visit Provider Registered Nurse
DX: T21.12XA Burn of first degree of abdominal wall, initial encounter (principal)
CPT/HCPCS: 99213

== ENCOUNTER 2024-01-09 11:06 | Outpatient (AMB) | payer MEDICARE, MEDICAID, SELFPAY ==
[2024-01-09 11:25] VITALS: BP 120/70; PULSE 72; O2SAT 97; BMI 42.7
--- NOTE | 2024-01-09 11:25 | MHC.OFFVIS ---
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 Required: No Allergies No Known Allergies Allergy (Verified 01/09/24 11:55) Medication List - Last Reconciled 01/09/24 by Magdalena Tony MD acetaminophen (Tylenol) 325 mg PO TID PRN aripiprazole 5 mg PO BEDTIME blood sugar diagnostic ([employer] Ultra Test strips) As directed 2 times per day blood-glucose meter ([employer] Ultra2 Meter) As directed to test BS 2 times per day carbamide peroxide 6.5% (Debrox) 5 drps otic (ear) left Q12H 4 days carvedilol 12.5 mg PO BID cetirizine 10 mg PO DAILY empagliflozin (Jardiance) 25 mg PO DAILY ergocalciferol (vitamin D2) 1,250 mcg PO SA@0900 escitalopram oxalate 10 mg PO BEDTIME fluticasone propionate 50 mcg/actuation (Flonase Allergy Relief) 1 spray intranasal DAILY ketoconazole 2% 1 appl topical DAILY lancets ([email or web address] Delica Safety Lancet) As directed 2 times per day lisinopril 10 mg PO DAILY lorazepam 1 tab PO BEDTIME PRN metformin 1,000 mg (2 x 500 mg) PO BID nicotine (polacrilex) 2 mg buccal Q2H ofloxacin 0.3% 10 drps otic (ear) left DAILY 7 days pioglitazone 15 mg PO DAILY quetiapine 25 mg PO BEDTIME PRN simvastatin 40 mg PO DAILY tramadol 50 mg PO BEDTIME zolpidem 5 mg PO BEDTIME Do you need a note to return to daycare/school/sports/work: No HPI HPI COPD: Details: Dre is 63 years old, morbidly obese, with chronic cognitive impairment due to underlying chronic psychotic disorder. He comes for follow-up for his obstructive sleep apnea. Claims that he uses the CPAP very regularly every night. .Claims that He sleeps well his main complaint is back pain, and he is not. doing any work these days . [facility] Medical History Nonischemic cardiomyopathy Pacemaker (~2022) History of syncope Morbid obesity with BMI of 40.0-44.9, adult Insomnia Vitamin D deficiency Pure hypercholesterolemia Type 2 diabetes mellitus without complications Schizophrenia, unspecified Anxiety Essential (primary) hypertension Smoker [place] (obstructive sleep apnea) Morbid (severe) obesity due to excess calories Surgical History History of tooth extraction History of cardiac pacemaker History of wisdom tooth extraction History of root canal procedure Family History Father No problems noted. Mother No problems noted. Family/Other FH: mental illness Mental health disorder Brother Substance use disorder Social History Household Members: None Housing: House Do you presently have visiting nurse or other home services: Yes (vna 3x wk) Alcohol intake: current Alcohol intake frequency: holidays/special occasions only Alcohol type: hard liquor Patient Tobacco Use Status: Current everyday Tobacco user Tobacco use type: Cigarette Cigarette Packs Per Day: 0.5 Cigarettes Per Day: 10 Years Smoked: 40 e-Cigarette/Vaping Use: Never Used Second Hand Smoke Exposure: Yes service: No Current occupational status: retired Cognitive needs: Yes (cane) Hearing needs: No Vision needs: Yes (Glasses) Review of Systems Const All systems reviewed & are unremarkable except as noted in HPI and below Eyes Reports no additional complaints ENT Reports dizziness (Nonspecific) and Reports nasal congestion (Mild off and on) Card Denies chest pain, Denies irregular heart rhythm, Denies leg edema and Reports dyspnea on exertion (Mild) Resp Reports cough, Reports dyspnea on exertion (Mild) and Reports wheezing GI Reports no additional complaints Reports no additional complaints Musc Reports back pain Skin/Breast Reports system reviewed and no additional complaints, except as documented Neuro Reports dizziness (Nonspecific) Psych Reports anxiety, Reports depression and Reports mood swings Endo Reports no additional complaints and Reports other (Being treated for diabetes mellitus) Abner/Lymph Reports no additional complaints Aller/Immun Reports no additional complaints and Reports wheezing Physical Exam Vital Signs: Last Vital Signs Pulse 72 01/09/24 11:25 BP 120/70 01/09/24 11:25 Pulse Ox 97 01/09/24 11:25 Oxygen Delivery Method Room Air 01/09/24 11:25 BMI result Body Mass Index 42.7 Const General: comfortable, no acute distress, alert and awake Orientation/consciousness: patient oriented x3 HEENT Head: Yes normal to inspection General nose exam: No nasal polyps present and No nasal discharge present Face and sinus: Yes sinuses nontender Mouth: oropharynx normal Throat: Yes posterior oropharynx normal Eyes General: appearance normal, both eyes and all related structures Neck Neck: Yes normal visual inspection, Yes no lymphadenopathy, Yes trachea midline and Yes no JVD Thyroid: Thyroid normal Chest Chest palpation & inspection: normal inspection of the chest, normal palpation of entire chest wall, no tenderness and other (Pacemaker battery in left pectoral area) Resp Effort & Inspection: normal respiratory effort Auscultation: clear to auscultation bilaterally, no crackles, no wheezes and diminished lung sounds (Diminished over the basilar areas) Cardio Palpation: normal PMI Rate: regular rate Rhythm: regular rhythm Heart sounds: no gallops and no murmurs GI Palpation (GI): Soft to palpation, nontender, No hepatosplenomegaly present, no masses and Other GI palpation findings present (Abdomen is grossly obese and protuberant) Auscultation: normal bowel sounds Back/Spine/Pelvis Thoracic/Lumbar Spine: thoracic and lumbar spine normal to inspection and thoraco-lumbar ROM limited Skin General skin exam: no rashes or lesions noted Neuro General: patient oriented x3 and no focal motor deficits Cranial nerves: Yes CN's II-XII intact bilaterally Extrem General: Yes normal to inspection, Yes no clubbing, cyanosis or edema and Yes no calf tenderness Psych Appearance: grossly normal, well kempt and other (Quiet and slow in conversation) Speech and movement: Normal speech and movement present Results Reviewed Results Reviewed: Compliance report for the last 30 nights is reviewed. He used 30/30 nights average use it per night 8 hours 41 minutes. Some air leak is recorded, maximum 69 L/minute. The residual AHI 3.0 Assessment & Plan Assessment & Plan (1) Morbid obesity with BMI of 40.0-44.9, adult: Comment: BMI = 42.7 He has had morbid obesity throughout his adult life. Has not been able to lose weight. The weight remains on changed, Code(s): E66.01 - Morbid (severe) obesity due to excess calories; Z68.41 - Body mass index [BMI] 40.0-44.9, adult Category: Medical Plan: Talked to him about his weight. He does not have enough understanding to control his diet. His activity is limited because of back pain. There is not much potential for him to lose weight. (2) [place] (obstructive sleep apnea): Comment: Chronic problem. Very COMPLIANT , He got new CPAP machine which is working well. No issues with the mask or CPAP machine. Code(s): G47.33 - Obstructive sleep apnea (adult) (pediatric) Category: Medical Plan: Advised to continue using CPAP every night regularly (3) Smoker: Comment: Risks of continued smoking explained . Counselled to quit completely , but he does not have much will power to do that . Patient will be participating in annual lung screening program. Code(s): F17.200 - Nicotine dependence, unspecified, uncomplicated Category: Social Hx Plan: As above Coding Level of Care Code Est Pt Level 3 (19556) Diagnoses Morbid obesity with BMI of 40.0-44.9, adult E66.01; Z68.41 [place] (obstructive sleep apnea) G47.33 Smoker F17.200
== END 2024-01-09 11:54 | disposition home or self-care (01) ==
PROVIDERS: PCP Internal Medicine; Visit Provider Internal Medicine
DX: E66.01 Morbid (severe) obesity due to excess calories (principal); Z68.41 Body mass index [BMI] 40.0-44.9, adult; G47.33 Obstructive sleep apnea (adult) (pediatric); F17.200 Nicotine dependence, unspecified, uncomplicated
CPT/HCPCS: 99213

== ENCOUNTER → 2024-01-09 11:06 | Outpatient (BNVA) | payer MEDICARE, MEDICAID, SELFPAY | PROVIDERS: PCP Internal Medicine; Visit Provider Internal Medicine | DX: J44.9 Chronic obstructive pulmonary disease, unspecified (principal); G47.33 Obstructive sleep apnea (adult) (pediatric); E66.01 Morbid (severe) obesity due to excess calories; Z68.41 Body mass index [BMI] 40.0-44.9, adult; Z99.89 Dependence on other enabling machines and devices | CPT/HCPCS: 99212 ==

== ENCOUNTER → 2024-01-15 23:59 | Outpatient (BNV) | payer MEDICARE, MEDICAID, SELFPAY ==
--- NOTE | 2024-01-21 08:51 | MHC.OFFVIS ---
Intake Visit Reasons: Remote device check- [employer] Allergies No Known Allergies Allergy (Verified 01/09/24 11:55) [facility] Medical History Nonischemic cardiomyopathy Pacemaker (~2022) History of syncope Morbid obesity with BMI of 40.0-44.9, adult Insomnia Vitamin D deficiency Pure hypercholesterolemia Type 2 diabetes mellitus without complications Schizophrenia, unspecified Anxiety Essential (primary) hypertension Smoker [place] (obstructive sleep apnea) Morbid (severe) obesity due to excess calories Surgical History History of tooth extraction History of cardiac pacemaker History of wisdom tooth extraction History of root canal procedure Family History Father No problems noted. Mother No problems noted. Family/Other FH: mental illness Mental health disorder Brother Substance use disorder Social History Household Members: None Housing: House Do you presently have visiting nurse or other home services: Yes (vna 3x wk) Alcohol intake: current Alcohol intake frequency: holidays/special occasions only Alcohol type: hard liquor Patient Tobacco Use Status: Current everyday Tobacco user Tobacco use type: Cigarette Cigarette Packs Per Day: 0.5 Cigarettes Per Day: 10 Years Smoked: 40 e-Cigarette/Vaping Use: Never Used Second Hand Smoke Exposure: Yes service: No Current occupational status: retired Cognitive needs: Yes (cane) Hearing needs: No Vision needs: Yes (Glasses) Office Procedures Cardiac Device Check Cardiac Device Check Details: Remote pacemaker report generated 01/15/2024. Pacemaker function is adequate. Ventricular pacing 94% of the time [id number] Cardiac Device Interrogation, pacemaker Procedure code (CPT) selection complete Assessment & Plan Assessment & Plan (1) Pacemaker: Onset Date: ~2022 Comment: (Medtronic DCPP - placed 06/2022) Code(s): Z95.0 - Presence of cardiac pacemaker Category: Medical Plan: See above Coding Level of Care Code Procedure Only Diagnoses Pacemaker Z95.0 CPT Codes Cardiac Device Check - Cardiac Device 12: [id number] Cardiac Device Interrogation, pacemaker ([id number])
== END ==
PROVIDERS: PCP Internal Medicine; Visit Provider Internal Medicine Cardiovascular Disease
DX: I42.9 Cardiomyopathy, unspecified (principal); Z95.0 Presence of cardiac pacemaker
CPT/HCPCS: 93294

== ENCOUNTER 2024-02-04 18:28 | Emergency (ER) | payer MEDICARE, MEDICAID, SELFPAY ==
[2024-02-04 18:32] VITALS: BP 165/78; PULSE 88; RESP 18; TEMP 36.8; O2SAT 96; BMI 43.6
--- NOTE | 2024-02-04 18:32 | ED.GENADULT ---
HPI - General Adult General Chief complaint: Dental/Oral Stated complaint: dental pain Time Seen by Provider: 02/04/24 18:41 Source: patient, RN notes reviewed and old records reviewed Mode of arrival: ambulatory Limitations: no limitations History of Present Illness ED Provider: TREVON CHI PA-C HPI narrative: 64-year-old male with pmhx significant for cardiomyopathy, complete heart block s/p pacemaker, HDL, HTN, T2DM, [place], insomnia, anxiety, and schizophrenia here for evaluation of toothache x1 week. Pain localized to to along right upper gums. Denies discharge.Took Tylenol with minimal relief. Reports taking Tramadol once daily for chronic back pain however this has not been helping his tooth pain. Admits to history of poor dentition with multiple missing teeth. Denies any known broken teeth. He states that he called his dentist however they are unable to get him in until February 13. Denies fever, chills, jaw pain, N/V, odynophagia, dysphagia. Related Data Home Medications ?Medication ?Instructions ?Recorded ?Confirmed aripiprazole 5 mg tablet 5 mg PO BEDTIME 02/18/22 01/09/24 escitalopram oxalate 10 mg tablet 10 mg PO BEDTIME 02/18/22 01/09/24 quetiapine 25 mg tablet 25 mg PO BEDTIME PRN Sleep 02/18/22 01/09/24 zolpidem 5 mg tablet 5 mg PO BEDTIME 02/18/22 01/09/24 lorazepam 0.5 mg tablet 1 tab PO BEDTIME PRN Anxiety 05/05/22 01/09/24 acetaminophen 325 mg tablet 325 mg PO TID PRN Pain 06/14/22 01/09/24 (Tylenol) Previous Rx's ?Medication ?Instructions ?Recorded lisinopril 10 mg tablet 10 mg PO DAILY #90 tabs 11/11/22 ofloxacin 0.3 % ear drops 10 drp otic (ear) left DAILY 7 03/19/23 days #5 mL carbamide peroxide 6.5 % ear drops 5 drp otic (ear) left Q12H 4 days 04/02/23 (Debrox) #15 mL carvedilol 12.5 mg tablet 12.5 mg PO BID #60 tabs 08/02/23 ketoconazole 2 % topical cream 1 appl topical DAILY #30 grams 08/20/23 cetirizine 10 mg tablet 10 mg PO DAILY #30 tabs 10/01/23 fluticasone propionate 50 1 spray intranasal DAILY #9.9 mL 11/06/23 mcg/actuation nasal spray,suspension (Flonase Allergy Relief) metformin 500 mg tablet 1,000 mg (2 x 500 mg) PO BID #360 11/06/23 caps pioglitazone 15 mg tablet 15 mg PO DAILY #90 caps 11/06/23 blood sugar diagnostic (OneTouch #100 ea 12/10/23 Ultra Test strips) blood-glucose meter (OneTouch #1 ea 12/10/23 Ultra2 Meter) lancets 30 gauge (Onetouch Delica #100 ea 12/10/23 Safety Lancet) nicotine (polacrilex) 2 mg gum 2 mg buccal Q2H #20 ea 12/19/23 tramadol 50 mg tablet 50 mg PO BEDTIME #30 tabs 12/19/23 empagliflozin 25 mg tablet 25 mg PO DAILY #90 tabs 12/29/23 (Jardiance) ergocalciferol (vitamin D2) 1,250 1,250 mcg PO SA@0900 #90 caps 01/24/24 mcg (50,000 unit) capsule simvastatin 40 mg tablet 40 mg PO DAILY #90 tabs 01/29/24 clindamycin HCl 150 mg capsule 150 mg PO TID 7 days #21 caps 02/04/24 tramadol 50 mg tablet 50 mg PO TID PRN pain (scale score 02/04/24 7-10) #7 tabs Allergies Allergy/AdvReac Type Severity Reaction Status Date / Time No Known Allergies Allergy Verified 02/04/24 18:33 Review of Systems Review of Systems: Constitutional: No fever, chills, fatigue, night sweats, weight changes ENT/Mouth: No ear pain, hearing loss, nasal congestion, sinus pain, rhinorrhea, sore throat, +dental pain Eyes: No eye pain, swelling, redness, vision changes, discharge Cardio: No chest pain, palpitations, VIVEROS, orthopnea, peripheral edema Pulm: No SOB, cough, sputum, wheezing, dyspnea, hemoptysis GI: No nausea, vomiting, hematemesis, abdominal pain, diarrhea, constipation, hematochezia, melena : No irregular bleeding, dysuria, frequency, urgency, hesitancy, hematuria, flank pain, urinary flow changes, urinary incontinence or retention MSK: No back pain, neck pain, joint pain, myalgias Skin: No lesions, rashes Neuro: No weakness, numbness, paresthesias, LOC, dizziness, headache Psych: No anxiety/panic, depression, SI/HI, AH/VH All other systems reviewed and are negative. [facility] Past Medical History Attestation statement: The following information was validated with the patient. Source: old records reviewed and nursing notes reviewed Medical History Nonischemic cardiomyopathy Pacemaker (~2022) History of syncope Morbid obesity with BMI of 40.0-44.9, adult Insomnia Vitamin D deficiency Pure hypercholesterolemia Type 2 diabetes mellitus without complications Schizophrenia, unspecified Anxiety Essential (primary) hypertension Smoker [place] (obstructive sleep apnea) Morbid (severe) obesity due to excess calories Surgical History History of tooth extraction History of cardiac pacemaker History of wisdom tooth extraction History of root canal procedure Family History Family History Father No problems noted. Mother No problems noted. Family/Other FH: mental illness Mental health disorder Brother Substance use disorder Social History Social History Household Members: None Housing: House Do you presently have visiting nurse or other home services: Yes (vna 3x wk) Alcohol intake: current Alcohol intake frequency: holidays/special occasions only Alcohol type: hard liquor Patient Tobacco Use Status: Current everyday Tobacco user Tobacco use type: Cigarette Cigarette Packs Per Day: 0.5 Cigarettes Per Day: 10 Years Smoked: 40 e-Cigarette/Vaping Use: Never Used Second Hand Smoke Exposure: Yes Advance Directives: No Advance Directives Information Provided: No Do you have a plan to hurt others: No Plan service: No Current occupational status: retired Cognitive needs: Yes (cane) Hearing needs: No Vision needs: Yes (Glasses) Physical Exam ED Vital Signs: Vital Signs - 24 hr 02/04/24 18:32 02/04/24 18:50 Temperature 98.3 F 98.3 F Pulse Rate 88 88 Respiratory Rate 18 18 Blood Pressure 165/78 H 165/78 H Pulse Oximetry 96 96 Oxygen Delivery Method Room Air Room Air BMI result Body Mass Index 43.6 Const General: cooperative, comfortable and no acute distress Orientation/consciousness: patient oriented x3 Limitations: no limitations HENMT Other: + No facial edema. Tongue and lips wnl + multiple dental caries and poor dentition. right fifth tooth with localized periapical swelling to the buccal ginginva. No pointing. No active bleeding/ discharge. TTP. No palpable fluctuance. + No edema to buccal mucosa + Posterior oropharynx without erythema/edema. Uvula midline. Controlling secretions and speaking in complete sentences + No submandublar or submental LAD + No cervical LAD Head: Yes normal to inspection, Yes No palpable skull fracture present, Yes normocephalic and Yes atraumatic Ears: hearing grossly normal bilaterally, external ears normal, TM's normal bilaterally, EAC's normal, mastoids normal and no periauricular adenopathy Eyes General: appearance normal, both eyes and all related structures Conjunctivae: conjunctivae normal Sclerae: sclerae normal Pupils: Equal, round and reactive pupils present Neck Neck: Yes normal visual inspection and Yes no lymphadenopathy Resp Effort & Inspection: normal respiratory effort and no stridor Auscultation: clear to auscultation bilaterally Cardio Rate: regular rate Rhythm: regular rhythm Skin General skin exam: no rashes or lesions noted Neuro General: patient oriented x3 and gait normal Cranial nerves: Yes Equal, round and reactive pupils present Course Course Course Narrative: 1854-- Patient noted to have dental infection. There is no evidence of abscess that warrants drainage at this time. Will treat patient's pain and patient will be discharged home on clindamycin to ensure there is no worsening infection for follow-up with dentist. Patient advised to follow up with dentist this week. A referral has been provided. Patient has remained stable throughout ED visit today. I discussed worrisome signs and symptoms and when to return to the ED. All questions answered at this time. Patient is agreeable with disposition and stable for discharge. Medical Decision Making Medical Decision Making [facility] Narrative: 64-year-old male with pmhx significant for cardiomyopathy, complete heart block s/p pacemaker, HDL, HTN, T2DM, [place], insomnia, anxiety, and schizophrenia here for evaluation of toothache x1 week. Patient hypertensive to 165/78, afebrile. He is nontoxic-appearing and in no acute distress. On exam, there are multiple dental caries and poor dentition. right fifth tooth with localized periapical swelling to the buccal ginginva. No pointing. No active bleeding/ discharge. TTP. No palpable fluctuance. No drainable collection. Differential includes dental/ periapical abscess/infection, apthous stomatitis. Unlikely mono, herpes, sialadenitis, sialolithiasis, DIRECTOR TALENT ACQUISITION, retropharyngeal abscess, deep neck infection, osteomyelitis, facial cellulitis/ abscess, lymphoma. Plan for pain control and discharge home with antibiotics and dentist follow up. Differential Diagnosis Differential Diagnoses: The differential diagnosis associated with the presentation includes as above. Admission/Observation Not indicated. External Record Review External record reviewed: Inpatient record, Office record, Outpatient record, Prior outpatient labs, Prior outpatient radiology, Primary care record and Outside ED record Tests considered The following testing was considered but not selected: I considered obtaining a CT of the soft tissues neck however there is no evidence of ludwigs angina or concern for deep tissue infection. Not warranted at this time. Prescription Management I considered prescription management with: Pain Medication and Antibiotic (Clindamycin) Chronic Conditions Patient?s care impacted by: Diabetes and Hypertension Social Determinants Patient?s care significantly limited by Social Determinants of Health including: Other Social Determinant of Health Critical Care Time Critical Care Time Critical Care Time: No Discharge Plan Discharge Clinical Impression: Dental infection Patient Disposition: Home, Self-Care Instructions: Root Canal (DC) Additional Instructions: You were evaluated in ED today for dental pain. You have a dental infection. Clindamycin is an antibiotic that has been sent to your pharmacy for treatment. Take this as prescribed and do not skip any doses. Take this to completion or the infection may persist or worsen. ? Take tylenol/ motrin at home as needed for pain. Tramadol is a pain medication that has been sent to your pharmacy for you to take for break-through pain. Use this with caution. YOU NEED TO FOLLOW UP WITH A DENTIST. Keep your appointment for February 13. If you would like to establish with a new dentist, you have been provided with a referral to [facility]. They are currently taking new clients. Call them to make an appointment. They will not call you. Return with new or worsening symptoms. In the case of an emergency call 911. [facility]: [phone] [address] [facility] [id number] Prescriptions: New clindamycin HCl 150 mg capsule 150 mg PO TID 7 Days Qty: 21 0RF tramadol 50 mg tablet 50 mg PO TID PRN (Reason: pain (scale score 7-10)) Qty: 7 0RF No Action lisinopril 10 mg tablet 10 mg PO DAILY Qty: 90 1RF carvedilol 12.5 mg tablet 12.5 mg PO BID Qty: 60 11RF cetirizine 10 mg tablet 10 mg PO DAILY Qty: 30 6RF pioglitazone 15 mg tablet 15 mg PO DAILY Qty: 90 1RF metformin 500 mg tablet 1,000 mg PO BID Qty: 360 1RF fluticasone propionate [Flonase Allergy Relief] 50 mcg/actuation spray,suspension 1 spray intranasal DAILY Qty: 9.9 3RF Rx Instructions: administer into each nostril (DME) OneTouch Ultra Test Strip See Rx Instructions .Route Qty: 100 0RF Rx Instructions: As directed 2 times per day (DME) blood-glucose meter [Elastrauch Ultra2 Meter] Misc See Rx Instructions .Route Qty: 1 0RF Rx Instructions: As directed to test BS 2 times per day (DME) lancets [OYE!touch Delica Safety Lancet] 30 gauge misc See Rx Instructions .Route Qty: 100 0RF Rx Instructions: As directed 2 times per day nicotine (polacrilex) 2 mg gum 2 mg buccal Q2H Qty: 20 0RF tramadol 50 mg tablet 50 mg PO BEDTIME Qty: 30 0RF Jardiance 25 mg tablet 25 mg PO DAILY Qty: 90 0RF ergocalciferol (vitamin D2) 1,250 mcg (50,000 unit) capsule 1,250 mcg PO SA@0900 Qty: 90 6RF simvastatin 40 mg tablet 40 mg PO DAILY Qty: 90 0RF acetaminophen [Tylenol] 325 mg Tablet 325 mg PO TID PRN (Reason: Pain) lorazepam 0.5 mg tablet 1 tab PO BEDTIME PRN (Reason: Anxiety) ofloxacin 0.3 % drops 10 drp otic (ear) left DAILY 7 Days Qty: 5 0RF Debrox 6.5 % drops 5 drp otic (ear) left Q12H 4 Days Qty: 15 0RF quetiapine 25 mg tablet 25 mg PO BEDTIME PRN (Reason: Sleep) ketoconazole 2 % cream 1 appl topical DAILY Qty: 30 1RF aripiprazole 5 mg tablet 5 mg PO BEDTIME escitalopram oxalate 10 mg tablet 10 mg PO BEDTIME zolpidem 5 mg tablet 5 mg PO BEDTIME Referrals: Rajeev Sawant MD [Primary Care Provider] - Interventions: ED Discharge Assessment Last Done: 02/04/24 18:50 Discharge Date/Time: 02/04/24 18:51 Print Language: Monegasque
[2024-02-04 18:50] VITALS: BP 165/78; PULSE 88; RESP 18; TEMP 36.8; O2SAT 96
== END 2024-02-04 18:51 | disposition home or self-care (01) ==
PROVIDERS: Emergency Provider Emergency Medicine; PCP Internal Medicine
DX: K04.7 Periapical abscess without sinus (principal); K08.89 Other specified disorders of teeth and supporting structures; I42.9 Cardiomyopathy, unspecified; G89.29 Other chronic pain; M54.9 Dorsalgia, unspecified; I10 Essential (primary) hypertension; E11.9 Type 2 diabetes mellitus without complications; Z95.0 Presence of cardiac pacemaker; Z79.899 Other long term (current) drug therapy
CPT/HCPCS: 99282; 99283

== ENCOUNTER → 2024-02-06 10:56 | Outpatient (REF) | payer MEDICARE, MEDICAID, SELFPAY ==
--- NOTE | 2024-02-06 10:59 | CA_ITS ---
Transthoracic Echocardiogram Patient (Last, First, Middle): Adalberto Rose M Gender: Male Date of : 1960 Age: 64 Procedure Date: 02/06/2024 Procedure Type: Transthoracic Echocardiogram Location: OP Height: 177.8 cm Weight: 136.08 kg BSA: 2.48 m2 Heart Rate: bpm BP: 130 / 70 mmHg Chip Frier: [email or web address] Referring MD: Matthias Marinelli MD Symptoms: I42.8 - Other cardiomyopathies Study Quality: Technically Difficult, Contrast Conclusions: - The left ventricular systolic function is mildly decreased. The calculated ejection fraction is 51% by biplane method. - No obvious valvular pathology seen on this study. Findings Procedure Information Contrast agent, definity, is being given per protocol without apparent complications. Left Ventricle Normal left ventricular cavity size. There is moderately increased left ventricular wall thickness. The left ventricular systolic function is mildly decreased. The calculated ejection fraction is 51% by biplane method. There is mild global hypokinesis. Evidence suggests grade I (mild) diastolic dysfunction. Right Ventricle Mildly increased right ventricular cavity size. There is normal right ventricular systolic function. Atria Both atria are normal in size. Aortic Valve The aortic valve was not well visualized. There is no aortic valve stenosis. There is no aortic valve regurgitation. Mitral Valve The mitral valve appears normal. There is no mitral valve regurgitation. There is no mitral valve stenosis. Pulmonic Valve The pulmonic valve is likely normal. Tricuspid Valve There is no tricuspid valve regurgitation. Tricuspid regurgitation envelope is inadequate for calculation of right ventricular systolic pressure. Great Vessels The asc aorta is normal in size. Venous The inferior vena cava is normal in size and collapses greater than 50% with inspiration. Pericardium/Pleural There is no evidence of pericardial effusion. Prior Study Comparison Changes noted compared to prior study dated: 03/10/2022. LVEF lower than previously reported. Recommendations, Care & Conclusions No obvious valvular pathology seen on this study. Measurements 2D Linear Measurements IVSd: 1.40 0.6-0.9/0.6-1.0 cm LVIDd: 4.85 3.9-5.3/4.2-5.9 cm LVIDd Index: 1.96 2.4-3.2/2.2-3.1 cm/m2 LVIDs: 3.28 2.0-3.6 cm LVPWd: 1.32 0.7-1.1 cm LA Diam: 3.70 2.7-3.8/3.0-4.0 cm LAIDs Index: 1.49 1.5-2.3 cm/m2 LV Mass: 332.50 67-162/88-224 g LV Mass Index: 134.07 43-95/49-115 g/m2 LVOT Diam: 2.30 3.0+(-)1.3 cm 2D Systolic Function EF 4C: 43.20 >55% EF 2C: 62.10 >55% EF BiP: 50.60 >55% Mitral Valve MV Pk E: 0.80 MV PK A: 0.84 MV Decel Time: 200.00 E/A: 0.90 E'Lateral: 3.81 E'Medial: 5.87 E/E' Med: 13.60 E/E' Lat: 20.90 PHT: 58.00 MVA PHT: 3.79 Decel Arthur: 3.99 Aortic Valve AoV Pk Hernando: 1.47 AoV Mn Hernando: 1.08 AoV VTI: 0.32 AoV Pk Grad: 9.00 Aov Mn Grad: 5.00 KWAME Cont.VTI: 2.78 LVOT LVOT Pk Hernando: 1.01 LVOT Mn Hernando: 0.69 LVOT VTI: 0.22 LVOT Pk Grad: 4.00 LVOT Mn Grad: 2.00 LVOT Diam: 2.30 LVOT Area: 4.15 Diastolic Function MV Pk E: 0.80 MV Pk A: 0.84 E/A: 0.90 E'Medial: 5.87 E/E' Med: 13.60 E' Laterial: 3.81 E/E' Lat: 20.90 Right Ventricle TAPSE (mm): 29.00 TVS' Hernando: 15.80 Tricuspid Valve RA Press: 3.00 Great Vessels Aorta Sinus of Valsalva: 3.21 2.0-3.5 cm Ao Asc: 3.10 2.1-3.4 cm Updated in Other Vendor System with Status of Final Roman Mallory MD electronically signed on 02/08/2024 8:59:49 AM with status of Final
== END ==
LOC: HO.CARD 10:56
PROVIDERS: PCP Internal Medicine; Visit Provider Internal Medicine Cardiovascular Disease
DX: I42.8 Other cardiomyopathies (principal)
CPT/HCPCS: 93306; Q9957

== ENCOUNTER → 2024-02-06 10:59 | Outpatient (BNV) | payer MEDICARE, MEDICAID, SELFPAY | PROVIDERS: PCP Internal Medicine; Visit Provider Internal Medicine | DX: I51.89 Other ill-defined heart diseases (principal) | CPT/HCPCS: 93306 ==

== ENCOUNTER 2024-03-07 08:30 | Outpatient (AMB) | payer MEDICARE, MEDICAID, SELFPAY ==
[2024-03-07 08:33] VITALS: BP 130/80; PULSE 81; BMI 44.0
--- NOTE | 2024-03-07 08:33 | MHC.OFFVIS ---
Vital Signs 03/07/24 08:33 Height 5 ft 10 in Weight 306 lb 7.08 oz BMI 44.0 BP 130/80 Blood Pressure Location Lt radial Position Sitting Pulse 81 Intake Visit Reasons: 6 mth f/up s/p echo w/ pacer ck Intake Note: 6 month follow-up with [facility] check after echo feeling good Change Management Director Required: No Allergies No Known Allergies Allergy (Verified 02/04/24 18:33) Medication List - Last Reconciled 03/07/24 by Matthias Marinelli MD acetaminophen (Tylenol) 325 mg PO TID PRN aripiprazole 5 mg PO BEDTIME blood sugar diagnostic (Thinkspeed Ultra Test strips) As directed 2 times per day blood-glucose meter (Thinkspeed Ultra2 Meter) As directed to test BS 2 times per day carbamide peroxide 6.5% (Debrox) 5 drps otic (ear) left Q12H 4 days carvedilol 12.5 mg PO BID cetirizine 10 mg PO DAILY empagliflozin (Jardiance) 25 mg PO DAILY ergocalciferol (vitamin D2) 1,250 mcg PO SA@0900 escitalopram oxalate 10 mg PO BEDTIME fluticasone propionate 50 mcg/actuation (Flonase Allergy Relief) 1 spray intranasal DAILY ketoconazole 2% 1 appl topical DAILY lancets ([employer] Knight Delica Safety Lancet) As directed 2 times per day lisinopril 20 mg PO DAILY lorazepam 1 tab PO BEDTIME PRN metformin 1,000 mg (2 x 500 mg) PO BID nicotine (polacrilex) 2 mg buccal Q2H ofloxacin 0.3% 10 drps otic (ear) left DAILY 7 days pioglitazone 15 mg PO DAILY quetiapine 25 mg PO BEDTIME PRN simvastatin 40 mg PO DAILY tramadol 50 mg PO TID PRN tramadol 50 mg PO BEDTIME zolpidem 5 mg PO BEDTIME HPI Comments Details: Dre comes for follow-up. Denies any significant cardiac complaints. Recent echocardiogram shows low normal LVEF of 51%. Denies any symptoms of heart failure. Denies any worsening shortness of breath, orthopnea, PND, leg edema. He said when he does a lot of stuff he gets lightheaded. Does not drink a lot of water every day. Takes all his medications. Denies any prolonged palpitation, lightheadedness, syncope. [facility] Medical History Nonischemic cardiomyopathy Pacemaker (~2022) History of syncope Morbid obesity with BMI of 40.0-44.9, adult Insomnia Vitamin D deficiency Pure hypercholesterolemia Type 2 diabetes mellitus without complications Schizophrenia, unspecified Anxiety Essential (primary) hypertension Smoker [place] (obstructive sleep apnea) Morbid (severe) obesity due to excess calories Surgical History History of tooth extraction History of cardiac pacemaker History of wisdom tooth extraction History of root canal procedure Family History Father No problems noted. Mother No problems noted. Family/Other FH: mental illness Mental health disorder Brother Substance use disorder Social History Household Members: None Housing: House Do you presently have visiting nurse or other home services: Yes (vna 3x wk) Alcohol intake: current Alcohol intake frequency: holidays/special occasions only Alcohol type: hard liquor Patient Tobacco Use Status: Current everyday Tobacco user Tobacco use type: Cigarette Cigarette Packs Per Day: 0.5 Cigarettes Per Day: 10 Years Smoked: 40 e-Cigarette/Vaping Use: Never Used Second Hand Smoke Exposure: Yes service: No Current occupational status: retired Cognitive needs: Yes (cane) Hearing needs: No Vision needs: Yes (Glasses) Review of Systems Const Denies chills, Denies fatigue, Denies fever(s), Denies frequent falls, Denies weakness, Denies weight gain and Denies weight loss ENT Denies dizziness Card Denies chest pain, Denies leg edema, Denies lightheadedness, Denies palpitations, Denies dyspnea, Denies dyspnea on exertion, Denies orthopnea and Denies other (loss of consciousness) Resp Denies cough, Denies dyspnea and Denies dyspnea on exertion GI Denies hematochezia and Denies change in stool character Musc Denies abnormal gait, Denies muscle weakness, Denies numbness, Denies radiating pain into limb and Denies tingling Neuro Denies Abnormal speech present, Denies abnormal gait, Denies dizziness, Denies frequent falls, Denies numbness, Denies tingling and Denies weakness Endo Denies fatigue and Denies palpitations Physical Exam Vital Signs: Last Vital Signs Pulse 81 03/07/24 08:33 BP 130/80 03/07/24 08:33 BMI result Body Mass Index 44.0 Const General: cooperative, comfortable, no acute distress, alert and awake Nutritional Appearance: obese Orientation/consciousness: patient oriented x3 Limitations: no limitations Neck Neck: Yes trachea midline, Yes supple and Yes no JVD Chest Chest palpation & inspection: other (Pacemaker pocket looks benign) Resp Effort & Inspection: normal respiratory effort Auscultation: clear to auscultation bilaterally Cardio Jugular venous distension: no JVD Palpation: normal PMI Rate: regular rate Rhythm: regular rhythm Heart sounds: S1 normal heart sound present, S2 normal heart sound present, no click, no gallops and no murmurs GI Inspection: Yes obesity Neuro General: patient oriented x3 and no focal motor deficits Speech: No Abnormal speech present Extrem General: Yes no clubbing, cyanosis or edema Office Procedures Cardiac Device Check Cardiac Device Check Details: Dual-chamber Medtronic pacemaker in place. Programmed in DDDR at 60 beats per minute. Ventricular pacing 96% time. Frequent PVCs noted. No nonsustained ventricular tachycardia noted. Atrial sensing was excellent. Atrial pacing thresholds adequate and reprogrammed to provide adequate safety. Ventricular pacing thresholds are better and reprogrammed to enhance battery life. Pacing lead impedance is stable. Battery life is at about 11 years 11509-[id number] Cardiac Device Check, pacemaker dual lead Procedure code (CPT) selection complete Assessment & Plan Assessment & Plan (1) Pacemaker: Onset Date: ~2022 Comment: (Medtronic DCPP - placed 06/2022) Code(s): Z95.0 - Presence of cardiac pacemaker Category: Medical Plan: Cardiac pacemaker in-situ for syncope and complete heart block. Pacemaker is working well. Reprogrammed for adequate function. Will follow remotely in 3 months and in clinic in 6 months time. (2) Nonischemic cardiomyopathy: Code(s): I42.8 - Other cardiomyopathies Category: Medical Plan: Mild nonischemic cardiomyopathy with improved LV ejection fraction with neurohormonal modulation, continue current neurohormonal modulation. No signs or symptoms of heart failure. Continue carvedilol, lisinopril and Jardiance. Advised to call me with any worsening symptoms. Continue participate in regular physical activity and weight loss program. (3) Essential (primary) hypertension: Code(s): I10 - Essential (primary) hypertension Category: Medical Plan: Hypertension which is currently well optimized advised to monitor blood pressure at home maintain a log. Goal blood pressure less than 130/84. Low-salt diet discussed continue in regular physical activity and weight loss program. (4) Nonsustained ventricular tachycardia: Code(s): I47.29 - Other ventricular tachycardia Category: Medical Plan: Nonsustained ventricular tachycardia, clinically in no recurrence on pacer telemetry. Does have frequent PVCs. Continue carvedilol therapy. LV ejection fraction has improved. Will continue monitor by pacer telemetry. Avoidance of stimulants was discussed. Will follow up in the clinic in 6 months time, sooner p.r.n.. Thank you for allowing me to partake in his care Coding Level of Care Code Est Pt Level 4 (44446) Complex EM visit Add On G2211 Diagnoses Pacemaker Z95.0 Nonischemic cardiomyopathy I42.8 Essential (primary) hypertension I10 Nonsustained ventricular tachycardia I47.29 CPT Codes Cardiac Device Check - Cardiac Device 2: [id number] Cardiac Device Check, pacemaker dual lead ([id number])
== END 2024-03-07 08:51 | disposition home or self-care (01) ==
PROVIDERS: PCP Internal Medicine; Visit Provider Internal Medicine Cardiovascular Disease
DX: I42.8 Other cardiomyopathies (principal); I10 Essential (primary) hypertension; I47.29 Other ventricular tachycardia; Z95.0 Presence of cardiac pacemaker
CPT/HCPCS: 93280; 99214; G2211

== ENCOUNTER → 2024-03-07 08:30 | Outpatient (BNVA) | payer MEDICARE, MEDICAID, SELFPAY | PROVIDERS: PCP Internal Medicine; Visit Provider Internal Medicine Cardiovascular Disease | DX: I42.8 Other cardiomyopathies (principal); I10 Essential (primary) hypertension; I47.29 Other ventricular tachycardia; Z45.018 Encounter for adjustment and management of other part of cardiac pacemaker | CPT/HCPCS: 93280; 99212 ==

== ENCOUNTER → 2024-04-15 23:59 | Outpatient (BNV) | payer MEDICARE, MEDICAID, SELFPAY ==
--- NOTE | 2024-04-17 13:19 | A.OFFVIS_ITS ---
Intake Visit Reasons: Remote device check-= Medtronic Allergies No Known Allergies Allergy (Verified 02/04/24 18:33) FOR[facility]LY [facility] Medical History Nonischemic cardiomyopathy Pacemaker (~2022) History of syncope Morbid obesity with BMI of 40.0-44.9, adult Insomnia Vitamin D deficiency Pure hypercholesterolemia Type 2 diabetes mellitus without complications Schizophrenia, unspecified Anxiety Essential (primary) hypertension Smoker [place] (obstructive sleep apnea) Morbid (severe) obesity due to excess calories Surgical History History of tooth extraction History of cardiac pacemaker History of wisdom tooth extraction History of root canal procedure Family History Father No problems noted. Mother No problems noted. Family/Other FH: mental illness Mental health disorder Brother Substance use disorder Social History Household Members: None Housing: House Do you presently have visiting nurse or other home services: Yes (vna 3x wk) Alcohol intake: current Alcohol intake frequency: holidays/special occasions only Alcohol type: hard liquor Patient Tobacco Use Status: Current everyday Tobacco user Tobacco use type: Cigarette Cigarette Packs Per Day: 0.5 Cigarettes Per Day: 10 Years Smoked: 40 e-Cigarette/Vaping Use: Never Used Second Hand Smoke Exposure: Yes service: No Current occupational status: retired Cognitive needs: Yes (cane) Hearing needs: No Vision needs: Yes (Glasses) Office Procedures Cardiac Device Check Cardiac Device Check Details: Remote pacemaker report generated 04/15/2024. Pacemaker function is adequate [id number] Cardiac Device Interrogation, pacemaker Procedure code (CPT) selection complete Assessment & Plan Assessment & Plan (1) Pacemaker: Onset Date: ~2022 Comment: (Medtronic DCPP - placed 06/2022) Code(s): Z95.0 - Presence of cardiac pacemaker Category: Medical Plan: See above Coding Level of Care Code Procedure Only Diagnoses Pacemaker Z95.0 CPT Codes Cardiac Device Check - Cardiac Device 12: [id number] Cardiac Device Interrogation, pacemaker ([id number])
== END ==
PROVIDERS: PCP Internal Medicine; Visit Provider Internal Medicine Cardiovascular Disease
DX: Z45.018 Encounter for adjustment and management of other part of cardiac pacemaker (principal)
CPT/HCPCS: 93294

== ENCOUNTER 2024-05-21 13:39 | Outpatient (AMB) | payer MEDICARE, MEDICAID, SELFPAY ==
[2024-05-21 13:57] VITALS: BP 122/80; PULSE 87; O2SAT 94; BMI 42.9
--- NOTE | 2024-05-21 13:57 | MHC.PC.OV ---
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 Required: No Accompanied by: Self / Same As Patient Allergies No Known Allergies Allergy (Verified 05/21/24 13:58) Tobacco use date assessed: 05/21/24 Fall risk assessment: No Falls in past year Last assessed Fall Risk: 05/21/24 Dental Screening Dental Screen Date: 05/21/24 Did you have a dental visit in the last 12 months?: Yes Did you have a dental problem in the last 6 months where you did not have access to dental care?: No Was dental information given to patient?: Patient has dentist [facility] Medical History Nonischemic cardiomyopathy Pacemaker (~2022) History of syncope Morbid obesity with BMI of 40.0-44.9, adult Insomnia Vitamin D deficiency Pure hypercholesterolemia Type 2 diabetes mellitus without complications Schizophrenia, unspecified Anxiety Essential (primary) hypertension Smoker [place] (obstructive sleep apnea) Morbid (severe) obesity due to excess calories Surgical History History of tooth extraction History of cardiac pacemaker History of wisdom tooth extraction History of root canal procedure Family History Father No problems noted. Mother No problems noted. Family/Other FH: mental illness Mental health disorder Brother Substance use disorder Social History Household Members: None Housing: House Do you presently have visiting nurse or other home services: Yes (vna 3x wk) Alcohol intake: current Alcohol intake frequency: holidays/special occasions only Alcohol type: hard liquor Patient Tobacco Use Status: Current everyday Tobacco user Tobacco use type: Cigarette Cigarette Packs Per Day: 0.5 Cigarettes Per Day: 10 Years Smoked: 40 e-Cigarette/Vaping Use: Never Used Second Hand Smoke Exposure: Yes service: No Current occupational status: retired Cognitive needs: Yes (cane) Hearing needs: No Vision needs: Yes (Glasses) Questionnaire PHQ-9 Over the last 2 weeks, how often have you been bothered by any of the following problems? 1. Little interest or pleasure in doing things: not at all 2. Feeling down, depressed, or hopeless: not at all 3. Trouble falling or staying asleep, or sleeping too much: not at all 4. Feeling tired or having little energy: not at all 5. Poor appetite or overeating: not at all 6. Feeling bad about yourself - or that you are a failure or have let yourself or your family down: not at all 7. Trouble concentrating on things, such as reading the newspaper or watching television: not at all 8. Moving or speaking so slowly that other people could have noticed. Or the opposite - being so fidgety or restless that you have been moving around a lot more than usual: not at all 9. Thoughts that you would be better off or of hurting yourself in some way: not at all Total score: 0 Depression Screening Interpretation: Negative Depression Screening Done: Yes Source: Developed by Drs. Jax Gomez, Michelle Tristan, Rashid Regan and colleagues, with an educational jaja from [employer]. Thrive Questionnaire Date Thrive assessed: 05/21/24 I am a: Patient What is your living situation today?: I have a steady place to live Within the past 12 months, did the food you bought not last and you didn't have the money to get more?: Never true Within the past 12 months, did you worry whether your food would run out before you got money to buy more?: Never true Do you have trouble paying for medicines?: No Do you have trouble getting transportation to medical appointments?: No Do you have trouble paying your heating and electricity bill?: No Do you have trouble taking care of your child, family member or friend?: No Do you have trouble with day-to-day activities such as bathing, preparing meals, shopping, managing finances, etc.?: No Are you currently unemployed and looking for a job?: No Are you interested in more education?: No Please select the resources that you would like help with: None Currently or been in a relationship where the following occur: No concerns reported THRIVE Score: 0 AUDIT C Alcohol Use Questionnaire (AUDIT-C) 1. How often do you have a drink containing alcohol?: Never Total Score: 0 FABIANO-7 AMB Questionnaire FABIANO-7 Date FABIANO - 7 assessed: 05/21/24 Feeling nervous, anxious, or on edge: 0 = Not at all Not being able to stop or control worryin = Not at all Worrying too much about different things: 0 = Not at all Trouble relaxin = Not at all Being so restless that it is hard to sit still: 0 = Not at all Becoming easily annoyed or irritable: 0 = Not at all Feeling afraid as if something awful might happen: 0 = Not at all Total FABIANO-7 score (0-4 normal; 5-9 mild; 10-14 moderate; 15-21 severe): 0 Source: Developed by Drs. Jax Gomez, Michelle Tristan, Rashid Regan and colleagues, with an educational jaja from [employer]. Physical exam (Primary Care) Vital Signs: Last Vital Signs Pulse 87 05/21/24 13:57 BP 122/80 05/21/24 13:57 Pulse Ox 94 05/21/24 13:57 Oxygen Delivery Method Room Air 05/21/24 13:57 BMI result Body Mass Index 42.9 Tobacco/Smoking Status: Tobacco use Status Tobacco use date assessed 05/21/24 05/21/24 14:02 Patient Tobacco Use Status Current everyday Tobacco 05/21/24 14:02 Tobacco use type Cigarette 05/21/24 14:02 e-Cigarette/Vaping Use Never Used 05/21/24 14:02 PHQ-9: PHQ-9 Score PHQ-9: Total score 0 05/21/24 14:02 Depression Screening Interpretation: Negative Thrive Assessment: Date of Thrive Assessment Date Thrive assessed 05/21/24 05/21/24 14:02 Currently or been in a relationship where the following occur: No concerns reported Coding Level of Care Code Est Pt Level 4 (16237) Complex EM visit Add On G2211 Diagnoses Essential (primary) hypertension I10 Pure hypercholesterolemia E78.00 Smoker F17.200 Assessment & Plan Assessment & Plan (1) Essential (primary) hypertension: Code(s): I10 - Essential (primary) hypertension Category: Medical Plan: BP is in range. BW has been ordered. (2) Pure hypercholesterolemia: Code(s): E78.00 - Pure hypercholesterolemia, unspecified Category: Medical Plan: Will call with results of blood work (3) Smoker: Comment: Risks of continued smoking explained . Counselled to quit completely , but he does not have much will power to do that . Patient will be participating in annual lung screening program. Code(s): F17.200 - Nicotine dependence, unspecified, uncomplicated Category: Medical Plan: Prescription for nicotine gum has been discontinued. Patient continues to smoke and use the gum Plan History of Present Illness The patient is a 64-year-old male presenting with concerns about nicotine addiction and leg muscle weakness. He has been using nicotine lozenges as a smoking cessation aid but has been advised to discontinue their long-term use. He reports that the strength in his legs has diminished compared to the past. Additionally, he experiences pain that requires tramadol, which he takes once a day, typically at night. His current treatment includes steady medication adherence with acceptable blood sugar control. The patient also expresses concerns about his mental health, particularly impulsive spending behavior. He describes a recent episode where he spent $100 on non-essential items, reflecting frustration with his actions. The patient lives independently, managing his daily needs such as groceries and meals. 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 Review of Systems - General: Reports feeling weary - Musculoskeletal: Reports decreased leg strength - Psychological: Reports impulsive spending behavior Physical Exam General: Cooperative and healthy appearing Nutritional Appearance: Well nourished Orientation/consciousness: Patient oriented x3 Limitations: No limitations Head: Normal to inspection General: Appearance normal, both eyes and all related structures Neck: Normal visual inspection Chest: Normal palpation of entire chest wall Respiratory: Normal respiratory effort Neurology: Patient oriented x3 Results Plan - Discontinue nicotine lozenges to aid in smoking cessation. - Continue tramadol for pain management, to be taken at night. - Monitor blood sugar levels and ensure medication adherence. - Address impulsive spending behavior as part of mental health management. - Plan for follow-up in three months to reassess smoking cessation efforts, pain management, and mental health. Patient was informed and verbally consented to the use of an ambient scribe for clinic note documentation during this visit. Discussion Notes During our visit, we discussed the importance of stopping nicotine lozenges as they are intended for short-term use in smoking cessation, not prolonged use. I advised the patient to cease using the lozenges once he finishes the current supply. We also discussed the continuation of tramadol at night for managing his pain. The patient indicated satisfactory blood sugar control with his current medication regimen. Concerning his mental health, we reviewed his recent spending behaviors and their impact on him emotionally. We agreed on a plan to explore additional strategies for addressing impulsivity and managing his mental health concerns. Follow-up was scheduled for three months to evaluate progression in these areas. Patient Instructions - Stop using nicotine lozenges once the current supply is concluded. - Continue taking tramadol at night as prescribed. - Maintain current diabetes medication regimen and monitor blood sugar levels. - Consider strategies to manage spending habits. - Plan to return for a follow-up visit in three months. Orders: Orders Liver Panel Today E78.00 - Pure hypercholesterolemia, unspecified, I10 - Essential (primary) hypertension Lipid Panel Today E78.00 - Pure hypercholesterolemia, unspecified, I10 - Essential (primary) hypertension UA and rflx microscopic Today E78.00 - Pure hypercholesterolemia, unspecified, I10 - Essential (primary) hypertension Microalbumin, Random (w Creat) Today E78.00 - Pure hypercholesterolemia, unspecified, I10 - Essential (primary) hypertension Basic Metabolic Panel Today E78.00 - Pure hypercholesterolemia, unspecified, I10 - Essential (primary) hypertension Complete Blood Count no Diff Today E78.00 - Pure hypercholesterolemia, unspecified, I10 - Essential (primary) hypertension Thyroid Stimulating Hormone Today E78.00 - Pure hypercholesterolemia, unspecified, I10 - Essential (primary) hypertension Prostate Specific Antigen Scr Today E78.00 - Pure hypercholesterolemia, unspecified, I10 - Essential (primary) hypertension
== END 2024-05-21 14:44 | disposition home or self-care (01) ==
PROVIDERS: PCP Internal Medicine; Visit Provider Internal Medicine
DX: I10 Essential (primary) hypertension (principal); E78.00 Pure hypercholesterolemia, unspecified; F17.200 Nicotine dependence, unspecified, uncomplicated

== ENCOUNTER → 2024-05-21 13:39 | Outpatient (BNVA) | payer MEDICARE, MEDICAID, SELFPAY | PROVIDERS: PCP Internal Medicine; Visit Provider Internal Medicine | DX: I10 Essential (primary) hypertension (principal); E78.00 Pure hypercholesterolemia, unspecified; F17.200 Nicotine dependence, unspecified, uncomplicated; Z71.6 Tobacco abuse counseling | CPT/HCPCS: 96127; 99212 ==

== ENCOUNTER 2024-05-22 10:53 | Outpatient (REF) | payer MEDICARE, MEDICAID, SELFPAY ==
[2024-05-22 11:48] LABS: Hematocrit 48.6 % (42.0-52.0); Hemoglobin 16.4 g/dl (14.0-18.0); Mean Corpuscular HGB Conc 33.7 g/dl (31.0-36.0); Mean Corpuscular Hemoglobin 30.2 pg (27.0-33.0); Mean Corpuscular Volume 89.5 fL (80.0-98.0); Platelet Count 203 X10*3/uL (160-400); Red Blood Count 5.43 X10*6/uL (4.60-5.80); Red Cell Distribution Width 13.3 % (11.0-16.0); White Blood Count 8.6 X10*3/uL (4.8-10.8)
[2024-05-22 12:17] LABS: Appearance Urine Clear; Color Urine Yellow; Glucose Urine UA >=1000 mg/dL (Negative); Leukocyte Esterase Urine Negative (Negative); Nitrite Urine Negative (Negative); PH 5.5 (5.0-9.0); Specific Gravity - Urine >= 1.030 (1.005-1.025); UMIC TRIGGER UA YES; Urine Blood Negative (Negative); Urine Ketones Negative (Negative); Urine Protein Negative (Neg-Trace)
[2024-05-22 12:44] LABS: Alanine Aminotransferase 29 U/L (0-40); Albumin Level 3.9 g/dL (3.5-5.0); Alkaline Phosphatase 51 U/L (39-117); Anion Gap 10 (12-20); Aspartate Amino Transferase 27 U/L (5-37); Bilirubin Direct 0.3 mg/dL (0.0-0.5); Blood Urea Nitrogen 13 mg/dL (9-16); Calcium 9.4 mg/dL (8.4-10.2); Carbon Dioxide 25 mmol/L (22-29); Chloride 109 mmol/L (96-108); Cholesterol 160 mg/dL (<200); Estimated Glomerular Filt Rate > 60; Glucose Random 161 mg/dL (60-115); HDL Cholesterol 42 mg/dL (>40); LDL Cholesterol Calculated 82 mg/dL (<100); Potassium 4.2 mmol/L (3.3-5.1); Sodium 140 mmol/L (135-145); Thyroid Stimulating Hormone 0.23 uIU/mL (0.32-4.0); Total Protein 6.8 g/dL (6.5-8.0); Triglycerides 183 mg/dL (<150)
[2024-05-22 12:52] LABS: Prostate Specific Antigen Scr 1.77 ng/mL (<0.05-4.0)
[2024-05-22 13:11] LABS: Bacteria Urine None Seen (None Seen); Hyaline Casts Urine 0-2 /LPF (0-2); RBC Urine 0-2 /HPF (0-2); Squamous Epithelial Cell Urine 0-2 /HPF (0-2); WBC Urine 0-5 /HPF (0-5)
[2024-05-22 13:35] LABS: Creatinine Urine 102.79 mg/dL; Microalbumin Urine < 5.0 mg/L
== END 2024-05-22 10:54 | disposition home or self-care (01) ==
LOC: HO.LAB 10:53
PROVIDERS: PCP Internal Medicine; Visit Provider Internal Medicine
DX: I10 Essential (primary) hypertension (principal); E78.00 Pure hypercholesterolemia, unspecified; Z12.5 Encounter for screening for malignant neoplasm of prostate
CPT/HCPCS: 36415; 80048; 80061; 80076; 81001; 81003; 82043; 82570; 84153; 84443; 85027

== ENCOUNTER 2024-06-02 15:36 | Outpatient (REF) | payer MEDICARE, MEDICAID, SELFPAY | END 2024-06-02 15:37 | disposition home or self-care (01) | LOC: HO.LNP 15:36 | PROVIDERS: PCP Internal Medicine; Visit Provider Internal Medicine | DX: H60.92 Unspecified otitis externa, left ear (principal) | CPT/HCPCS: 99212 ==

== ENCOUNTER 2024-06-02 15:36 | Outpatient (AMB) | payer MEDICARE, MEDICAID, SELFPAY ==
--- NOTE | 2024-06-02 15:42 | A.OFFPC_ITS ---
Vital Signs 06/02/24 15:43 Height 5 ft 10 in Weight 300 lb 4 oz BMI 43.1 BP 146/80 H Blood Pressure Location Lt brachial Position Sitting Pulse 93 Pulse Source Pulse Oximeter Temp 97.2 F Temp Source Temporal Artery Scan Pulse Oximetry (%) 96 Oxygen Delivery Method Room Air Intake Visit Reasons: left ear ringing Intake Note: Patient is here to follow up on Left ear ringing, congestion, chills, body aches, feeling hot. Symptoms started yesterday. Has not tested for covid. 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 Required: No Patient Coordinator: Not Required per policy Accompanied by: Self / Same As Patient Allergies No Known Allergies Allergy (Verified 06/02/24 16:17) Medication List - Last Reconciled 06/02/24 by Emy Martinez PA-C acetaminophen (Tylenol) 325 mg PO TID PRN amoxicillin-pot clavulanate 875-125 mg 1 tab PO BID 10 days aripiprazole 5 mg PO BEDTIME blood sugar diagnostic ([employer] Ultra Test strips) As directed 2 times per day blood-glucose meter ([employer] Ultra2 Meter) As directed to test BS 2 times per day carbamide peroxide 6.5% (Debrox) 5 drps otic (ear) left Q12H 4 days carvedilol 12.5 mg PO BID cetirizine 10 mg PO DAILY ciprofloxacin-hydrocortisone 0.2-1 % 3 drps otic (ear) left BID 7 days empagliflozin (Jardiance) 25 mg PO DAILY ergocalciferol (vitamin D2) 1,250 mcg PO SA@0900 escitalopram oxalate 10 mg PO BEDTIME fluticasone propionate 50 mcg/actuation (Flonase Allergy Relief) 1 spray intranasal DAILY ketoconazole 2% 1 appl topical DAILY lancets ([employer] Delica Safety Lancet) As directed 2 times per day lisinopril 20 mg PO DAILY lorazepam 1 tab PO BEDTIME PRN metformin 1,000 mg (2 x 500 mg) PO BID nicotine (polacrilex) 2 mg buccal Q2H ofloxacin 0.3% 10 drps otic (ear) left DAILY 7 days pioglitazone 15 mg PO DAILY quetiapine 25 mg PO BEDTIME PRN simvastatin 40 mg PO DAILY tramadol 50 mg PO BEDTIME PRN 30 days zolpidem 5 mg PO BEDTIME Tobacco use date assessed: 06/02/24 Fall risk assessment: No Falls in past year Last assessed Fall Risk: 06/02/24 Dental Screening Dental Screen Date: 05/21/24 FORMERLY [facility] Medical History Nonischemic cardiomyopathy Pacemaker (~2022) History of syncope Morbid obesity with BMI of 40.0-44.9, adult Insomnia Vitamin D deficiency Pure hypercholesterolemia Type 2 diabetes mellitus without complications Schizophrenia, unspecified Anxiety Essential (primary) hypertension Smoker [place] (obstructive sleep apnea) Morbid (severe) obesity due to excess calories Surgical History History of tooth extraction History of cardiac pacemaker History of wisdom tooth extraction History of root canal procedure Family History Father No problems noted. Mother No problems noted. Family/Other FH: mental illness Mental health disorder Brother Substance use disorder Social History Household Members: None Housing: House Do you presently have visiting nurse or other home services: Yes (vna 3x wk) Alcohol intake: current Alcohol intake frequency: holidays/special occasions only Alcohol type: hard liquor Patient Tobacco Use Status: Current everyday Tobacco user Tobacco use type: Cigarette Cigarette Packs Per Day: 0.5 Cigarettes Per Day: 10 Years Smoked: 40 e-Cigarette/Vaping Use: Never Used Second Hand Smoke Exposure: Yes service: No Current occupational status: retired Cognitive needs: Yes (cane) Hearing needs: No Vision needs: Yes (Glasses) Questionnaire Thrive Questionnaire Date Thrive assessed: 05/21/24 FABIANO-7 AMB Questionnaire FABIANO-7 Date FABIANO - 7 assessed: 05/21/24 Source: Developed by Drs. Jax Gomez, Michelle Tristan, Rashid Regan and colleagues, with an educational jaja from [employer]. Physical exam (Primary Care) Vital Signs: Last Vital Signs Temp 97.2 F 06/02/24 15:43 Pulse 93 06/02/24 15:43 BP 146/80 H 06/02/24 15:43 Pulse Ox 96 06/02/24 15:43 Oxygen Delivery Method Room Air 06/02/24 15:43 BMI result Body Mass Index 43.1 Tobacco/Smoking Status: Tobacco use Status Tobacco use date assessed 06/02/24 06/02/24 15:46 Patient Tobacco Use Status Current everyday Tobacco 06/02/24 15:46 Tobacco use type Cigarette 06/02/24 15:46 e-Cigarette/Vaping Use Never Used 06/02/24 15:46 Thrive Assessment: Date of Thrive Assessment Date Thrive assessed 05/21/24 06/02/24 15:46 Coding Level of Care Code Est Pt Level 4 (80301) Complex EM visit Add On G2211 Diagnoses Otitis externa H60.90 Assessment & Plan Assessment & Plan (1) Otitis externa: Code(s): H60.90 - Unspecified otitis externa, unspecified ear Category: Medical Plan Plan - Recommend ear drops and Oral Augmentin to manage suspected otitis externa. - Consider antibiotics if symptoms of infection persist or worsen. - Monitor blood sugar levels closely due to a diagnosis of diabetes mellitus. - Conduct nasal swab testing for potential sinus infection; follow-up on results if positive or negative. Orders: Orders SARS-CoV2/FLU/RSV Today Rajeev Sawant MD R09.89 - Other specified symptoms and signs involving the circulatory and respiratory systems Medications: New amoxicillin-pot clavulanate 875-125 mg 1 tab PO BID 20 tabs 0RF otitis externa 10 days Emy Martinez PA-C ciprofloxacin-hydrocortisone 0.2-1 % 3 drps otic (ear) left BID 10 mL 1RF otitis externa 7 days Eym Martinez PA-C Patient Instructions: Patient Instructions - Begin using prescribed ear drops for the left ear to manage suspected otitis externa. Along with Oral antibiotic's. - Monitor blood sugar levels and maintain diabetes management. - If you experience worsening symptoms or a lack of improvement, consult with our office promptly. - Wait for results of nasal swab testing and follow through with recommendations once notified. Scribe Plan - Not visible on output: History of Present Illness The patient is a 64-year-old male presenting with nasal congestion, tinnitus, and epistaxis. He reports experiencing congestion and a dull ringing in his left ear. These symptoms began worsening from the previous day to today. He noticed a small amount of blood in his left nostril and complains of a stuffy feeling in his head accompanied by discomfort. There have been no fevers, but there is a history of feeling chilly and slightly sweaty. The patient also reports having a pacemaker, but there are no significant changes in his baseline shortness of br eath. The patient denies sore throat, chest pain, and coughing. He lives alone and has no known exposure to anyone who has been sick. He has not traveled recently. He also mentioned having diabetes mellitus with a recent blood sugar reading of 142. He had a history of non-bloody vomiting (dry heaves) a few days ago on Exaleade. otherwise patient denies any other symptoms complaints or concerns at this time. He reports he has not been swimming or on any airplane recently. Social History - Lives alone - No recent exposure to illness within his social [place] - Diabetes management: current blood sugar reading of 142 Review of Systems - General: Reports feeling chilly and slightly sweaty. - Respiratory: Denies coughing. - Gastrointestinal: Denies nausea, vomiting, or diarrhea. - Genitourinary: Denies burning on urination or blood in the urine. Physical Exam Appearance: Alert. Oriented X3. No acute distress. Head: Normal external exam. Normocephalic. Atraumatic. Eyes: Pupils are equal, round, and reactive to light. Extraocular movements intact. Conjunctiva and sclera normal. Eyelids normal. Ears: Left ear with dull ringing and possible fungal infection. Right external ear canal and tympanic membrane within normal limits. Left external ear canal mild redness with fluffy exudate noted in the canal consistent with otitis externa. Tympanic membrane is intact non erythematous to the left side. There is no tenderness upon manipulation of the pinna, tragus or the mastoid. There is no erythema, swelling over the mastoid or tenderness.?External auditory canal normal on the right. Tympanic membranes normal on the right. Throat: Pharynx normal. Uvula midline. Moist mucous membranes. No trismus noted. No drooling noted. No muffled voice noted. Neck: Normal inspection. Neck supple. Full range of motion. No adenopathy. Thyroid Normal. No meningeal signs. No neck mass noted. Cardiovascular: Normal heart rate and rhythm. Heart sound normal. No murmurs noted. Pulses normal throughout. Respiratory: No respiratory distress. Painless inspiration. Breath sounds normal. No wheezes/rales/rhonchi noted. Chest nontender. No accessory muscle usage noted or decreased air movement noted. Abdomen: Soft and nontender. Bowel sounds normal in all 4 quadrants. No distention noted. No organomegaly noted. No visible injury noted. Back: Full range of motion noted. Skin: Skin warm and dry. Normal skin color. Normal skin turgor. No rashes/lesions/lacerations noted. Extremities: Extremities exhibit normal range of motion. Extremities nontender. Neuro: Oriented X 3. No motor deficit. No sensory deficit. Reflexes normal. Results - COVID and flu swab obtained pending at this time Patient was informed and verbally consented to the use of an ambient scribe for clinic note documentation during this visit. Discussion Notes I discussed with the patient the suspicion of otitis externa due to fungal infection, likely accounting for the tinnitus in the left ear. I recommended ear drops as initial management. We also talked about the possible need for antibiotics if symptoms do not improve. I emphasized monitoring blood sugar levels because of the patient's diabetes mellitus and recommended further testing for potential sinus infection. The patient was informed that we would contact him with results from the nasal swab and test for potential infections like COVID-19 and influenza.
[2024-06-02 15:43] VITALS: BP 146/80; PULSE 93; TEMP 36.2; O2SAT 96; BMI 43.1
== END 2024-06-02 17:03 | disposition home or self-care (01) ==
PROVIDERS: PCP Internal Medicine; Visit Provider Internal Medicine
DX: H60.92 Unspecified otitis externa, left ear (principal)

== ENCOUNTER 2024-06-05 11:47 | Outpatient (REF) | payer MEDICARE, MEDICAID, SELFPAY ==
[2024-06-05 14:25] LABS: Influenza A PCR NEGATIVE (Negative); Influenza B PCR NEGATIVE (Negative); Resp Syncy Virus RNA Qual PCR NEGATIVE (Negative); SARS COV2 PCR INHOUSE NEGATIVE (Negative)
== END 2024-06-05 11:48 | disposition home or self-care (01) ==
LOC: HO.LAB 11:47
PROVIDERS: PCP Internal Medicine; Visit Provider Internal Medicine
DX: J06.9 Acute upper respiratory infection, unspecified (principal)
CPT/HCPCS: 0241U

== ENCOUNTER → 2024-07-14 23:59 | Outpatient (BNV) | payer MEDICARE, MEDICAID, SELFPAY ==
--- NOTE | 2024-07-17 14:14 | MHC.OFFVIS ---
Intake Visit Reasons: Remote device check- [employer] Allergies No Known Allergies Allergy (Verified 07/15/24 14:09) [facility] Medical History (Updated 07/15/24 @ 14:22 by Magdalena Tony MD) Acute adenoviral follicular conjunctivitis Nonischemic cardiomyopathy Pacemaker (~2022) History of syncope Morbid obesity with BMI of 40.0-44.9, adult Insomnia Vitamin D deficiency Pure hypercholesterolemia Type 2 diabetes mellitus without complications Schizophrenia, unspecified Anxiety Essential (primary) hypertension Smoker [place] (obstructive sleep apnea) Morbid (severe) obesity due to excess calories Surgical History History of tooth extraction History of cardiac pacemaker History of wisdom tooth extraction History of root canal procedure Family History Father No problems noted. Mother No problems noted. Family/Other FH: mental illness Mental health disorder Brother Substance use disorder Social History Household Members: None Housing: House Do you presently have visiting nurse or other home services: Yes (vna 3x wk) Alcohol intake: current Alcohol intake frequency: holidays/special occasions only Alcohol type: hard liquor Patient Tobacco Use Status: Current everyday Tobacco user Tobacco use type: Cigarette Cigarette Packs Per Day: 0.5 Cigarettes Per Day: 10 Years Smoked: 40 e-Cigarette/Vaping Use: Never Used Second Hand Smoke Exposure: Yes service: No Current occupational status: retired Cognitive needs: Yes (cane) Hearing needs: No Vision needs: Yes (Glasses) Office Procedures Cardiac Device Check Cardiac Device Check Details: Remote pacemaker report generated 07/14/2024. Pacemaker function is adequate [id number] Cardiac Device Interrogation, pacemaker Procedure code (CPT) selection complete Assessment & Plan Assessment & Plan (1) Pacemaker: Onset Date: ~2022 Comment: (Medtronic DCPP - placed 06/2022) Code(s): Z95.0 - Presence of cardiac pacemaker Category: Medical Plan: See above Coding Level of Care Code Procedure Only Diagnoses Pacemaker Z95.0 CPT Codes Cardiac Device Check - Cardiac Device 12: [id number] Cardiac Device Interrogation, pacemaker ([id number])
== END ==
PROVIDERS: PCP Internal Medicine; Visit Provider Internal Medicine Cardiovascular Disease
DX: Z45.018 Encounter for adjustment and management of other part of cardiac pacemaker (principal)
CPT/HCPCS: 93294

== ENCOUNTER 2024-07-15 13:29 | Outpatient (AMB) | payer MEDICARE, MEDICAID, SELFPAY ==
--- NOTE | 2024-07-15 13:43 | MHC.OFFVIS ---
Vital Signs 07/15/24 13:44 Height 5 ft 10 in Weight 306 lb 7.08 oz BMI 44.0 BP 130/78 Blood Pressure Location Lt radial Position Sitting Pulse 70 Pulse Source Pulse Oximeter Pulse Oximetry (%) 95 Oxygen Delivery Method Room Air Intake Visit Reasons: COPD Intake Note: pt is here for follow up of [place]/copd and states he is congested in the sinus area, doing well with cpap Mobile Unit Assistant Required: No Allergies No Known Allergies Allergy (Verified 07/15/24 14:09) Medication List - Last Reconciled 07/15/24 by Magdalena Tony MD acetaminophen (Tylenol) 325 mg PO TID PRN aripiprazole 5 mg PO BEDTIME blood sugar diagnostic ([employer] Ultra Test strips) As directed 2 times per day blood-glucose meter ([employer] Ultra2 Meter) As directed to test BS 2 times per day carbamide peroxide 6.5% (Debrox) 5 drps otic (ear) left Q12H 4 days carvedilol 12.5 mg PO BID cetirizine 10 mg PO DAILY ciprofloxacin-hydrocortisone 0.2-1 % 3 drps otic (ear) left BID 7 days empagliflozin (Jardiance) 25 mg PO DAILY ergocalciferol (vitamin D2) 1,250 mcg PO SA@0900 escitalopram oxalate 10 mg PO BEDTIME fluticasone propionate 50 mcg/actuation (Flonase Allergy Relief) 1 spray intranasal DAILY ketoconazole 2% 1 appl topical DAILY lancets ([employer]ica Safety Lancet) As directed 2 times per day lisinopril 20 mg PO DAILY lorazepam 1 tab PO BEDTIME PRN metformin 1,000 mg (2 x 500 mg) PO BID nicotine (polacrilex) 2 mg buccal Q2H ofloxacin 0.3% 10 drps otic (ear) left DAILY 7 days pioglitazone 15 mg PO DAILY quetiapine 25 mg PO BEDTIME PRN simvastatin 40 mg PO DAILY tramadol 50 mg PO BEDTIME PRN 30 days zolpidem 5 mg PO BEDTIME Do you need a note to return to daycare/school/sports/work: No HPI HPI COPD: Details: Troy, 64 years old gentleman with morbid obesity and obstructive sleep apnea is here for 6 months follow-up with. He has put on more weight, uses CPAP every night regularly and sleeps well. He was doing okay but in the last 1 week he complains of left eye congestion(pink eye ) And also feels some congestion in the nose and sinuses. Breathing is okay except for mild intermittent cough. He has been sleeping with the CPAP very well and uses the CPAP up to 8 or 9 hours per night. He has put on more weight, as he has been stranded. at home during the winter months TROY STILL SMOKES ABOUT 10 CIGARETTES A DAY. [facility] Medical History (Updated 07/15/24 @ 14:22 by Magdalena Tony MD) Acute adenoviral follicular conjunctivitis Nonischemic cardiomyopathy Pacemaker (~2022) History of syncope Morbid obesity with BMI of 40.0-44.9, adult Insomnia Vitamin D deficiency Pure hypercholesterolemia Type 2 diabetes mellitus without complications Schizophrenia, unspecified Anxiety Essential (primary) hypertension Smoker [place] (obstructive sleep apnea) Morbid (severe) obesity due to excess calories Surgical History History of tooth extraction History of cardiac pacemaker History of wisdom tooth extraction History of root canal procedure Family History Father No problems noted. Mother No problems noted. Family/Other FH: mental illness Mental health disorder Brother Substance use disorder Social History Household Members: None Housing: House Do you presently have visiting nurse or other home services: Yes (vna 3x wk) Alcohol intake: current Alcohol intake frequency: holidays/special occasions only Alcohol type: hard liquor Patient Tobacco Use Status: Current everyday Tobacco user Tobacco use type: Cigarette Cigarette Packs Per Day: 0.5 Cigarettes Per Day: 10 Years Smoked: 40 e-Cigarette/Vaping Use: Never Used Second Hand Smoke Exposure: Yes service: No Current occupational status: retired Cognitive needs: Yes (cane) Hearing needs: No Vision needs: Yes (Glasses) Review of Systems Const All systems reviewed & are unremarkable except as noted in HPI and below Eyes Reports no additional complaints ENT Reports dizziness (Nonspecific) and Reports nasal congestion (Mild off and on) Card Denies chest pain, Denies irregular heart rhythm, Denies leg edema and Reports dyspnea on exertion (Mild) Resp Reports cough, Reports dyspnea on exertion (Mild) and Reports wheezing GI Reports no additional complaints Reports no additional complaints Musc Reports back pain Skin/Breast Reports system reviewed and no additional complaints, except as documented Neuro Reports dizziness (Nonspecific) Psych Reports anxiety, Reports depression and Reports mood swings Endo Reports no additional complaints and Reports other (Being treated for diabetes mellitus) Abner/Lymph Reports no additional complaints Aller/Immun Reports no additional complaints and Reports wheezing Physical Exam Vital Signs: Last Vital Signs Pulse 70 07/15/24 13:44 BP 130/78 07/15/24 13:44 Pulse Ox 95 07/15/24 13:44 Oxygen Delivery Method Room Air 07/15/24 13:44 BMI result Body Mass Index 44.0 Const General: comfortable, no acute distress, alert and awake Orientation/consciousness: patient oriented x3 HEENT Head: Yes normal to inspection General nose exam: No nasal polyps present and No nasal discharge present Face and sinus: Yes sinuses nontender Mouth: oropharynx normal Throat: Yes posterior oropharynx normal Eyes Sclerae: scleral abnormal (LEFT EYE HAS SCLERAL REDNESS AND CONGESTION.) Neck Neck: Yes normal visual inspection, Yes no lymphadenopathy, Yes trachea midline and Yes no JVD Thyroid: Thyroid normal Chest Chest palpation & inspection: normal inspection of the chest, normal palpation of entire chest wall, no tenderness and other (Pacemaker battery in left pectoral area) Resp Effort & Inspection: normal respiratory effort Auscultation: clear to auscultation bilaterally, no crackles, no wheezes and diminished lung sounds (Diminished over the basilar areas) Cardio Palpation: normal PMI Rate: regular rate Rhythm: regular rhythm Heart sounds: no gallops and no murmurs GI Palpation (GI): Soft to palpation, nontender, No hepatosplenomegaly present, no masses and Other GI palpation findings present (Abdomen is grossly obese and protuberant) Auscultation: normal bowel sounds Back/Spine/Pelvis Thoracic/Lumbar Spine: thoracic and lumbar spine normal to inspection and thoraco-lumbar ROM limited Skin General skin exam: no rashes or lesions noted Neuro General: patient oriented x3 and no focal motor deficits Cranial nerves: Yes CN's II-XII intact bilaterally Extrem General: Yes normal to inspection, Yes no clubbing, cyanosis or edema and Yes no calf tenderness Psych Appearance: grossly normal, well kempt and other (Quiet and slow in conversation) Speech and movement: Normal speech and movement present Results Reviewed Results Reviewed: COMPLIANCE REPORT FOR THE LAST 30 NIGHTS IS REVIEWED. HE HAS USED 30/30 NIGHTS AND AVERAGE USE IT PER NIGHT 8 HOURS 46 MINUTES. THERE HAS BEEN MILD TO MODERATE DEGREE OF AIR LEAK AND RESIDUAL AHI IS 6.4 Assessment & Plan Assessment & Plan (1) Morbid obesity with BMI of 40.0-44.9, adult: Comment: BMI = 42.7 He has had morbid obesity throughout his adult life. Has not been able to lose weight. The weight has gone up by 6 lbS as he has remained sedentary in Winter months . Code(s): E66.01 - Morbid (severe) obesity due to excess calories; Z68.41 - Body mass index [BMI] 40.0-44.9, adult Category: Medical Plan: Discussed about his weight gain and encouraged him to start walking every day. He may go to the mall and walk over there. Cut down on eating of carbohydrates . . And also cut down portions in general (2) [place] (obstructive sleep apnea): Comment: Chronic problem. Very COMPLIANT , He got new CPAP machine which is working well. No issues with the mask or CPAP machine. Code(s): G47.33 - Obstructive sleep apnea (adult) (pediatric) Category: Medical Plan: Commended for good compliance and advised to continue using the CPAP regularly every night (3) Smoker: Comment: Risks of continued smoking explained . Counselled to quit completely , but he does not have much will power to do that . Patient will be participating in annual lung screening program. Code(s): F17.200 - Nicotine dependence, unspecified, uncomplicated Category: Social Hx Plan: Again counseled him to cut down on the number of cigarettes as much as possible (4) Acute adenoviral follicular conjunctivitis: Comment: He has acute conjunctivitis of the left eye, it is most likely viral ( adeno virus) but bacterial infection can not be. Ruled out Code(s): B30.1 - Conjunctivitis due to adenovirus Category: Medical Plan: As it will be difficult for this gentleman to go to an design intern, I took liberty of prescribing sulfacetamide eyedrops. And instructed him to put to drops in the left eye t.i.d.. If the i.e. gets any worse then he would need to go to urgent care clinic emergency room or to his primary care physician. Medications: New sulfacetamide sodium 10% 2 gtts in left eye tid x 1 week 1 drp ophthalmic (eye) Q4H 15 mL 0RF conjunctivitis 7 days Coding Level of Care Code Est Pt Level 3 (75183) Diagnoses Morbid obesity with BMI of 40.0-44.9, adult E66.01; Z68.41 [place] (obstructive sleep apnea) G47.33 Smoker F17.200 Acute adenoviral follicular conjunctivitis B30.1
[2024-07-15 13:44] VITALS: BP 130/78; PULSE 70; O2SAT 95; BMI 44.0
== END 2024-07-15 14:08 | disposition home or self-care (01) ==
PROVIDERS: PCP Internal Medicine; Visit Provider Internal Medicine
DX: E66.01 Morbid (severe) obesity due to excess calories (principal); Z68.41 Body mass index [BMI] 40.0-44.9, adult; G47.33 Obstructive sleep apnea (adult) (pediatric); F17.200 Nicotine dependence, unspecified, uncomplicated; B30.1 Conjunctivitis due to adenovirus
CPT/HCPCS: 99213

== ENCOUNTER → 2024-07-15 13:29 | Outpatient (BNVA) | payer MEDICARE, MEDICAID, SELFPAY | PROVIDERS: PCP Internal Medicine; Visit Provider Internal Medicine | DX: J44.9 Chronic obstructive pulmonary disease, unspecified (principal); G47.33 Obstructive sleep apnea (adult) (pediatric); E66.01 Morbid (severe) obesity due to excess calories; F17.210 Nicotine dependence, cigarettes, uncomplicated; B30.1 Conjunctivitis due to adenovirus; Z68.41 Body mass index [BMI] 40.0-44.9, adult; Z99.89 Dependence on other enabling machines and devices | CPT/HCPCS: 99212 ==

== ENCOUNTER 2024-08-15 11:12 | Outpatient (AMB) | payer MEDICARE, MEDICAID, SELFPAY ==
--- NOTE | 2024-08-15 11:22 | MHC.PC.OV ---
Vital Signs 08/15/24 11:24 Height 5 ft 10 in Weight 294 lb 4 oz BMI 42.2 BP 110/60 Blood Pressure Location Lt brachial Position Sitting Pulse 71 Pulse Source Pulse Oximeter Temp 96.6 F L Temp Source Temporal Artery Scan Pulse Oximetry (%) 96 Oxygen Delivery Method Room Air Intake Visit Reasons: boil left upper back Intake Note: Patient is here to follow up on Boil left upper back. Emergency Medical Tech Required: No Trigonometry Teacher: Not Required per policy Accompanied by: Self / Same As Patient Allergies No Known Allergies Allergy (Verified 08/15/24 12:01) Medication List - Last Reconciled 08/15/24 by Emy Martinez PA-C acetaminophen (Tylenol) 325 mg PO TID PRN aripiprazole 5 mg PO BEDTIME blood sugar diagnostic ([employer] Ultra Test strips) As directed 2 times per day blood-glucose meter ([employer] Ultra2 Meter) As directed to test BS 2 times per day carbamide peroxide 6.5% (Debrox) 5 drps otic (ear) left Q12H 4 days carvedilol 12.5 mg PO BID cephalexin 500 mg PO Q6H 10 days cetirizine 10 mg PO DAILY doxycycline hyclate 100 mg PO BID 10 days empagliflozin (Jardiance) 25 mg PO DAILY ergocalciferol (vitamin D2) 1,250 mcg PO SA@0900 escitalopram oxalate 10 mg PO BEDTIME fluticasone propionate 50 mcg/actuation (Flonase Allergy Relief) 1 spray intranasal DAILY ketoconazole 2% 1 appl topical DAILY lancets ([employer] Delica Safety Lancet) As directed 2 times per day lisinopril 20 mg PO DAILY lorazepam 1 tab PO BEDTIME PRN metformin 1,000 mg (2 x 500 mg) PO BID nicotine (polacrilex) 2 mg buccal Q2H pioglitazone 15 mg PO DAILY quetiapine 25 mg PO BEDTIME PRN simvastatin 40 mg PO DAILY sulfacetamide sodium 10% 1 drp ophthalmic (eye) Q4H 7 days tramadol 50 mg PO BEDTIME PRN 30 days zolpidem 5 mg PO BEDTIME Tobacco use date assessed: 08/15/24 Fall risk assessment: No Falls in past year Last assessed Fall Risk: 08/15/24 Dental Screening Dental Screen Date: 08/15/24 Did you have a dental visit in the last 12 months?: Yes Did you have a dental problem in the last 6 months where you did not have access to dental care?: No Was dental information given to patient?: Patient has dentist [facility] Medical History (Updated 08/15/24 @ 12:05 by Emy Martinez PA-C) Back abscess Cellulitis Encounter for incision and drainage procedure Left buttock abscess Acute adenoviral follicular conjunctivitis Nonischemic cardiomyopathy Pacemaker (~2022) History of syncope Morbid obesity with BMI of 40.0-44.9, adult Insomnia Vitamin D deficiency Pure hypercholesterolemia Type 2 diabetes mellitus without complications Schizophrenia, unspecified Anxiety Essential (primary) hypertension Smoker [place] (obstructive sleep apnea) Morbid (severe) obesity due to excess calories Surgical History History of tooth extraction History of cardiac pacemaker History of wisdom tooth extraction History of root canal procedure Family History Father No problems noted. Mother No problems noted. Family/Other FH: mental illness Mental health disorder Brother Substance use disorder Social History Household Members: None Housing: House Do you presently have visiting nurse or other home services: Yes (vna 3x wk) Alcohol intake: current Alcohol intake frequency: holidays/special occasions only Alcohol type: hard liquor Patient Tobacco Use Status: Current everyday Tobacco user Tobacco use type: Cigarette Cigarette Packs Per Day: 0.5 Cigarettes Per Day: 10 Years Smoked: 40 e-Cigarette/Vaping Use: Never Used Second Hand Smoke Exposure: Yes service: No Current occupational status: retired Cognitive needs: Yes (cane) Hearing needs: No Vision needs: Yes (Glasses) Questionnaire PHQ-9 Over the last 2 weeks, how often have you been bothered by any of the following problems? 1. Little interest or pleasure in doing things: not at all 2. Feeling down, depressed, or hopeless: not at all 3. Trouble falling or staying asleep, or sleeping too much: not at all 4. Feeling tired or having little energy: not at all 5. Poor appetite or overeating: not at all 6. Feeling bad about yourself - or that you are a failure or have let yourself or your family down: not at all 7. Trouble concentrating on things, such as reading the newspaper or watching television: not at all 8. Moving or speaking so slowly that other people could have noticed. Or the opposite - being so fidgety or restless that you have been moving around a lot more than usual: not at all 9. Thoughts that you would be better off or of hurting yourself in some way: not at all Total score: 0 Depression Screening Interpretation: Negative Depression Screening Done: Yes 51205 - PHQ-9 Billing: Yes Source: Developed by Drs. Jax Gomez, Michelle Tristan, Rashid Regan and colleagues, with an educational jaja from [employer]. Thrive Questionnaire Date Thrive assessed: 08/15/24 I am a: Patient What is your living situation today?: I have a steady place to live Within the past 12 months, did the food you bought not last and you didn't have the money to get more?: Never true Within the past 12 months, did you worry whether your food would run out before you got money to buy more?: Never true Do you have trouble paying for medicines?: No Do you have trouble getting transportation to medical appointments?: No Do you have trouble paying your heating and electricity bill?: No Do you have trouble taking care of your child, family member or friend?: No Do you have trouble with day-to-day activities such as bathing, preparing meals, shopping, managing finances, etc.?: No Are you currently unemployed and looking for a job?: No Are you interested in more education?: No Please select the resources that you would like help with: None Currently or been in a relationship where the following occur: No concerns reported THRIVE Score: 0 AUDIT C Alcohol Use Questionnaire (AUDIT-C) 1. How often do you have a drink containing alcohol?: Never Total Score: 0 Score Reviewed/Action Taken: No FABIANO-7 AMB Questionnaire FABIANO-7 Date FABIANO - 7 assessed: 08/15/24 Feeling nervous, anxious, or on edge: 0 = Not at all Not being able to stop or control worryin = Not at all Worrying too much about different things: 0 = Not at all Trouble relaxin = Not at all Being so restless that it is hard to sit still: 0 = Not at all Becoming easily annoyed or irritable: 0 = Not at all Feeling afraid as if something awful might happen: 0 = Not at all Total FABIANO-7 score (0-4 normal; 5-9 mild; 10-14 moderate; 15-21 severe): 0 Source: Developed by Drs. Jax Gomez, Michelle Tristan, Rashid Regan and colleagues, with an educational jaja from [employer]. FABIANO-7 Assessment Billing FABIANO-7 Assessment Tool: FABIANO-7 Assessment 42704 Physical exam (Primary Care) Vital Signs: Last Vital Signs Temp 96.6 F L 08/15/24 11:24 Pulse 71 08/15/24 11:24 BP 110/60 08/15/24 11:24 Pulse Ox 96 08/15/24 11:24 Oxygen Delivery Method Room Air 08/15/24 11:24 BMI result Body Mass Index 42.2 Tobacco/Smoking Status: Tobacco use Status Tobacco use date assessed 08/15/24 08/15/24 11:32 Patient Tobacco Use Status Current everyday Tobacco 08/15/24 11:32 Tobacco use type Cigarette 08/15/24 11:32 e-Cigarette/Vaping Use Never Used 08/15/24 11:32 PHQ-9: PHQ-9 Score PHQ-9: Total score 0 08/15/24 11:32 Depression Screening Interpretation: Negative Thrive Assessment: Date of Thrive Assessment Date Thrive assessed 08/15/24 08/15/24 11:32 Currently or been in a relationship where the following occur: No concerns reported Office Procedures Incision and Drainage Details: left back abscess Incision and drainage performed by: Emy Martinez Informed consent given: Yes Consent signed: Yes (verbal consent ) Time out checklist: patient, procedure, site marked/identified, positioning of patient, supplies available, allergies confirmed and team agrees on procedure Time out staff in room: Yes Time out verified: Yes Time out date: 08/15/24 Time out time: 11:45 Location: left back Anesthesia: local Incision with: #15 blade Drainage quality: purulent Probed cavity: Yes Culture taken: No Lesion: erythema, drainage and fluctuance Lesion size (cm): 2 Hemostasis: pressure Cavity management: irrigated Dressing: gauze Patient tolerated procedure: well Complications: No Results AMB Hemoglobin A1c AMB Hemoglobin A1c 7.3 % Last Edit by MIRACLE Ochoa on 08/15/24 11:44 Results Reviewed Results Reviewed: Laboratory Last Values Hgb A1c (Clinic) 7.3 % (4.0-6.0) H 08/15/24 11:21 Coding Level of Care Code Est Pt Level 4 (74111) Procedure Only Diagnoses Cellulitis L03.90 Encounter for incision and drainage procedure Z76.89 Back abscess L02.212 Additional Codes PHQ-9 - 55647 - PHQ-9 Billing: Yes ([id number]) FABIANO-7 Assessment Billing - FABIANO-7 Assessment Tool: FABIANO-7 Assessment 07629 ([id number]) Assessment & Plan Assessment & Plan (1) Cellulitis: Code(s): L03.90 - Cellulitis, unspecified Category: Medical Plan: Abscess to left back. Patient now status post I and D of abscess. Patient tolerated procedure well. No complications. Mild surrounding erythema consistent with cellulitis. Will place on doxycycline b.i.d. 100 mg for 10 days and Keflex 500 mg q.i.d.. Patient to return on for re-evaluation/wound check. Patient referred to the Wound Center. Condition is stable continue to monitor. (2) Encounter for incision and drainage procedure: Code(s): Z76.89 - Persons encountering health services in other specified circumstances Category: Medical Plan: Patient tolerated procedure well to left back abscess. No complications. Dressing applied. (3) Back abscess: Code(s): L02.212 - Cutaneous abscess of back [any part, except buttock] Category: Medical Plan: Patient tolerated procedure well to left back abscess. No complications. Dressing applied. Plan Plan Patient was informed and verbally consented to the use of an ambient scribe for clinic note documentation during this visit. 1. Cutaneous abscess of left back The plan included incision and drainage of the abscess using lidocaine for local anesthesia to manage the evacuation of purulent material effectively. Antibiotic therapy with doxycycline and cephalexin was initiated to prevent secondary infection. Wound management involved regular cleaning and dressing changes. The patient was advised on sun exposure precautions due to doxycycline. A follow-up appointment was arranged for monitoring recovery progress. Discussion Notes I discussed with the patient the diagnosis of an abscess on the left back and the management plan, which included incision and drainage. The benefits and risks of lidocaine anesthesia were reviewed, with emphasis on potential discomfort versus procedural success. The importance of starting antibiotic therapy with doxycycline and cephalexin was underscored to mitigate infection risks. I explained the side effect of photosensitivity associated with doxycycline and advised against sun exposure. We planned wound care instructions emphasizing soothing cleanses with soap and water, avoiding alcohol or peroxide, and keeping the area bandaged. I scheduled a follow-up visit on to evaluate healing. Referral to a wound clinic was arranged for further care if necessary. Orders: Orders AMB Hemoglobin A1c Today E11.9 - Type 2 diabetes mellitus without complications Referrals Wound Care Referral L02.31 - Cutaneous abscess of buttock, L03.90 - Cellulitis, unspecified, Z76.89 - Persons encountering health services in other specified circumstances Medications: New cephalexin 500 mg PO Q6H 40 caps 0RF 10 days doxycycline hyclate 100 mg PO BID 20 tabs 0RF 10 days Refilled carbamide peroxide 6.5% (Debrox) 5 drps otic (ear) left Q12H 15 mL 0RF 4 days Patient Instructions: Patient Instructions - Clean the wound with soap and water daily and apply a new dressing twice a day or as needed. - Avoid direct sun exposure while taking doxycycline; use sunscreen if necessary. - Begin taking doxycycline and cephalexin as prescribed for 10 days. - Watch for symptoms such as fever, worsening pain, or swelling, and seek prompt medical attention if they occur. - Follow up on for a wound check or go to the wound center if contacted. - Monitor for any adverse reactions and report them accordingly. - Obtain larger bandages if necessary for dressing changes. Scribe Plan - Not visible on output: History of Present Illness The patient is a 64-year-old male presenting with an abscess on the left back. The onset was noted a couple of days prior to the visit. The abscess started to drain on its own, indicating partial spontaneous resolution. There's no associated fever, chills, or signs of systemic infection. The absence of previous MRSA infections was highlighted. Clinical examination revealed an area with a buildup of purulent material, suspected to be due to ingrown hair. The patient agreed to undergo drainage with local anesthesia. Social History Review of Systems - Integumentary: Reports drainage from the abscess; Denies fever, chills Physical Exam Appearance: Alert. Oriented X3. No acute distress. Head: Normal external exam. Normocephalic. Atraumatic. Eyes: Pupils are equal, round, and reactive to light. Extraocular movements intact. Conjunctiva and sclera normal. Eyelids normal. Throat: Phaction. Neck supple. Full range of motion. No adenopathy. Cardiovascular: Normal heart rate and rhythm. Respiratory: No respiratory distress. Painless inspiration. Back: Abscess on the left back noted. No costovertebral angle tenderness. Full range of motion noted. Skin: Skin warm and dry. Normal skin color. Normal skin turgor. Abscess to left back lateral aspect with mild surrounding erythema fluctuance with some purulent drainage. No streaking, foreign bodies noted at this time. No additional lesions, laceration, abscesses or signs of infection to the rest of the body. Extremities: No lower extremity edema. Extremities exhibit normal range of motion. Extremities nontender. Neuro: Oriented X 3. No motor deficit. No sensory deficit. Reflexes normal.
[2024-08-15 11:24] VITALS: BP 110/60; PULSE 71; TEMP 35.9; O2SAT 96; BMI 42.2
== END 2024-08-15 12:01 | disposition home or self-care (01) ==
LOC: HO.HMCH 11:13
PROVIDERS: PCP Internal Medicine; Visit Provider Physician Assistant Medical
DX: E11.9 Type 2 diabetes mellitus without complications (principal)

== ENCOUNTER → 2024-08-15 11:12 | Outpatient (BNVA) | payer MEDICARE, MEDICAID, SELFPAY | PROVIDERS: PCP Internal Medicine; Visit Provider Physician Assistant Medical | DX: L03.90 Cellulitis, unspecified (principal); L02.212 Cutaneous abscess of back [any part, except buttock and flank]; E11.9 Type 2 diabetes mellitus without complications; Z76.89 Persons encountering health services in other specified circumstances | CPT/HCPCS: 10060; 83036; 96127; 99212 ==

== ENCOUNTER 2024-08-21 10:11 | Outpatient (AMB) | payer MEDICARE, MEDICAID, SELFPAY ==
[2024-08-21 10:30] VITALS: BP 118/60; PULSE 96; TEMP 35.8; O2SAT 93; BMI 42.1
--- NOTE | 2024-08-21 10:30 | A.OFFPC_ITS ---
Vital Signs 08/21/24 10:30 Height 5 ft 10 in Weight 293 lb 8 oz BMI 42.1 BP 118/60 Blood Pressure Location Lt brachial Position Sitting Pulse 96 Pulse Source Pulse Oximeter Temp 96.4 F L Temp Source Temporal Artery Scan Pulse Oximetry (%) 93 Oxygen Delivery Method Room Air Intake Visit Reasons: one week f/u Development Vice President Required: No Manager Client: Not Required per policy Accompanied by: Self / Same As Patient Allergies No Known Allergies Allergy (Verified 08/21/24 10:45) Medication List - Last Reconciled 08/21/24 by Emy Martinez PA-C acetaminophen (Tylenol) 325 mg PO TID PRN aripiprazole 5 mg PO BEDTIME blood sugar diagnostic ([employer] Ultra Test strips) As directed 2 times per day blood-glucose meter ([employer] Ultra2 Meter) As directed to test BS 2 times per day carbamide peroxide 6.5% (Debrox) 5 drps otic (ear) left Q12H 4 days carvedilol 12.5 mg PO BID cephalexin 500 mg PO Q6H 10 days cetirizine 10 mg PO DAILY doxycycline hyclate 100 mg PO BID 10 days empagliflozin (Jardiance) 25 mg PO DAILY ergocalciferol (vitamin D2) 1,250 mcg PO SA@0900 escitalopram oxalate 10 mg PO BEDTIME fluticasone propionate 50 mcg/actuation (Flonase Allergy Relief) 1 spray intranasal DAILY ketoconazole 2% 1 appl topical DAILY lancets ([employer] Delica Safety Lancet) As directed 2 times per day lisinopril 20 mg PO DAILY lorazepam 1 tab PO BEDTIME PRN metformin 1,000 mg (2 x 500 mg) PO BID nicotine (polacrilex) 2 mg buccal Q2H pioglitazone 15 mg PO DAILY quetiapine 25 mg PO BEDTIME PRN simvastatin 40 mg PO DAILY sulfacetamide sodium 10% 1 drp ophthalmic (eye) Q4H 7 days tramadol 50 mg PO BEDTIME PRN 30 days zolpidem 5 mg PO BEDTIME Tobacco use date assessed: 08/21/24 Dental Screening Dental Screen Date: 08/15/24 [facility] Medical History Colon cancer screening Wound check, abscess Back abscess Cellulitis Encounter for incision and drainage procedure Left buttock abscess Acute adenoviral follicular conjunctivitis Nonischemic cardiomyopathy Pacemaker (~2022) History of syncope Morbid obesity with BMI of 40.0-44.9, adult Insomnia Vitamin D deficiency Pure hypercholesterolemia Type 2 diabetes mellitus without complications Schizophrenia, unspecified Anxiety Essential (primary) hypertension Smoker [place] (obstructive sleep apnea) Morbid (severe) obesity due to excess calories Surgical History History of tooth extraction History of cardiac pacemaker History of wisdom tooth extraction History of root canal procedure Family History Father No problems noted. Mother No problems noted. Family/Other FH: mental illness Mental health disorder Brother Substance use disorder Social History Household Members: None Housing: House Do you presently have visiting nurse or other home services: Yes (vna 3x wk) Alcohol intake: current Alcohol intake frequency: holidays/special occasions only Alcohol type: hard liquor Patient Tobacco Use Status: Current everyday Tobacco user Tobacco use type: Cigarette Cigarette Packs Per Day: 0.5 Cigarettes Per Day: 10 Years Smoked: 40 Packs Per Year: 20 Packs per year/per ci.00 e-Cigarette/Vaping Use: Never Used Second Hand Smoke Exposure: Yes service: No Current occupational status: retired Cognitive needs: Yes (cane) Hearing needs: No Vision needs: Yes (Glasses) Questionnaire Thrive Questionnaire Date Thrive assessed: 08/15/24 FABIANO-7 AMB Questionnaire FABIANO-7 Date FABIANO - 7 assessed: 08/15/24 Source: Developed by Drs. Jax Gomez, Michelle Tristan, Rashid Regan and colleagues, with an educational jaja from [employer]. Physical exam (Primary Care) Vital Signs: Last Vital Signs Temp 96.4 F L 08/21/24 10:30 Pulse 96 08/21/24 10:30 BP 118/60 08/21/24 10:30 Pulse Ox 93 08/21/24 10:30 Oxygen Delivery Method Room Air 08/21/24 10:30 BMI result Body Mass Index 42.1 Tobacco/Smoking Status: Tobacco use Status Tobacco use date assessed 03/20/25 03/20/25 10:34 Patient Tobacco Use Status Current everyday Tobacco 08/21/24 10:34 Tobacco use type Cigarette 08/21/24 10:34 e-Cigarette/Vaping Use Never Used 08/21/24 10:34 Thrive Assessment: Date of Thrive Assessment Date Thrive assessed 08/15/24 08/21/24 10:34 Coding Level of Care Code Est Pt Level 3 (09993) Complex EM visit Add On G2211 Diagnoses Wound check, abscess Z51.89 Colon cancer screening Z12.11 Assessment & Plan Assessment & Plan (1) Wound check, abscess: Code(s): Z51.89 - Encounter for other specified aftercare Category: Medical Plan: Patient abscess to left back has completely healed and epithelialized. There are no signs of abscess, cellulitis noted at this time. No indication for wound clinic at this time. Patient to continue antibiotics as prescribed until completely finished and to follow-up next month for his normal 3 month follow- up. (2) Colon cancer screening: Code(s): Z12.11 - Encounter for screening for malignant neoplasm of colon Category: Medical Plan: Patient is interested in colon cancer screening. Reports he believes he had a colonoscopy 4-5 years ago here at [facility]. He is interested in Cologuard therefore will send at this time. Plan Plan Patient was informed and verbally consented to the use of an ambient scribe for clinic note documentation during this visit. 1. Colon Cancer Screening The patient?s colonoscopy from four years ago showed no abnormalities, yet further screening remains a consideration due to elapsed time. Introduction of the Cologuard test as a non-invasive alternative was proposed, with test administration scheduled for completion prior to the next office visit. 2. Abscess The resolved abscess on the left side of the back has been managed through incision, drainage, and antibiotics. It has healed satisfactorily with a minor scar, indicating successful treatment. Continued antibiotic therapy is recommended to ensure no residual infection remains. Discussion Notes In our discussion, I addressed the patient's follow-up for a previously incised and drained abscess on the left side of his back. The wound healing is evident with a minor scar formation, and I have decided the wound clinic referral is no longer necessary. We also talked about colon cancer screening options as the patient's last colonoscopy was four years ago. The potential for using a Cologuard test was discussed, describing how it functions and its reliability as a non-invasive alternative. The expectation is that if the test results are negative, a repeat colonoscopy may not be needed immediately. Should the test show a positive result, subsequent colonoscopy would be warranted. Orders: Referrals Cologuard Test Z12.11 - Encounter for screening for malignant neoplasm of colon, Z12.12 - Encounter for screening for malignant neoplasm of rectum Patient Instructions: Patient Instructions - Continue with the prescribed antibiotics until the course is completed. - Expect a Cologuard test kit to arrive at your residence; complete and return it as directed. - Plan to discuss the Cologuard results and next steps during your follow-up edil ointment next month. - Attend your scheduled follow-up appointment in September to review ongoing healthcare needs. Scribe Plan - Not visible on output: History of Present Illness The patient is a 64-year-old male presenting for follow-up on a resolved abscess. The abscess, previously located on the left side of the back, underwent incision and drainage a week prior, followed by antibiotic therapy. The patient denies any associated fever, chills, or unusual symptoms, indicating excellent recovery with only a small scar remaining. Additionally, there was a discussion regarding colon cancer screening, as the patient had a colonoscopy four years ago. He remains unsure about the previous results and timing for repeat screening. Plans were made to discuss additional screening options, like Cologuard, during a follow-up visit scheduled for next month. Social History Review of Systems - Skin: Denies fever, chills, and unusual symptoms related to the abscess. - Gastrointestinal: Reports prior colonoscopy four years ago. Physical Exam Appearance: Alert. Oriented X3. No acute distress. Head: Normal external exam. Normocephalic. Atraumatic. Eyes: Pupils are equal, round, and reactive to light. Extraocular movements intact. Conjunctiva and sclera normal. Eyelids normal. Throat: Pharynx normal. Uvula midline. Moist mucous membranes. Neck: Normal inspection. Neck supple. Full range of motion. Cardiovascular: Normal heart rate and rhythm. Heart sound normal. No murmurs noted. Pulses normal throughout. Respiratory: No respiratory distress. Painless inspiration. Back: Full range of motion noted. wound from abscess on the left side is healed with a little scar and scab. Skin: Skin warm and dry. Normal skin color. Normal skin turgor. No rashes/lesions/lacerations noted. Extremities: Extremities exhibit normal range of motion. Neuro: Oriented X 3. Results - Diagnostic Tests: Colonoscopy performed four years ago.
== END 2024-08-21 10:44 | disposition home or self-care (01) ==
LOC: HO.HMCH 10:12
PROVIDERS: PCP Internal Medicine; Visit Provider Physician Assistant Medical
DX: Z51.89 Encounter for other specified aftercare (principal); Z12.11 Encounter for screening for malignant neoplasm of colon

== ENCOUNTER → 2024-08-21 10:11 | Outpatient (BNVA) | payer MEDICARE, MEDICAID, SELFPAY | PROVIDERS: PCP Internal Medicine; Visit Provider Physician Assistant Medical | DX: L02.212 Cutaneous abscess of back [any part, except buttock and flank] (principal) | CPT/HCPCS: 99212 ==

== ENCOUNTER 2024-09-02 10:21 | Outpatient (AMB) | payer MEDICARE, MEDICAID, SELFPAY ==
--- NOTE | 2024-09-02 10:25 | MHC.OFFVIS ---
Vital Signs 09/02/24 10:26 Height 5 ft 10 in Weight 293 lb BMI 42.0 BP 122/78 Blood Pressure Location Lt brachial Position Sitting Pulse 75 Pulse Source Monitor Intake Visit Reasons: 6 month medtronic ck Allergies No Known Allergies Allergy (Verified 08/21/24 10:45) Medication List - Last Reconciled 09/02/24 by Matthias Marinelli MD acetaminophen (Tylenol) 325 mg PO TID PRN aripiprazole 5 mg PO BEDTIME blood sugar diagnostic ([employer] Ultra Test strips) As directed 2 times per day blood-glucose meter ([employer] Ultra2 Meter) As directed to test BS 2 times per day carvedilol 12.5 mg PO BID cetirizine 10 mg PO DAILY empagliflozin (Jardiance) 25 mg PO DAILY ergocalciferol (vitamin D2) 1,250 mcg PO SA@0900 escitalopram oxalate 10 mg PO BEDTIME fluticasone propionate 50 mcg/actuation (Flonase Allergy Relief) 1 spray intranasal DAILY lancets ([employer] Delica Safety Lancet) As directed 2 times per day lisinopril 20 mg PO DAILY lorazepam 1 tab PO BEDTIME PRN metformin 1,000 mg (2 x 500 mg) PO BID pioglitazone 15 mg PO DAILY quetiapine 25 mg PO BEDTIME simvastatin 40 mg PO DAILY tramadol 50 mg PO BEDTIME PRN 30 days zolpidem 5 mg PO BEDTIME HPI Comments Details: Adalberto comes for follow up. He was no new cardiac complaints. Denies any worsening shortness of breath, orthopnea, PND. Denies any lightheadedness, syncope. Denies any prolonged palpitations. Unfortunately he has not been able to lose much weight. He has also not able to quit smoking. Taking all his medications. [facility] Medical History Colon cancer screening Wound check, abscess Back abscess Cellulitis Encounter for incision and drainage procedure Left buttock abscess Acute adenoviral follicular conjunctivitis Nonischemic cardiomyopathy Pacemaker (~2022) History of syncope Morbid obesity with BMI of 40.0-44.9, adult Insomnia Vitamin D deficiency Pure hypercholesterolemia Type 2 diabetes mellitus without complications Schizophrenia, unspecified Anxiety Essential (primary) hypertension Smoker [place] (obstructive sleep apnea) Morbid (severe) obesity due to excess calories Surgical History History of tooth extraction History of cardiac pacemaker History of wisdom tooth extraction History of root canal procedure Family History Father No problems noted. Mother No problems noted. Family/Other FH: mental illness Mental health disorder Brother Substance use disorder Social History Household Members: None Housing: House Do you presently have visiting nurse or other home services: Yes (vna 3x wk) Alcohol intake: current Alcohol intake frequency: holidays/special occasions only Alcohol type: hard liquor Patient Tobacco Use Status: Current everyday Tobacco user Tobacco use type: Cigarette Cigarette Packs Per Day: 0.5 Cigarettes Per Day: 10 Years Smoked: 40 e-Cigarette/Vaping Use: Never Used Second Hand Smoke Exposure: Yes service: No Current occupational status: retired Cognitive needs: Yes (cane) Hearing needs: No Vision needs: Yes (Glasses) Review of Systems Const Denies weakness ENT Denies dizziness Card Denies chest pain, Denies chest pain with activity, Denies syncope, Denies rapid heart rate, Denies pedal edema, Denies edema, Denies leg edema, Denies lightheadedness, Denies palpitations, Denies dyspnea, Denies dyspnea on exertion and Denies orthopnea Resp Denies cough, Denies dyspnea and Denies dyspnea on exertion GI Denies hematochezia and Denies change in stool character Musc Denies abnormal gait, Denies muscle cramps, Denies muscle weakness, Denies numbness, Denies radiating pain into limb and Denies tingling Neuro Denies Abnormal speech present, Denies abnormal gait, Denies dizziness, Denies syncope, Denies numbness, Denies tingling and Denies weakness Endo Denies palpitations Physical Exam Vital Signs: Last Vital Signs Pulse 75 09/02/24 10:26 BP 122/78 09/02/24 10:26 BMI result Body Mass Index 42.0 Const General: cooperative, comfortable, no acute distress, alert and awake Nutritional Appearance: obese Orientation/consciousness: patient oriented x3 Limitations: no limitations Neck Neck: Yes trachea midline, Yes supple and Yes no JVD Chest Chest palpation & inspection: other (Pacemaker pocket looks benign) Resp Effort & Inspection: normal respiratory effort Auscultation: clear to auscultation bilaterally Cardio Jugular venous distension: no JVD Palpation: normal PMI Rate: regular rate Rhythm: regular rhythm Heart sounds: S1 normal heart sound present, S2 normal heart sound present, no click, no gallops and no murmurs GI Inspection: Yes obesity Neuro General: patient oriented x3 and no focal motor deficits Speech: No Abnormal speech present Extrem General: Yes no clubbing, cyanosis or edema Office Procedures Cardiac Device Check Cardiac Device Check Details: Dual-chamber Medtronic pacemaker in place. Programmed in DDDR at 60 beats per minute. Ventricular pacing 97.2% of time. No arrhythmias noted. Atrial and ventricular pacing thresholds are excellent. Atrial pacing thresholds were reprogrammed. Atrial sensing is excellent. Battery life is at 10.3 years [id number] Cardiac Device Check, pacemaker dual lead Procedure code (CPT) selection complete EKG Details: EKG shows normal sinus rhythm with ventricularly paced rhythm 54064-[id number], Complete Assessment & Plan Assessment & Plan (1) Nonischemic cardiomyopathy: Code(s): I42.8 - Other cardiomyopathies Category: Medical Plan: Nonischemic cardiomyopathy without any signs or symptoms of heart failure with improved LV ejection fraction with neurohormonal modulator. Importance of continued medical therapy was discussed. Advised to avoid cardiotoxic agent. Will continue monitor by echocardiogram on annual basis. Signs and symptoms of heart failure were discussed. (2) Pacemaker: Onset Date: ~2022 Comment: (Medtronic DCPP - placed 06/2022) Code(s): Z95.0 - Presence of cardiac pacemaker Category: Medical Plan: Cardiac pacemaker in-situ for complete heart block. Pacemaker is working well. Reprogrammed. Will follow remotely every 3 months and follow up in the clinic in 6 months. (3) Nonsustained ventricular tachycardia: Code(s): I47.29 - Other ventricular tachycardia Category: Medical Plan: Nonsustained ventricular tachycardia which has now not present on pacer telemetry. Continue carvedilol therapy. LV ejection fraction has also improved, maybe the reason that arrhythmias have subsided. Continue to avoid stimulants. Will follow up in the clinic in 6 months time, sooner p.r.n.. Thank you for allowing me to partake in his care Coding Level of Care Code Est Pt Level 4 (11389) Complex EM visit Add On G2211 Diagnoses Nonischemic cardiomyopathy I42.8 Pacemaker Z95.0 Nonsustained ventricular tachycardia I47.29 CPT Codes Cardiac Device Check - Cardiac Device 2: 44742-PP Cardiac Device Check, pacemaker dual lead ([id number]) EKG - CPT: 55474-[id number], Complete ([id number])
[2024-09-02 10:26] VITALS: BP 122/78; PULSE 75; BMI 42.0
== END 2024-09-02 10:48 | disposition home or self-care (01) ==
LOC: HO.HCS 10:22
PROVIDERS: PCP Internal Medicine; Visit Provider Internal Medicine Cardiovascular Disease
DX: I42.8 Other cardiomyopathies (principal); Z95.0 Presence of cardiac pacemaker; I47.29 Other ventricular tachycardia
CPT/HCPCS: 93010; 93280; 99214; G2211

== ENCOUNTER → 2024-09-02 10:21 | Outpatient (BNVA) | payer MEDICARE, MEDICAID, SELFPAY | PROVIDERS: PCP Internal Medicine; Visit Provider Internal Medicine Cardiovascular Disease | DX: I42.8 Other cardiomyopathies (principal); I47.29 Other ventricular tachycardia; F17.210 Nicotine dependence, cigarettes, uncomplicated; Z45.018 Encounter for adjustment and management of other part of cardiac pacemaker | CPT/HCPCS: 93005; 93280; 99212 ==

== ENCOUNTER 2024-09-18 14:03 | Outpatient (REF) | payer MEDICARE, MEDICAID, SELFPAY ==
[2024-09-18 16:00] LABS: Appearance Urine Clear; Color Urine Yellow; Glucose Urine UA >=1000 mg/dL (Negative); Leukocyte Esterase Urine Negative (Negative); Nitrite Urine Negative (Negative); PH 7.5 (5.0-9.0); Specific Gravity - Urine >= 1.030 (1.005-1.025); UMIC TRIGGER UA YES; Urine Blood Negative (Negative); Urine Ketones Negative (Negative); Urine Protein Negative (Neg-Trace)
[2024-09-18 16:03] LABS: Bacteria Urine None Seen (None Seen); Hyaline Casts Urine 0-2 /LPF (0-2); RBC Urine 0-2 /HPF (0-2); Squamous Epithelial Cell Urine 0-2 /HPF (0-2); WBC Urine 0-5 /HPF (0-5)
[2024-09-18 16:05] LABS: Hematocrit 46.5 % (42.0-52.0); Hemoglobin 15.6 g/dl (14.0-18.0); Mean Corpuscular HGB Conc 33.5 g/dl (31.0-36.0); Mean Corpuscular Hemoglobin 30.2 pg (27.0-33.0); Mean Corpuscular Volume 90.1 fL (80.0-98.0); Mean Platelet Volume 9.4 fL (9.4-12.4); Platelet Count 202 X10*3/uL (160-400); Red Blood Count 5.16 X10*6/uL (4.60-5.80); Red Cell Distribution Width 13.2 % (11.0-16.0); White Blood Count 7.7 X10*3/uL (4.8-10.8)
[2024-09-18 16:32] LABS: Alanine Aminotransferase 33 U/L (0-40); Albumin Level 3.9 g/dL (3.5-5.0); Anion Gap 12 (12-20); Aspartate Amino Transferase 26 U/L (5-37); Bilirubin Direct 0.2 mg/dL (0.0-0.5); Bilirubin Total 0.7 mg/dL (0.0-1.0); Blood Urea Nitrogen 19 mg/dL (9-16); Calcium 10.2 mg/dL (8.4-10.2); Carbon Dioxide 26 mmol/L (22-29); Chloride 106 mmol/L (96-108); Cholesterol 158 mg/dL (<200); Estimated Average Glucose 171 mg/dL; Estimated Glomerular Filt Rate > 60; Glucose Random 238 mg/dL (60-115); HDL Cholesterol 42 mg/dL (>40); Hemoglobin A1c % 7.6 % (<6.0); LDL Cholesterol Calculated 71 mg/dL (<100); Potassium 4.3 mmol/L (3.3-5.1); Sodium 140 mmol/L (135-145); Total Protein 6.6 g/dL (6.5-8.0); Triglycerides 227 mg/dL (<150)
[2024-09-18 16:33] LABS: Creatinine Urine 39.09 mg/dL; Microalbumin Urine < 5.0 mg/L
[2024-09-18 16:48] LABS: Alkaline Phosphatase 75 U/L (39-117); Thyroid Stimulating Hormone 0.35 uIU/mL (0.32-4.0)
== END 2024-09-18 14:04 | disposition home or self-care (01) ==
LOC: HO.LAB 14:03
PROVIDERS: PCP Internal Medicine; Visit Provider Internal Medicine
DX: F20.9 Schizophrenia, unspecified (principal); I10 Essential (primary) hypertension; E11.9 Type 2 diabetes mellitus without complications
CPT/HCPCS: 36415; 80048; 80061; 80076; 81001; 81003; 82043; 82570; 83036; 84443; 85027; 99212

== ENCOUNTER 2024-09-18 14:03 | Outpatient (AMB) | payer MEDICARE, MEDICAID, SELFPAY ==
[2024-09-18 14:13] VITALS: BP 144/68; PULSE 90; TEMP 35.9; O2SAT 95; BMI 42.7
--- NOTE | 2024-09-18 14:13 | MHC.PC.OV ---
Vital Signs 09/18/24 14:13 Height 5 ft 10 in Weight 297 lb 6 oz BMI 42.7 BP 144/68 H Blood Pressure Location Lt brachial Position Sitting Pulse 90 Pulse Source Pulse Oximeter Temp 96.6 F L Temp Source Temporal Artery Scan Pulse Oximetry (%) 95 Oxygen Delivery Method Room Air Intake Visit Reasons: 3 month f/u Cardiac Rn Required: No Accompanied by: Self / Same As Patient Allergies No Known Allergies Allergy (Verified 09/18/24 14:18) Tobacco use date assessed: 08/21/24 Dental Screening Dental Screen Date: 08/15/24 [facility] Medical History (Updated 09/18/24 @ 14:35 by Rajeev Sawant MD) Encounter for colorectal cancer screening using Cologuard test (08/26/24) Positive colorectal cancer screening using Cologuard test Colon cancer screening Wound check, abscess Back abscess Cellulitis Encounter for incision and drainage procedure Left buttock abscess Acute adenoviral follicular conjunctivitis Nonischemic cardiomyopathy Pacemaker (~2022) History of syncope Morbid obesity with BMI of 40.0-44.9, adult Insomnia Vitamin D deficiency Pure hypercholesterolemia Type 2 diabetes mellitus without complications Schizophrenia, unspecified Anxiety Essential (primary) hypertension Smoker [place] (obstructive sleep apnea) Morbid (severe) obesity due to excess calories Surgical History History of tooth extraction History of cardiac pacemaker History of wisdom tooth extraction History of root canal procedure Family History Father No problems noted. Mother No problems noted. Family/Other FH: mental illness Mental health disorder Brother Substance use disorder Social History Household Members: None Housing: House Do you presently have visiting nurse or other home services: Yes (vna 3x wk) Alcohol intake: current Alcohol intake frequency: holidays/special occasions only Alcohol type: hard liquor Patient Tobacco Use Status: Current everyday Tobacco user Tobacco use type: Cigarette Cigarette Packs Per Day: 0.5 Cigarettes Per Day: 10 Years Smoked: 40 e-Cigarette/Vaping Use: Never Used Second Hand Smoke Exposure: Yes service: No Current occupational status: retired Cognitive needs: Yes (cane) Hearing needs: No Vision needs: Yes (Glasses) Questionnaire Thrive Questionnaire Date Thrive assessed: 08/15/24 FABIANO-7 AMB Questionnaire FABIANO-7 Date FABIANO - 7 assessed: 08/15/24 Source: Developed by Drs. Jax Gomez, Michelle Tristan, Rashid Regan and colleagues, with an educational jaja from [employer]. Physical exam (Primary Care) Vital Signs: Last Vital Signs Temp 96.6 F L 09/18/24 14:13 Pulse 90 09/18/24 14:13 BP 144/68 H 09/18/24 14:13 Pulse Ox 95 09/18/24 14:13 Oxygen Delivery Method Room Air 09/18/24 14:13 BMI result Body Mass Index 42.7 Tobacco/Smoking Status: Tobacco use Status Tobacco use date assessed 08/21/24 09/18/24 14:18 Patient Tobacco Use Status Current everyday Tobacco 09/18/24 14:18 Tobacco use type Cigarette 09/18/24 14:18 e-Cigarette/Vaping Use Never Used 09/18/24 14:18 Thrive Assessment: Date of Thrive Assessment Date Thrive assessed 08/15/24 09/18/24 14:18 Coding Level of Care Code Est Pt Level 4 (26930) Complex EM visit Add On G2211 Diagnoses Schizophrenia, unspecified type F20.9 Schizophrenia type: unspecified Type 2 diabetes mellitus without complication, without long-term current use of insulin E11.9 Diabetes mellitus intermodal dispatcher insulin use: without intermodal dispatcher use Essential (primary) hypertension I10 Assessment & Plan Assessment & Plan (1) Schizophrenia, unspecified: Code(s): F20.9 - Schizophrenia, unspecified Category: Medical Qualifiers: Schizophrenia type: unspecified Qualified Code(s): F20.9 - Schizophrenia, unspecified Plan: Patient is managing independantly. New medications have been added by psyc and he does not recall the name (2) Type 2 diabetes mellitus without complications: Comment: Limitations for better control of his blood sugar is due to his mental illness and poor compliance with diet. Patient was encouraged to eat 3 meals a day which will prevent him from snacking. Code(s): E11.9 - Type 2 diabetes mellitus without complications Category: Medical Qualifiers: Diabetes mellitus [facility] insulin use: without [facility] use Qualified Code(s): E11.9 - Type 2 diabetes mellitus without complications Plan: A1c ordered (3) Essential (primary) hypertension: Code(s): I10 - Essential (primary) hypertension Category: Medical Plan: BP in range Plan History of Present Illness The patient is a 64-year-old male presenting with concerns related to colorectal cancer following a positive Cologuard test result. He recalls undergoing this screen in August and plans to attend a consultation at the GI clinic on October 28 for further diagnostic evaluation, including a colonoscopy. He denies observing red blood in his stool, although he notes a brown discoloration. The patient also discusses managing insomnia and anxiety for which he was initially prescribed Zolpidem; however, his medication was changed to Duloxetine recently. He continues to use Lorazepam regularly and Tramadol primarily at night to alleviate symptoms related to anxiety, especially after working. He is contemplating reducing his Tramadol intake from daily usage to five times a week upon recommendation. 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 - Engages in manual activities involving strategy and creativity occasionally. - Aims to moderate medication use to maintain balance in mental health. - Consumes food considered healthy by his self-report. Review of Systems - Gastrointestinal: Reports brownish stool; denies visible red blood in the stool. - Neurological/Psychological: Reports use of Duloxetine and Lorazepam; reports effective use of Tramadol for anxiety during work recovery. - General: Reports overall good health and actively managing weight. Physical Exam General: Cooperative and healthy appearing Nutritional Appearance: Well nourished Orientation/consciousness: Patient oriented x3 Limitations: No limitations Head: Normal to inspection General: Appearance normal, both eyes and all related structures Neck: Normal visual inspection Chest: Normal palpation of entire chest wall Respiratory: Breathe. Okay. There's no blood in your stool or anything? , I don't know. All right, when you look down, is there any red blood in the toilet paper when you wipe? Not blood. Okay. It looks kind of brownish though. That's fine. Yeah. All right. Try to exercise. You need to lose some weight. Yeah. Okay. Okay. See you in three months. Okay. On a . All right. So, the next thing is ormal respiratory effort Neurology: Patient oriented x3 Results - Labs: Cologuard test positive for colorectal cancer. - Tests and Diagnostics: Scheduled consultation at GI clinic for potential colonoscopy on October 28. Plan The patient?s follow-up for colorectal cancer is in process with a GI clinic appointment on October 28 set for further diagnostic evaluation. Management of insomnia and anxiety involves a change to Duloxetine from Zolpidem with continued use of Lorazepam. A reduction in Tramadol use from daily to five times a week is advised to lessen dependency while maintaining effectiveness. Patient was informed and verbally consented to the use of an ambient scribe for clinic note documentation during this visit. Discussion Notes During the visit, we discussed the management plan for the positive Cologuard result, including the enclosed consultation at the GI clinic for a possible colonoscopy. In terms of medication for insomnia and anxiety, the change to Duloxetine was reviewed, emphasizing the switch was made for increased therapeutic benefits. I advised a reduction in Tramadol intake to five days per week to prevent overuse while keeping control over anxiety symptoms, especially post-work. The importance of monitoring for any changes in symptoms or side effects was discussed, alongside the plan for a follow-up visit in three months. Patient Instructions - Attend the GI clinic consultation on October 28 for further evaluation of the positive Cologuard test. - Continue taking Lorazepam and Duloxetine as prescribed. - Reduce Tramadol use to five days per week to prevent dependency. - Monitor stool for any changes in color or presence of blood. - Maintain a balanced diet and regular exercise to assist in overall health. - Return for follow-up in three months to reassess health management. Orders: Orders Complete Blood Count no Diff Today E11.9 - Type 2 diabetes mellitus without complications, I10 - Essential (primary) hypertension Hemoglobin A1c Today E11.9 - Type 2 diabetes mellitus without complications, I10 - Essential (primary) hypertension Basic Metabolic Panel Today E11.9 - Type 2 diabetes mellitus without complications, I10 - Essential (primary) hypertension Lipid Panel Today E11.9 - Type 2 diabetes mellitus without complications, I10 - Essential (primary) hypertension Liver Panel Today E11.9 - Type 2 diabetes mellitus without complications, I10 - Essential (primary) hypertension Thyroid Stimulating Hormone Today E11.9 - Type 2 diabetes mellitus without complications, I10 - Essential (primary) hypertension UA and rflx microscopic Today E11.9 - Type 2 diabetes mellitus without complications, I10 - Essential (primary) hypertension Microalbumin, Random (w Creat) Today E11.9 - Type 2 diabetes mellitus without complications, I10 - Essential (primary) hypertension
== END 2024-09-18 14:43 | disposition home or self-care (01) ==
LOC: HO.HMCH 14:04
PROVIDERS: PCP Internal Medicine; Visit Provider Internal Medicine
DX: F20.9 Schizophrenia, unspecified (principal); E11.9 Type 2 diabetes mellitus without complications; I10 Essential (primary) hypertension

== ENCOUNTER → 2024-10-13 23:59 | Outpatient (BNV) | payer MEDICARE, MEDICAID, SELFPAY ==
--- NOTE | 2024-10-15 17:23 | A.OFFVIS_ITS ---
Intake Visit Reasons: Remote device check- Medtronic Allergies No Known Allergies Allergy (Verified 09/18/24 14:18) PENDING SALE TO [facility] Medical History (Updated 09/18/24 @ 14:35 by Rajeev Sawant MD) Encounter for colorectal cancer screening using Cologuard test (08/26/24) Positive colorectal cancer screening using Cologuard test Colon cancer screening Wound check, abscess Back abscess Cellulitis Encounter for incision and drainage procedure Left buttock abscess Acute adenoviral follicular conjunctivitis Nonischemic cardiomyopathy Pacemaker (~2022) History of syncope Morbid obesity with BMI of 40.0-44.9, adult Insomnia Vitamin D deficiency Pure hypercholesterolemia Type 2 diabetes mellitus without complications Schizophrenia, unspecified Anxiety Essential (primary) hypertension Smoker [place] (obstructive sleep apnea) Morbid (severe) obesity due to excess calories Surgical History History of tooth extraction History of cardiac pacemaker History of wisdom tooth extraction History of root canal procedure Family History Father No problems noted. Mother No problems noted. Family/Other FH: mental illness Mental health disorder Brother Substance use disorder Social History Household Members: None Housing: House Do you presently have visiting nurse or other home services: Yes (vna 3x wk) Alcohol intake: current Alcohol intake frequency: holidays/special occasions only Alcohol type: hard liquor Patient Tobacco Use Status: Current everyday Tobacco user Tobacco use type: Cigarette Cigarette Packs Per Day: 0.5 Cigarettes Per Day: 10 Years Smoked: 40 e-Cigarette/Vaping Use: Never Used Second Hand Smoke Exposure: Yes service: No Current occupational status: retired Cognitive needs: Yes (cane) Hearing needs: No Vision needs: Yes (Glasses) Office Procedures Cardiac Device Check Cardiac Device Check Details: Remote pacemaker report generated 10/13/2024. Pacemaker function is adequate [id number] Cardiac Device Interrogation, pacemaker Procedure code (CPT) selection complete Assessment & Plan Assessment & Plan (1) Pacemaker: Onset Date: ~2022 Comment: (Medtronic DCPP - placed 06/2022) Code(s): Z95.0 - Presence of cardiac pacemaker Category: Medical Plan: See above Coding Level of Care Code Procedure Only Diagnoses Pacemaker Z95.0 CPT Codes Cardiac Device Check - Cardiac Device 12: [id number] Cardiac Device Interrogation, pacemaker ([id number])
== END ==
PROVIDERS: PCP Internal Medicine; Visit Provider Internal Medicine Cardiovascular Disease
DX: Z45.018 Encounter for adjustment and management of other part of cardiac pacemaker (principal)
CPT/HCPCS: 93294

== ENCOUNTER 2024-11-10 13:46 | Outpatient (AMB) | payer MEDICARE, MEDICAID, SELFPAY ==
[2024-11-10 13:51] VITALS: BP 130/68; PULSE 86; O2SAT 95; BMI 42.4
--- NOTE | 2024-11-10 13:51 | MHC.OFFVIS ---
Vital Signs 11/10/24 13:51 Height 5 ft 10 in Weight 295 lb 6.711 oz BMI 42.4 BP 130/68 Blood Pressure Location Lt brachial Position Sitting Pulse 86 Pulse Source Pulse Oximeter Pulse Oximetry (%) 95 Oxygen Delivery Method Room Air Intake Visit Reasons: COPD Intake Note: pt is here for follow up and states he is using cpap every night, breathing is good [employer] Required: No Allergies No Known Allergies Allergy (Verified 11/10/24 14:06) Medication List - Last Reconciled 11/10/24 by Magdalena Tony MD acetaminophen (Tylenol) 325 mg PO TID PRN aripiprazole 5 mg PO BEDTIME blood sugar diagnostic ([employer]works Ultra Test strips) As directed 2 times per day blood-glucose meter ([employer]works Ultra2 Meter) As directed to test BS 2 times per day carvedilol 12.5 mg PO BID cetirizine 10 mg PO DAILY empagliflozin (Jardiance) 25 mg PO DAILY ergocalciferol (vitamin D2) 1,250 mcg PO SA@0900 escitalopram oxalate 10 mg PO BEDTIME fluticasone propionate 50 mcg/actuation (Flonase Allergy Relief) 1 spray intranasal DAILY lancets ([employer] (now [employer]) Delica Safety Lancet) As directed 2 times per day lisinopril 20 mg PO DAILY lorazepam 1 tab PO BEDTIME PRN metformin 1,000 mg (2 x 500 mg) PO BID pioglitazone 15 mg PO DAILY quetiapine 25 mg PO BEDTIME simvastatin 40 mg PO DAILY tramadol 50 mg PO BEDTIME PRN 30 days zolpidem 5 mg PO BEDTIME Do you need a note to return to daycare/school/sports/work: No HPI HPI COPD: Details: 64 years old gentleman with morbid obesity, and long-time case of obstructive sleep apnea, comes for his routine follow-up after 6 months. He has multiple comorbidities including hypertension, cardiac disease, schizophrenia, and he continues to smoke. Currently smoking about half pack of cigarettes a day. Uses his CPAP very regularly and sleeps good. Denies having had any respiratory infection breathing problem. [facility] Medical History Encounter for colorectal cancer screening using Cologuard test (08/26/24) Positive colorectal cancer screening using Cologuard test Colon cancer screening Wound check, abscess Back abscess Cellulitis Encounter for incision and drainage procedure Left buttock abscess Acute adenoviral follicular conjunctivitis Nonischemic cardiomyopathy Pacemaker (~2022) History of syncope Morbid obesity with BMI of 40.0-44.9, adult Insomnia Vitamin D deficiency Pure hypercholesterolemia Type 2 diabetes mellitus without complications Schizophrenia, unspecified Anxiety Essential (primary) hypertension Smoker [place] (obstructive sleep apnea) Morbid (severe) obesity due to excess calories Surgical History History of tooth extraction History of cardiac pacemaker History of wisdom tooth extraction History of root canal procedure Family History Father No problems noted. Mother No problems noted. Family/Other FH: mental illness Mental health disorder Brother Substance use disorder Social History Household Members: None Housing: House Do you presently have visiting nurse or other home services: Yes (vna 3x wk) Alcohol intake: current Alcohol intake frequency: holidays/special occasions only Alcohol type: hard liquor Patient Tobacco Use Status: Current everyday Tobacco user Tobacco use type: Cigarette Cigarette Packs Per Day: 0.5 Cigarettes Per Day: 10 Years Smoked: 40 e-Cigarette/Vaping Use: Never Used Second Hand Smoke Exposure: Yes service: No Current occupational status: retired Cognitive needs: Yes (cane) Hearing needs: No Vision needs: Yes (Glasses) Review of Systems Const All systems reviewed & are unremarkable except as noted in HPI and below Eyes Reports no additional complaints ENT Reports dizziness (Nonspecific) and Reports nasal congestion (Mild off and on) Card Denies chest pain, Denies irregular heart rhythm, Denies leg edema and Reports dyspnea on exertion (Mild) Resp Reports cough, Reports dyspnea on exertion (Mild) and Reports wheezing GI Reports no additional complaints Reports no additional complaints Musc Reports back pain Skin/Breast Reports system reviewed and no additional complaints, except as documented Neuro Reports dizziness (Nonspecific) Psych Reports anxiety, Reports depression and Reports mood swings Endo Reports no additional complaints and Reports other (Being treated for diabetes mellitus) Abner/Lymph Reports no additional complaints Aller/Immun Reports no additional complaints and Reports wheezing Physical Exam Vital Signs: Last Vital Signs Pulse 86 11/10/24 13:51 BP 130/68 06/09/25 13:51 Pulse Ox 95 11/10/24 13:51 Oxygen Delivery Method Room Air 11/10/24 13:51 BMI result Body Mass Index 42.4 Const General: comfortable, no acute distress, alert and awake Orientation/consciousness: patient oriented x3 HEENT Head: Yes normal to inspection General nose exam: No nasal polyps present and No nasal discharge present Face and sinus: Yes sinuses nontender Mouth: oropharynx normal Throat: Yes posterior oropharynx normal Eyes Sclerae: scleral abnormal (LEFT EYE HAS SCLERAL REDNESS AND CONGESTION.) Neck Neck: Yes normal visual inspection, Yes no lymphadenopathy, Yes trachea midline and Yes no JVD Thyroid: Thyroid normal Chest Chest palpation & inspection: normal inspection of the chest, normal palpation of entire chest wall, no tenderness and other (Pacemaker battery in left pectoral area) Resp Effort & Inspection: normal respiratory effort Auscultation: clear to auscultation bilaterally, no crackles, no wheezes and diminished lung sounds (Diminished over the basilar areas) Cardio Palpation: normal PMI Rate: regular rate Rhythm: regular rhythm Heart sounds: no gallops and no murmurs GI Palpation (GI): Soft to palpation, nontender, No hepatosplenomegaly present, no masses and Other GI palpation findings present (Abdomen is grossly obese and protuberant) Auscultation: normal bowel sounds Back/Spine/Pelvis Thoracic/Lumbar Spine: thoracic and lumbar spine normal to inspection and thoraco-lumbar ROM limited Skin General skin exam: no rashes or lesions noted Neuro General: patient oriented x3 and no focal motor deficits Cranial nerves: Yes CN's II-XII intact bilaterally Extrem General: Yes normal to inspection, Yes no clubbing, cyanosis or edema and Yes no calf tenderness Psych Appearance: grossly normal, well kempt and other (Quiet and slow in conversation) Speech and movement: Normal speech and movement present Results Reviewed Results Reviewed: Compliance report is reviewed. Used 30/30 nights,. 100% average use it per night 8 hours 54 minutes. Is setting is 20 cm CPAP. He has no significant amount of leak. Residual AHI 2.9 Assessment & Plan Assessment & Plan (1) Morbid obesity with BMI of 40.0-44.9, adult: Comment: BMI = 42.4 He has had morbid obesity throughout his adult life. Has not been able to lose weight. The weight remains unchanged. Code(s): E66.01 - Morbid (severe) obesity due to excess calories; Z68.41 - Body mass index [BMI] 40.0-44.9, adult Category: Medical Plan: Talked to him about cutting down the calories intake. And also encouraged to walk daily up to 2 miles a day. Because of his mental disease it is hard for him to comply to the her routine for losing weight. (2) Smoker: Comment: Continues to smoke. Currently smoking about half pack of cigarettes a day Risks of continued smoking explained . Code(s): F17.200 - Nicotine dependence, unspecified, uncomplicated Category: Social Hx Plan: Counselled to quit completely , but he does not have much will power to do that . Patient will be participating in Annual lung screening program. (3) [place] (obstructive sleep apnea): Comment: Chronic problem. Very COMPLIANT , He got new CPAP machine which is working well. No issues with the mask or CPAP machine. Code(s): G47.33 - Obstructive sleep apnea (adult) (pediatric) Category: Medical Plan: Commended for good compliance and advised to continue using the CPAP regularly every night Coding Level of Care Code Est Pt Level 3 (26035) Diagnoses Morbid obesity with BMI of 40.0-44.9, adult E66.01; Z68.41 Smoker F17.200 [place] (obstructive sleep apnea) G47.33
== END 2024-11-10 14:06 | disposition home or self-care (01) ==
LOC: HO.HPS 13:47
PROVIDERS: PCP Internal Medicine; Visit Provider Internal Medicine
DX: E66.01 Morbid (severe) obesity due to excess calories (principal); Z68.41 Body mass index [BMI] 40.0-44.9, adult; F17.200 Nicotine dependence, unspecified, uncomplicated; G47.33 Obstructive sleep apnea (adult) (pediatric)
CPT/HCPCS: 99213

== ENCOUNTER → 2024-11-10 13:46 | Outpatient (BNVA) | payer MEDICARE, MEDICAID, SELFPAY | PROVIDERS: PCP Internal Medicine; Visit Provider Internal Medicine | DX: J44.9 Chronic obstructive pulmonary disease, unspecified (principal); G47.33 Obstructive sleep apnea (adult) (pediatric); E66.01 Morbid (severe) obesity due to excess calories; F17.210 Nicotine dependence, cigarettes, uncomplicated; Z68.41 Body mass index [BMI] 40.0-44.9, adult; Z99.89 Dependence on other enabling machines and devices | CPT/HCPCS: 99212 ==

== ENCOUNTER 2024-11-25 12:59 | Outpatient (AMB) | payer MEDICARE, MEDICAID, SELFPAY ==
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
[2024-11-25 13:06] VITALS: BP 135/62; PULSE 71; BMI 41.8
== END 2024-11-25 13:44 | disposition home or self-care (01) ==
LOC: HO.HGI 13:00
PROVIDERS: PCP Internal Medicine; Visit Provider Nurse Practitioner Family
DX: Z01.818 Encounter for other preprocedural examination (principal); Z12.11 Encounter for screening for malignant neoplasm of colon
CPT/HCPCS: 99024

== ENCOUNTER → 2024-11-25 12:59 | Outpatient (BNVA) | payer MEDICARE, MEDICAID, SELFPAY | PROVIDERS: PCP Internal Medicine; Visit Provider Nurse Practitioner Family | DX: Z12.11 Encounter for screening for malignant neoplasm of colon (principal) | CPT/HCPCS: 99212 ==

== ENCOUNTER → 2025-01-11 23:59 | Outpatient (BNV) | payer MEDICARE, MEDICAID, SELFPAY ==
--- NOTE | 2025-01-15 12:47 | MHC.OFFVIS ---
Intake Visit Reasons: Remote device check- Medtronic Allergies No Known Allergies Allergy (Verified 11/25/24 13:08) [facility] Medical History Encounter for colorectal cancer screening using Cologuard test (08/26/24) Positive colorectal cancer screening using Cologuard test Colon cancer screening Wound check, abscess Back abscess Cellulitis Encounter for incision and drainage procedure Left buttock abscess Acute adenoviral follicular conjunctivitis Nonischemic cardiomyopathy Pacemaker (~2022) History of syncope Morbid obesity with BMI of 40.0-44.9, adult Insomnia Vitamin D deficiency Pure hypercholesterolemia Type 2 diabetes mellitus without complications Schizophrenia, unspecified Anxiety Essential (primary) hypertension Smoker [place] (obstructive sleep apnea) Morbid (severe) obesity due to excess calories Surgical History (Updated 11/25/24 @ 13:08 by MIRACLE Granda) Hx of colonoscopy History of tooth extraction History of cardiac pacemaker History of wisdom tooth extraction History of root canal procedure Family History Father No problems noted. Mother No problems noted. Family/Other FH: mental illness Mental health disorder Brother Substance use disorder Social History Household Members: None Housing: House Do you presently have visiting nurse or other home services: Yes (vna 3x wk) Alcohol intake: current Alcohol intake frequency: holidays/special occasions only Alcohol type: hard liquor Patient Tobacco Use Status: Current everyday Tobacco user Tobacco use type: Cigarette Cigarette Packs Per Day: 0.5 Cigarettes Per Day: 10 Years Smoked: 40 e-Cigarette/Vaping Use: Never Used Second Hand Smoke Exposure: Yes service: No Current occupational status: retired Cognitive needs: Yes (cane) Hearing needs: No Vision needs: Yes (Glasses) Office Procedures Cardiac Device Check Cardiac Device Check Details: Remote pacemaker report generated 01/11/2025. Pacemaker function is adequate. Pacer dependent in the ventricle [id number] Cardiac Device Interrogation, pacemaker Procedure code (CPT) selection complete Assessment & Plan Assessment & Plan (1) Pacemaker: Onset Date: ~2022 Comment: (Medtronic DCPP - placed 06/2022) Code(s): Z95.0 - Presence of cardiac pacemaker Category: Medical Plan: See above Coding Level of Care Code Procedure Only Diagnoses Pacemaker Z95.0 CPT Codes Cardiac Device Check - Cardiac Device 12: [id number] Cardiac Device Interrogation, pacemaker ([id number])
== END ==
PROVIDERS: PCP Internal Medicine; Visit Provider Internal Medicine Cardiovascular Disease
DX: Z45.018 Encounter for adjustment and management of other part of cardiac pacemaker (principal)
CPT/HCPCS: 93294

== ENCOUNTER 2025-02-11 14:03 | Outpatient (AMB) | payer MEDICARE, MEDICAID, SELFPAY ==
--- NOTE | 2025-02-11 14:20 | MHC.PC.OV ---
Vital Signs 02/11/25 14:25 Height 5 ft 10 in Weight 288 lb BMI 41.3 BP 130/66 Blood Pressure Location Lt brachial Position Sitting Pulse 82 Pulse Source Pulse Oximeter Temp 97.1 F Temp Source Temporal Artery Scan Pulse Oximetry (%) 97 Oxygen Delivery Method Room Air Intake Visit Reasons: 3 month f/u Intake Note: Patient is here to follow up on DM, MANSI, HTN. 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 Required: No Billing Checker: Not Required per policy Accompanied by: Self / Same As Patient Allergies No Known Allergies Allergy (Verified 02/11/25 14:24) Tobacco use date assessed: 02/11/25 Fall risk assessment: No Falls in past year Last assessed Fall Risk: 02/11/25 Dental Screening Dental Screen Date: 08/15/24 COUNTS INCLUDE 234 BEDS AT [facility] Medical History Encounter for colorectal cancer screening using Cologuard test (08/26/24) Positive colorectal cancer screening using Cologuard test Colon cancer screening Wound check, abscess Back abscess Cellulitis Encounter for incision and drainage procedure Left buttock abscess Acute adenoviral follicular conjunctivitis Nonischemic cardiomyopathy Pacemaker (~2022) History of syncope Morbid obesity with BMI of 40.0-44.9, adult Insomnia Vitamin D deficiency Pure hypercholesterolemia Type 2 diabetes mellitus without complications Schizophrenia, unspecified Anxiety Essential (primary) hypertension Smoker [place] (obstructive sleep apnea) Morbid (severe) obesity due to excess calories Surgical History Hx of colonoscopy History of tooth extraction History of cardiac pacemaker History of wisdom tooth extraction History of root canal procedure Family History Father No problems noted. Mother No problems noted. Family/Other FH: mental illness Mental health disorder Brother Substance use disorder Social History Household Members: None Housing: House Do you presently have visiting nurse or other home services: Yes (vna 3x wk) Alcohol intake: current Alcohol intake frequency: holidays/special occasions only Alcohol type: hard liquor Patient Tobacco Use Status: Current everyday Tobacco user Tobacco use type: Cigarette and Cigar (2) Cigarette Packs Per Day: 0.5 Cigarettes Per Day: 10 Years Smoked: 40 e-Cigarette/Vaping Use: Never Used Second Hand Smoke Exposure: Yes service: No Current occupational status: retired Cognitive needs: Yes (cane) Hearing needs: No Vision needs: Yes (Glasses) Questionnaire Thrive Questionnaire Date Thrive assessed: 08/15/24 FABIANO-7 AMB Questionnaire FABIANO-7 Date FABIANO - 7 assessed: 08/15/24 Source: Developed by Drs. Jax Gomez, Michelle Tristan, Rashid Regan and colleagues, with an educational jaja from [employer]. Physical exam (Primary Care) Vital Signs: Last Vital Signs Temp 97.1 F 02/11/25 14:25 Pulse 82 02/11/25 14:25 BP 130/66 02/11/25 14:25 Pulse Ox 97 02/11/25 14:25 Oxygen Delivery Method Room Air 02/11/25 14:25 BMI result Body Mass Index 41.3 Tobacco/Smoking Status: Tobacco use Status Tobacco use date assessed 02/11/25 02/11/25 14:33 Patient Tobacco Use Status Current everyday Tobacco 02/11/25 14:22 Tobacco use type Cigarette,Cigar (2) 02/11/25 14:33 e-Cigarette/Vaping Use Never Used 02/11/25 14:22 Thrive Assessment: Date of Thrive Assessment Date Thrive assessed 08/15/24 02/11/25 14:22 Results AMB Hemoglobin A1c AMB Hemoglobin A1c 8.2 % Last Edit by MIRACLE Ochoa on 02/11/25 14:51 Results Reviewed Results Reviewed: Laboratory Last Values Hgb A1c (Clinic) 8.2 % (4.0-6.0) H 02/11/25 14:19 Coding Level of Care Code Est Pt Level 4 (04477) Complex EM visit Add On G2211 Diagnoses Type 2 diabetes mellitus without complication, without long-term current use of insulin 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 Patient was encouraged to eat 3 meals a day which will prevent him from snacking. 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 - Diabetes Mellitus: The patient manages his blood glucose levels with occasional checks, noting readings up to 147 mg/dL, and adheres to his medication regimen. - Back Pain: He takes tramadol five days a week and believes he could manage without it for two days if needed. - Depression: The patient reports experiencing depression, though further management details were not provided. - Preventative Care: He has not completed a colonoscopy, having not followed up after an initial scheduling attempt. Social History - Activity Level: The patient recently engaged in painting his shed, indicating a level of physical activity. Review of Systems - Endocrine: Reports occasional high blood glucose readings, up to 147 mg/dL. - Musculoskeletal: Reports chronic back pain managed with tramadol. - Psychiatric: Reports experiencing depression. Physical Exam General: Cooperative and healthy appearing Nutritional Appearance: Well nourished Orientation/consciousness: Patient oriented x3 Limitations: No limitations Head: Normal to inspection General: Appearance normal, both eyes and all related structures Neck: Normal visual inspection Chest: Normal palpation of entire chest wall Respiratory: Breathe okay ormal respiratory effort Neurology: Patient oriented x3 Results Plan 1. Diabetes Mellitus - Continue current medication regimen and monitor blood glucose levels regularly. - Encourage weight loss and healthy eating habits to improve glycemic control. 2. Back Pain - Continue tramadol as needed, with consideration for reducing frequency if pain allows. 3. Depression - Monitor symptoms and consider further evaluation or adjustment of treatment if necessary. 4. Preventative Care: Colonoscopy - Follow up on scheduling a colonoscopy for colorectal cancer screening. Discussion Notes During the visit, we discussed the importance of managing diabetes through medication adherence and lifestyle modifications, including weight loss and healthy eating. We also addressed the need for regular monitoring of blood glucose levels. For back pain, the patient is advised to continue tramadol as needed, with the possibility of reducing usage if pain management allows. We touched on the patient's depression, suggesting monitoring of symptoms and potential adjustments in treatment if necessary. Lastly, we emphasized the importance of completing a colonoscopy for colorectal cancer screening and encouraged follow-up on scheduling this procedure. Patient Instructions - Continue taking your diabetes medication as prescribed and check your blood sugar regularly. - Try to lose weight and eat a healthy diet to help control your diabetes. - Take tramadol for back pain as needed, but consider reducing the frequency if possible. - Monitor your mood and seek help if your depression symptoms worsen. - Follow up on scheduling your colonoscopy for cancer screening. Orders: Orders AMB Hemoglobin A1c Today E11.9 - Type 2 diabetes mellitus without complications Medications: Refilled fluticasone propionate 50 mcg/actuation (Flonase Allergy Relief) administer into each nostril 1 spray intranasal DAILY 9.9 mL 3RF tramadol 50 mg PO BEDTIME PRN 30 tabs 0RF pain (scale score 7-10) 30 days
[2025-02-11 14:25] VITALS: BP 130/66; PULSE 82; TEMP 36.2; O2SAT 97; BMI 41.3
--- OUTSIDE RECORDS SUMMARY | 2025-02-11 17:14 | XMS_ITS | Clinical Summary ---
Author Organization [facility] Address 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 Not on dewayne e 02/08/2023 Are you concerned about learning? Not on file 02/08/2023 No 02/08/2023 No 02/08/2023 Digital Access Answer Date Recorded No 02/08/2023 No 02/08/2023 Reliable internet access at home? Not on file 02/08/2023 Device with a working camera? Not on file Sex and Gender Information Value Date Recorded Sex Assigned at Not on file Legal Sex Male 8:56 AM EDT Gender Identity Not on file Sexual Orientation Not on file Plan of Treatment Not on file Medical Devices Not on file Insurance [facility] MEDICARE PART A & [place] PART A & B [facility] PART [facility] & [place] & B Member Subscriber Plan / Payer (Ef fective 1982-Present) Name:Adalberto Rose Member ID:[id number] Relation to Subscriber:Self Name:Adalberto Rose Subscriber ID:[id number] Payer ID:[id number] Group ID:Not on file Type:Medicare Address: [employer] [id number] [facility] MEDICARE PART A & B Care Teams Acid Pump Operator Relationship Specialty Start Date End Date Guerda Edge MD [address] [place] [address] PCP - General Cardiology 02/07/23 Additional Source Comments The information contained in this document represents components of the legal health record. It is not the complete legal health record.[facility]
== END 2025-02-11 14:45 | disposition home or self-care (01) ==
LOC: HO.HMCH 14:03
PROVIDERS: PCP Internal Medicine; Visit Provider Internal Medicine
DX: E11.9 Type 2 diabetes mellitus without complications (principal)

== ENCOUNTER → 2025-02-11 14:03 | Outpatient (BNVA) | payer MEDICARE, MEDICAID, SELFPAY | PROVIDERS: PCP Internal Medicine; Visit Provider Internal Medicine | DX: E11.9 Type 2 diabetes mellitus without complications (principal); M54.9 Dorsalgia, unspecified; F32.A Depression, unspecified | CPT/HCPCS: 83036; 99212 ==

== ENCOUNTER 2025-04-10 09:31 | Outpatient (AMB) | payer MEDICARE, MEDICAID, SELFPAY ==
[2025-04-10 09:34] VITALS: BP 126/60; PULSE 68; BMI 41.5
--- NOTE | 2025-04-10 09:34 | MHC.OFFVIS ---
Vital Signs 04/10/25 09:34 Height 5 ft 10 in Weight 289 lb 0.026 oz BMI 41.5 BP 126/60 Blood Pressure Location Lt brachial Position Sitting Pulse 68 Pulse Source Pulse Oximeter Intake Visit Reasons: 6 mth f/up Intake Note: 6mth f/u Climate Change Risk Assessor Required: No Accompanied by: Self / Same As Patient Allergies No Known Allergies Allergy (Verified 04/10/25 09:37) Medication List - Last Reconciled 04/10/25 by Matthias Marinelli MD acetaminophen (Tylenol) 325 mg PO TID PRN aripiprazole 5 mg PO BEDTIME blood sugar diagnostic ([employer] Ultra Test strips) As directed 2 times per day blood-glucose meter ([employer] Ultra2 Meter) As directed to test BS 2 times per day carvedilol 12.5 mg PO BID cetirizine 10 mg PO DAILY doxepin 25 mg PO BEDTIME empagliflozin (Jardiance) 25 mg PO DAILY ergocalciferol (vitamin D2) 1,250 mcg PO SA@0900 escitalopram oxalate 10 mg PO BEDTIME fluticasone propionate 50 mcg/actuation (Flonase Allergy Relief) 1 spray intranasal DAILY lancets ([employer] Delica Safety Lancet) As directed 2 times per day lisinopril 20 mg PO DAILY lorazepam 1 tab PO BEDTIME PRN metformin 1,000 mg (2 x 500 mg) PO BID pioglitazone 15 mg PO DAILY quetiapine 25 mg PO BEDTIME simvastatin 40 mg PO DAILY tramadol 50 mg PO BEDTIME PRN 30 days HPI Comments Details: Dre comes for follow-up. Patient unfortunately intermittently smokes when he finds pack of cigarettes. He complains of exertional shortness of breath. He had also gained some weight. He denies any palpitations, lightheadedness, syncope. Denies any exertional chest pain. No orthopnea, PND, leg edema. Takes all his medications. [facility], [facility] Medical History Encounter for colorectal cancer screening using Cologuard test (08/26/24) Positive colorectal cancer screening using Cologuard test Colon cancer screening Wound check, abscess Back abscess Cellulitis Encounter for incision and drainage procedure Left buttock abscess Acute adenoviral follicular conjunctivitis Nonischemic cardiomyopathy Pacemaker (~2022) History of syncope Morbid obesity with BMI of 40.0-44.9, adult Insomnia Vitamin D deficiency Pure hypercholesterolemia Type 2 diabetes mellitus without complications Schizophrenia, unspecified Anxiety Essential (primary) hypertension Smoker [place] (obstructive sleep apnea) Morbid (severe) obesity due to excess calories Surgical History Hx of colonoscopy History of tooth extraction History of cardiac pacemaker History of wisdom tooth extraction History of root canal procedure Family History Father No problems noted. Mother No problems noted. Family/Other FH: mental illness Mental health disorder Brother Substance use disorder Social History Household Members: None Housing: House Do you presently have visiting nurse or other home services: Yes (vna 3x wk) Alcohol intake: current Alcohol intake frequency: holidays/special occasions only Alcohol type: hard liquor Patient Tobacco Use Status: Current everyday Tobacco user Tobacco use type: Cigarette and Cigar (2) Cigarette Packs Per Day: 0.5 Cigarettes Per Day: 10 Years Smoked: 40 e-Cigarette/Vaping Use: Never Used Second Hand Smoke Exposure: Yes service: No Current occupational status: retired Cognitive needs: Yes (cane) Hearing needs: No Vision needs: Yes (Glasses) Review of Systems Const Denies daytime sleepiness, Denies difficulty sleeping, Denies snoring, Denies stops breathing during sleep and Denies weakness Card Denies chest pain, Denies rapid heart rate, Denies irregular heart rhythm, Denies claudication, Denies leg edema, Denies lightheadedness, Denies palpitations, Reports dyspnea, Denies dyspnea on exertion, Denies orthopnea, Denies paroxysmal nocturnal dyspnea and Denies slow heart rate Resp Denies cough, Reports dyspnea, Denies dyspnea on exertion and Denies snoring GI Reports no additional complaints, Denies hematochezia, Denies change in stool character and Denies dyspepsia Musc Denies abnormal gait, Denies muscle weakness and Denies numbness Neuro Denies Abnormal speech present, Denies abnormal gait, Denies numbness and Denies weakness Endo Denies palpitations Physical Exam Vital Signs: Last Vital Signs Pulse 68 04/10/25 09:34 BP 126/60 04/10/25 09:34 BMI result Body Mass Index 41.5 Const General: cooperative, comfortable, no acute distress, alert and awake Nutritional Appearance: obese Orientation/consciousness: patient oriented x3 Limitations: no limitations Neck Neck: Yes trachea midline, Yes supple and Yes no JVD Chest Chest palpation & inspection: other (Pacemaker pocket looks benign) Resp Effort & Inspection: normal respiratory effort Auscultation: clear to auscultation bilaterally Cardio Jugular venous distension: no JVD Palpation: normal PMI Rate: regular rate Rhythm: regular rhythm Heart sounds: S1 normal heart sound present, S2 normal heart sound present, no click, no gallops and no murmurs GI Inspection: Yes obesity Neuro General: patient oriented x3 and no focal motor deficits Speech: No Abnormal speech present Extrem General: Yes no clubbing, cyanosis or edema Assessment & Plan Assessment & Plan (1) Pacemaker: Onset Date: ~2022 Comment: ([employer] DCPP - placed 06/2022) Code(s): Z95.0 - Presence of cardiac pacemaker Category: Medical Plan: Cardiac pacemaker in-situ for complete heart block of unclear etiology. Patient is currently pacer dependent in the ventricle. Will continue monitor by remote telemetry. Follow up in the clinic in 6 months time. Pacemaker was readjusted for adequate functioning. (2) Nonischemic cardiomyopathy: Code(s): I42.8 - Other cardiomyopathies Category: Medical Plan: Prior nonischemic cardiomyopathy most likely suspected to be pacer mediated. Patient has had near normal LV ejection fraction on current neurohormonal modulation. Follow-up echocardiogram near future. Importance of neurohormonal modulation was discussed. Continue aggressive blood pressure control which is currently well optimized. Avoidance of cardiotoxic agent was discussed. Signs and symptoms of heart failure were discussed. Complete smoking cessation was advised. Advised to increase activity level and participate in weight loss program. (3) Nonsustained ventricular tachycardia: Code(s): I47.29 - Other ventricular tachycardia Category: Medical Plan: Nonsustained ventricular tachycardia noted on pacer telemetry in the past. Has no recurrence since then. Currently on carvedilol therapy which should be continued. Avoidance of stimulants was discussed. Will continue monitor pacer telemetry. Will follow up in the clinic in 6 months time, sooner PRN. Thank you for allowing me to partake in his care Orders: Orders CA echo transthorac w con Today I42.8 - Other cardiomyopathies Coding Level of Care Code Est Pt Level 4 (90280) Complex EM visit Add On G2211 Diagnoses Pacemaker Z95.0 Nonischemic cardiomyopathy I42.8 Nonsustained ventricular tachycardia I47.29
== END 2025-04-10 09:57 | disposition home or self-care (01) ==
LOC: HO.HCS 09:32
PROVIDERS: PCP Internal Medicine; Visit Provider Internal Medicine Cardiovascular Disease
DX: I42.8 Other cardiomyopathies (principal); Z95.0 Presence of cardiac pacemaker; I47.29 Other ventricular tachycardia
CPT/HCPCS: 93280; 99214; G2211

== ENCOUNTER → 2025-04-10 09:31 | Outpatient (BNVA) | payer MEDICARE, MEDICAID, SELFPAY | PROVIDERS: PCP Internal Medicine; Visit Provider Internal Medicine Cardiovascular Disease | DX: I42.8 Other cardiomyopathies (principal); I47.29 Other ventricular tachycardia; Z95.0 Presence of cardiac pacemaker | CPT/HCPCS: 93280; 99212 ==

== ENCOUNTER → 2025-04-23 12:35 | Outpatient (BNV) | payer MEDICARE, MEDICAID, SELFPAY | PROVIDERS: PCP Internal Medicine | DX: Z45.018 Encounter for adjustment and management of other part of cardiac pacemaker (principal) | CPT/HCPCS: 93294 ==

== ENCOUNTER 2025-04-29 09:25 | Day surgery (SDC) | payer MEDICARE, MEDICAID, SELFPAY ==
[2025-04-27 15:10] VITALS: BMI 41.3
--- NOTE | 2025-04-28 09:53 | HO.ANESPROP2 ---
Documented by User: Tiffanie Naidu NP 04/28/25 09:59 HPI - Anesthesia Eval Consult details Narrative: 65 yr old male for colonoscopy BMI 42 H/O nonsustained Vtach: at 04/10/25 [facility] [place] Dual-chamber Medtronic pacemaker in place. Programmed in DDDR at 60 beats per minute. Ventricular pacing 100% time. No arrhythmias noted. Atrial sensing was adequate. Atrial pacing thresholds adequate. Ventricular pacing thresholds adequate and reprogrammed to enhance battery life. Pacing lead impedance is stable. Battery life is at about 10 years Nonischemic cardiomyopathy: most likely suspected to be pacer mediated. Patient has had near normal LV ejection fraction on current neurohormonal modulation Tobacco use [place] Anesthesia Pre-Procedure Meds Is the patient on any of the following meds?: SGLT2 Inhib PMFSH Active Problems Active Problems: All Active Problems Positive colorectal cancer screening using Cologuard test (Acute) Colon cancer screening (Acute) Wound check, abscess (Acute) Back abscess (Acute) Cellulitis (Acute) Encounter for incision and drainage procedure (Acute) Left buttock abscess (Acute) Acute adenoviral follicular conjunctivitis (Acute) Nonischemic cardiomyopathy (Acute) Nonsustained ventricular tachycardia (Acute) MANSI (acute kidney injury) (Acute) Pacemaker (Acute ~2022) Complete heart block by electrocardiogram (Acute) History of syncope (Acute) Essential (primary) hypertension (Acute) Pure hypercholesterolemia (Acute) Type 2 diabetes mellitus without complications (Acute) Morbid obesity with BMI of 40.0-44.9, adult (Acute) [place] (obstructive sleep apnea) (Acute) Smoker (Acute) Schizophrenia, unspecified (Acute) Past Medical History Medical History Encounter for colorectal cancer screening using Cologuard test (08/26/24) Positive colorectal cancer screening using Cologuard test Colon cancer screening Wound check, abscess Back abscess Cellulitis Encounter for incision and drainage procedure Left buttock abscess Acute adenoviral follicular conjunctivitis Nonischemic cardiomyopathy Pacemaker (~2022) History of syncope Morbid obesity with BMI of 40.0-44.9, adult Insomnia Vitamin D deficiency Pure hypercholesterolemia Type 2 diabetes mellitus without complications Schizophrenia, unspecified Anxiety Essential (primary) hypertension Smoker [place] (obstructive sleep apnea) Morbid (severe) obesity due to excess calories Family History Family History Father No problems noted. Mother No problems noted. Family/Other FH: mental illness Mental health disorder Brother Substance use disorder Family history of problems with anesthesia: No Surgical History Surgical History Hx of colonoscopy History of tooth extraction History of cardiac pacemaker History of wisdom tooth extraction History of root canal procedure History of Problems with Anesthesia: No Social History Social History Household Members: None Housing: House Do you presently have visiting nurse or other home services: Yes (vna 3x wk) Alcohol intake: current Alcohol intake frequency: does not drink Alcohol type: hard liquor Patient Tobacco Use Status: Current everyday Tobacco user Tobacco use type: Cigarette Cigarette Packs Per Day: 0.5 Cigarettes Per Day: 10.0 Years Smoked: 40 Smoked in Last 30 Days: Yes e-Cigarette/Vaping Use: Never Used Second Hand Smoke Exposure: Yes Use of substances other than those prescribed or required for medical reasons: No Are you DNR?: No Advance Directives: No Advance Directives Information Provided: Yes service: No Current occupational status: retired Cognitive needs: Yes (cane) Hearing needs: No Vision needs: Yes (Glasses) Meds Allergies Allergy/AdvReac Type Severity Reaction Status Date / Time No Known Allergies Allergy Verified 04/29/25 10:32 Home Medications ?Medication ?Instructions ?Recorded ?Confirmed ?Last Taken ?Type aripiprazole 5 mg tablet 5 mg PO BEDTIME 02/18/22 04/27/25 06/13/22 History escitalopram oxalate 10 mg tablet 10 mg PO BEDTIME 02/18/22 04/27/25 06/13/22 History lorazepam 0.5 mg tablet 1 tab PO BEDTIME PRN Anxiety 05/05/22 04/27/25 05/05/22 History acetaminophen 325 mg tablet 325 mg PO TID PRN Pain 06/14/22 04/27/25 Unknown History (Tylenol) lisinopril 20 mg tablet 20 mg PO DAILY 03/07/24 04/27/25 Unknown History quetiapine 25 mg tablet 25 mg PO BEDTIME Sleep 09/02/24 04/27/25 Unknown History doxepin 25 mg capsule 25 mg PO BEDTIME 11/25/24 04/27/25 Unknown History Exam Height,Weight and Vital Signs: Height 5 ft 10 in Weight 130.635 kg Narrative Narrative: ECHO 02/2024 Conclusions: - The left ventricular systolic function is mildly decreased. The calculated ejection fraction is 51% by biplane method. - No obvious valvular pathology seen on this study. Device check 01/2025 Battery 9.8 yrs PM HEAD COOK paced 98.6% AP 14.1% Assessment and Plan Final Anesthetic Review Family History of Problems with Anesthesia: No History of Problems with Anesthesia: No Documented by User: Shayy Durand MD 04/29/25 10:37 [facility] Past Medical History Medical History Encounter for colorectal cancer screening using Cologuard test (08/26/24) Positive colorectal cancer screening using Cologuard test Colon cancer screening Wound check, abscess Back abscess Cellulitis Encounter for incision and drainage procedure Left buttock abscess Acute adenoviral follicular conjunctivitis Nonischemic cardiomyopathy Pacemaker (~2022) History of syncope Morbid obesity with BMI of 40.0-44.9, adult Insomnia Vitamin D deficiency Pure hypercholesterolemia Type 2 diabetes mellitus without complications Schizophrenia, unspecified Anxiety Essential (primary) hypertension Smoker [place] (obstructive sleep apnea) Morbid (severe) obesity due to excess calories Family History Family History Father No problems noted. Mother No problems noted. Family/Other FH: mental illness Mental health disorder Brother Substance use disorder Surgical History Surgical History Hx of colonoscopy History of tooth extraction History of cardiac pacemaker History of wisdom tooth extraction History of root canal procedure Social History Social History Household Members: None Housing: House Do you presently have visiting nurse or other home services: Yes (vna 3x wk) Alcohol intake: current Alcohol intake frequency: does not drink Alcohol type: hard liquor Patient Tobacco Use Status: Current everyday Tobacco user Tobacco use type: Cigarette Cigarette Packs Per Day: 0.5 Cigarettes Per Day: 10.0 Years Smoked: 40 Smoked in Last 30 Days: Yes e-Cigarette/Vaping Use: Never Used Second Hand Smoke Exposure: Yes Use of substances other than those prescribed or required for medical reasons: No Are you DNR?: No Advance Directives: No Advance Directives Information Provided: Yes service: No Current occupational status: retired Cognitive needs: Yes (cane) Hearing needs: No Vision needs: Yes (Glasses) Meds Allergies Allergy/AdvReac Type Severity Reaction Status Date / Time No Known Allergies Allergy Verified 04/29/25 10:32 Home Medications ?Medication ?Instructions ?Recorded ?Confirmed ?Last Taken ?Type aripiprazole 5 mg tablet 5 mg PO BEDTIME 02/18/22 04/27/25 06/13/22 History escitalopram oxalate 10 mg tablet 10 mg PO BEDTIME 02/18/22 04/27/25 06/13/22 History lorazepam 0.5 mg tablet 1 tab PO BEDTIME PRN Anxiety 05/05/22 04/27/25 05/05/22 History acetaminophen 325 mg tablet 325 mg PO TID PRN Pain 06/14/22 04/27/25 Unknown History (Tylenol) lisinopril 20 mg tablet 20 mg PO DAILY 03/07/24 04/27/25 Unknown History quetiapine 25 mg tablet 25 mg PO BEDTIME Sleep 09/02/24 04/27/25 Unknown History doxepin 25 mg capsule 25 mg PO BEDTIME 11/25/24 04/27/25 Unknown History Exam Airway Mallampati Class: IV TM Dist: >3cm Neck ROM: Full Loose/Missing/Broken Teeth: No Heart: RRR Lungs: CTA Assessment and Plan Assessment Anesthesia Assessment: Anesthesia Plan Discussed and Chart Reviewed Final Anesthetic Review NPO: Yes ASA Class: III Final Preanesthetic Review: Meds/Allgs Chart Reviewed, Consent Obtained/Reviewed and Anes Risks/Benef Reviewed Patient Risk: Intermediate Procedure Risk: Low Anesthetic Plan Anesthetic Plan: MAC: Disposition: Standard PACU
[2025-04-29 10:21] VITALS: BMI 42.9
--- NOTE | 2025-04-29 10:29 | MHC.SHP ---
Pre-Procedural Eval Section A - 24 Hr Update-Section A only Date of Service: 04/29/25 Section B - Complete if H&P > 30 days Chief Complaint: screening Relevant Family History (Specify if Yes): No Relevant Social History: Tobacco Use Present Medications: see Short Stay Collaborative assessment Medical History: Significant History (Encounter for colorectal cancer screening using Cologuard test (08/26/24) Positive colorectal cancer screening using Cologuard test Colon cancer screening Wound check, abscess Back abscess Cellulitis Encounter for incision and drainage procedure Left buttock abscess Acute adenoviral follicular conju) History of Previous Operations: Relevant previous surgery/procedure and date(s) ( Hx of colonoscopy History of tooth extraction History of cardiac pacemaker History of wisdom tooth extraction History of root canal procedure) Allergies: Allergies Allergy/AdvReac Type Severity Reaction Status Date / Time No Known Allergies Allergy Verified 04/10/25 09:37 Review of Systems Sugical H&P ROS: Negative: Constitution, Cardiovascular, Respiratory, Neurological, Psychiatric, Hem-Onc, Allergic/Immunologic, Gastrointestinal, Genitourinary, Musculoskeletal, Integumentary, Endocrine and Eyes/Ears/Nose/Throat Exam Surgical H&P Exam: Normal: HEENT, Normal: Heart, Normal: Lungs, Normal: Extremities, Normal: Abdomen, Normal: Skin and Normal: Neurological Plan Diagnosis/Plan: Unchanged I have reviewed the history and physical and performed a pertinent physical examination on my patient. No changes have occurred unless specified. Time Spent With Patient Time: Total time managing care of this patient today ____ minutes.
[2025-04-29 10:31] LABS: Glucose, Whole Blood 176 mg/dL (60-115)
[2025-04-29 10:33] VITALS: BP 162/91; PULSE 74; RESP 16; TEMP 36.4; O2SAT 95
[2025-04-29] MEDS: Lactated Ringers 1,000 ML 100 ML IVCONT (10:55)
--- NOTE | 2025-04-29 11:40 | HO.OPN-COLON ---
Colonoscopy Operative Note Operative Note Date of Service: 04/29/25 Narrative: Operative Information Procedure Description: Colonoscopy Indication: Screening Anesthesia: MAC COLONOSCOPY Instrument: Olympus variable stiffness pediatric scope 190L Colonoscopy Monitoring: Vital signs and clinical assessment, continuous EKG monitoring, Pulse oximetry, Carbon Dioxide monitoring and blood pressure monitoring were done throughout the procedure. Colon withdrawal time was 23 minutes. Procedure: The patient was placed in the left lateral decubitis position and pre-procedure medications were administered. After a digital rectal examination of the ano-rectum, the video colonoscope was inserted into the rectum and advanced through the colon to the cecum/TI. The colonoscope was slowly withdrawn in a retrograde panoramic fashion and the colon mucosa was carefully examined including a retroflexed view of the rectum. Findings and interventions are described below. Procedure Difficulty: moderate (used colowrap which helped) Findings: Terminal Ileum-normal Cecum: 10 mm flat polyp lifted with eleview and removed with cold snare, small residual area removed with cold forceps Ascending Colon: normal Transverse Colon -normal Descending Colon:normal Sigmoid Colon: normal Rectum: Retroflexion with small internal hemorrhoids seen, grade I, many hyperplastic appearing polyps, larger ones about 10 mm removed with cold snare and sent for analysis. Anorectum - normal Intervention: cold snare with eleview and cold snare alone Colon preparation: [place] Bowel Preparation Scale Right colon; 1-2 Transverse colon: 1-2 Left colon; 1-2 (0 = Unprepared colon segment with mucosa not seen due to solid stool that cannot be cleared. 1 = Portion of mucosa of the colon segment seen, but other areas of the colon segment not well seen due to staining, residual stool and/or opaque liquid. 2 = Minor amount of residual staining, small fragments of stool and/or opaque liquid, but mucosa of colon segment seen well. 3 = Entire mucosa of colon segment seen well with no residual staining, small fragments of stool or opaque liquid) Impression and Post Procedure Diagnosis: colon polyps internal hemorrhoids Plan: High fiber diet leaflet Avoid straining at stool, epsom salts and sitz bath, anusol supps or cream Repeat Colonoscopy in 6-12 months due to areas of staining and fair prep or earlier if clinically indicated --maybe next time 2 d clears Above findings were reviewed with the patient and relevant handouts were provided if indicated.
[2025-04-29 11:45] VITALS: BP 161/81; PULSE 86; RESP 14; TEMP 36.4; O2SAT 93
[2025-04-29 12:01] VITALS: BP 148/87; PULSE 83; RESP 15; TEMP 36.4; O2SAT 95
== END 2025-04-29 13:48 | disposition home or self-care (01) ==
PROVIDERS: PCP Internal Medicine; Visit Provider Internal Medicine Gastroenterology
PROC: 0DJD8ZZ Inspection of Lower Intestinal Tract, Via Natural or Artificial Opening Endoscopic (ICD-10-PCS; CPT 45378; principal; 2025-04-29 11:40)
DX: Z12.11 Encounter for screening for malignant neoplasm of colon (principal); E11.9 Type 2 diabetes mellitus without complications; K64.0 First degree hemorrhoids; D12.0 Benign neoplasm of cecum; K63.5 Polyp of colon
CPT/HCPCS: 45385; 45381; 82947; 88305; J2250; J2704

== ENCOUNTER → 2025-04-29 09:25 | Outpatient (BNV) | payer MEDICARE, MEDICAID, SELFPAY | PROVIDERS: PCP Internal Medicine; Visit Provider Internal Medicine Gastroenterology | DX: Z12.11 Encounter for screening for malignant neoplasm of colon (principal); K63.5 Polyp of colon; K64.0 First degree hemorrhoids | CPT/HCPCS: 45385 ==

== ENCOUNTER 2025-05-13 13:42 | Outpatient (AMB) | payer MEDICARE, MEDICAID, SELFPAY ==
[2025-05-13 13:46] VITALS: BP 132/74; PULSE 88; O2SAT 96; BMI 42.4
--- NOTE | 2025-05-13 13:46 | MHC.OFFVIS ---
Vital Signs 05/13/25 13:46 Height 5 ft 10 in Weight 295 lb 6.711 oz BMI 42.4 BP 132/74 Blood Pressure Location Lt brachial Position Sitting Pulse 88 Pulse Source Pulse Oximeter Pulse Oximetry (%) 96 Oxygen Delivery Method Room Air Intake Visit Reasons: COPD Intake Note: pt is here for follow up and states feeling okay, except for shoulders, using cpap every night. Pool Installer Required: No Pool Installer Services: Pool Installer Offered & Declined Wellness Ambassador: Wellness Ambassador offered & declined Allergies No Known Allergies Allergy (Verified 05/13/25 14:02) Medication List - Last Reconciled 05/13/25 by Magdlaena Tony MD acetaminophen (Tylenol) 325 mg PO TID PRN aripiprazole 5 mg PO BEDTIME blood sugar diagnostic (Solvoyo Ultra Test strips) As directed 2 times per day blood-glucose meter (Solvoyo Ultra2 Meter) As directed to test BS 2 times per day carvedilol 12.5 mg PO BID cetirizine 10 mg PO DAILY doxepin 25 mg PO BEDTIME empagliflozin (Jardiance) 25 mg PO DAILY ergocalciferol (vitamin D2) 1,250 mcg PO SA@0900 escitalopram oxalate 10 mg PO BEDTIME fluticasone propionate 50 mcg/actuation (Flonase Allergy Relief) 1 spray intranasal DAILY lancets ([employer] Delica Safety Lancet) As directed 2 times per day lisinopril 20 mg PO DAILY lorazepam 1 tab PO BEDTIME PRN metformin 1,000 mg (2 x 500 mg) PO BID pioglitazone 15 mg PO DAILY quetiapine 25 mg PO BEDTIME simvastatin 40 mg PO DAILY sodium,potassium,mag sulfates 17.5-3.13-1.6 gram (Suprep Bowel Prep Kit) DILUTE; drink 1/2 at 6-8 pm and half at 11 PM- 1AM tramadol 50 mg PO BEDTIME PRN 30 days Do you need a note to return to daycare/school/sports/work: No HPI HPI COPD: Details: This 65 years old gentleman with morbid obesity and history of obstructive sleep apnea for many years, comes for his routine six-month visit. He say is that he feels very comfortable with the CPAP and sleeps good. And fact he would not be able to sleep without putting on the CPAP. He is very slow in walking, does not do any physical exercise, tries to watch his diet but he has not been able to lose weight. Breathing has been okay. Currently he has a small egg-sized sebaceous cyst on the left side of the scalp, which becomes tense and painful sometimes. I told him that he needs to visit his primary care physician and talk about the cyst, he may need to be referred to general surgery for removal of the cyst. Breathing has been okay He does use fluticasone nasal spray and cetirizine 10 mg p.r.n. for nasal congestion [facility] Medical History Encounter for colorectal cancer screening using Cologuard test (08/26/24) Positive colorectal cancer screening using Cologuard test Colon cancer screening Wound check, abscess Back abscess Cellulitis Encounter for incision and drainage procedure Left buttock abscess Acute adenoviral follicular conjunctivitis Nonischemic cardiomyopathy Pacemaker (~2022) History of syncope Morbid obesity with BMI of 40.0-44.9, adult Insomnia Vitamin D deficiency Pure hypercholesterolemia Type 2 diabetes mellitus without complications Schizophrenia, unspecified Anxiety Essential (primary) hypertension Smoker [place] (obstructive sleep apnea) Morbid (severe) obesity due to excess calories Surgical History Hx of colonoscopy (04/28/25) History of tooth extraction History of cardiac pacemaker History of wisdom tooth extraction History of root canal procedure Family History Father No problems noted. Mother No problems noted. Family/Other FH: mental illness Mental health disorder Brother Substance use disorder Social History Household Members: None Housing: House Do you presently have visiting nurse or other home services: Yes (vna 3x wk) Alcohol intake: current Alcohol intake frequency: does not drink Alcohol type: hard liquor Patient Tobacco Use Status: Current everyday Tobacco user Tobacco use type: Cigarette Cigarette Packs Per Day: 0.5 Cigarettes Per Day: 10.0 Years Smoked: 40 e-Cigarette/Vaping Use: Never Used Second Hand Smoke Exposure: Yes service: No Current occupational status: retired Cognitive needs: Yes (cane) Hearing needs: No Vision needs: Yes (Glasses) Review of Systems Const All systems reviewed & are unremarkable except as noted in HPI and below Eyes Reports no additional complaints ENT Reports dizziness (Nonspecific) and Reports nasal congestion (Mild off and on) Card Denies chest pain, Denies irregular heart rhythm, Denies leg edema and Reports dyspnea on exertion (Mild) Resp Reports cough, Reports dyspnea on exertion (Mild) and Reports wheezing GI Reports no additional complaints Reports no additional complaints Musc Reports back pain Skin/Breast Reports system reviewed and no additional complaints, except as documented Neuro Reports dizziness (Nonspecific) Psych Reports anxiety, Reports depression and Reports mood swings Endo Reports no additional complaints and Reports other (Being treated for diabetes mellitus) Abner/Lymph Reports no additional complaints Aller/Immun Reports no additional complaints and Reports wheezing Physical Exam Vital Signs: Last Vital Signs Pulse 88 05/13/25 13:46 BP 132/74 05/13/25 13:46 Pulse Ox 96 05/13/25 13:46 Oxygen Delivery Method Room Air 05/13/25 13:46 BMI result Body Mass Index 42.4 Const General: comfortable, no acute distress, alert and awake Orientation/consciousness: patient oriented x3 HEENT Head: Yes normal to inspection General nose exam: No nasal polyps present and No nasal discharge present Face and sinus: Yes sinuses nontender Mouth: oropharynx normal Throat: Yes posterior oropharynx normal Eyes Sclerae: scleral abnormal (LEFT EYE HAS SCLERAL REDNESS AND CONGESTION.) Neck Neck: Yes normal visual inspection, Yes no lymphadenopathy, Yes trachea midline and Yes no JVD Thyroid: Thyroid normal Chest Chest palpation & inspection: normal inspection of the chest, normal palpation of entire chest wall, no tenderness and other (Pacemaker battery in left pectoral area) Resp Effort & Inspection: normal respiratory effort Auscultation: clear to auscultation bilaterally, no crackles, no wheezes and diminished lung sounds (Diminished over the basilar areas) Cardio Palpation: normal PMI Rate: regular rate Rhythm: regular rhythm Heart sounds: no gallops and no murmurs GI Palpation (GI): Soft to palpation, nontender, No hepatosplenomegaly present, no masses and Other GI palpation findings present (Abdomen is grossly obese and protuberant) Auscultation: normal bowel sounds Back/Spine/Pelvis Thoracic/Lumbar Spine: thoracic and lumbar spine normal to inspection and thoraco-lumbar ROM limited Skin General skin exam: no rashes or lesions noted Neuro General: patient oriented x3 and no focal motor deficits Cranial nerves: Yes CN's II-XII intact bilaterally Extrem General: Yes normal to inspection, Yes no clubbing, cyanosis or edema and Yes no calf tenderness Psych Appearance: grossly normal, well kempt and other (Quiet and slow in conversation) Speech and movement: Normal speech and movement present Results Reviewed Results Reviewed: Compliance report reviewed. He has used 30/30 nights., 100% He is on CPAP of 20 cms . Average use it per night. 8 hours 6 minute Residual AHI 4.6 Assessment & Plan Assessment & Plan (1) Morbid obesity with BMI of 40.0-44.9, adult: Comment: BMI = 42.4 He has had morbid obesity throughout his adult life. Has not been able to lose weight. The weight remains unchanged. Code(s): E66.01 - Morbid (severe) obesity due to excess calories; Z68.41 - Body mass index [BMI] 40.0-44.9, adult Category: Medical Plan: Talked about the diet and need to do some exercise. In reality he is not able to do much exercise or even walk too much. Weight reduction is not expected. (2) [place] (obstructive sleep apnea): Comment: Chronic problem. Very COMPLIANT , He got new CPAP machine which is working well. No issues with the mask or CPAP machine. Code(s): G47.33 - Obstructive sleep apnea (adult) (pediatric) Category: Medical Plan: Continue using the CPAP every night. (3) Smoker: Comment: Continues to smoke. Currently smoking about half pack of cigarettes a day Risks of continued smoking explained . Code(s): F17.200 - Nicotine dependence, unspecified, uncomplicated Category: Social Hx Plan: Again talked to him and advise that he should cut down or stop completely. Due to his underlying Schizophrenic disorder , it is hard for him to quit completely . Coding Level of Care Code Est Pt Level 3 (75387) Diagnoses Morbid obesity with BMI of 40.0-44.9, adult E66.01; Z68.41 [place] (obstructive sleep apnea) G47.33 Smoker F17.200
--- OUTSIDE RECORDS SUMMARY | 2025-05-13 21:15 | XMS_ITS | Clinical Summary ---
Author Organization [facility] Address [address] [place] [phone] Phone Care Team Providers Care Wave Guide Assembler Name Role Phone Guerda Edge MD Primary [...] file Medical Devices Not on file Insurance [facility] MEDICARE PART A & B [place] & B [facility] PART [facility] & [place] & B Member Subscriber Plan / Payer (Ef fective 1982-Present) Name:Adalberto Roes Member ID:[id number] Relation to Subscriber:Self Name:Adalberto Rose Subscriber ID:[id number] Payer ID:[id number] Group ID:Not on file Type:Medicare Address: [employer] [facility] MEDICARE PART A & B Care Teams Wave Guide Assembler Relationship Specialty Start Date End Date Guerda Edge MD [address] [place] [address] PCP - General Cardiology 02/07/23 Additional Source Comments The information contained in this document represents components of the legal health record. It is not the complete legal health record.[facility]
== END 2025-05-13 14:02 | disposition home or self-care (01) ==
LOC: HO.HPS 13:42
PROVIDERS: PCP Internal Medicine; Visit Provider Internal Medicine
DX: E66.01 Morbid (severe) obesity due to excess calories (principal); Z68.41 Body mass index [BMI] 40.0-44.9, adult; G47.33 Obstructive sleep apnea (adult) (pediatric); F17.200 Nicotine dependence, unspecified, uncomplicated
CPT/HCPCS: 99213

== ENCOUNTER → 2025-05-13 13:42 | Outpatient (BNVA) | payer MEDICARE, MEDICAID, SELFPAY | PROVIDERS: PCP Internal Medicine; Visit Provider Internal Medicine | DX: G47.33 Obstructive sleep apnea (adult) (pediatric) (principal); E66.01 Morbid (severe) obesity due to excess calories; F17.210 Nicotine dependence, cigarettes, uncomplicated; Z71.3 Dietary counseling and surveillance; Z71.82 Exercise counseling; Z68.41 Body mass index [BMI] 40.0-44.9, adult; Z99.89 Dependence on other enabling machines and devices | CPT/HCPCS: 99212 ==

== ENCOUNTER → 2025-05-14 10:54 | Outpatient (REF) | payer MEDICARE, MEDICAID, SELFPAY ==
--- NOTE | 2025-05-14 10:57 | CA_ITS ---
Transthoracic Echocardiogram Patient (Last, First, Middle): Adalberto Rose M Gender: Male Date of : 1960 Age: 65 Procedure Date: 05/14/2025 Procedure Type: Transthoracic Echocardiogram Location: OP Height: 177.8 cm Weight: 133.81 kg BSA: 2.46 m2 Heart Rate: 83 bpm BP: 130 / 68 mmHg Dietetic Assistant: TO Referring MD: Matthias Marinelli MD Bryologist: Matthias Marinelli MD Symptoms: I42.8 - Other cardiomyopathies Study Quality: Technically Difficult ECG Rhythm: Ventriculary paced rhythm Conclusions: - 1. Technically difficult study due despite use of contrast agent 2. LV ejection fraction appears to be mildly to moderately reduced with LVEF of 40-45% with grade 1 diastolic dysfunction is presence of mildly increased wall thickness 3. Poor visualization of cardiac valvular structure with normal cardiac valvular Dopplers 4. Upper limits of normal RV systolic pressure Findings Procedure Information Contrast agent, definity, is being given per protocol without apparent complications. Left Ventricle Normal left ventricular cavity size. There is mildly increased left ventricular wall thickness. The left ventricular systolic function is mild to moderately decreased. The visually estimated ejection fraction is between 40-45%. There is paradoxical septal motion consistent with a right ventricular pacemaker. Spectral Doppler is indicative of an impaired relaxation filling pattern. E/E prime ratio is <8, consistent with normal filling pressures. Evidence suggests grade I (mild) diastolic dysfunction. Right Ventricle The right ventricle was not well visualized. There is a pacemaker wire seen in the right ventricle. Atria The left atrium was not well visualized. Interatrial shunt cannot be excluded. The right atrium was not well visualized. Aortic Valve The aortic valve was not well visualized. There is no aortic valve stenosis. There is no aortic valve regurgitation. Mitral Valve The mitral valve was not well visualized. There is trace mitral valve regurgitation. There is no mitral valve stenosis. Pulmonic Valve The pulmonic valve was not well visualized. Tricuspid Valve The tricuspid valve was not well visualized. There is trace tricuspid valve regurgitation. The right ventricular systolic pressure is 35 mmHg. Normal right atrial pressure. There is no evidence of pulmonary hypertension. Great Vessels The aorta was not well visualized. The pulmonary artery was not well visualized. There is no dilatation of the ascending aorta. Venous The inferior vena cava is normal in size and collapses greater than 50% with inspiration. Pericardium/Pleural The pericardium was not well visualized. Prior Study Comparison Changes noted compared to prior study dated: 02/06/2024. LV function has reduced Measurements 2D Linear Measurements IVSd: 1.31 0.6-0.9/0.6-1.0 cm LVIDd: 5.09 3.9-5.3/4.2-5.9 cm LVIDd Index: 2.07 2.4-3.2/2.2-3.1 cm/m2 LVIDs: 3.98 2.0-3.6 cm LVPWd: 1.24 0.7-1.1 cm LV Mass: 326.63 67-162/88-224 g LV Mass Index: 132.78 43-95/49-115 g/m2 LVOT Diam: 2.30 3.0+(-)1.3 cm 2D Systolic Function EF 4C: 40.90 >55% EF 2C: 43.50 >55% EF BiP: 39.50 >55% Mitral Valve MV Pk E: 0.57 MV PK A: 0.84 MV Decel Time: 133.00 E/A: 0.70 E'Lateral: 4.57 E'Medial: 6.85 E/E' Med: 8.40 E/E' Lat: 12.60 PHT: 39.00 MVA PHT: 5.64 Decel Phillips: 4.32 Aortic Valve AoV Pk Hernando: 1.32 AoV Mn Hernando: 0.93 AoV VTI: 0.25 AoV Pk Grad: 7.00 Aov Mn Grad: 4.00 KWAME Cont.VTI: 2.72 LVOT LVOT Pk Hernando: 0.78 LVOT Mn Hernando: 0.57 LVOT VTI: 0.16 LVOT Pk Grad: 2.00 LVOT Mn Grad: 1.00 LVOT Diam: 2.30 LVOT Area: 4.15 Diastolic Function MV Pk E: 0.57 MV Pk A: 0.84 E/A: 0.70 E'Medial: 6.85 E/E' Med: 8.40 E' Laterial: 4.57 E/E' Lat: 12.60 Right Ventricle TAPSE (mm): 29.60 TVS' Hernando: 18.00 Tricuspid Valve TR Pk Hernando: 2.82 TR Pk Grad: 32.00 RA Press: 3.00 RVSP: 35.00 Great Vessels Aorta Sinus of Valsalva: 3.08 2.0-3.5 cm Ao Asc: 3.20 2.1-3.4 cm Updated in Other Vendor System with Status of Final Matthias Marinelli MD electronically signed on 05/15/2025 4:26:30 PM with status of Final
== END ==
LOC: HO.CARD 10:54
PROVIDERS: PCP Internal Medicine; Visit Provider Internal Medicine Cardiovascular Disease
DX: I42.8 Other cardiomyopathies (principal)
CPT/HCPCS: 93306; Q9957

== ENCOUNTER → 2025-05-14 10:57 | Outpatient (BNV) | payer MEDICARE, MEDICAID, SELFPAY | PROVIDERS: PCP Internal Medicine; Visit Provider Internal Medicine Cardiovascular Disease | DX: I42.8 Other cardiomyopathies (principal) | CPT/HCPCS: 93306 ==

== ENCOUNTER 2025-05-25 14:09 | Outpatient (AMB) | payer MEDICARE, MEDICAID, SELFPAY ==
[2025-05-25 14:12] VITALS: BP 124/74; PULSE 72; BMI 42.7
--- NOTE | 2025-05-25 14:12 | MHC.OFFVIS ---
Vital Signs 05/25/25 14:12 Height 5 ft 10 in Weight 297 lb 9.985 oz BMI 42.7 BP 124/74 Blood Pressure Location Lt brachial Position Sitting Pulse 72 Intake Visit Reasons: f/u echo results Intake Note: Follow-up after echo with [facility] - [facility] With Life check feeling good Chiropractor Sole Practitioner Required: No Allergies No Known Allergies Allergy (Verified 05/13/25 14:02) Medication List - Last Reconciled 05/25/25 by Matthias Marinelli MD acetaminophen (Tylenol) 325 mg PO TID PRN aripiprazole 5 mg PO BEDTIME blood sugar diagnostic ([facility] Ultra Test strips) As directed 2 times per day blood-glucose meter ([facility] Ultra2 Meter) As directed to test BS 2 times per day carvedilol 12.5 mg PO BID cetirizine 10 mg PO DAILY doxepin 25 mg PO BEDTIME empagliflozin (Jardiance) 25 mg PO DAILY ergocalciferol (vitamin D2) 1,250 mcg PO SA@0900 escitalopram oxalate 10 mg PO BEDTIME fluticasone propionate 50 mcg/actuation (Flonase Allergy Relief) 1 spray intranasal DAILY lancets ([employer] Delica Safety Lancet) As directed 2 times per day lisinopril 20 mg PO DAILY lorazepam 1 tab PO BEDTIME PRN metformin 1,000 mg (2 x 500 mg) PO BID pioglitazone 15 mg PO DAILY quetiapine 25 mg PO BEDTIME simvastatin 40 mg PO DAILY sodium,potassium,mag sulfates 17.5-3.13-1.6 gram (Suprep Bowel Prep Kit) DILUTE; drink 1/2 at 6-8 pm and half at 11 PM- 1AM tramadol 50 mg PO BEDTIME PRN 30 days HPI Comments Details: Dre comes for follow-up after recent echocardiogram which showed reduction in LV ejection fraction to 40-45%. That has gradually reduction in his EF. That has no new symptoms from cardiac perspective. He comes to discuss the findings. He denies any recent worsening shortness of breath, orthopnea, PND. Complains of back pain after sudden heavy movement recently. Denies any lightheadedness, syncope. Currently taking all his medications. [facility] Medical History Encounter for colorectal cancer screening using Cologuard test (08/26/24) Positive colorectal cancer screening using Cologuard test Colon cancer screening Wound check, abscess Back abscess Cellulitis Encounter for incision and drainage procedure Left buttock abscess Acute adenoviral follicular conjunctivitis Nonischemic cardiomyopathy Pacemaker (~2022) History of syncope Morbid obesity with BMI of 40.0-44.9, adult Insomnia Vitamin D deficiency Pure hypercholesterolemia Type 2 diabetes mellitus without complications Schizophrenia, unspecified Anxiety Essential (primary) hypertension Smoker [place] (obstructive sleep apnea) Morbid (severe) obesity due to excess calories Surgical History Hx of colonoscopy (04/28/25) History of tooth extraction History of cardiac pacemaker History of wisdom tooth extraction History of root canal procedure Family History Father No problems noted. Mother No problems noted. Family/Other FH: mental illness Mental health disorder Brother Substance use disorder Social History Household Members: None Housing: House Do you presently have visiting nurse or other home services: Yes (vna 3x wk) Alcohol intake: current Alcohol intake frequency: does not drink Alcohol type: hard liquor Patient Tobacco Use Status: Current everyday Tobacco user Tobacco use type: Cigarette Cigarette Packs Per Day: 0.5 Cigarettes Per Day: 10.0 Years Smoked: 40 e-Cigarette/Vaping Use: Never Used Second Hand Smoke Exposure: Yes service: No Current occupational status: retired Cognitive needs: Yes (cane) Hearing needs: No Vision needs: Yes (Glasses) Review of Systems Const Denies chills, Denies fatigue, Denies fever(s), Denies frequent falls, Denies weakness, Denies weight gain and Denies weight loss ENT Denies dizziness Card Denies chest pain, Denies leg edema, Denies lightheadedness, Denies palpitations, Denies dyspnea, Denies dyspnea on exertion, Denies orthopnea and Denies other (loss of consciousness) Resp Denies cough, Denies dyspnea and Denies dyspnea on exertion GI Denies hematochezia and Denies change in stool character Musc Denies abnormal gait, Denies muscle weakness, Denies numbness, Denies radiating pain into limb and Denies tingling Neuro Denies Abnormal speech present, Denies abnormal gait, Denies dizziness, Denies frequent falls, Denies numbness, Denies tingling and Denies weakness Endo Denies fatigue and Denies palpitations Physical Exam Vital Signs: Last Vital Signs Pulse 72 05/25/25 14:12 BP 124/74 05/25/25 14:12 BMI result Body Mass Index 42.7 Const General: cooperative, comfortable, no acute distress, alert and awake Nutritional Appearance: obese Orientation/consciousness: patient oriented x3 Limitations: no limitations Neck Neck: Yes trachea midline, Yes supple and Yes no JVD Chest Chest palpation & inspection: other (Pacemaker pocket looks benign) Resp Effort & Inspection: normal respiratory effort Auscultation: clear to auscultation bilaterally Cardio Jugular venous distension: no JVD Palpation: normal PMI Rate: regular rate Rhythm: regular rhythm Heart sounds: S1 normal heart sound present, S2 normal heart sound present, no click, no gallops and no murmurs GI Inspection: Yes obesity Neuro General: patient oriented x3 and no focal motor deficits Speech: No Abnormal speech present Extrem General: Yes no clubbing, cyanosis or edema Office Procedures Cardiac Device Check Cardiac Device Check Details: Dual-chamber Medtronic pacemaker in place. Programmed in DDDR at 60 beats per minute. Ventricular pacing 96.7% of time with frequent PVCs noted. Atrial sensing is adequate. Atrial and ventricular pacing thresholds adequate. Pacing lead impedance is stable. Battery life is 9.5 years 58826-ME Cardiac Device Check, pacemaker dual lead Procedure code (CPT) selection complete Assessment & Plan Assessment & Plan (1) Nonischemic cardiomyopathy: Code(s): I42.8 - Other cardiomyopathies Category: Medical Plan: Nonischemic cardiomyopathy with [id number] LV systolic dysfunction without overt symptoms or signs of congestive heart failure. This is most likely related to RV pacing. Will change him to valsartan 80 mg b.i.d. from lisinopril and eventually if he tolerates in 1 weeks switch him to Entresto and uptitrate to maximally tolerated dose. He will be seen in the clinic every week for blood pressure check. After switching from Diovan to Entresto will need a basic metabolic profile in 1 week's time. Continue carvedilol therapy. Continue aggressive blood pressure control. Signs and symptoms of heart failure were discussed. Advised to maintain adequate function capacity. (2) Pacemaker: Onset Date: ~2022 Comment: (Medtronic DCPP - placed 06/2022) Code(s): Z95.0 - Presence of cardiac pacemaker Category: Medical Plan: Cardiac pacemaker in-situ for complete heart block. No underlying other structural heart disease were noted. Continue to monitor echocardiogram in 3 months limited. Pacemaker is otherwise working well. Will follow up in the clinic in 3 months time, sooner PRN. Thank you for allowing me to partake in his care Medications: New valsartan 80 mg PO BID 60 tabs 5RF Coding Level of Care Code Est Pt Level 4 (98238) Diagnoses Nonischemic cardiomyopathy I42.8 Pacemaker Z95.0 CPT Codes Cardiac Device Check - Cardiac Device 2: 21448-XV Cardiac Device Check, pacemaker dual lead ([id number])
--- OUTSIDE RECORDS SUMMARY | 2025-05-25 17:38 | XMS_ITS | Clinical Summary ---
Author Organization [facility] Address [address] [place] [id number] Phone Care Team Providers Care Mud Mill Tender Name Role Phone Guerda Edge MD Primary Care Provider [phone] Social History Tobacco Use Types Packs/Day Years [...] file Medical Devices Not on file Insurance [facility] MEDICARE PART A & [place] [facility] [place] B Member Subscriber Plan / Payer (Ef fective 1982-Present) Name:Adalberto Rose Member ID:[id number] Relation to Subscriber:Self Name:Adalberto Rose Subscriber ID:[id number] Payer ID:[id number] Group ID:Not on file Type:Medicare Address: [employer] [address] [id number] [facility] MEDICARE PART A & B Care Teams Mud Mill Tender Relationship Specialty Start Date End Date Guerda Edge MD [address] [place] [address] PCP - General Cardiology 02/07/23 Additional Source Comments The information contained in this document represents components of the legal health record. It is not the complete legal health record.[facility]
== END 2025-05-25 14:31 | disposition home or self-care (01) ==
LOC: HO.HCS 14:10
PROVIDERS: PCP Internal Medicine; Visit Provider Internal Medicine Cardiovascular Disease
DX: I42.8 Other cardiomyopathies (principal); Z95.0 Presence of cardiac pacemaker
CPT/HCPCS: 93280; 99214

== ENCOUNTER → 2025-05-25 14:09 | Outpatient (BNVA) | payer MEDICARE, MEDICAID, SELFPAY | PROVIDERS: PCP Internal Medicine; Visit Provider Internal Medicine Cardiovascular Disease | DX: I42.8 Other cardiomyopathies (principal); Z95.0 Presence of cardiac pacemaker | CPT/HCPCS: 93280; 99212 ==